=== PATIENT | male | born 1945 | race Caucasian/White ===

== ENCOUNTER → 2017-01-05 | Outpatient (CLI) | payer OTHER, MEDICARE ==
[~2017-01-05] MED LIST: AMOX500T3 PO; ASPI325T39 PO; ATOR-14 PO; CHOL200010 PO; COEN100C3 PO; CRAN500C2 PO; CYAN100020 PO; CYCL5TAB PO; FBR PO; FRRS300 PO; GLIM4TAB PO; HYDR-4383 PO; INSU1.2I SC; INSU100I2 SC; ISOS60TA25 PO; LEVO150T9 PO; LPR25 PO; LXP10 PO; MELO15TA4 PO; METF500T5 PO; MISCTAB88 PO; MULT-506 PO; NRV/5 PO; NTRGSL/4 UT; NYSS/ PO; OXYC-609 PO; PANT40TA2 PO; PLQ200 PO; PRD/1 PO; PRED-301 PO; SUCR1TAB PO; ZINC50TA3 PO
[2017-01-05 12:43] LABS: URINE APPEARANCE CLEAR (CLEAR); URINE BILIRUBIN NEG (NEG); URINE COLOR YELLOW; URINE EPITHELIAL CELL AUTO 0-5 /lpf (0-5); URINE NITRITE NEG (NEG); UROBILINOGEN NEG (NEG)
[2017-01-05 12:47] LABS: BASO % 2.2 %; BASO ABS # 0.11 K/uL (0-0.2); COMPLETE YES; EOS % 4.6 %; HEMATOCRIT 42.6 % (42-52); IG% 0.2 %; LYMPH % 30.6 %; LYMPH ABS # 1.52 K/uL (1.2-3.4); MEAN CELL VOLUME 87.3 fL (80-100); MEAN CORPUSCULAR HEMOGLOBIN 28.7 pg (25-34); MEAN CORPUSCULAR HGB CONC 32.9 g/dl (32-36); MEAN PLATELET VOLUME 11.7 fL (7.4-10.4); MONO % 9.7 %; NEUT % 52.7 %; PLATELET COUNT 200 K/uL (130-400); RED BLOOD COUNT 4.88 M/uL (4.7-6.1); WHITE BLOOD COUNT 4.96 K/uL (4.8-10.8)
[2017-01-05 12:54] LABS: MANUAL MICROSCOPIC REQUIRED? NO; REVIEW REQ? NO
[2017-01-05 13:01] LABS: ALT/SGPT 32 U/L (12-78)
[2017-01-05 13:12] LABS: ALKALINE PHOSPHATASE 63 U/L (45-117); AST/SGOT 20 U/L (15-37)
[2017-01-05 14:08] LABS: ESTIMATED AVERAGE GLUCOSE 157 mg/dl; HA1C FLAG Normal (Normal)
[2017-01-05 14:48] LABS: RATIO 137.4 mcg/mg (0-30.0)
[2017-01-10 02:35] LABS: ANTI-CENTROMERE AB <1.0 NEG AI (<1.0 NEG); ANTI-SS-A <1.0 NEG AI (<1.0 NEG); ANTI-SS-B <1.0 NEG AI (<1.0 NEG); DNA ds CRITHIDIA POSITIVE (NEGATIVE); Sm Antibody <1.0 NEG AI (<1.0 NEG)
== END | disposition home or self-care (01) ==
LOC: C.LABPBG 08:31
PROVIDERS: ATTEND Internal Medicine
DX: Z00.00 Encounter for general adult medical examination without abnormal findings (principal); E03.9 Hypothyroidism, unspecified; R76.8 Other specified abnormal immunological findings in serum; M51.36 Other intervertebral disc degeneration, lumbar region; M79.671 Pain in right foot; Z79.52 Long term (current) use of systemic steroids; Z79.899 Other long term (current) drug therapy; M32.9 Systemic lupus erythematosus, unspecified; I10 Essential (primary) hypertension; E11.65 Type 2 diabetes mellitus with hyperglycemia

== ENCOUNTER → 2017-01-14 | Outpatient (CLI) | payer OTHER, MEDICARE ==
--- NOTE | 2017-01-14 15:19 | DIAGNOSTIC IMAGING REPORT ---
TWO VIEW CHEST CLINICAL HISTORY: Dyspnea. FINDINGS: PA and lateral chest radiographs are compared to study dated 12/23/2014 and correlated with chest CT dated 05/14/2008. The examination is degraded by large body habitus. The patient is status post midline sternotomy and aortic valve replacement. The heart is enlarged and there is atherosclerotic calcification of the thoracic aorta. Chronic interstitial thickening is unchanged. There is no airspace consolidation or large pleural effusion. There is no pneumothorax. The skeletal structures are osteopenic. The bony thorax appears intact. Degenerative change and hyperkyphosis are noted throughout the thoracic spine. Cholecystectomy clips are seen in the right upper quadrant. IMPRESSION: Cardiomegaly with no active disease in the chest. Electronically signed by: Rian Mcdonald M.D. 01/14/2017 3:17 PM Dictated Date/Time: 01/14/2017 3:16 PM
== END | disposition home or self-care (01) ==
LOC: C.RAD1850 14:50
PROVIDERS: ATTEND Physician Assistant Medical
DX: R06.02 Shortness of breath (principal); I51.7 Cardiomegaly

== ENCOUNTER → 2017-02-02 | Outpatient (CLI) | payer OTHER, MEDICARE ==
[2017-02-02 16:23] LABS: LYME DISEASE AB IGG NEG (NEG); LYME DISEASE AB IGM NEG (NEG)
== END | disposition home or self-care (01) ==
LOC: C.LAB1850 14:08
PROVIDERS: ATTEND Internal Medicine
DX: M19.90 Unspecified osteoarthritis, unspecified site (principal)

== ENCOUNTER → 2017-03-14 | Day surgery (SDC) | payer OTHER, MEDICARE ==
[2017-03-04 08:13] VITALS: BMI 45.0
[~2017-03-14] VITALS: Ht 185.4 cm; Wt 156.4 kg
[~2017-03-14] MED LIST changes: +ATROPINE SULFATE 0.1 MG/ML 5ML SYR IV PRN; +EpHEDrine SULFATE INJ 50 MG/ML AMP IV PRN; -FBR PO; -GLIM4TAB PO; +LIDOCAINE HCL 2% 2 ML VIAL (20MG/ML) ONE; +MIDAZOLAM HCL 1 MG/ML 2ML VIAL ONE; -NYSS/ PO; -PRED-301 PO; +PROPOFOL IV EMULSION 10 MG/ML 20 ML VIAL IV ONE; +SODIUM CHLORIDE 0.9% 500ML 500 ML IV ONE; -ZINC50TA3 PO
[2017-03-14 07:51] VITALS: Ht 185.4 cm; Wt 156.4 kg
[2017-03-14 08:12] VITALS: TEMP 37
--- NOTE | 2017-03-14 08:32 | Endo History and Physical ---
History & Physical Date of Service: Mar 14, 2017. Chief Complaint: History of colon polyps Referring Physician: Dr. Barros History of Present Illness 72 yo CM who presents for colonoscopy secondary to history of colon polyps. Past Medical History Diabetes, Arthritis, Reflux, Heart Disease, Thyroid Disease, Depression Past Surgical History Hx Cardiac Surgery: Yes (HEART CATH, NO STENTS - AORTIC VALVE REPLACEMENT 2012) Hx Internal Defibrillator: No Hx Pacemaker: No Hx Abdominal Surgery: Yes (OPEN ZENAIDA, COLONOSCOPY) Hx of Implantable Prosthesis: No Hx Post-Op Nausea and Vomiting: No Hx Cancer Surgery: No Hx Thoracic Surgery: No Hx Orthopedic: No Hx Urinary Tract Surgery: No Family History None Social History Smoking Status: Former Smoker Hx Substance Use: Yes (SEE MED REC) Hx Alcohol Use: No Allergies Coded Allergies: Bacitracin (Verified Allergy, Unknown, Skin Irritation, 03/14/17) Erythromycin (Verified Allergy, Unknown, HIVES/HIVES, 03/14/17) Iodinated Diagnostic Agents (Verified Allergy, Unknown, SEVERE NAUSEA/ VOMITING, 03/14/17) Morphine (Verified Allergy, Unknown, severe n/v, 03/14/17) Neomycin (Verified Allergy, Unknown, Skin Irritation, 03/14/17) Polymyxin B (Verified Allergy, Unknown, Skin Irritation, 03/14/17) Macrolides (Verified Adverse Reaction, Mild, CHILLS, HEADACHE, "MADE HIM SICK", 03/14/17) Amoxicillin (Verified Adverse Reaction, Unknown, CHILLS, HEADACHE, "MADE HIM SICK", 03/14/17) Clavulanic Acid (Verified Adverse Reaction, Unknown, CHILLS, HEADACHE, "MADE HIM SICK", 03/14/17) Sulfamethoxazole w/Trimethoprim (Verified Adverse Reaction, Unknown, CHILLS, HEADACHE, "MADE HIM SICK", 03/14/17) Current Medications Reported Home Medications Medications Dose Route/Sig Max Daily Dose Days Date Category Dose Instructions Toujeo Solostar (Insulin Glargine) 300 Unit/Ml Inj 50 Units SC HS 03/04/17 Reported Humalog Kwikpen (Insulin Lispro (Human)) 100 Unit/Ml Inj 1 Dose SC QPM 03/04/17 Reported PER SLIDING SCALE BEFORE EVENING MEAL Prednisone 1 Mg Tab 3 Mg PO QAM 03/04/17 Reported Sucralfate 1 Gm Tab 1 Gm PO UD PRN 03/03/16 Reported MIX WITH 15 ML OF WATER 30 MINUTES BEFORE MEALS AND BEDTIME IF NEEDED. Vitamin D (Cholecalciferol) 2,000 Unit Cap 2,000 Inter.unit PO QAM 03/03/16 Reported TAKE ONE CAP ON ODD NUMBER DAYS TAKE 2 CAP ON EVEN DAYS Cranberry (Cranberry (Vaccinium Macrocarp) 500 Mg Cap 500 Mg PO DAILY 03/03/16 Reported Vitamin B12 (Cyanocobalamin) 1,000 Mcg Tab 2,000 Mcg PO QPM 03/03/16 Reported Levothyroxine Sodium 150 Mcg Tab 150 Mcg PO QAM 03/03/16 Reported Amoxil (Amoxicillin) 500 Mg Tab 2,000 Mg PO UD PRN 03/03/16 Reported TAKE 4 TABLETS ONE HOUR BEFORE PROCEDURES Nitrostat (Nitroglycerin) 0.4 Mg Tab 0.4 Mg UT UD PRN 03/03/[address] ONE TABLET UNDER THE TONGUE EVERY 5 MINUTES FOR UP TO 3 DOSES IF NEEDED FOR CHEST PAIN. Oxycodone HCl 5 Mg Tab 5 Mg PO Q8 PRN 03/03/16 Reported Pantoprazole Sodium (Pantoprazole) 40 Mg Tab 40 Mg PO BID 03/03/16 Reported Meloxicam 15 Mg Tab 15 Mg PO QAM 03/03/16 Reported Lopressor (Metoprolol Tartrate) 25 Mg Tab 25 Mg PO Q8 03/03/16 Reported Hydroxychloroquine Sulfat (Hydroxychloroquine Sulfate) 200 Mg Tab 200 Mg PO QAM 03/03/16 Reported Escitalopram Oxalate 10 Mg Tab 10 Mg PO QPM 03/03/16 Reported Amlodipine Besylate 5 Mg Tab 5 Mg PO QAM 03/03/16 Reported [place] 10/325 Tab (Acetaminophen/Hydrocodone Bitart) 1 Tab Tab 1 Tab PO Q6H PRN 09/04/14 Reported Ferrous Sulfate 325 Mg Tab 325 Mg PO QAM 09/04/14 Reported Glucophage Er (Metformin HCl) 500 Mg Tab 1,000 Mg PO BID 09/04/14 Reported Aspirin Ec (Aspirin) 325 Mg Tab 325 Mg PO QPM 02/15/14 Reported Flexeril (Cyclobenzaprine Hcl) 5 Mg Tab 5 Mg PO TID PRN 10/24/13 Reported Osteo Bi-Flex Triple Stre (Misc Natural Products) 1 Tab Tab 1 Tab PO QAM 02/19/13 Reported Co Q-10 (Coenzyme Q10 (Ubidecarenone)) 100 Mg Cap 100 Mg PO QPM 12/12/12 Reported Lipitor (Atorvastatin) 10 Mg Tab 10 Mg PO 2XWK 05/19/12 Reported TAKE THIS MEDICATION EVERY TUESDAY AND TUESDAY Imdur Ext Rel (Isosorbide Mononitrate) 60 Mg Ertab 60 Mg PO QAM 05/03/08 Reported Multivitamin (Multivitamins) Tab 1 Tab PO QPM 04/03/08 Reported Vital Signs Weight (Kilograms): 156.36 Height (Feet): 6 Height (Inches): 1 Date Time Temp Pulse Resp B/P (MAP) Pulse Ox O2 Delivery O2 Flow Rate FiO2 03/14/17 08:12 37.0 64 18 158/86 (110) 96 Room Air Physical Exam General Appearance: WD/WN, no apparent distress Respiratory/Chest: Auscultation: breath sounds normal Cardiovascular: Heart Auscultation: RRR Abdomen: Bowel Sounds: normal Inspection & Palpation: soft, non-distended, no tenderness, guarding & rebound Assessment and Plan Assessment: 72 yo CM who presents for colonoscopy secondary to history of colon polyps. Plan: Proceed with colonoscopy.
--- NOTE | 2017-03-14 09:10 | Discharge Instructions ---
Endoscopy Patient Instructions Date / Procedure(s) Performed Mar 14, 2017. Colonoscopy Allergy Information Coded Allergies: Bacitracin (Verified Allergy, Unknown, Skin Irritation, 03/14/17) Erythromycin (Verified Allergy, Unknown, HIVES/HIVES, 03/14/17) Iodinated Diagnostic Agents (Verified Allergy, Unknown, SEVERE NAUSEA/ VOMITING, 03/14/17) Morphine (Verified Allergy, Unknown, severe n/v, 03/14/17) Neomycin (Verified Allergy, Unknown, Skin Irritation, 03/14/17) Polymyxin B (Verified Allergy, Unknown, Skin Irritation, 03/14/17) Macrolides (Verified Adverse Reaction, Mild, CHILLS, HEADACHE, "MADE HIM SICK", 03/14/17) Amoxicillin (Verified Adverse Reaction, Unknown, CHILLS, HEADACHE, "MADE HIM SICK", 03/14/17) Clavulanic Acid (Verified Adverse Reaction, Unknown, CHILLS, HEADACHE, "MADE HIM SICK", 03/14/17) Sulfamethoxazole w/Trimethoprim (Verified Adverse Reaction, Unknown, CHILLS, HEADACHE, "MADE HIM SICK", 03/14/17) Discharge Date / Findings Mar 14, 2017. Internal hemorrhoids Medication Instructions Stopped Medication(s): metformin and asa Reported Home Medications Medications Dose Route/Sig Max Daily Dose Days Date Category Dose Instructions Toujeo Solostar (Insulin Glargine) 300 Unit/Ml Inj 50 Units SC HS 03/04/17 Reported Humalog Kwikpen (Insulin Lispro (Human)) 100 Unit/Ml Inj 1 Dose SC QPM 03/04/17 Reported PER SLIDING SCALE BEFORE EVENING MEAL Prednisone 1 Mg Tab 3 Mg PO QAM 03/04/17 Reported Sucralfate 1 Gm Tab 1 Gm PO UD PRN 03/03/16 Reported MIX WITH 15 ML OF WATER 30 MINUTES BEFORE MEALS AND BEDTIME IF NEEDED. Vitamin D (Cholecalciferol) 2,000 Unit Cap 2,000 Inter.unit PO QAM 03/03/16 Reported TAKE ONE CAP ON ODD NUMBER DAYS TAKE 2 CAP ON EVEN DAYS Cranberry (Cranberry (Vaccinium Macrocarp) 500 Mg Cap 500 Mg PO DAILY 03/03/16 Reported Vitamin B12 (Cyanocobalamin) 1,000 Mcg Tab 2,000 Mcg PO QPM 03/03/16 Reported Levothyroxine Sodium 150 Mcg Tab 150 Mcg PO QAM 03/03/16 Reported Amoxil (Amoxicillin) 500 Mg Tab 2,000 Mg PO UD PRN 03/03/16 Reported TAKE 4 TABLETS ONE HOUR BEFORE PROCEDURES Nitrostat (Nitroglycerin) 0.4 Mg Tab 0.4 Mg UT UD PRN 03/03/[address] ONE TABLET UNDER THE TONGUE EVERY 5 MINUTES FOR UP TO 3 DOSES IF NEEDED FOR CHEST PAIN. Oxycodone HCl 5 Mg Tab 5 Mg PO Q8 PRN 03/03/16 Reported Pantoprazole Sodium (Pantoprazole) 40 Mg Tab 40 Mg PO BID 03/03/16 Reported Meloxicam 15 Mg Tab 15 Mg PO QAM 03/03/16 Reported Lopressor (Metoprolol Tartrate) 25 Mg Tab 25 Mg PO Q8 03/03/16 Reported Hydroxychloroquine Sulfat (Hydroxychloroquine Sulfate) 200 Mg Tab 200 Mg PO QAM 03/03/16 Reported Escitalopram Oxalate 10 Mg Tab 10 Mg PO QPM 03/03/16 Reported Amlodipine Besylate 5 Mg Tab 5 Mg PO QAM 03/03/16 Reported [place] 10/325 Tab (Acetaminophen/Hydrocodone Bitart) 1 Tab Tab 1 Tab PO Q6H PRN 09/04/14 Reported Ferrous Sulfate 325 Mg Tab 325 Mg PO QAM 09/04/14 Reported Glucophage Er (Metformin HCl) 500 Mg Tab 1,000 Mg PO BID 09/04/14 Reported Aspirin Ec (Aspirin) 325 Mg Tab 325 Mg PO QPM 02/15/14 Reported Flexeril (Cyclobenzaprine Hcl) 5 Mg Tab 5 Mg PO TID PRN 10/24/13 Reported Osteo Bi-Flex Triple Stre (Misc Natural Products) 1 Tab Tab 1 Tab PO QAM 02/19/13 Reported Co Q-10 (Coenzyme Q10 (Ubidecarenone)) 100 Mg Cap 100 Mg PO QPM 12/12/12 Reported Lipitor (Atorvastatin) 10 Mg Tab 10 Mg PO 2XWK 05/19/12 Reported TAKE THIS MEDICATION EVERY TUESDAY AND TUESDAY Imdur Ext Rel (Isosorbide Mononitrate) 60 Mg Ertab 60 Mg PO QAM 05/03/08 Reported Multivitamin (Multivitamins) Tab 1 Tab PO QPM 04/03/08 Reported OK to resume all medications today as prescribed Provider Instructions Activity Restrictions - No exercising or heavy lifting for 24 hours. - Do not drink alcohol the day of the procedure. - Do not drive a car or operate machinery until the day after the procedure. - Do not make any important decisions or sign important papers in 24 hours after the procedure. Following Day: - Return to full activity which may include returning to work/school. Diet Start your diet with liquids and light foods (jello, soup, juice, toast). Then eat your usual diet if not nauseated. Treatment For Common After Affects For mild abdominal pain, bloating, or excessive gas: - Rest - Eat lightly - Lie on right side Follow-Up Information Follow-up with dr. lakhani as scheduled Anesthesia Information What You Should Know You have had a procedure that required some medicine to reduce anxiety and discomfort. This treatment is called moderate sedation. After receiving the treatment, you may be sleepy, but you will be able to breathe on your own. The effects of the treatment may last for several hours. Follow these instructions along with Activity/Diet recommendations noted above: * Do NOT do anything where dizziness or clumsiness would be dangerous. * Rest quietly at home today, then you can be up and about tomorrow. * Have a responsible person stay with you the rest of today. * You may have had an I.V. today. If so, you may take the dressing off later today. Recommendations Call your doctor if: * Trouble breathing * Continuous vomiting for more than 24 hours * Temperature above 101 degrees * Severe abdominal pain or bloating * Pain not relieved by pain medicine ordered * There is increased drainage or redness from any incision * A large amount of rectal bleeding greater than 2-3 tablespoons. (If you had a polyp/s removed or have hemorrhoids, a small amount of blood - from the rectum is to be expected.) * You have any unanswered questions or concerns. IN THE EVENT OF A SERIOUS EMERGENCY, GO TO THE NEAREST EMERGENCY ROOM Your discharge instructions were prepared by provider Sebastien Arnett. Patient Instructions Signature Page Uri Zepeda Patient (or Guardian) Signature/Date: I have read and understand the instructions given to me by my caregivers. Caregiver/RN/Doctor Signature/Date: The above-named patient and/or guardian has received patient instructions on this date. + Original Patient Signature Page (only) stays with chart. Please make copy for patient.
--- NOTE | 2017-03-14 09:24 | Anesthesiology Progress Note ---
Anesthesia Post Op Note Date & Time Mar 14, 2017 at 09:24 Vital Signs Pain Intensity: 4 Vital Signs Past 12 Hours Date Time Temp Pulse Resp B/P (MAP) Pulse Ox O2 Delivery O2 Flow Rate FiO2 03/14/17 08:12 37.0 64 18 158/86 (110) 96 Room Air Notes Mental Status: alert / awake / arousable, participated in evaluation Pt Amnestic to Procedure: Yes Nausea / Vomiting: adequately controlled Pain: adequately controlled Airway Patency, RR, SpO2: stable & adequate BP & HR: stable & adequate Hydration State: stable & adequate Anesthetic Complications: no major complications apparent
[2017-03-14 09:37] VITALS: BP 174/82; PULSE 65; O2SAT 95
--- NOTE | 2017-03-14 09:46 | GI REPORT ---
Procedure Date: 03/14/2017 8:22 AM Procedure: Colonoscopy Indications: High risk colon cancer surveillance: Personal history of colonic polyps Medicines: Monitored Anesthesia Care Complications: No immediate complications. Estimated Blood Loss: Estimated blood loss: none. Procedure: Pre-Anesthesia Assessment: - Prior to the procedure, a History and Physical was performed, and patient medications and allergies were reviewed. The patient's tolerance of previous anesthesia was also reviewed. The risks and benefits of the procedure and the sedation options and risks were discussed with the patient. All questions were answered, and informed consent was obtained. Prior Anticoagulants: The patient has taken aspirin, last dose was 2 days prior to procedure. ASA Grade Assessment: IV - A patient with severe systemic disease that is a constant threat to life. After reviewing the risks and benefits, the patient was deemed in satisfactory condition to undergo the procedure. After I obtained informed consent, the scope was passed under direct vision. Throughout the procedure, the patient's blood pressure, pulse, and oxygen saturations were monitored continuously. The scope was introduced through the anus and advanced to the cecum, identified by appendiceal orifice and ileocecal valve. The colonoscopy was performed without difficulty. The patient tolerated the procedure well. The quality of the bowel preparation was good. The ileocecal valve, appendiceal orifice, and rectum were photographed. Findings: A tattoo was seen in the ascending colon. A post-polypectomy scar was found at the tattoo site. Non-bleeding internal hemorrhoids were found during retroflexion. The hemorrhoids were small. Impression: - A tattoo was seen in the ascending colon. A post-polypectomy scar was found at the tattoo site. - Non-bleeding internal hemorrhoids. - No specimens collected. Recommendation: - Resume previous diet. - Continue present medications. - Repeat colonoscopy in 5 years for surveillance. - Return to primary care physician as previously scheduled. Sebastien Arnett DO 03/14/2017 9:16:19 AM This report has been signed electronically. Note Initiated On: 03/14/2017 8:22 AM I attest to the content of the Intraoperative Record and orders documented therein, exceptions below
== END | disposition home or self-care (01) ==
LOC: C.GI 07:23
PROVIDERS: ATTEND Internal Medicine
DX: Z12.11 Encounter for screening for malignant neoplasm of colon (principal); Z86.010 Personal history of colon polyps; K64.8 Other hemorrhoids; M19.90 Unspecified osteoarthritis, unspecified site; K21.9 Gastro-esophageal reflux disease without esophagitis; I51.9 Heart disease, unspecified; E07.9 Disorder of thyroid, unspecified; F32.9 Major depressive disorder, single episode, unspecified; Z95.2 Presence of prosthetic heart valve; Z87.891 Personal history of nicotine dependence; Z79.4 Long term (current) use of insulin; Z79.899 Other long term (current) drug therapy; Z79.82 Long term (current) use of aspirin

== ENCOUNTER → 2017-03-19 | Outpatient (CLI) | payer OTHER, MEDICARE ==
[~2017-03-19] MED LIST changes: -ATROPINE SULFATE 0.1 MG/ML 5ML SYR IV PRN; -EpHEDrine SULFATE INJ 50 MG/ML AMP IV PRN; -LIDOCAINE HCL 2% 2 ML VIAL (20MG/ML) ONE; -MIDAZOLAM HCL 1 MG/ML 2ML VIAL ONE; -PANT40TA2 PO; -PROPOFOL IV EMULSION 10 MG/ML 20 ML VIAL IV ONE; +PRT/40 PO; -SODIUM CHLORIDE 0.9% 500ML 500 ML IV ONE
--- NOTE | 2017-03-20 06:13 | PAP/PSG TECHNICIAN REPORT ---
[facility] Sisal Operator Polysomnogram Report Study name: None Report date: 03/20/2017 Study date: 03/19/2017 Referring Physician: Phan Whitt M.D. Name: KIM GREEN Interpreting Physician: Phan Whitt M.D. Date of : 1945 Sisal Operator: Migdalia Jacobo RPSGT. Sex: Male Age: 72 StudyType: PSG Weight: 343 lbs Height: 72 years, Height 6' 1" Neck Circum: 17.5 inches BMI: 45.25 Medications: Amlodipine 5 mf, Aspirin 325 mg, Atorvastatin 10 mg, CoQ10, Cranberry, B12, Cyclobenzaprine 5 mg, Escitalopram 10 mg, Ferrous Sulfate 325 mg, Hydrocodone-Acetaminophen 10-325 mg, Hydroxychloroquine Sulfate 200 mg, Isosorbide Mononitrate ER 60 mg, Levothyroxine Sodium 150 MCG, Meloxicam 15 mg, Metformin 500 mg, Metoprolol Tartrate 25 mg, Nitrostat 0.4 mg, Osteo Bi-Flex, Oxycodone 5 mg, Pantoprazole Sodium 40 mg, Prednisone 1 mg, Vitamin D 2000 units Patient History 72 yr. old male here for an updated Bi-PAP titration sleep study. Patient has not used BiPAP regularly since his heart valve replacement in 2012 , when he tried to use he having difficulty with the mask sealing. Patients [place] Sleepiness Scale Score is 8/24. Parameters Monitored NPSG: E1-M2, E2-M1, Fp1-M2, Fp2-M1, F3-M2, F4-M2, F4-M1, C3-M2, C4-M2, C4-M1, O1-M2, O2-M2, O2-M1, T3-M2, T4-M1, P3-M2, P4-M1, CHIN1, CHIN2, HR, EKG, Legs, PFLOW, SNOR, FLOW, CFLOW, Tidal Volume, THOR, ABDO, SpO2, PLTH, CPRESS, ETCO2 Wave, ETCO2, pH Sleep Architecture Sleep Stages Time at Lights Off 9:37:08 PM STAGES Time (min.) TST (%) Time at Lights On 5:20:08 AM Wake 213.0 -- Total Recording Time (TRT) 463.00 min. N1 72.0 29 Total Sleep Period (TSP) 428.5 min. N2 121.0 48 Total Sleep Time (TST) 250.0min. N3 24.0 10 Awake Time 213.0 min. REM 33.0 13 Wake after Sleep Onset 191.5 min. Sleep Efficiency (SE) 54 % Sleep Onset Latency (YOLANDA) 21.5 min. Number of Stage 1 Shifts None Awakenings 29 Stage Changes 100 Number of REM periods 2 REM 33.0 13 REM Latency 146.5 min. NREM 217.0 87 Body Position Analysis Supine Right Left Side Prone Vertical Total Sleep Time (min.) 0.0 0.0 0.0 0.00 0.0 463.0 Total Sleep Time (%) 0% 0% 0% 0 0% 100% Total Sleep Time REM (min.) 0.0 0.0 0.0 None 0.0 33.0 Total Sleep Time NREM (min.) 0.0 0.0 0.0 None 0.0 217.0 Intermittent Wake (min.) 0.0 0.0 0.0 None 0.0 213.0 Total Sleep Period (%) 0% None None None None None Arousals Myoclonus (PLM) * Events Count Index Events Count Index Spontaneous 26 6 Events Awake (PLMW) 175 49.3 Respiratory 9 2.4 Events Asleep w/ Arousal (PLMA) 37 8.9 PLM 37 9 Events Asleep w/o Arousal (PLMS) 176 42.2 Snoring 11 3 Total Asleep 213 51.1 Total 83 20 Total 388 50 Respiratory Analysis * CA OA MA CH H RERA Total Count 0 2 0 0 24 4 26 Index 0.0 0.5 0.0 0 5.8 1 7.2 Mean Duration 0.0 14.7 0.0 0.00 27.2 16.6 25.0 Longest Duration 0.0 15.7 0.0 0.00 0.0 22.2 47.7 Respiratory Event Summary Total Supine ~Supine Right Left Prone REM NREM Apneas Count 2 N/A 2 N/A N/A N/A 0 2 Index 0.5 N/A 0 N/A N/A N/A 0 1 Hypopneas (4% Desat) Count 24 N/A 24 N/A N/A N/A 2 22 Index 5.8 N/A 6 N/A N/A N/A 3.6 6.1 Apneas & All Hypopneas Count 26 N/A 26 N/A N/A N/A 2 24 Index 6.2 N/A 6 N/A N/A N/A 3.6 6.6 Respiratory Events ([place] Carrier+All Hyp+RERA) Count 26 N/A 30 N/A N/A N/A 2 24 Index 7.2 N/A 7 N/A N/A N/A 3.6 7.7 Respiratory Related Arousal Count 9 N/A 10 N/A N/A N/A 1 9 Index 2.4 N/A 2 N/A N/A N/A 2 2 Snoring Analysis Supine Right Left Prone REM NREM Total Snore duration 0.7 min Snores count N/A N/A N/A N/A 2 23 25 Snore mean duration 1.6 Sec Snores index N/A N/A N/A N/A 3.6 6.4 6.0 TST with snoring (%) 0.3% Desaturation Event Summary: Minimum %SpO2 Event Count Mean/Min/Max Duration(sec.) Desaturation Index % Time In Bed > 90 39 27.5 / 8.5 / 51.3 5.8 93.2 86 - 90 0 N/A 0.0 6.8 81 - 85 0 N/A 0.0 0.0 76 - 80 0 N/A 0.0 0.0 71 - 75 0 N/A 0.0 0.0 66 - 70 0 N/A 0.0 0.0 61 - 65 0 N/A 0.0 0.0 56 - 60 0 N/A 0.0 0.0 51 - 55 0 N/A 0.0 0.0 < 50 0 N/A 0.0 0.0 Total REM NREM Awake <50% 0.0 min. 0.0 min. 0.0 min. 0.0 min. 51 - 60% 0.0 min. 0.0 min. 0.0 min. 0.0 min. 61 - 70% 0.0 min. 0.0 min. 0.0 min. 0.0 min. 71 - 80% 0.0 min. 0.0 min. 0.0 min. 0.0 min. 81 - 90% 29.4 min. 5.1 min. 22.5 min. 1.8 min. 91 - 100% 401.6 min. 27.9 min. 194.5 min. 179.2 min. Average 93 91 92 95 Minimum SpO2 83 89 87 83 Desaturation Event Index 5.1 5.5 9.7 0.8 # Desat. Events below 89% 3 N/A 3 N/A Time(%) with Saturation below 89% 0.2 0.0 0.1 0.1 Time(min.) with Saturation below 89% 0.9 0.0 0.4 0.5 Time (mins) REM (mins) NREM (mins) % of TST SpO2 Below 90% 27 2 N25 1.1 SpO2 Below 88% 1 0 0 0 Heart Rate Analysis Min (bpm) Max (bpm) Average (bpm) Awake 62 167 76 NREM 59 82 69 REM 60 75 67 Overall 59 82 69 Supplemental O2 Values Minimum O2 level: None Value Start Time End Time Sisal Operator Comments Mr Hilliard slept in the upright position, starting in the recliner and moving the bed with the head and feet elevated. No cardiac arrhythmia. PLMs noted. No bruxism noted. PAP initiated at an IPAP of +8 CMH2O and an EPAP of +4 CMH2O up-titrated to a l level of: IPAP + 13 CMH2O, EPAP +5 CMH20 BiFlex 2 , which nearly eliminated all respiratory events and snoring. A medium [employer] Simplus full face mask was used during titration. Mr. Green awoke to use the restroom 2 times during the night, and needed to walk around because of pain. Mr. Green stated, that mask worked well. The final report will be interpreted and signed by a sleep physician. The completed physician report will then be placed in the patient medical record. Therapy Event: Therapy (cm H20) 04/22 9/4 06/22 11/4 12/4 13/5 14/6 Total Time at Pressure (min.) 173.7 102.6 44.4 6.0 20.1 94.3 21.9 TST at Pressure (min.) 65.7 31.1 27.9 6.0 20.1 90.3 8.9 # Periods 1 1 1 1 1 1 1 Sleep Onset (min.) 21.5 0.0 0.0 0.0 0.0 0.0 0.0 REM Onset (min.) 168.0 N/A N/A N/A N/A 55.7 N/A Sleep Efficiency % 37 30 62 100 100 95 40 Wakefulness (%) 62.2 69.7 37.2 0.0 0.0 4.2 59.3 Wakefulness (min.) 108.0 71.5 16.5 0.0 0.0 4.0 13.0 NREM 1 (%) 9.9 24.4 43.4 0.0 5.0 7.5 11.0 NREM 1 (min.) 17.2 25.1 19.2 0.0 1.0 7.1 2.4 NREM 2 (%) 24.2 5.8 19.4 100.0 85.1 36.8 29.7 NREM 2 (min.) 42.0 6.0 8.6 6.0 17.1 34.7 6.5 NREM 3 (%) 2.0 0.0 0.0 0.0 9.9 19.6 0.0 NREM 3 (min.) 3.5 0.0 0.0 0.0 2.0 18.5 0.0 REM (%) 1.7 0.0 0.0 0.0 0.0 31.8 0.0 REM (min.) 3.0 0.0 0.0 0.0 0.0 30.0 0.0 # Arousals 13 14 10 0 14 27 5 Arousal Index 11.9 27.0 21.5 0.0 41.8 17.9 33.6 # Snore 0 2 1 0 2 15 5 Snore Index 0.0 3.9 2.2 0.0 6.0 10.0 33.6 AHI 1.8 13.5 17.2 9.9 17.9 1.3 0.0 AHI Supine N/A N/A N/A N/A N/A N/A N/A AHI Non-Supine 1.8 13.5 17.2 9.9 17.9 1.3 0.0 NREM AHI 0.0 13.5 17.2 9.9 17.9 2.0 0.0 REM AHI 40.0 N/A N/A N/A N/A 0.0 N/A RDI 1.8 13.5 17.2 9.9 17.9 4.0 0.0 # Obstructive 0 0 0 0 1 1 0 # Central Ap 0 0 0 0 0 0 0 # Mixed 0 0 0 0 0 0 0 # Hypopneas 2 7 8 1 5 1 0 RERAS 0 0 0 0 0 4 0 Total Respiratory Events 2 7 8 1 6 6 0 Time Below SpO2 89.00% (min.) 0.0 0.0 0.0 0.1 0.3 0.0 0.0 Mean NREM SpO2 (%) 93 94 93 91 91 92 94 Mean REM SpO2 (%) 93 N/A N/A N/A N/A 91 N/A Mean Sleep SpO2 (%) 93 94 93 91 91 92 94 Min NREM SpO2 (%) 90 89 89 88 87 89 91 Min REM SpO2 (%) 91 N/A N/A N/A N/A 89 N/A Position Supine (min.) 0.0 0.0 0.0 0.0 0.0 0.0 0.0 Position Non-supine (min.) 65.7 31.1 27.9 6.0 20.1 90.3 8.9 LM Index Sleep 52.1 73.4 0.0 0.0 83.5 59.1 6.7 LM Index NREM 52.6 73.4 0.0 0.0 83.5 85.5 6.7 LM Index REM 40.0 N/A N/A N/A N/A 6.0 N/A Mean Heart Rate (bpm) 69 71 69 70 71 68 64 Min Heart Rate (bpm) 64 67 63 64 64 59 61
--- NOTE | 2017-03-25 16:20 | Sleep Study ---
Sleep Study Report Date of Service: March 19, 2017 Sleep Study Report Clinical data: 72-year-old male referred for a BiPAP titration study. He does have documented sleep apnea with a baseline AHI of 34. He has been treated with BiPAP but has not used it since 2012 when he had a heart valve replacement. He was having difficulty with mask seal and leakage. His [place] sleepiness score is 8/24. Sleep architecture: Total sleep time was 250 minutes divided between 217 minutes of non-REM sleep and 33 minutes of REM sleep. Sleep onset latency was 21.5 minutes. REM latency was 146.5 minutes. Sleep efficiency was reduced at 54 percent. Wake after sleep onset was markedly elevated at 191.5 minutes. Sleep consisted of stage N1 29 percent, N2 48 percent, N3 10 percent, and REM 13 percent. Arousal data: 83 arousals were recorded for index of 20 per hour. PLM data: 213 limb movements during sleep were noted for an index of 51.1 per hour with an arousal index of 8.9 prior Respiratory data: The AHI was 6.2. There were 2 obstructive apneic episodes. The longest apnea episode was 15.7 seconds. There were 24 hypopneas. The mean duration of hypopnea was 27.2 seconds. Oximetry data: No significant nocturnal hypoxemia was seen. Oxygen darci was 87 percent during non-REM sleep. Mean saturation was 93 percent. Time below 88 percent was 1 minute. EKG: Heart rate ranged from 59 to 82 beats per minute. No arrhythmias were noted. Powerhouse Attendant's comments and treatment summary: The patient slept in the upright position starting in a recliner and then moving to a bed with his head and feet elevated. Frequent PLMS were noted. He used a medium [employer] Simplus fullface mask. He was started on BiPAP 8/4 and was titrated up to his final pressure setting of BiPAP 13/5 Bi-Flex 2. At his final pressure setting, he slept for 90 minutes with an AHI of 1.3. Impression: Severe sleep apnea corrected with BiPAP 13/5, Bi-Flex 2. Recommendations: The patient should be started on BiPAP at the above pressure settings. He should be seen back in follow-up within 90 days to document efficacy and compliance. Copies To 1: Sharif Barros M.D.; Yani Rangel PA-C
== END | disposition home or self-care (01) ==
LOC: C.NEUR 20:00
PROVIDERS: ATTEND Internal Medicine Pulmonary Disease
DX: G47.33 Obstructive sleep apnea (adult) (pediatric) (principal); E66.01 Morbid (severe) obesity due to excess calories; Z68.41 Body mass index [BMI] 40.0-44.9, adult; I48.92 Unspecified atrial flutter; R06.02 Shortness of breath

== ENCOUNTER → 2017-05-05 | Outpatient (CLI) | payer OTHER, MEDICARE ==
--- NOTE | 2017-05-05 12:40 | DIAGNOSTIC IMAGING REPORT ---
(RENAL)RETROPERITON COMP HISTORY: Renal nodule KIDNEY CYST; RENAL LESION COMPARISON: 04/01/2015. CT abdomen dated 03/08/2016 FINDINGS: Right kidney: Near nondiagnostic study technically due to patient body habitus. Maximum dimension 11.6 cm. Possible 6 mm nonobstructing lower pole calcification. Normal corticomedullary differentiation and cortical thickness. Left kidney: Near nondiagnostic study technically. Possible mid pole cyst measuring 1 cm. Normal corticomedullary differentiation and cortical thickness. Bladder: No bladder wall thickening. The bilateral ureteral jets were identified. IMPRESSION: Nondiagnostic study technically due to patient body habitus. Possible nonobstructing right renal calcification. No evidence for hydronephrosis. Further follow-up should be performed using CT. The above report was generated using voice recognition software. It may contain grammatical, syntax or spelling errors. Electronically signed by: Iván Neri M.D. 05/05/2017 12:39 PM Dictated Date/Time: 05/05/2017 12:36 PM
== END | disposition home or self-care (01) ==
LOC: C.ULTRBC 11:59
PROVIDERS: ATTEND Urology
DX: N28.9 Disorder of kidney and ureter, unspecified (principal)

== ENCOUNTER → 2017-05-31 | Outpatient (CLI) | payer OTHER, MEDICARE ==
[2017-05-31 17:26] LABS: BASO % 2.8 %; BASO ABS # 0.13 K/uL (0-0.2); COMPLETE YES; EOS % 5.1 %; HEMATOCRIT 39.8 % (42-52); IG% 0.2 %; LYMPH % 32.5 %; LYMPH ABS # 1.52 K/uL (1.2-3.4); MEAN CELL VOLUME 87.5 fL (80-100); MEAN CORPUSCULAR HGB CONC 33.2 g/dl (32-36); MEAN PLATELET VOLUME 11.7 fL (7.4-10.4); MONO % 11.6 %; NEUT % 47.8 %; PLATELET COUNT 202 K/uL (130-400); RED BLOOD COUNT 4.55 M/uL (4.7-6.1); WHITE BLOOD COUNT 4.67 K/uL (4.8-10.8)
[2017-05-31 17:36] LABS: URINE APPEARANCE CLEAR (CLEAR); URINE BILIRUBIN NEG (NEG); URINE COLOR YELLOW; URINE NITRITE NEG (NEG); URINE PH 5.5 (4.5-7.5); URINE SPECIFIC GRAVITY 1.019 (1.000-1.030); UROBILINOGEN NEG (NEG)
[2017-05-31 17:38] LABS: ALT/SGPT 35 U/L (12-78); BLOOD UREA NITROGEN 16 mg/dl (7-18); BUN/CREATININE RATIO 16.4 (10-20); CALCIUM 9.4 mg/dl (8.5-10.1); CARBON DIOXIDE 30 mmol/L (21-32); CHLORIDE 105 mmol/L (98-107); GLUCOSE 115 mg/dl (70-99); POTASSIUM 3.4 mmol/L (3.5-5.1); SODIUM 140 mmol/L (136-145)
[2017-05-31 17:41] LABS: ALKALINE PHOSPHATASE 66 U/L (45-117); AST/SGOT 21 U/L (15-37)
[2017-05-31 17:43] LABS: MANUAL MICROSCOPIC REQUIRED? NO; REVIEW REQ? NO
[2017-06-01 05:54] LABS: ESTIMATED AVERAGE GLUCOSE 148 mg/dl; HA1C FLAG Normal (Normal)
[2017-06-05 20:32] LABS: ANTI-CENTROMERE AB <1.0 NEG AI (<1.0 NEG); ANTI-SS-A <1.0 NEG AI (<1.0 NEG); ANTI-SS-B <1.0 NEG AI (<1.0 NEG); DNA ds CRITHIDIA NEGATIVE (NEGATIVE); Sm Antibody <1.0 NEG AI (<1.0 NEG)
== END | disposition home or self-care (01) ==
LOC: C.LABPBG 11:06
PROVIDERS: ATTEND Internal Medicine Rheumatology
DX: M25.512 Pain in left shoulder (principal); Z51.81 Encounter for therapeutic drug level monitoring; Z79.52 Long term (current) use of systemic steroids; M32.9 Systemic lupus erythematosus, unspecified; Z79.899 Other long term (current) drug therapy; E11.9 Type 2 diabetes mellitus without complications; Z79.4 Long term (current) use of insulin

== ENCOUNTER → 2017-08-29 | Outpatient (CLI) | payer OTHER, MEDICARE ==
[~2017-08-29] MED LIST changes: +PANT40TA2 PO; -PRT/40 PO
[2017-08-29 11:41] LABS: BASO % 3.5 %; BASO ABS # 0.17 K/uL (0-0.2); COMPLETE YES; EOS % 5.9 %; HEMATOCRIT 41.3 % (42-52); IG% 0.2 %; LYMPH ABS # 1.61 K/uL (1.2-3.4); MEAN CELL VOLUME 86.4 fL (80-100); MEAN CORPUSCULAR HEMOGLOBIN 29.5 pg (25-34); MEAN CORPUSCULAR HGB CONC 34.1 g/dl (32-36); MEAN PLATELET VOLUME 11.9 fL (7.4-10.4); MONO % 9.4 %; PLATELET COUNT 205 K/uL (130-400); RED BLOOD COUNT 4.78 M/uL (4.7-6.1); WHITE BLOOD COUNT 4.88 K/uL (4.8-10.8)
[2017-08-29 11:52] LABS: URINE APPEARANCE CLEAR (CLEAR); URINE BILIRUBIN NEG (NEG); URINE COLOR YELLOW; URINE EPITHELIAL CELL AUTO 0-5 /lpf (0-5); URINE NITRITE NEG (NEG); URINE PH 5.5 (4.5-7.5); URINE SPECIFIC GRAVITY 1.019 (1.000-1.030); UROBILINOGEN NEG (NEG)
[2017-08-29 11:54] LABS: ALT/SGPT 40 U/L (12-78); AST/SGOT 22 U/L (15-37); BLOOD UREA NITROGEN 17 mg/dl (7-18); BUN/CREATININE RATIO 16.6 (10-20); CALCIUM 9.4 mg/dl (8.5-10.1); CARBON DIOXIDE 29 mmol/L (21-32); CHLORIDE 103 mmol/L (98-107); CHOLESTEROL 132 mg/dl (0-200); CREATININE 1.05 mg/dl (0.60-1.40); GLUCOSE 102 mg/dl (70-99); POTASSIUM 3.3 mmol/L (3.5-5.1); SODIUM 138 mmol/L (136-145); TRIGLYCERIDES 183 mg/dl (0-150); VERY LOW DENSITY LIPOPROT CALC 37 mg/dl
[2017-08-29 11:55] LABS: MANUAL MICROSCOPIC REQUIRED? NO; REVIEW REQ? NO
[2017-08-29 12:05] LABS: ALKALINE PHOSPHATASE 70 U/L (45-117); CHOLESTEROL/HDL RATIO 3.3; HDL CHOLESTEROL 40 mg/dl; LDL CHOLESTEROL CALCULATED 55 mg/dl
[2017-08-29 12:23] LABS: ESTIMATED AVERAGE GLUCOSE 148 mg/dl; HA1C FLAG Normal (Normal)
== END | disposition home or self-care (01) ==
LOC: C.LABPBG 09:09
PROVIDERS: ATTEND Internal Medicine
DX: M16.9 Osteoarthritis of hip, unspecified (principal); Z79.52 Long term (current) use of systemic steroids; Z79.899 Other long term (current) drug therapy; M54.5 Low back pain; E78.5 Hyperlipidemia, unspecified; E11.9 Type 2 diabetes mellitus without complications; E03.9 Hypothyroidism, unspecified

== ENCOUNTER → 2017-10-28 | Outpatient (CLI) | payer OTHER, MEDICARE ==
--- NOTE | 2017-10-28 13:58 | DIAGNOSTIC IMAGING REPORT ---
CHEST 2 VIEWS ROUTINE CLINICAL HISTORY: R05 Cough COMPARISON STUDY: 01/14/2017 FINDINGS: There are postsurgical changes of a midline sternotomy and aortic valve replacement. The heart is mildly enlarged. There is no failure. There is no focal pulmonary consolidation. There are no pleural effusions.[ IMPRESSION: No active disease in the chest. Electronically signed by: Ge Rivero M.D. 10/28/2017 1:57 PM Dictated Date/Time: 10/28/2017 1:57 PM
== END | disposition home or self-care (01) ==
LOC: C.RAD 13:32
PROVIDERS: ATTEND Physician Assistant
DX: R05 Cough (principal)

== ENCOUNTER → 2017-11-22 | Outpatient (CLI) | payer OTHER, MEDICARE ==
[~2017-11-22] MED LIST changes: +MELO-83 PO; -MELO15TA4 PO
== END | disposition home or self-care (01) ==
LOC: C.LABPBG 13:46
PROVIDERS: ATTEND Internal Medicine
DX: Z20.1 Contact with and (suspected) exposure to tuberculosis (principal)

== ENCOUNTER → 2017-12-01 | Outpatient (CLI) | payer OTHER, MEDICARE | END | disposition home or self-care (01) | LOC: C.LABPBG 09:14 | PROVIDERS: ATTEND Internal Medicine Cardiovascular Disease | DX: E78.5 Hyperlipidemia, unspecified (principal) ==

== ENCOUNTER → 2017-12-01 | Outpatient (CLI) | payer OTHER, MEDICARE ==
--- NOTE | 2017-12-01 15:07 | DIAGNOSTIC IMAGING REPORT ---
R EXTREMITY NONVASCULAR LIMITED CLINICAL HISTORY: M89.8X1 Chronic scapular painright [id number] pain TECHNIQUE: Survey soft tissue ultrasound COMPARISON STUDY: None FINDINGS: Echogenicity of the subcutaneous and superficial tissues adjacent to the right scapula show no evidence for mass or collection. There is no significant edematous change. IMPRESSION: Normal study The above report was generated using voice recognition software. It may contain grammatical, syntax or spelling errors. Electronically signed by: Iván Neri M.D. 12/01/2017 3:06 PM Dictated Date/Time: 12/01/2017 3:05 PM
== END | disposition home or self-care (01) ==
LOC: C.ULTR 14:38
PROVIDERS: ATTEND Internal Medicine
DX: M89.8X1 Other specified disorders of bone, shoulder (principal)

== ENCOUNTER → 2017-12-30 | Outpatient (CLI) | payer OTHER, MEDICARE ==
[~2017-12-30] MED LIST changes: +ALBUAER INH; -AMOX500T3 PO; -ATOR-14 PO; +ATOR10TA82 PO; +GABA-112 PO; -MISCTAB88 PO; -SUCR1TAB PO
[2017-12-30 13:46] LABS: BLOOD UREA NITROGEN 13 mg/dl (7-18); CALCIUM 9.5 mg/dl (8.5-10.1); CARBON DIOXIDE 31 mmol/L (21-32); GLUCOSE 115 mg/dl (70-99); POTASSIUM 4.1 mmol/L (3.5-5.1); SODIUM 140 mmol/L (136-145)
[2017-12-30 14:03] LABS: BASO % 2.9 %; BASO ABS # 0.15 K/uL (0-0.2); EOS % 6.6 %; EOS ABS # 0.34 K/uL (0-0.5); HEMATOCRIT 40.1 % (42-52); HEMOGLOBIN 13.6 g/dL (14.0-18.0); IG# 0.01 K/uL (0.00-0.02); LYMPH % 27.5 %; LYMPH ABS # 1.41 K/uL (1.2-3.4); MEAN CELL VOLUME 85.9 fL (80-100); MEAN CORPUSCULAR HEMOGLOBIN 29.1 pg (25-34); MEAN CORPUSCULAR HGB CONC 33.9 g/dl (32-36); MEAN PLATELET VOLUME 11.5 fL (7.4-10.4); MONO % 9.7 %; NEUT % 53.1 %; NEUT ABS # 2.72 K/uL (1.4-6.5); PLATELET COUNT 223 K/uL (130-400); RED CELL DISTRIBUTION WIDTH CV 13.9 % (11.5-14.5); RED CELL DISTRIBUTION WIDTH SD 43.3 fL (36.4-46.3); WHITE BLOOD COUNT 5.13 K/uL (4.8-10.8)
[2017-12-30 14:05] LABS: HEMOGLOBIN A1C 6.9 % (4.5-5.6)
[2017-12-30 14:17] LABS: TOTAL PROTEIN 7.8 gm/dl (6.4-8.2)
[2018-01-05 18:32] LABS: ANA SCREEN TC 249X NEGATIVE (NEGATIVE); ANTI-SS-A <1.0 NEG AI (<1.0 NEG); ANTI-SS-B <1.0 NEG AI (<1.0 NEG); COMPLEMENT C3 TC 44859W 82 MG/DL (90-180); COMPLEMENT C4 TC 44982E 12 MG/DL (16-47)
== END | disposition home or self-care (01) ==
LOC: C.LABPBG 09:52
PROVIDERS: ATTEND Internal Medicine
DX: Z01.818 Encounter for other preprocedural examination (principal); Z51.81 Encounter for therapeutic drug level monitoring; Z79.52 Long term (current) use of systemic steroids; Z79.899 Other long term (current) drug therapy; M32.9 Systemic lupus erythematosus, unspecified; M54.5 Low back pain; E11.9 Type 2 diabetes mellitus without complications; R22.9 Localized swelling, mass and lump, unspecified; Z79.4 Long term (current) use of insulin

== ENCOUNTER → 2018-01-05 | Outpatient (CLI) | payer OTHER, MEDICARE ==
--- NOTE | 2018-01-05 16:24 | DIAGNOSTIC IMAGING REPORT ---
HEAD WITHOUT CONTRAST (CT) CLINICAL HISTORY: 72 years-old Male presenting with S/P FALL,DIZZINESS. TECHNIQUE: Multidetector CT imaging of the head was performed without the use of intravenous contrast. IV contrast: None. A dose lowering technique was used consistent with the principles of ALARA (as low as reasonably achievable). COMPARISON: 02/19/2013. CT DOSE (mGy.cm): The estimated cumulative dose is 1652.80 mGycm. FINDINGS: Bean Snipper topogram: Unremarkable. Ventricles and sulci normal in size. Periventricular and subcortical white matter hypoattenuation, nonspecific but likely indicative of chronic small vessel ischemic change. No mass effect or midline shift. No hemorrhage or acute territorial infarct. No extra-axial fluid collection. Paranasal sinuses and mastoid air cells clear. Calvarium intact. IMPRESSION: 1. Chronic small vessel ischemic change. No acute intracranial abnormality. Electronically signed by: Beau Celaya M.D. 01/05/2018 4:23 PM Dictated Date/Time: 01/05/2018 4:18 PM
--- NOTE | 2018-01-05 17:42 | DIAGNOSTIC IMAGING REPORT ---
CERVICAL SPINE 2 OR 3 VIEWS HISTORY: 72 years-old Male CONCUSSION acute neck pain with concussion COMPARISON: Head CT 01/05/2018 TECHNIQUE: 4 views of the cervical spine FINDINGS: Study is limited secondary to patient positioning. Moderate intervertebral disc space narrowing at C5-C6. Moderate multilevel endplate spurring and facet arthrosis without acute fracture or subluxation identified. No acute fracture or subluxation. Atherosclerotic plaquing of the carotid bulbs. Prior median sternotomy. Imaged lung apices appear clear. No prevertebral soft tissue swelling. IMPRESSION: No acute fracture or subluxation. The above report was generated using voice recognition software. It may contain grammatical, syntax or spelling errors. Electronically signed by: Loc Giraldo M.D. 01/05/2018 5:41 PM Dictated Date/Time: 01/05/2018 5:39 PM
== END | disposition home or self-care (01) ==
LOC: C.CTS 15:55
PROVIDERS: ATTEND Internal Medicine
DX: S06.0X9A Concussion with loss of consciousness of unspecified duration, initial encounter (principal); R42 Dizziness and giddiness; W19.XXXA Unspecified fall, initial encounter

== ENCOUNTER → 2018-02-06 | Day surgery (SDC) | payer OTHER, MEDICARE ==
[2017-12-28 13:00] VITALS: BMI 43.0
[2018-01-18 08:24] VITALS: BMI 43.0
[~2018-02-06] VITALS: Ht 185.4 cm; Wt 148.2 kg
[~2018-02-06] MED LIST changes: +ATROPINE SULFATE 0.1 MG/ML 5ML SYR IV PRN; +BUPIVACAINE 0.5 % 5 MG/1 ML PF 10ML VIAL ONE; +CLINDAMYCIN IV 900 MG in DEXTROSE 5% 50ML IV SCH; +EpHEDrine SULFATE INJ 50 MG/ML AMP IV PRN; +FENTANYL CITRATE INJ 50 MCG/1 ML 2 ML VIAL IV PRN; +FENTANYL CITRATE INJ 50 MCG/1 ML 2 ML VIAL ONE; +FLUMAZENIL 0.1 MG/1 ML 10 ML VIAL IV PRN; -GABA-112 PO; +HYDR-5688 PO; +HYDROCODONE/ACETAMIN 5/325MG TAB PO PRN; +KETAMINE HCL INJ 50 MG/ML 10 ML VIAL ONE; +LABETALOL HCL IV 5 MG/ML 20ML IV PRN; +LACTATED RINGER'S 1000ML 1,000 ML IV SCH; +LIDOCAINE HCL 1% 20 ML VIAL ONE; +LIDOCAINE HCL 2% 2 ML VIAL (20MG/ML) ONE; +MEPERIDINE HCL 25 MG/ML CARP IV PRN; +MIDAZOLAM HCL 1 MG/ML 2ML VIAL ONE; +NALOXONE HCL 0.4 MG/1 ML VIAL/CARP IV PRN; +ONDANSETRON INJ 2 MG/ML 2 ML VIAL IV PRN; +ONDANSETRON INJ 2 MG/ML 2 ML VIAL ONE; +PHENYLEPHRINE 100MCG/ML 5ML SYR IV PRN; +PROPOFOL IV EMULSION 10 MG/ML 20 ML VIAL ONE; +RANITIDINE HCL 25 MG/ML INJ ONE
[2018-02-06 09:25] VITALS: BP_SYST 154; BP_SYST 187; BP_DIAS 97; BP_DIAS 99; PULSE 74; TEMP 37; O2SAT 95; Ht 185.4 cm; Wt 148.2 kg
--- NOTE | 2018-02-06 11:17 | History & Physical Bridge Note ---
H&P Re-Evaluation Bridge Note: I have examined the patient, reviewed the History & Physical and in the interval since the performance of the History & Physical I have noted the following changes of clinical significance: No changes noted
--- NOTE | 2018-02-06 12:32 | [facility] Operative Report ---
Operative Report Operative Date February 06, 2018. Pre-Operative Diagnosis lipoma Post-Operative Diagnosis same Procedure(s) Performed excision Rt upper back lipoma Surgeon Daniel Vice Provost Surgeon(s) Gerard Holland Estimated Blood Loss 20 cc Findings 10 deep lipoma- adherent to muscle Specimens lipoma Drains # 15 Rd TRISTIN to wound Anesthesia Type None Complication(s) none Disposition Recovery Room / PACU I attest to the content of the Intraoperative Record and any orders documented therein. Any exceptions are noted below.
--- NOTE | 2018-02-06 12:37 | Discharge Instructions ---
Discharge Instructions Date of Service February 06, 2018. Visit Reason for Visit: Lipoma on Back, Type 2 Diabetes Discharge Discharge Diagnosis / Problem: Rt upper back lipoma Discharge Goals Goal(s): Decrease discomfort, Improve function, Improve disease control Activity Recommendations Activity Limitations: as noted below Lifting Limitations: no more than 10 pounds (for 3 weeks) Exercise/Sports Limitations: until after follow-up appointment May Resume Sexual Activity: when tolerated Shower/Bathe: tomorrow (may shower- do not soak in tub) Driving or Machine Use: 4-5 days Anesthesia . Post Anesthesia Instructions: If you have had General Anesthesia or IV Sedation: * Do not drive today. * Resume driving when surgeon permits. * Do not make important decisions or sign legal documents today. * Call surgeon for: 1. Temperature elevations greater than 101 degrees F. 2. Uncontrollable pain. 3. Excessive bleeding. 4. Persistent nausea and vomiting. 5. Medication intolerance (nausea, vomiting or rash). * For nausea and vomiting use only clear liquids such as: tea, soda, bouillon until nausea subsides, then gradually increase diet as tolerated. * If you have any concerns or questions, call your surgeon's office. If physician is unavailable and it is an emergency, call 911 or go to the nearest emergency room. . Instructions / Follow-Up Instructions / Follow-Up SPECIAL CARE INSTRUCTIONS: * Cover incisions and change daily for comfort/drainage. * Empty drain 2-3 times per day and record. * May use ibuprofen for pain as tolerated. * Expect some swelling and bruising. Call your doctor if: * Temperature above 101 degrees * Pain not relieved by pain medicine ordered * There is increased drainage or redness from any incision * You have any unanswered questions or concerns [phone]. FOLLOW UP VISIT: If not already scheduled, please call the office for a follow-up visit. next Tuesday- drain removal OFFICE PHONE NUMBER: Dr. Sanchez Office Diet Recommendations Recommended Home Diet: resume previous diet Procedures Procedures Performed: excision Rt upper back lipoma Pending Studies Studies pending at discharge: no Medical Emergencies . Who to Call and When: Medical Emergencies: If at any time you feel your situation is an emergency, please call 911 immediately. . Non-Emergent Contact Non-Emergency issues call your: Primary Care Provider, Surgeon . . "Provider Documentation" section prepared by Presley Sanchez. .
[2018-02-06 12:52] VITALS: BP 169/77; PULSE 70; TEMP 36.6; O2SAT 92
[2018-02-06 13:00] VITALS: BP 163/86; PULSE 68; O2SAT 94
--- NOTE | 2018-02-06 13:07 | OPERATIVE REPORT ---
DATE OF OPERATION: 02/06/2018 NAME OF OPERATION: Excision of 10 cm right upper back lipoma. PREOPERATIVE DIAGNOSIS: Lipoma. POSTOPERATIVE DIAGNOSIS: Lipoma. STAFF SURGEON: Presley Sanchez MD BUDGET EXAMINER: Rudolph Holland PA-C ANESTHESIA: Local sedation. PROCEDURE: Patient was placed on the operating room table with his left side down and then his back was prepped and draped in usual fashion. The lipomatous area was in the right upper back. He had had a prior excision from that area. 1% plain lidocaine was used to anesthetize the skin and subcutaneous tissue and the deep tissue. Incision made transversely over the site. Dissection was carried down through the subcutaneous tissue and then through the superficial fascial layer, identifying the lipomatous tissue which was then dissected from the overlying muscle. It was relatively adherent to the muscle. The site was oversewn using 0 chromic catgut suture. The lipoma was not in the subcutaneous space, but deeper. It was approximately 10 cm in diameter. At this point, 15 round Gildardo-Garcia drain was placed into the wound through a separate stab incision and secured using 3-0 nylon suture. The deep tissue was reapproximated using 2-0 chromic suture and then the skin reapproximated using 3-0 nylon suture. Dressing applied and patient transferred to recovery room in stable condition. I attest to the content of the Intraoperative Record and any orders documented therein. Any exception s are noted below.
--- NOTE | 2018-02-06 13:09 | Anesthesiology Progress Note ---
Anesthesia Post Op Note Date & Time February 06, 2018 at 13:09 Vital Signs Pain Intensity: 4 Vital Signs Past 12 Hours Date Time Temp Pulse Resp B/P (MAP) Pulse Ox O2 Delivery O2 Flow Rate FiO2 02/06/18 12:52 36.6 70 18 169/77 92 Room Air 02/06/18 09:25 37 74 20 187/99 (128) 95 Room Air 154/97 (116) Notes Mental Status: alert / awake / arousable, participated in evaluation Pt Amnestic to Procedure: Yes Nausea / Vomiting: adequately controlled Pain: adequately controlled Airway Patency, RR, SpO2: stable & adequate BP & HR: stable & adequate Hydration State: stable & adequate Anesthetic Complications: no major complications apparent
[2018-02-06 13:37] VITALS: BP 125/58; PULSE 57; TEMP 36.3; O2SAT 97
== END | disposition home or self-care (01) ==
LOC: C.ACU 08:42
PROVIDERS: ATTEND Surgery
DX: D17.9 Benign lipomatous neoplasm, unspecified (principal); I48.91 Unspecified atrial fibrillation; I10 Essential (primary) hypertension; E11.51 Type 2 diabetes mellitus with diabetic peripheral angiopathy without gangrene; I73.9 Peripheral vascular disease, unspecified; J45.909 Unspecified asthma, uncomplicated; G47.33 Obstructive sleep apnea (adult) (pediatric); E66.01 Morbid (severe) obesity due to excess calories; Z68.41 Body mass index [BMI] 40.0-44.9, adult; Z90.49 Acquired absence of other specified parts of digestive tract; Z98.890 Other specified postprocedural states; Z79.899 Other long term (current) drug therapy; Z79.84 Long term (current) use of oral hypoglycemic drugs; Z87.891 Personal history of nicotine dependence

== ENCOUNTER → 2018-04-10 | Outpatient (CLI) | payer OTHER, MEDICARE ==
[~2018-04-10] MED LIST changes: -ATROPINE SULFATE 0.1 MG/ML 5ML SYR IV PRN; -BUPIVACAINE 0.5 % 5 MG/1 ML PF 10ML VIAL ONE; -CLINDAMYCIN IV 900 MG in DEXTROSE 5% 50ML IV SCH; -EpHEDrine SULFATE INJ 50 MG/ML AMP IV PRN; -FENTANYL CITRATE INJ 50 MCG/1 ML 2 ML VIAL IV PRN; -FENTANYL CITRATE INJ 50 MCG/1 ML 2 ML VIAL ONE; -FLUMAZENIL 0.1 MG/1 ML 10 ML VIAL IV PRN; -HYDROCODONE/ACETAMIN 5/325MG TAB PO PRN; -KETAMINE HCL INJ 50 MG/ML 10 ML VIAL ONE; -LABETALOL HCL IV 5 MG/ML 20ML IV PRN; -LACTATED RINGER'S 1000ML 1,000 ML IV SCH; -LIDOCAINE HCL 1% 20 ML VIAL ONE; -LIDOCAINE HCL 2% 2 ML VIAL (20MG/ML) ONE; -MEPERIDINE HCL 25 MG/ML CARP IV PRN; -MIDAZOLAM HCL 1 MG/ML 2ML VIAL ONE; -NALOXONE HCL 0.4 MG/1 ML VIAL/CARP IV PRN; -ONDANSETRON INJ 2 MG/ML 2 ML VIAL IV PRN; -ONDANSETRON INJ 2 MG/ML 2 ML VIAL ONE; -PHENYLEPHRINE 100MCG/ML 5ML SYR IV PRN; -PROPOFOL IV EMULSION 10 MG/ML 20 ML VIAL ONE; -RANITIDINE HCL 25 MG/ML INJ ONE
[2018-04-10 13:16] LABS: BASO % 2.8 %; BASO ABS # 0.19 K/uL (0-0.2); EOS % 6.4 %; EOS ABS # 0.43 K/uL (0-0.5); HEMATOCRIT 42.7 % (42-52); HEMOGLOBIN 14.6 g/dL (14.0-18.0); IG# 0.01 K/uL (0.00-0.02); LYMPH % 28.5 %; LYMPH ABS # 1.91 K/uL (1.2-3.4); MEAN CELL VOLUME 85.2 fL (80-100); MEAN CORPUSCULAR HEMOGLOBIN 29.1 pg (25-34); MEAN CORPUSCULAR HGB CONC 34.2 g/dl (32-36); MONO % 7.6 %; MONO ABS # 0.51 K/uL (0.11-0.59); NEUT % 54.6 %; NEUT ABS # 3.65 K/uL (1.4-6.5); PLATELET COUNT 226 K/uL (130-400); RED CELL DISTRIBUTION WIDTH CV 13.7 % (11.5-14.5); RED CELL DISTRIBUTION WIDTH SD 42.2 fL (36.4-46.3)
[2018-04-10 13:34] LABS: HEMOGLOBIN A1C 6.8 % (4.5-5.6)
[2018-04-10 13:39] LABS: ALBUMIN 3.9 gm/dl (3.4-5.0); ALKALINE PHOSPHATASE 72 U/L (45-117); ALT/SGPT 29 U/L (12-78); AST/SGOT 15 U/L (15-37); BLOOD UREA NITROGEN 11 mg/dl (7-18); CALCIUM 8.8 mg/dl (8.5-10.1); CARBON DIOXIDE 29 mmol/L (21-32); CREATININE 1.03 mg/dl (0.60-1.40); GLUCOSE 130 mg/dl (70-99); PHOSPHORUS 2.7 mg/dl (2.5-4.9); POTASSIUM 3.3 mmol/L (3.5-5.1); SODIUM 139 mmol/L (136-145); TOTAL PROTEIN 7.8 gm/dl (6.4-8.2)
== END | disposition home or self-care (01) ==
LOC: C.LABPBG 09:05
PROVIDERS: ATTEND Internal Medicine Rheumatology
DX: R80.9 Proteinuria, unspecified (principal); E11.9 Type 2 diabetes mellitus without complications; K21.9 Gastro-esophageal reflux disease without esophagitis; M71.20 Synovial cyst of popliteal space [Baker], unspecified knee; M32.9 Systemic lupus erythematosus, unspecified; M15.9 Polyosteoarthritis, unspecified; Z79.899 Other long term (current) drug therapy

== ENCOUNTER → 2018-04-11 | Outpatient (CLI) | payer OTHER, MEDICARE ==
[2018-04-16 10:26] LABS: ANA SCREEN TC 249X NEGATIVE (NEGATIVE); ANTI-SS-A <1.0 NEG AI (<1.0 NEG); ANTI-SS-B <1.0 NEG AI (<1.0 NEG); COMPLEMENT C4** TC 44982E 14 MG/DL (15-53)
== END | disposition home or self-care (01) ==
LOC: C.LAB1850 09:17
PROVIDERS: ATTEND Internal Medicine Rheumatology
DX: H53.8 Other visual disturbances (principal)

== ENCOUNTER → 2018-05-09 | Outpatient (CLI) | payer OTHER, MEDICARE ==
[2018-05-09 13:18] LABS: ALBUMIN 3.9 gm/dl (3.4-5.0); BLOOD UREA NITROGEN 15 mg/dl (7-18); CALCIUM 9.6 mg/dl (8.5-10.1); CARBON DIOXIDE 28 mmol/L (21-32); GLUCOSE 118 mg/dl (70-99); PHOSPHORUS 3.7 mg/dl (2.5-4.9); POTASSIUM 3.6 mmol/L (3.5-5.1); SODIUM 139 mmol/L (136-145)
== END | disposition home or self-care (01) ==
LOC: C.LABPBG 09:44
PROVIDERS: ATTEND Internal Medicine Nephrology
DX: R80.9 Proteinuria, unspecified (principal); E03.9 Hypothyroidism, unspecified; E53.8 Deficiency of other specified B group vitamins; E55.9 Vitamin D deficiency, unspecified

== ENCOUNTER 2023-09-20 18:43 | Observation (INO) ==
--- NOTE | 2023-09-20 18:55 | ED Triage Note ---
Date of Service September 20, 2023 Provider in Triage Author: Kenna Cole History of Present Illness This patient was briefly evaluated while in triage. An abbreviated physical exam was performed. This patient is a 78-year-old Male who presents to the ED for evaluation of sudden change in bowel movement, states it "looked black." PCP informed to bring to ED. Takes 325mg ASA daily, reports use of antacids and simethicone recently. Physical Exam CONSTITUTIONAL: in no acute pain or distress, resting comfortably SKIN: pink, warm, dry CARDIAC: regular rate and rhythm RESPIRATORY: in no respiratory distress, lungs clear to auscultation ABDOMEN: no TTP MSK: 5/5 strength throughout NEURO: no neuro deficits, alert and oriented x 3 Initial orders for labs and / or imaging were placed and patient was placed in the waiting area until a bed is available. Please see further documentation for the full ED course.
[2023-09-20 19:51] LABS: Basophils # (auto) 0.07 K/uL (0.00-0.20); Basophils % (auto) 1.3 %; Eosinophils # (auto) 0.07 K/uL (0.00-0.50); Eosinophils % (auto) 1.3 %; Hematocrit (blood only) 36.1 % (42.0-52.0); Hemoglobin 11.9 g/dl (14.0-18.0); Immature Granulocytes # (auto) 0.04 K/uL (0.01-0.20); Immature Granulocytes % (auto) 0.7 %; Lymphocytes # (auto) 1.32 K/uL (1.20-3.40); Lymphocytes % (auto) 23.7 %; Mean Corpuscular Hemoglobin 30.8 pg (25.0-34.0); Mean Corpuscular Volume 93.5 fL (80.0-100.0); Mean Platelet Volume 10.4 fL (9.4-12.4); Monocytes # (auto) 0.52 K/uL (0.11-0.59); Monocytes % (auto) 9.3 %; Neutrophils # (auto) 3.56 K/uL (1.40-6.50); Neutrophils % (auto) 63.7 %; Platelet Count 246 K/uL (130-400); RDW Coefficient of Variation 13.8 % (11.5-14.5); RDW Standard Deviation 46.1 fL (36.4-46.3); Red Blood Count 3.86 M/uL (4.70-6.10); White Blood Count 5.58 K/ul (4.8-10.8)
[2023-09-20 19:53] LABS: Alanine Aminotransferase 15 U/L (7-52); Albumin Globulin Ratio 1.4 (0.9-2); Albumin Level 4.1 gm/dl (3.4-5.0); Alkaline Phosphatase 60 U/L (34-104); Anion Gap 5 (3-11); Aspartate Aminotransferase 17 U/L (13-39); BUN Creatinine Ratio 16.5 (10-20); Bilirubin,Total 0.3 mg/dl (0.2-1.0); Blood Urea Nitrogen 21 mg/dl (6-23); Calcium 9.9 mg/dl (8.6-10.3); Carbon Dioxide 28 mmol/L (21-32); Chloride 106 mmol/L (98-107); Est GFR (African American) 63.2 ml/min; Est GFR (Non-African American) 54.5 ml/min; Globulin 2.9 gm/dl (2.5-4.0); Glucose 126 mg/dl (70-99(Fasting)); Sodium 139 mmol/L (136-145)
[2023-09-20 20:28] LABS: Appearance Urine Clear (Clear); Bilirubin Urine Negative (Negative); Blood Urine Negative (Negative); Color Urine Yellow; Glucose Urine UA Negative (Negative); Ketones Urine Negative (Negative); Leukocyte Esterase Urine Negative (Negative); Nitrite Urine Negative (Negative); Protein Urine Negative (Negative); Urobilinogen Urine Negative (Negative); pH Urine 5.5 (4.5-7.5)
[2023-09-20] MEDS ORDERED: PANTOprazole 80 MG in DEXTROSE 5% 100 ML IV ONE (21:51)
[2023-09-20] MEDS ORDERED: PANTOPRAZOLE BOLUS/DRIP IV STA (21:51)
--- NOTE | 2023-09-20 21:54 | Emergency Department Note ---
Impression & Plan Upper GI bleed, Symptomatic anemia ED Provider Note NAME: KIM GREEN AGE: 78 SEX: M : 1945 ARRIVES VIA: Walk-In INFORMANT: Patient ED PROVIDER(S): Rolly Monge DO CHIEF COMPLAINT: black stools HPI: Patient is a 78-year-old male who presents ER for black stools which started over the past 2 days. He has a history of previous upper GI bleed. He notes he has been feeling very weak and rundown. Denies any headache or change in vision. No chest pain or shortness of breath. No dysuria, urgency, or frequency. No other exacerbating or remitting factors. Additional history is obtained from the who notes that she is a nurse and she was the one that first noticed it 2 days ago with black stools. He does take iron but she notes he has been taking this for years and has not had any black stools. There is been no change. Additional history was obtained from who notes that it looks black. ADDITIONAL HISTORY OBTAINED: Per HPI Chronic Medical/Social Conditions Affecting Care: Per HPI PAST MEDICAL HISTORY:See Below PAST SURGICAL HISTORY:See Below FAMILY HISTORY:See Below SOCIAL HISTORY:See Below HOME MEDICATIONS:See Below ALLERGIES:See Below VITALS:See Below PHYSICAL EXAMINATION: GENERAL: Sitting up in bed, alert, well appearing, well nourished, no distress, non-toxic EYE EXAM: normal conjunctiva. OROPHARYNX: no exudate, no erythema, lips, buccal mucosa, and tongue normal and mucous membranes are moist NECK: supple, no nuchal rigidity, no adenopathy, non-tender LUNGS: Clear to auscultation. Normal chest wall mechanics HEART: no murmurs, S1 normal and S2 normal ABDOMEN: abdomen soft, non-tender, normo-active bowel sounds, no masses, no rebound or guarding. UPPER EXTREMITIES: upper extremities are grossly normal. LOWER EXTREMITIES: No pitting edema. NEURO EXAM: Normal sensorium, cranial nerves II-XII grossly intact, normal speech, no gross weakness of arms, no gross weakness of legs. MEDICAL DECISION MAKING: Patient is a 78-year-old male who presents ER for the above-stated complaint. IV was established blood work is obtained. Labs show no significant leukocytosis. Mild anemia 11.9 down from 13.5. BMP was fairly unremarkable. There is no significant elevation in BUN to suggest upper GI bleed. LFTs bilirubin was unremarkable. UA was clean. Stool Hemoccult was positive. With this with black stools patient was typed and screened. He had no abdominal pain. I discussed case with the hospitalist and was placed on Protonix drip and bolus and admitted for possible upper GI bleed. No blood thinners Consults/Care Managements Discussions: Per MDM Triage Nursing notes reviewed. Limited review of prior medical records performed Vital Signs: reviewed and remarkable for HTN Differential diagnosis: Differential diagnosis includes etiologies such as diverticulitis, diverticulosis, AVM, coagulopathy, colitis, inflammatory bowel disease, malignancy, Anne Marie-Garcia tear, esophagitis, peptic ulcer disease, variceal bleed, gastritis, epistaxis, fissure, hemorrhoids, as well as others were entertained. ER treatment provided: See below Diagnostics interpreted by me include EKG and cardiac monitoring as listed below: -Cardiac Monitoring: An order was placed for continuous cardiac monitoring. The monitor shows a rate of 70 with sinus rhythm. -ECG: none -Laboratory studies:Interpreted by me as stated above in MDM and shown below. Imaging studies: Xrays: As interpreted by me:none CTs show: none Procedures:none Critical Care: None Past Med/Surg History Medical History (Updated 09/21/23 @ 01:04 by Rolly Monge DO) History of colon polyps Pulmonary nodule DDD (degenerative disc disease), cervical DDD (degenerative disc disease), lumbar Osteoporosis Scoliosis Hyperlipidemia Proctitis on occasion, prn doxycycline for this CAD (coronary artery disease) follows with Dr. 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 GERD without esophagitis Asthma rare res inh use Iliotibial band syndrome of right side Internal hemorrhoids Systemic lupus erythematosus H/O: GI bleed severe GI bleed, treated at [facility] - resolved Diabetes IDDM Hypertension Hypothyroid Surgical History History of cataract surgery S/P excision of lipoma History of gastric surgery History of skin surgery History of dental surgery History of esophagogastroduodenoscopy History of colonoscopy History of tonsillectomy S/P aortic valve replacement History of cholecystectomy Family History Father Hypertension Diabetes Heart disease Prostate cancer Cardiac disorder Cancer Mother Rheumatoid aortitis Emphysema/COPD Hypertension Colitis Brother Hypertension Diabetes Family/Other Prostate cancer Other Bone cancer Social History Smoking Status: Former smoker Tobacco Type: Cigarettes Age Started Using Tobacco: 18; Age Quit Using Tobacco: 42; packs per day: 3; Cigarettes Per Day: 40-60; Second Hand Exposure: No; Do You Dip or Chew Tobacco: No; Hx Alcohol Use: No Hx Substance Use: No Preferred Language: Barbadian Communication Ability: Effective Visual Impairment: Limited Hearing Ability: Normal Soil Surveyor Required: No Beliefs That Will Affect Care: None marital status: Current Living Situation: Spouse current occupational status: retired Feels Safe at Home: Yes Childhood Exposure to Second-Hand Smoke: No Seatbelt Use: always Assistive Devices: BiPap, Cane, Denture - Upper, Denture - Lower and Glasses Allergies Allergies Allergy/AdvReac Type Severity Reaction Status Date / Time erythromycin base Allergy Severe all over Verified 09/20/23 22:36 body rash bacitracin Allergy Intermediate Skin Verified 09/20/23 22:36 Irritation neomycin Allergy Intermediate Skin Verified 09/20/23 22:36 Irritation polymyxin B Allergy Intermediate Skin Verified 09/20/23 22:36 Irritation Iodinated Contrast Media AdvReac Severe SEVERE Verified 09/20/23 22:36 NAUSEA/VOMITING morphine AdvReac Severe severe n/v Verified 09/20/23 22:36 Opioids - Morphine Analogues AdvReac Severe Gastrointestinal Verified 09/20/23 22:36 Upset Sulfa (Sulfonamide AdvReac Severe Nausea Verified 09/20/23 22:36 Antibiotics) adhesive tape AdvReac Intermediate Blister Verified 09/20/23 22:36 Macrolide Antibiotics AdvReac Mild CHILLS, Verified 09/20/23 22:36 HEADACHE, "MADE HIM SICK" clavulanic acid AdvReac Unknown CHILLS, Verified 09/20/23 22:36 HEADACHE, "MADE HIM SICK" sulfamethoxazole AdvReac Unknown CHILLS, Verified 09/20/23 22:36 HEADACHE, "MADE HIM SICK" Home Meds Home Medications Medication Instructions Recorded Confirmed aspirin 325 mg tablet,delayed 325 mg PO PM 10/13/18 01/02/24 release ferrous sulfate 325 mg (65 mg 325 mg PO QAM 07/01/18 09/20/23 iron) tablet hydroxychloroquine 200 mg tablet 200 mg PO BID 02/26/21 09/20/23 cyanocobalamin (vitamin B-12) 1,000 mcg PO QPM 05/28/21 09/20/23 2,000 mcg tablet,extended release (Vitamin B-12 ER) cholecalciferol (vitamin D3) 50 2,000 unit PO .EVEN DAYS 07/07/21 09/20/23 mcg (2,000 unit) capsule (Vitamin D3) cranberry 500 mg capsule 500 mg PO QAM 07/07/21 09/20/23 prednisolone 5 mg tablet 5 mg PO QAM 07/08/22 09/20/23 amlodipine 10 mg tablet 10 mg PO QAM 02/04/23 09/20/23 diphenhydramine HCl 12.5 mg/5 mL 12.5 - 50 mg PO HS PRN Sleep 02/04/23 09/20/23 oral elixir docusate sodium 100 mg tablet 100 mg PO PM 02/04/23 09/20/23 finasteride 5 mg tablet 5 mg PO PM 02/04/23 09/20/23 insulin glargine U-300 conc 300 22 unit subcut PM 02/04/23 09/20/23 unit/mL (3 mL) subcutaneous pen (Toujeo Max U-300 SoloStar) lidocaine 4 % topical patch 1 patch topical BID 02/04/23 09/20/23 tamsulosin 0.4 mg capsule (Flomax) 0.4 mg PO PM 02/04/23 09/20/23 Osteobioflex With Turmeric 1 cap PO QAM 04/27/23 09/20/23 doxycycline hyclate 100 mg tablet 100 mg PO BID PRN UTI 04/27/23 09/20/23 symptoms/prostatitis amoxicillin 500 mg tablet 2,000 mg PO DIRECTED 09/20/23 09/20/23 atorvastatin 10 mg tablet (Lipitor) 10 mg PO .QWED&SAT 09/20/23 09/20/23 cholecalciferol (vitamin D3) 25 25 mcg PO .ODD DAYS 09/20/23 09/20/23 mcg (1,000 unit) tablet (Vitamin D3) hydrocodone 10 mg-acetaminophen 1 tab PO TID pain 09/20/23 09/20/23 325 mg tablet insulin lispro 100 unit/mL 0 unit subcut TIDM 09/20/23 09/20/23 subcutaneous pen (Humalog KwikPen (U-100) Insulin) psyllium 1 packet PO DAILY PRN Constipation 09/20/23 09/20/23 turmeric root extract 500 mg 500 mg PO DAILY 09/20/23 09/20/23 capsule Previous Rx's Medication Instructions Recorded pen needle, diabetic 32 gauge x #400 ea 10/18/22" (BD Kell 2nd Gen Pen Needle) OneTouch Verio Mid Control (blood #1 ea 03/28/23 glucose control, normal) Microlet Lancet (lancets) #300 ea 04/26/23 albuterol sulfate 90 mcg/actuation 1 - 2 puff inhalation Q4H PRN 04/27/23 aerosol inhaler (ProAir HFA) Shortness Of Breath Or Wheezing #18 grams meloxicam 15 mg tablet 15 mg PO QAM #90 tabs 06/02/23 metformin 500 mg tablet,extended 1,000 mg (2 x 500 mg) PO BID #360 06/02/23 release 24 hr tabs lancing device #1 ea 08/04/23 oxycodone 5 mg tablet 5 mg PO Q8H PRN breakthrough pain 08/08/23 #30 tabs diazepam 5 mg tablet (Valium) 5 mg PO BID PRN anxiety #5 tabs 08/25/23 cyclobenzaprine 5 mg tablet 5 mg PO TID PRN Muscle Spasm #90 09/02/23 tabs escitalopram oxalate 10 mg tablet 10 mg PO PM #90 tabs 09/07/23 (Lexapro) isosorbide mononitrate 60 mg 60 mg PO QAM #90 tabs 09/07/23 tablet,extended release 24 hr levothyroxine 150 mcg tablet 150 mcg PO QAM #90 tabs 09/07/23 pantoprazole 40 mg tablet,delayed 40 mg PO BID #180 tabs 09/07/23 release (Protonix) metoprolol tartrate 25 mg tablet 25 mg PO TID #270 tabs 09/15/23 Results & Data (ED) Vital Signs Vital Signs - 24 hr 09/20/23 18:53 09/20/23 21:00 09/20/23 21:54 Temperature 36.3 C L Temperature Source Temporal Artery Scan Pulse Rate 64 64 Pulse Rate from SpO2 Sensor 64 Pulse Rhythm Regular Pulse Strength Normal Respiratory Rate 20 13 Respiratory Effort / Characteristics Non-Labored Spontaneous Respiratory Depth Normal Respiratory Pattern Regular Blood Pressure 169/79 H Blood Pressure Mean 109 Blood Pressure Position Sitting Pulse Oximetry 97 99 97 Oxygen Delivery Method Room Air Room Air Sepsis Recent Fever Within 48 Hours No Sepsis New/Unexplained Change in Mental Status No Sepsis Action Taken by Nursing No Action Required 09/20/23 21:54 Temperature Temperature Source Pulse Rate 66 Pulse Rate from SpO2 Sensor Pulse Rhythm Pulse Strength Respiratory Rate Respiratory Effort / Characteristics Respiratory Depth Respiratory Pattern Blood Pressure Blood Pressure Mean Blood Pressure Position Pulse Oximetry Oxygen Delivery Method Sepsis Recent Fever Within 48 Hours Sepsis New/Unexplained Change in Mental Status Sepsis Action Taken by Nursing Laboratory Data 09/20/23 19:10 09/20/23 19:10 Lab Results 09/20/23 09/20/23 Range/Units 19:10 22:45 WBC 5.58 (4.8-10.8) K/ul RBC 3.86 L (4.70-6.10) M/uL Hgb 11.9 L (14.0-18.0) g/dl Hct 36.1 L (42.0-52.0) % MCV 93.5 (80.0-100.0) fL MCH 30.8 (25.0-34.0) pg MCHC 33.0 (32.0-36.0) g/dL RDW Std Deviation 46.1 (36.4-46.3) fL RDW Coeff of Juan Pablo 13.8 (11.5-14.5) % Plt Count 246 (130-400) K/uL MPV 10.4 (9.4-12.4) fL Immature Gran % (Auto) 0.7 % Neut % (Auto) 63.7 % Lymph % (Auto) 23.7 % [place] % (Auto) 9.3 % Eos % (Auto) 1.3 % Baso % (Auto) 1.3 % Neut # (Auto) 3.56 (1.40-6.50) K/uL Lymph # (Auto) 1.32 (1.20-3.40) K/uL [place] # (Auto) 0.52 (0.11-0.59) K/uL Eos # (Auto) 0.07 (0.00-0.50) K/uL Baso # (Auto) 0.07 (0.00-0.20) K/uL Immature Gran # (Auto) 0.04 (0.01-0.20) K/uL Sodium 139 (136-145) mmol/L Potassium 5.0 (3.5-5.1) mmol/L Chloride 106 (98-107) mmol/L Carbon Dioxide 28 (21-32) mmol/L Anion Gap 5 (3-11) BUN 21 (6-23) mg/dl Creatinine 1.27 (0.6-1.4) mg/dl Est Cr Clr Drug Dosing Not Reportable Est GFR ( Amer) 63.2 ml/min Est GFR (Non-Af Amer) 54.5 ml/min BUN/Creatinine Ratio 16.5 (10-20) Glucose 126 H (70-99(Fasting)) mg/dl Calcium 9.9 (8.6-10.3) mg/dl Total Bilirubin 0.3 (0.2-1.0) mg/dl AST 17 (13-39) U/L ALT 15 (7-52) U/L Alkaline Phosphatase 60 (34-104) U/L Total Protein 7.0 (6.0-8.3) gm/dl Albumin 4.1 (3.4-5.0) gm/dl Globulin 2.9 (2.5-4.0) gm/dl Albumin/Globulin Ratio 1.4 (0.9-2) POC Stool Occult Blood Positive A (Negative) Blood Type A Positive Antibody Screen NEGATIVE Administered Medications Pantoprazole Sodium 40 mg/ (Dextrose) 100 mls @ 20 mls/hr IV Q5H [facility] Stop: 10/20/23 22:14 Last Admin: 09/20/23 23:10 Dose: 8 mg/hr, 20 mls/hr Documented By: MAGED Discontinued Medications Pantoprazole Sodium 80 mg/ (Dextrose) 120 mls @ 480 mls/hr IV NOW ONE Stop: 09/20/23 22:05 Last Infusion: 09/20/23 23:05 Dose: Infused Documented By: Admin: 09/20/23 22:48 Dose: 480 mls/hr Documented By: MAGED Pantoprazole Sodium (Pantoprazole Bolus/Drip) 1 each IV NOW STA Stop: 09/20/23 21:52 Last Admin: 09/20/23 22:52 Dose: 1 each Documented By: MAGED Discharge Plan Visit Data Chief Complaint: GI Assessment Stated Complaint: BLACK STOOL, WEAKNESS, TIRED ED Provider: Rolly Monge Discharge Problem: Upper GI bleed, Symptomatic anemia Patient Disposition: Admitted As Inpatient Discharge Instructions Interventions: ED Discharge Assessment Last Done: 09/20/23 23:08
[2023-09-20] MEDS ORDERED: ACETAMINOPHEN 1,000 MG/100 ML VIAL IV PRN (22:44)
[2023-09-20] MEDS ORDERED: LORazepam 0.5 MG in SYRINGE 0.25 ML IV PRN (22:47)
--- NOTE | 2023-09-20 22:53 | History & Physical Report ---
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 Until seen by GI, hold stress testing hydrocortisone, but will likely need some treatment Hold meloxicam, that has been prescribed for osteoarthritis, particularly involving his knees and back Hold aspirin 325 mg, which have been prescribed by rheumatology and has worked well to keep his headaches controlled Hold hydroxychloroquine and [place] Acetaminophen 1 g IV every 8 hours as needed for mild pain or fever Dilaudid 0.25 mg IV every 3 hours as needed from moderate to severe pain Diabetes mellitus- N.p.o. Glucose 126 on admission, reports not having eaten anything regularly over the past 2 days Hold metformin and Toujeo Solostar 22 units subcu in the evening Placed on Accu-Cheks with NovoLog SSI PAF/hypertension/CAD- Hold amlodipine, isosorbide mononitrate and metoprolol tartrate Hydralazine 10 mg IV every 4 hours as needed for systolic blood pressure greater than 160 if heart rate less than 70 Lopressor 5 mg IV every 4 hours as needed for systolic blood pressure greater than 160 if heart rate greater than 70 History of Present Illness Chief Complaint: The patient presents to the emergency department with his , due to concerns regarding black stools over the past 2 days, feeling generalized weakness, fatigue and difficulty with ambulation. Primary Care Provider: Sharif Barros MD The patient is a 78-year-old male with a past medical history including lung mass, prostatitis, anemia, obesity, PAF, severe LARRY, history of falls, Dieulafoy lesion stomach and duodenum causing GI bleed, atrial flutter, generalized osteoarthritis on meloxicam, headaches treated with full-strength aspirin by rheumatology, anticardiolipin antibody, aortic stenosis, and GERD. The patient presents to the emergency department with dark stools over the past 2 days, he reports that his stomach has been feeling a little bit uneasy. He is presently taking aspirin as prescribed by rheumatology for headaches, meloxicam prescribed for osteoarthritis, and prednisone prescribed for SLE. His hemoglobin was found to decrease from 13.3 average down to 11.9 in the ED, and he was found to be heme positive stool. From the ED he received pantoprazole 80 mg IV followed by pantoprazole drip. He was then referred for evaluation for admission. Allergies Allergy/AdvReac Type Severity Reaction Status Date / Time erythromycin base Allergy Severe all over Verified 09/20/23 22:36 body rash bacitracin Allergy Intermediate Skin Verified 09/20/23 22:36 Irritation neomycin Allergy Intermediate Skin Verified 09/20/23 22:36 Irritation polymyxin B Allergy Intermediate Skin Verified 09/20/23 22:36 Irritation Iodinated Contrast Media AdvReac Severe SEVERE Verified 09/20/23 22:36 NAUSEA/VOMITING morphine AdvReac Severe severe n/v Verified 09/20/23 22:36 Opioids - Morphine Analogues AdvReac Severe Gastrointestinal Verified 09/20/23 22:36 Upset Sulfa (Sulfonamide AdvReac Severe Nausea Verified 09/20/23 22:36 Antibiotics) adhesive tape AdvReac Intermediate Blister Verified 09/20/23 22:36 Macrolide Antibiotics AdvReac Mild CHILLS, Verified 09/20/23 22:36 HEADACHE, "MADE HIM SICK" clavulanic acid AdvReac Unknown CHILLS, Verified 09/20/23 22:36 HEADACHE, "MADE HIM SICK" sulfamethoxazole AdvReac Unknown CHILLS, Verified 09/20/23 22:36 HEADACHE, "MADE HIM SICK" Home Medications Medication Instructions Recorded Confirmed Type aspirin 325 mg tablet,delayed 325 mg PO PM 07/01/18 09/20/23 History release ferrous sulfate 325 mg (65 mg 325 mg PO QAM 07/01/18 09/20/23 History iron) tablet hydroxychloroquine 200 mg tablet 200 mg PO BID 02/26/21 09/20/23 History cyanocobalamin (vitamin B-12) 1,000 mcg PO QPM 05/28/21 09/20/23 History 2,000 mcg tablet,extended release (Vitamin B-12 ER) cholecalciferol (vitamin D3) 50 2,000 unit PO .EVEN DAYS 07/07/21 09/20/23 History mcg (2,000 unit) capsule (Vitamin D3) cranberry 500 mg capsule 500 mg PO QAM 07/07/21 09/20/23 History prednisolone 5 mg tablet 5 mg PO QAM 07/08/22 09/20/23 History pen needle, diabetic 32 gauge x #400 ea 10/18/22 08/23/23 Rx " (BD Kell 2nd Gen Pen Needle) amlodipine 10 mg tablet 10 mg PO QAM 02/04/23 09/20/23 History diphenhydramine HCl 12.5 mg/5 mL 12.5 - 50 mg PO HS PRN Sleep 02/04/23 09/20/23 History oral elixir docusate sodium 100 mg tablet 100 mg PO PM 02/04/23 09/20/23 History finasteride 5 mg tablet 5 mg PO PM 02/04/23 09/20/23 History insulin glargine U-300 conc 300 22 unit subcut PM 02/04/23 09/20/23 History unit/mL (3 mL) subcutaneous pen (Toujeo Max U-300 SoloStar) lidocaine 4 % topical patch 1 patch topical BID 02/04/23 09/20/23 History tamsulosin 0.4 mg capsule (Flomax) 0.4 mg PO PM 02/04/23 09/20/23 History OneTouch Verio Mid Control (blood #1 ea 03/28/23 08/23/23 Rx glucose control, normal) Microlet Lancet (lancets) #300 ea 04/26/23 08/23/23 Rx Osteobioflex With Turmeric 1 cap PO QAM 04/27/23 09/20/23 History albuterol sulfate 90 mcg/actuation 1 - 2 puff inhalation Q4H PRN 04/27/23 09/20/23 Rx aerosol inhaler (ProAir HFA) Shortness Of Breath Or Wheezing #18 grams doxycycline hyclate 100 mg tablet 100 mg PO BID PRN UTI 04/27/23 09/20/23 History symptoms/prostatitis meloxicam 15 mg tablet 15 mg PO QAM #90 tabs 06/02/23 09/20/23 Rx metformin 500 mg tablet,extended 1,000 mg (2 x 500 mg) PO BID #360 06/02/23 09/20/23 Rx release 24 hr tabs lancing device #1 ea 08/04/23 08/23/23 Rx oxycodone 5 mg tablet 5 mg PO Q8H PRN breakthrough pain 08/08/23 09/20/23 Rx #30 tabs diazepam 5 mg tablet (Valium) 5 mg PO BID PRN anxiety #5 tabs 08/25/23 09/20/23 Rx cyclobenzaprine 5 mg tablet 5 mg PO TID PRN Muscle Spasm #90 09/02/23 09/20/23 Rx tabs escitalopram oxalate 10 mg tablet 10 mg PO PM #90 tabs 09/07/23 09/20/23 Rx (Lexapro) isosorbide mononitrate 60 mg 60 mg PO QAM #90 tabs 09/07/23 09/20/23 Rx tablet,extended release 24 hr levothyroxine 150 mcg tablet 150 mcg PO QAM #90 tabs 09/07/23 09/20/23 Rx pantoprazole 40 mg tablet,delayed 40 mg PO BID #180 tabs 09/07/23 09/20/23 Rx release (Protonix) metoprolol tartrate 25 mg tablet 25 mg PO TID #270 tabs 09/15/23 09/20/23 Rx amoxicillin 500 mg tablet 2,000 mg PO DIRECTED 09/20/23 09/20/23 History atorvastatin 10 mg tablet (Lipitor) 10 mg PO .QWED&SAT 09/20/23 09/20/23 History cholecalciferol (vitamin D3) 25 25 mcg PO .ODD DAYS 09/20/23 09/20/23 History mcg (1,000 unit) tablet (Vitamin D3) hydrocodone 10 mg-acetaminophen 1 tab PO TID pain 09/20/23 09/20/23 History 325 mg tablet insulin lispro 100 unit/mL 0 unit subcut TIDM 09/20/23 09/20/23 History subcutaneous pen (Humalog KwikPen (U-100) Insulin) psyllium 1 packet PO DAILY PRN Constipation 09/20/23 09/20/23 History turmeric root extract 500 mg 500 mg PO DAILY 09/20/23 09/20/23 History capsule Past Med/Surg History Medical History (Updated 09/21/23 @ 00:15 by Brennon Babin MD) History of colon polyps Pulmonary nodule DDD (degenerative disc disease), cervical DDD (degenerative disc disease), lumbar Osteoporosis Scoliosis Hyperlipidemia Proctitis on occasion, prn doxycycline for this CAD (coronary artery disease) follows with Dr. 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 - resolved Diabetes IDDM Hypertension Hypothyroid Surgical History History of cataract surgery S/P excision of lipoma History of gastric surgery History of skin surgery History of dental surgery History of esophagogastroduodenoscopy History of colonoscopy History of tonsillectomy S/P aortic valve replacement History of cholecystectomy Family History Father Hypertension Diabetes Heart disease Prostate cancer Cardiac disorder Cancer Mother Rheumatoid aortitis Emphysema/COPD Hypertension Colitis Brother Hypertension Diabetes Family/Other Prostate cancer Other Bone cancer Social History Smoking Status: Former smoker Tobacco Type: Cigarettes Age Started Using Tobacco: 18; Age Quit Using Tobacco: 42; packs per day: 3; Cigarettes Per Day: 40-60; Second Hand Exposure: No; Do You Dip or Chew Tobacco: No; Hx Alcohol Use: No Hx Substance Use: No Preferred Language: Hebrew Communication Ability: Effective Visual Impairment: Limited Hearing Ability: Normal [employer] Operator Required: No Beliefs That Will Affect Care: None marital status: Current Living Situation: Spouse current occupational status: retired Feels Safe at Home: Yes Childhood Exposure to Second-Hand Smoke: No Seatbelt Use: always Assistive Devices: BiPap, Cane, Denture - Upper, Denture - Lower and Glasses Review of Systems Review of Systems: The patient denies chest pain, palpitations, cough, lower extremity swelling, sore throat, fevers, chills, sweats, vomiting, diarrhea , constipation, blood in urine, dysuria, urinary frequency or urgency, lightheadedness, dizziness, headache, memory loss, loss of consciousness, rash, focal weakness, numbness or tingling in arms or legs, back or neck pain, or night sweats. The review of systems is otherwise negative other than for that already noted above, and at least 10 systems have been reviewed. Physical Exam Physical Exam: The patient is awake, alert and oriented 3, normocephalic and atraumatic, lying in bed and in no acute distress. HEENT--PERRL, EOMI, mucous membranes and oropharynx mildly dry. Neck--supple. No JVD. No bruits. Thyroid normal, trachea midline, no adenopathy. Heart--normal S1 and S2. No murmurs, rubs or gallops. Lungs--clear bilaterally, no respiratory distress, no accessory muscle use. Abdomen--normal bowel sounds and soft. Nontender. Nondistended. Morbidly obese Extremities--no cyanosis or clubbing. No edema. Dermatologic--bruise on right lower [place] Neurologic--cranial nerves II through XII grossly intact. Rheumatologic--normal range of motion. Psychiatric--normal affect. Results & Data Results & Data Vital Signs (Past 12 Hours) Vital Signs Temp Pulse Resp BP Pulse Ox O2 Del Method 09/20/23 21:54 66 09/20/23 21:54 64 13 97 09/20/23 21:00 99 Room Air 09/20/23 18:53 36.3 C L 64 20 169/79 H 97 Room Air Laboratory Results Laboratory Results WBC 5.58 K/ul (4.8-10.8) 09/20/23 19:10 RBC 3.86 M/uL (4.70-6.10) L 09/20/23 19:10 Hgb 11.9 g/dl (14.0-18.0) L 09/20/23 19:10 Hct 36.1 % (42.0-52.0) L 09/20/23 19:10 MCV 93.5 fL (80.0-100.0) 09/20/23 19:10 MCH 30.8 pg (25.0-34.0) 09/20/23 19:10 MCHC 33.0 g/dL (32.0-36.0) 09/20/23 19:10 RDW Std Deviation 46.1 fL (36.4-46.3) 09/20/23 19:10 RDW Coeff of [place] 13.8 % (11.5-14.5) 09/20/23 19:10 Plt Count 246 K/uL (130-400) 09/20/23 19:10 MPV 10.4 fL (9.4-12.4) 09/20/23 19:10 Immature Gran % (Auto) 0.7 % 09/20/23 19:10 Neut % (Auto) 63.7 % 09/20/23 19:10 Lymph % (Auto) 23.7 % 09/20/23 19:10 [place] % (Auto) 9.3 % 09/20/23 19:10 Eos % (Auto) 1.3 % 09/20/23 19:10 Baso % (Auto) 1.3 % 09/20/23 19:10 Neut # (Auto) 3.56 K/uL (1.40-6.50) 09/20/23 19:10 Lymph # (Auto) 1.32 K/uL (1.20-3.40) 09/20/23 19:10 [place] # (Auto) 0.52 K/uL (0.11-0.59) 09/20/23 19:10 Eos # (Auto) 0.07 K/uL (0.00-0.50) 09/20/23 19:10 Baso # (Auto) 0.07 K/uL (0.00-0.20) 09/20/23 19:10 Immature Gran # (Auto) 0.04 K/uL (0.01-0.20) 09/20/23 19:10 Sodium 139 mmol/L (136-145) 09/20/23 19:10 Potassium 5.0 mmol/L (3.5-5.1) 09/20/23 19:10 Chloride 106 mmol/L (98-107) 09/20/23 19:10 Carbon Dioxide 28 mmol/L (21-32) 09/20/23 19:10 Anion Gap 5 (3-11) 09/20/23 19:10 BUN 21 mg/dl (6-23) 09/20/23 19:10 Creatinine 1.27 mg/dl (0.6-1.4) 09/20/23 19:10 Est Cr Clr Drug Dosing Not Reportable 09/20/23 19:10 Est GFR ( Amer) 63.2 ml/min 09/20/23 19:10 Est GFR (Non-Af Amer) 54.5 ml/min 09/20/23 19:10 BUN/Creatinine Ratio 16.5 (10-20) 09/20/23 19:10 Glucose 126 mg/dl (70-99(Fasting)) H 09/20/23 19:10 Calcium 9.9 mg/dl (8.6-10.3) 09/20/23 19:10 Total Bilirubin 0.3 mg/dl (0.2-1.0) 09/20/23 19:10 AST 17 U/L (13-39) 09/20/23 19:10 ALT 15 U/L (7-52) 09/20/23 19:10 Alkaline Phosphatase 60 U/L (34-104) 09/20/23 19:10 Total Protein 7.0 gm/dl (6.0-8.3) 09/20/23 19:10 Albumin 4.1 gm/dl (3.4-5.0) 09/20/23 19:10 Globulin 2.9 gm/dl (2.5-4.0) 09/20/23 19:10 Albumin/Globulin Ratio 1.4 (0.9-2) 09/20/23 19:10 Urine Color Yellow 09/20/23 Unknown Urine Appearance Clear (Clear) 09/20/23 Unknown Urine pH 5.5 (4.5-7.5) 09/20/23 Unknown Ur Specific [place] 1.010 (1.000-1.030) 09/20/23 Unknown Urine Protein Negative (Negative) 09/20/23 Unknown Urine Glucose (UA) Negative (Negative) 09/20/23 Unknown Urine Ketones Negative (Negative) 09/20/23 Unknown Urine Blood Negative (Negative) 09/20/23 Unknown Urine Nitrite Negative (Negative) 09/20/23 Unknown Urine Bilirubin Negative (Negative) 09/20/23 Unknown Urine Urobilinogen Negative (Negative) 09/20/23 Unknown Ur Leukocyte Esterase Negative (Negative) 09/20/23 Unknown POC Stool Occult Blood Positive (Negative) A 09/20/23 19:10 Code Status & VTE Plan Code Status Full code VTE Prophylaxis Plan VTE Prophylaxis will be ordered: Yes PG Care Time/CCT Total # of Minutes Spent Total Time Spent with Patient: Total time spent is greater than 50% in coordination of care (as documented) at patient's floor/unit and/or counseling patient: Coding Level of Care Code 78770 INT INP/OBS CARE 3/75MIN Diagnoses Upper GI bleed K92.2 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
[2023-09-20] MEDS ORDERED: SODIUM CHLORIDE 0.9% 1,000 ML IV SCH ×2 (23:00→23:06)
[2023-09-20] MEDS ORDERED: ONDANSETRON INJ 2 MG/ML 2 ML VIAL IV PRN (23:06)
[2023-09-20] MEDS ORDERED: ALBUTEROL HFA 8 GM INHALER INH PRN (23:06)
[2023-09-20] MEDS: PANTOprazole 40 MG in DEXTROSE 5% MINI-B 100 ML IV SCH (23:10)
[2023-09-21] MEDS ORDERED: hydrALAZINE HCL 20 MG/ML VIAL IV PRN (00:23)
[2023-09-21] MEDS ORDERED: METOPROLOL TARTRATE 1 MG/ML VIAL IV PRN (00:23)
[2023-09-21] MEDS: HYDROmorphone INJ 0.5 MG/0.5 ML SYR IV PRN ×2 (01:14→09:15)
[2023-09-21 02:10] LABS: Hematocrit (blood only) 35.6 % (42.0-52.0); Hemoglobin 11.8 g/dl (14.0-18.0)
[2023-09-21 02:14] LABS: Calcium 9.6 mg/dl (8.6-10.3); Creatinine Clr Calc Pharmacy 81.3 ml/min; Est GFR (African American) 73.6 ml/min; Est GFR (Non-African American) 63.5 ml/min; Magnesium 1.9 mg/dl (1.7-2.4); Potassium 4.2 mmol/L (3.5-5.1)
[2023-09-21] MEDS: PANTOprazole 40 MG in DEXTROSE 5% MINI-B 100 ML IV SCH ×2 (03:53→09:06)
--- OUTSIDE RECORDS SUMMARY | 2023-09-21 05:29 | External Medical Summary | Continuity of Care Document ---
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 And Bagger Name Role Phone Sharif Primary Care Physician [phone] Encounter [facility] [id number] Date(s): 09/02/23 - 09/02/23 [facility] [address] [id number] [facility] [address] [place] [id number] Encounter Diagnosis Osteoarthritis of knees, bilateral(Discharge Diagnosis) - 09/02/23 Discharge Disposition: Home or Self Care Attending Physician: RIAN Weston Jolene Marie Allergies, Adverse Reactions, Alerts Substance Reaction Severity Status erythromycin Rash Active Augmentin Active morphine Vomiting Nausea Active sulfa drugs nausea shaking Active Neosporin inflammation Active Assessment and Plan Extracted from: Title:Clinical Document Author:RIAN Bolden Denn is Date:09/02/23 OUTPATIENT NOTE Name: KIM GREEN Patient Number:[id number] : 1945 Date of Service: 09/02/2023 HPI: This 78-year-old male presents to the clinic today for bilateral knee Euflexxa injection #2. He states that he has experienced mild pain relief after the initial injections last week. Currently he denies any signs or symptoms of infection and has no complaint of numbness or tingling in either lower extremity. Physical examination: Bilateral knees; range of motion is from 0 degrees of extension to 112 degrees of flexion. Patient experiences some slight medial and lateral joint line tenderness when the knees are palpated in the flexed position. Both patellae are not mobile due to arthritic change. There is no varus or valgus laxity with stressing. No visible malalignment. Patient is neurovascular intact in both lower extremities. Impression: Bilateral knee degenerative joint disease Procedure: Patient was seated on the edge of the table with both knee placed in the flexed position. Using the cap of the needle the lateral joint space of each knee was marked. A timeout was performed with the patient and he verbalizes that we will proceed with bilateral knee Euflexxa injection #2. Marked site as cleansed with a Betadine swab, anesthetized with ethyl chloride spray, and wiped clean with alcohol soaked 4 x 4. A 22-gauge needle connected to a prefilled syringe containing Euflexxa was easily passed through the lateral joint space of each knee and injected free-flowing without meeting resistance. Upon removal of the needle patient had no bleeding. Site was again cleansed with an alcohol soaked 4 x 4, wiped dry with a sterile 4 x 4 and covered with a Band-Aid. KATHRIN Stacy served as a witness for this procedure. Plan: Patient was advised to watch for signs and symptoms of infection and if any should occur he was advised to either contact clinic or go to the emergency department immediately. Patient verbalizes understanding of all information provided during today's visit. He thanked us for the care that he received. If he has questions or concerns that should arise prior to his final injection in 1 week, he will contact clinic. This chart was completed utilizing [employer]ation voice recognition software. Grammatical errors, random word insertions, pronoun errors, and in complete sentences are an occasional consequence of the system. Any questions or concerns about the content, text, or information contained within the body of this dictation should be addressed directly to the physician for clarification. Medications amLODIPine 10 mg oral tablet Start: 05/14/22 10:51:00 EDT, 90 tab Start Date: 05/14/22 Status: Ordered amoxicillin 500 mg oral tablet Start: 12/12/14 11:21:00, 1 tab, PO, once prior to procedure Start Date: 12/12/14 Status: Ordered aspirin 325 mg oral delayed release tablet Start: 08/18/13 9:33:00, 1 tab, PO, Daily Start Date: 08/18/13 Status: Ordered clindamycin 300 mg oral capsule Start: 08/02/19 16:08:00 EST, 1 cap, PO, tid, Disp# 15 cap, Refills: 0, take 1 tab three times per day with food and water, Pharmacy: [facility]/pharmacy #[id number] Start Date: 08/02/19 Status: Ordered Coenzyme Q10 100 mg oral capsule Start: 12/12/14 11:22:00, 1 cap, PO, Daily Start Date: 12/12/14 Status: Ordered cranberry oral tablet Start: 07/02/14 14:39:00, 300 mg =, PO, Daily Start Date: 07/02/14 Status: Ordered doxycycline Start: 09/06/15 14:52:00, 100 mg =, PO, bid, 09/01/2015 Start Date: 09/06/15 Stop Date: 09/13/15 Status: Ordered Euflexxa 10 mg/mL intra-articular solution Start: 05/14/22 15:51:00 EDT, 20 mg =, intra-articular, q7days, Disp# 12 mL Start Date: 05/14/22 Status: Ordered Euflexxa 10 mg/mL intra-articular solution Start: 06/15/23 8:16:00 EDT, 20 mg =, intra-articular, q7days, Disp# 12 mL, Refills: 0, B/L KNEE DJD M17.0, Note to Pharmacy: 6 syringes for B/L knees., other Start Date: 06/15/23 Stop Date: 07/06/23 Status: Ordered ferrous sulfate 325 mg (65 mg elemental iron) oral delayed release tablet Start: 09/14/13 14:47:00, 1 tab, PO, Daily Start Date: 09/14/13 Status: Ordered Flexeril 5 mg oral tablet Start: 04/24/12 15:29:00, 1 tab, PO, tid, PRN: as needed for spasm Start Date: 04/24/12 Status: Ordered Flomax 0.4 mg oral capsule Start: 09/06/15 14:51:00, 1 cap, PO, Daily Start Date: 09/06/15 Status: Ordered HumaLOG 100 units/mL injectable solution Start: 02/20/19 13:44:00 EDT, unit =, subQ, Daily Start Date: 02/20/19 Status: Ordered Imdur 60 mg oral tablet, extended release Start: 04/24/12 15:25:00, 1 tab, PO, qAM Start Date: 04/24/12 Status: Ordered Lexapro 10 mg oral tablet Start: 04/24/12 15:27:00, 1 tab, PO, Daily Start Date: 04/24/12 Status: Ordered Lipitor 10 mg oral tablet Start: 04/24/12 15:27:00, 1 tab, PO, qhs Start Date: 04/24/12 Status: Ordered meloxicam 15 mg oral tablet Start: 07/02/14 14:39:00, 1 tab, PO, Daily Start Date: 07/02/14 Status: Ordered metformin 500 mg oral tablet, extended release Start: 08/13/13 11:19:00, 2 tab, PO, bid Start Date: 08/13/13 Status: Ordered metoprolol tartrate 25 mg oral tablet Start: 09/06/15 14:49:00, 1 tab, PO, tid Start Date: 09/06/15 Status: Ordered Multiple Vitamins oral tablet Start: 09/14/13 14:49:00, 1 tab, PO, Daily Start Date: 09/14/13 Status: Ordered Mycolog-II topical cream Start: 07/02/14 14:52:00, 1 appl, topical, bid, Disp# 60 g, Refills: 3, Pharmacy: [facility]/pharmacy #[id number], 1 appl topical bid Start Date: 07/02/14 Status: Ordered Nitrostat 0.4 mg sublingual tablet Start: 07/02/14 14:38:00, 1 tab, SL, q5min, not to exceed 3 doses/15 min--if pain persists, seek medical attention Start Date: 07/02/14 Status: Ordered Norvasc 5 mg oral tablet Start: 04/24/12 15:25:00, 1 tab, PO, Daily Start Date: 04/24/12 Status: Ordered Osteo Bi-Flex Start: 07/02/14 14:38:00, 1 tab, PO, Daily Start Date: 07/02/14 Status: Ordered pantoprazole 40 mg oral delayed release tablet Start: 07/02/14 14:41:00, 1 tab, PO, Daily Start Date: 07/02/14 Status: Ordered Plaquenil Sulfate 200 mg oral tablet Start: 04/24/12 15:26:00, 1 tab, PO, Daily Start Date: 04/24/12 Status: Ordered predniSONE 5 mg oral tablet Start: 07/02/14 14:40:00, 1 tab, PO, Daily, as directed Start Date: 07/02/14 Status: Ordered Synthroid 150 mcg (0.15 mg) oral tablet Start: 04/24/12 15:25:00, 1 tab, PO, Daily Start Date: 04/24/12 Status: Ordered Jose Mijares Start: 02/20/19 13:45:00 EDT Start Date: 02/20/19 Status: Ordered Vicodin 5 mg-500 mg oral tablet Start: 04/24/12 15:28:00, See Instructions, PRN: as needed for pain, 1-2 tab PO q 4-6 hours prn Start Date: 04/24/12 Status: Ordered Vitamin B-12 1000 mcg oral tablet Start: 07/02/14 14:40:00, 2 tab, PO, Daily Start Date: 07/02/14 Status: Ordered Vitamin D3 2000 intl units oral tablet Start: 09/06/15 14:54:00, 1 tab, PO, Daily Start Date: 09/06/15 Status: Ordered Zinc Start: 07/02/14 14:40:00, 50 mg =, PO, Daily Start Date: 07/02/14 Status: Ordered Mental Status 09/02/23 Barriers to Learning one year None evide nt Mandatory Health Literacy Documentation Yes Health Literacy Communication Barriers N ever Primary Language Maltese Problem List Condition Confirmation Course Effective Dates Status H ealth Status Informant Angina decubitus Confirmed Active Aortic valve stenosis Confirmed Active Arthritis Confirmed Active Asthma Confirmed Active Back pain Confirmed Active Osteoarthritis of knees, bilateral Confirmed Active Cobalamin deficiency Confirmed Active Dermatitis Confirmed Active Diabetes mellitus Confirmed Active Gastroesophageal reflux disease Confirmed Active Heart murmur Confirmed Active Hypertensive disorder Confirmed Active Osteoarthritis Confirmed Active Pneumonia Confirmed Active Inflammatory disease of prostate Confirmed Active Sleep apnea Confirmed Active Shoulder subluxation, left Confirmed Active Weight disorder Confirmed Active Diagnosis Diagnosis Type Effective Dates Health Status Clinical Service Informant Osteoarthritis of knees, bilateral Discharge Diagnosis 09/02/23 Procedures Procedure Date Related Diagnosis Body Site Status AVR - Aortic valve replacement 08/14/13 Completed Cardiac catheterization 2012 C ompleted Colonoscopy 2012 Completed Endoscopy 2012 Completed Rectal polypectomy 2012 Comple zeenat Cholecystectomy planned 1979 C ompleted Lipoma 1979 Completed oral surgery 1960 Completed Tonsillectomy and adenoidectomy 1950 Completed Cataract Completed 1Removal Social History Social History Type Response Smoking Status Never smoked cigaret [place] Sex Male Outpatient Note * RIAN Bolden, Karl: PERFORM Event Display: .Outpt Note Authored Date: [id number] OUTPATIENT NOTE Name: KIM GREEN Patient Number:[id number] : 1945 Date of Service: 09/02/2023 HPI: This 78-year-old male presents to the clinic today for bilateral knee Euflexxa injection #2. He states that he has experienced mild pain relief after the initial injections last week. Currently he denies any signs or symptoms of infection and has no complaint of numbness or tingling in either lower extremity. Physical examination: Bilateral knees; range of motion is from 0 degrees of extension to 112 degrees of flexion. Patient experiences some slight medial and lateral joint line tenderness when the knees are palpated in the flexed position. Both patellae are not mobile due to arthritic change. There is no varus or valgus laxity with stressing. No visible malalignment. Patient is neurovascular intactin both lower extremities. Impression: Bilateral knee degenerative joint disease Procedure: Patient was seated on the edge of the table with both knee placed in the flexed position. Using the cap of the needle the lateral joint space of each knee was marked. A timeout was performed with the patient and he verbalizes that we will proceed with bilateral knee Euflexxa injection #2. Marked site as cleansed with a Betadine swab, anesthetized with ethyl chloride spray, and wiped clean with alcohol soaked 4 x 4. A 22-gauge needle connected to a prefilled syringe containing Euflexxa was easily passed through the lateral joint space of each knee and injected free-flowing without meeting resistance. Upon removal of the needle patient had no bleeding. Site was again cleansed with an alcohol soaked 4 x 4, wiped dry with a sterile 4 x 4 and covered with a Band-Aid. KATHRIN Stacy served as a witness for this procedure. Plan: Patient was advised to watch for signs and symptoms of infection and if any should occur he was advised to either contact clinic or go to the emergency department immediately. Patient verbalizes understanding of all information provided during today's visit. He thanked us for the care that hereceived. If he has questions or concerns that should arise prior to his final injection in 1 week,he will contact clinic. This chart was completed utilizing [employer] voice recognition software. Grammatical errors,random word insertions, pronoun errors, and in complete sentences are an occasional consequence of the system. Any questions or concerns about the content, text, or information contained within the body of this dictation should be addressed directly to the physician for clarification. Electronic Signature on File Electronically Reviewed/Signed by: Karl Bolden PA-C Author Signature Dt/Tm:09/02/2023 01:36 PM Division of Sports Medicine Electronically Reviewed/Signed by: Jasbir Mcqueen MD Cosigner Signature Dt/Tm: 09/02/2023 01:47 PM Adjunct Mathematics Instructor for Clinical Affairs, [facility] Esther Professor in Orthopaedics [employer], [facility] Patient Care team information Care Team Personnel Name: MD Barros Jeffrey W Position: Referring DIRECT Member Role: Primary Care Provider Address: Address: [facility] [address] [address] [place] Care Team Related Persons Name: ALLYN GREEN Address: [address] [phone]
--- OUTSIDE RECORDS SUMMARY | 2023-09-21 05:29 | External Medical Summary | Continuity of Care Document ---
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 Name Role Phone Sharif Primary Care Physician [phone] [id number] Date(s): 08/26/23 - 08/26/23 [facility] [address] [place] [id number] [facility] Medicine [address] [place] [id number] Encounter Diagnosis Osteoarthritis of knees, bilateral(Discharge Diagnosis) - 08/26/23 Discharge Disposition: Home or Self Care Attending Physician: RIAN Weston, Yanni Girard Allergies, Adverse Reactions, Alerts Substance Reaction Severity Status erythromycin Rash Active morphine Vomiting Nausea Active sulfa drugs nausea shaking Active Neosporin inflammation Active Augmentin Active Assessment and Plan Extracted from: Title:Orthopaedics Office Visit Note Author:Tana doss PA-C, Jolene Marie Date:08/26/23 1.Osteoarthritis of knees, bilateral Patient has had Euflexxa injections previously and has had favorable response to the injection. Patient I discussed risk and benefits of the injection. Patientwould like to proceed. I obtained verbal consent. Procedure 1. The patient was positionedlaying supineand a timeout was performed confirming injection site, injection, and patient. NursingGoldie confirmed correct.Using aseptic technique the right kneewas prepped using betadine. This was followed bythe use ofEthyl Chloride to numb the area and area was again cleansed using betadine.Next, Iinjected the right knee joint with 2cc ofviscosupplementation, Eulfexxa. There was very minimal bleeding whichwas controlled with light pressure. A dressing/bandage was applied. Pt tolerated the procedure well and had no adverse advents. Pt was advised on use of rest today andice x15min to the area with a towel layer prn. Pt wasadvised if any redness, swelling or drainage from the site to contact the office immediately. Pt will follow upin one week for their 2nd viscosupplementation injection Procedure 1. The patient was positionedlaying supineand a timeout was performed confirming injection site, injection, and patient. NursingGoldie confirmed correct.Using aseptic technique the left kneewas prepped using betadine. This was followed bythe use ofEthyl Chloride to numb the area and area was again cleansed using betadine.Next, Iinjected the left knee joint with 2cc ofviscosupplementation, Eulfexxa. There was very minimal bleeding whichwas controlled with light pressure. A dressing/bandage was applied. Pt tolerated the procedure well and had no adverse advents. Pt was advised on use of rest today andice x15min to the area with a towel layer prn. Pt wasadvised if any redness, swelling or drainage from the site to contact the office immediately. Pt will follow upin one week for their 2nd viscosupplementation injection. Patient was advised if any changes or concerns to contact the office sooner. Patient verbalized understandingand is in agreement with plan. Medications amLODIPine 10 mg oral tablet Start: [...] per day with food and water, Pharmacy: [facility]/pharmacy #[id number] Start Date: 08/02/19 Status: Ordered Coenzyme Q10 [...] bid, Disp# 60 g, Refills: 3, Pharmacy: [facility]/pharmacy #[id number], 1 appl topical bid Start Date: 07/02/14 [...] PO, Daily Start Date: 04/24/12 Status: Ordered Toujeo Max SoloStar Start: 02/20/19 13:45:00 EDT Start Date: 02/20/19 [...] Start Date: 07/02/14 Status: Ordered Mental Status 08/26/23 Barriers to Learning one year None evide nt Mandatory Health Literacy Documentation Yes Health Literacy Communication Barriers N ever Primary Language Georgian Problem List Condition Confirmation Course Effective Dates [...] Informant Osteoarthritis of knees, bilateral Discharge Diagnosis 08/26/23 Procedures Procedure Date Related Diagnosis Body Site [...] [place] Sex Male Outpatient Note * RIAN Weston, aYnni Girard: PERFORM, MODIFY Event Display: .Outpt Note Authored Date: [id number] Primary Care Provider MD Papo, Sharif Astorga Chief Complaint Bilateral knee Euflexxa injections # 1 History of Present Illness Patient is a 78-year-old male who is a known patient to the office. He has a history of bilateralknee osteoarthritis. He is here to start the Euflexxa series in bilateral knees. He states thathis last injections that he had in May 2022 has lasted until about a month ago. He denies any fall or injury. He states he has pain and stiffness in bilateral knees. He and his both noticedmore difficulty getting in and out of a chair at this time because of the knee pain. He is limited with walking due todiscomfort and pain in his knees. He states he is utilizing a cane.He denies any fall or injury. He denies any swellingor redness over the knees. He would like to proceed with the injection. Review of Systems Please refer to HPI Physical Exam Patient is seated comfortably in exam chair. He is alert and oriented x 3 no acute distress pleasant and conversive. Patient was transition onto exam table. I utilized a high low table that wasadjustable for the back due to a history of back pain. Bilateral knees were inspected. Skin is normal in color and temperature negative for erythema edema or effusion. He has painat the jointline bilaterally on the medial and lateral aspects. His knee range of motion is limited toapproximately 85 degreesbilaterally. His extension is limited by 5 degrees bilaterally. No varus and valguslaxity. Gait is antalgic without assistive device. Assessment/Plan 1.Osteoarthritis of knees, bilateral Patient has had Euflexxa injections previously and has had favorable response to the injection. Patient I discussed risk and benefits of the injection. Patientwould like to proceed. I obtained verbal consent. Procedure 1. The patient was positionedlaying supineand a timeout was performed confirming injection site, injection, and patient. NursingGoldie confirmed correct.Using aseptic technique the right kneewas prepped using betadine. This was followed bythe use ofEthyl Chloride to numb the area and area was again cleansed using betadine.Next, Iinjected the right knee joint with 2cc ofviscosupplementation, Eulfexxa. There was very minimal bleeding whichwas controlled with light pressure. Adressing/bandage was applied. Pt tolerated the procedure well and had no adverse advents. Pt was advised on use of rest today andice x15min to the area with a towel layer prn. Pt wasadvised if any redness, swelling or drainage from the site to contact the office immediately. Pt will follow upin one week for their 2nd viscosupplementation injection Procedure 1. The patient was positionedlaying supineand a timeout was performed confirming injection site, injection, and patient. NursingGoldie confirmed correct.Using aseptic technique the left kneewas prepped using betadine. This was followed bythe use ofEthyl Chloride to numb the area and area was again cleansed using betadine.Next, Iinjected the left knee joint with 2cc ofviscosupplementation, Eulfexxa. There was very minimal bleeding whichwas controlled with light pressure. Adressing/bandage was applied. Pt tolerated the procedure well and had no adverse advents. Pt was advised on use of rest today andice x15min to the area with a towel layer prn. Pt wasadvised if any redness, swelling or drainage from the site to contact the office immediately. Pt will follow upin one week for their 2nd viscosupplementation injection. Patient was advised if any changes or concerns to contact the office sooner. Patient verbalized understandingand is in agreement with plan. Problem List/Past Medical History Ongoing Angina decubitus Aortic valve stenosis Arthritis Asthma Back pain Cobalamin deficiency Dermatitis Diabetes mellitus Gastroesophageal reflux disease Heart murmur Hypertensive disorder Inflammatory disease of prostate Osteoarthritis Osteoarthritis of knees, bilateral Pneumonia Shoulder subluxation, left Sleep apnea Weight disorder Procedure/Surgical History AVR - Aortic valve replacement (08/14/2013)Endoscopy (2012)Colonoscopy (2012)Rectal polypectomy (2012)Cardiac catheterization (2012)Lipoma (1979)Cholecystectomy planned (1979)oral surgery (1959)Tonsillectomy and adenoidectomy (1949)Cataract Medications acetaminophen-hydrocodone(Vicodin 5 mg-500 mg oral tablet), See Instructions, PRN amLODIPine(amLODIPine 10 mg oral tablet) amlodipine(Norvasc 5 mg oral tablet), 5 mg= 1 tab, PO, Daily amoxicillin(amoxicillin 500 mg oral tablet), 500 mg= 1 tab, PO aspirin(aspirin 325 mg oral delayed release tablet), 325 mg= 1 tab, PO, Daily atorvastatin(Lipitor 10 mg oral tablet), 10 mg= 1 tab, PO, qhs cholecalciferol(Vitamin D3 2000 intl units oral tablet), 2000 Int_Unit= 1 tab, PO, Daily chondroitin-glucosamine(Osteo Bi-Flex), 1 tab, PO, Daily clindamycin(clindamycin 300 mg oral capsule), 300 mg= 1 cap, PO, tid cranberry(cranberry oral tablet), 300 mg, PO, Daily cyanocobalamin(Vitamin B-12 1000 mcg oral tablet), 2000 mcg= 2 tab, PO, Daily cyclobenzaprine(Flexeril 5 mg oral tablet), 5 mg= 1 tab, PO, tid, PRN doxycycline, 100 mg, PO, bid escitalopram(Lexapro 10 mg oral tablet), 10 mg= 1 tab, PO, Daily ferrous sulfate(ferrous sulfate 325 mg (65 mg elemental iron) oral delayed release tablet), 325 mg=1 tab, PO, Daily hydroxychloroquine(Plaquenil Sulfate 200 mg oral tablet), 200 mg= 1 tab, PO, Daily insulin glargine(Toujeo Max SoloStar) insulin lispro(HumaLOG 100 units/mL injectable solution), subQ, Daily isosorbide mononitrate(Imdur 60 mg oral tablet, extended release), 60 mg= 1 tab, PO, qAM levothyroxine(Synthroid 150 mcg (0.15 mg) oral tablet), 150 mcg= 1 tab, PO, Daily meloxicam(meloxicam 15 mg oral tablet), 15 mg= 1 tab, PO, Daily metformin(metformin 500 mg oral tablet, extended release), 1000 mg= 2 tab, PO, bid metoprolol(metoprolol tartrate 25 mg oral tablet), 25 mg= 1 tab, PO, tid multivitamin(Multiple Vitamins oral tablet), 1 tab, PO, Daily nitroglycerin(Nitrostat 0.4 mg sublingual tablet), 0.4 mg= 1 tab, SL, q5min nystatin-triamcinolone topical(Mycolog-II topical cream), 1 appl, topical, bid, 3 refills pantoprazole(pantoprazole 40 mg oral delayed release tablet), 40 mg= 1 tab, PO, Daily predniSONE(predniSONE 5 mg oral tablet), 5 mg= 1 tab, PO, Daily sodium hyaluronate(Euflexxa 10 mg/mL intra-articular solution), 20 mg, intra- articular, q7days sodium hyaluronate(Euflexxa 10 mg/mL intra-articular solution), 20 mg, intra- articular, q7days tamSULOsin(Flomax 0.4 mg oral capsule), 0.4 mg= 1 cap, PO, Daily ubiquinone(Coenzyme Q10 100 mg oral capsule), 100 mg= 1 cap, PO, Daily zinc sulfate(Zinc), 50 mg, PO, Daily Allergies Augmentin Neosporininflammation erythromycinRash morphineVomiting, Nausea sulfa drugsnausea, shaking Social History Smoking Status Never smoked cigarettes Family History COPD: Mother. Cancer: Father. High Blood Pressure: Mother. Rheumatoid Arthritis: Mother. Health Status Family Member(s) Recommendations Health Maintenance Pending(in the next year) OverDue Diabetes Management A1c due08/14/14and every 366day Adult Influenza Vaccine due03/19/23and every 1year Due Adult COVID-19 Vaccination due08/26/23Unknown Frequency Adult Tdap/Td Vaccine due08/26/23Unknown Frequency Diabetes Nephropathy Management due08/26/23Unknown Frequency Diabetic Eye Exam due08/26/23nown Frequency Hepatitis C Screening due08/26/23One-time only Medicare Annual Wellness Visit due08/26/23and every 1year Pneumococcal Vaccine Older Adults due08/26/23One-time only Shingles Vaccine due08/26/23One-time only Due In Future Body Mass Index not due until08/28/23and every 366day Satisfied(in the past 1 year) Satisfied Body Mass Index on08/27/22.Satisfied by KATHRIN Stacy Mackenzie A Electronic Signature on File Electronically Reviewed/Signed by: Yanni Weston PA-C Author Signature Dt/Tm:08/26/2023 04:22PM Division of Sports Medicine Electronically Reviewed/Signed by: Jasbir Mcqueen MD Cosigner Signature Dt/Tm: 08/26/2023 04:58 PM Senior Product Consultant for Clinical Affairs, [facility] Esther Professor in Orthopaedics Magnetic Resonance Technologist, [facility] Sports Medicine Patient Care team information Care Team Personnel Name: MD Barros Jeffrey W Position: Referring DIRECT Member Role: Primary Care Provider Address: Address: [facility] [address] [place] [address] [place] Care Team Related Persons Name: ALLYN GREEN Address: home [address] [place] [address] AYDIN GARAY [phone]
--- OUTSIDE RECORDS SUMMARY | 2023-09-21 05:29 | External Medical Summary | Continuity of Care Document ---
Author Name Unknown Organization [place] [id number] Address [address] [place] [phone] Care Team Providers Care Procedures Nurse Name Role Phone Sharif Primary Care Physician [phone] [id number] 09/09/23 - 09/09/23 [facility] [address] [place] [id number] [facility] Medicine [address] [place] [address] Encounter Diagnosis Osteoarthritis of knees, bilateral(Discharge Diagnosis) - 09/09/23 Discharge Disposition: Home or Self Care Attending Physician: RIAN Weston, Yanni Girard Allergies, Adverse Reactions, Alerts Substance Reaction Severity Status erythromycin Rash Active Augmentin Active morphine Vomiting Nausea Active sulfa drugs nausea shaking Active Neosporin inflammation Active Assessment and Plan Extracted from: Title:Orthopaedics Office Visit Note Author:Tana doss PA-C, Jolene Marie Date:09/09/23 1.Osteoarthritis of knees, bilateral Patient has a favorable response to the Euflexxa injections. We did discuss typically there is a delay in the response and not become discouraged. We discussed risk and benefits of the injection. Patient would like to proceed. Patient and I also discussed fall precautions. He has no visibleinjuries thatI can appreciate onexam today. We did discuss utilizing ice packs x 10 to 15 minutes with a towel layer to his low back to see if this gives him anycomfort. If he continues to have pain he will follow-up in the office. He was advised if any painworsens or any symptoms change she can always go to the ER if symptoms seem to get worse. Patient would like to proceed with the injection. I did obtain verbal consent. Procedure 1. The patient was positionedlaying supineand a timeout was performed confirming injection site, injection, and patient. NursingKaren confirmed correct.Using aseptic technique the right kneewas [...] contact the office immediately. Pt will follow upas needed. Procedure 2. The patient was positionedlaying supineand a timeout was performed confirming injection site, injection, and patient. NursingKaren confirmed correct.Using aseptic technique the left kneewas [...] contact the office immediately. Pt will follow upas needed. Patient was advised if any changes or [...] per day with food and water, Pharmacy: [facility]/pharmacy #[id number] Start Date: 08/02/19 Status: Ordered Coenzyme Q10 [...] bid, Disp# 60 g, Refills: 3, Pharmacy: [facility]/pharmacy #[id number], 1 appl topical bid Start Date: 07/02/14 [...] Start Date: 07/02/14 Status: Ordered Mental Status 09/09/23 Barriers to Learning one year None evide nt Mandatory Health Literacy Documentation Yes Health Literacy Communication Barriers N ever Primary Language Togolese Problem List Condition Confirmation Course Effective Dates [...] Informant Osteoarthritis of knees, bilateral Discharge Diagnosis 09/09/23 Procedures Procedure Date Related Diagnosis Body Site [...] Sex Male Outpatient Note * RIAN Weston, Yanni Girard: PERFORM Event Display: .Outpt Note Authored Date: Primary Care Provider MD Barros Jeffrey W Chief Complaint B/L knee euflexxa #3 History of Present Illness Patient is a 78-year-old male who is a known patient to the office. He has a history of bilateralosteoarthritis of his knees is here for his third and final Euflexxa injection. He states overallhe does feel that theknees are less stiff. He states he has no swellingor redness from the injection. He states his pain is 2/10. He is accompanied by his who states thatthis morningwhen he was getting into the truck his foot slipped on the running board and he was able to controlhimself down to the ground. He denies any injuryor hitting his head or loss of consciousness. He states he just feels a little stiff but overallhis back is sore butusually this is typical for him. He would like to proceed with the final injections. He denies any injury to the knees.He denies anyswelling to his knees any fever or chills. Review of Systems Please refer to HPI Physical Exam Patient is seated comfortably in exam chair. Patient was transition into a high low table with the back elevated. Patient is alert and oriented x 3 no acute distress. Was able to observe his back. He has resolving ecchymosis which per patient this is from where he he just had back injections. No gross deformity erythemaor edemais appreciated on exam. Patient was positiononthe table. His skin over bilateral knees is normal in color and temperature. He has no edema or effusion. He continues to have mild joint line tenderness on the right negative on the left. He has crepitation with range of motion range of motion is unchanged -5 to approximately 85 degrees. His sensation is intact in bilateral lower extremity. His gait is slightly antalgic with single-point cane. Assessment/Plan 1.Osteoarthritis of knees, bilateral Patient has a favorable response to the Euflexxa injections. We did discuss typically there is a delay in the response and not become discouraged. We discussed risk and benefits of the injection.Patient would like to proceed. Patient and I also discussed fall precautions. He has no visibleinjuries thatI can appreciate onexam today. We did discuss utilizing ice packs x 10 to 15 minutes with a towel layer to his low back to see if this gives him anycomfort. If he continues to have pain he will follow-up in the office. He was advised if any painworsens or any symptoms change she can always go to the ER if symptoms seem to get worse. Patient would like to proceed with the injection. I did obtain verbal consent. Procedure 1. The patient was positionedlaying supineand a timeout was performed confirming injection site, injection, and patient. Nursing,Karen confirmed correct.Using aseptic technique the right kneewas prepped using betadine. This was followed bythe use ofEthyl Chloride to numb the area and area was again cleansed using betadine.Next, Iinjected the right knee joint with 2cc ofviscosupplementation, Eulfexxa. There was very minimal bleeding whichwas controlled with light pressure.A dressing/bandage was applied. Pt tolerated the procedure well and had no adverse advents. Pt was advised on use of rest today andice x15min to the area with a towel layer prn. Pt wasadvised if any redness, swelling or drainage from the site to contact the office immediately. Pt will follow upas needed. Procedure 2. The patient was positionedlaying supineand a timeout was performed confirming injection site, injection, and patient. Nursing,Karen confirmed correct.Using aseptic technique the left kneewas prepped using betadine. This was followed bythe use ofEthyl Chloride to numb the area and area was again cleansed using betadine.Next, Iinjected the left knee joint with 2cc ofviscosupplementation, Eulfexxa. There was very minimal bleeding whichwas controlled with light pressure.A dressing/bandage was applied. Pt tolerated the procedure well and had no adverse advents. Pt was advised on use of rest today andice x15min to the area with a towel layer prn. Pt wasadvised if any redness, swelling or drainage from the site to contact the office immediately. Pt will follow upas needed. Patient was advised if any changes or [...] sodium hyaluronate(Euflexxa 10 mg/mL intra-articular solution), 20 mg= 2 mL, intra-articular, ONCE sodium hyaluronate(Euflexxa 10 mg/mL intra-articular solution), 20 mg= 2 mL, intra-articular, ONCE tamSULOsin(Flomax 0.4 mg oral capsule), 0.4 mg= [...] Adult Influenza Vaccine due03/19/23and every 1year Due Body Mass Index due08/28/23and every 366day Adult COVID-19 Vaccination due09/09/23Unknown Frequency Adult Social Determinants of Health Screening due09/09/23Unknown Frequency Adult Tdap/Td Vaccine due09/09/23Unknown Frequency Diabetes Nephropathy Management due09/09/23Unknown Frequency Diabetic Eye Exam due09/09/23Unknown Frequency Hepatitis C Screening due09/09/23One-time only Medicare Annual Wellness Visit due09/09/23and every 1year Pneumococcal Vaccine Older Adults due09/09/23One-time only Shingles Vaccine due09/09/23One-time only Satisfied(in the past 1 year) There are no satisfied recommendations within the defined date range Electronic Signature on File Electronically Reviewed/Signed by: Yanni Weston PA-C Author Signature Dt/Tm:09/09/2023 12:39PM Division of Sports Medicine Electronically Reviewed/Signed by: Jasbir Mcqueen MD Cosigner Signature Dt/Tm: 09/09/2023 01:21 PM Rope Coiling Machine Operator for Clinical Affairs, [facility] [place] Professor in Orthopaedics [employer] Fab[employer]ation, [facility] Sports Medicine Patient Care team information Care Team Personnel Name: MD Barros Jeffrey W Position: Referring DIRECT Member Role: Primary Care Provider Address: Address: [facility] [address] [address] Care Team Related Persons Name: ALLYN GREEN Address: [address] [phone]
[2023-09-21 08:13] LABS: Hematocrit (blood only) 33.4 % (42.0-52.0)
--- NOTE | 2023-09-21 09:41 | Gastrointestinal Consultation ---
Date of Consultation September 21, 2023 Assessment & Plan (1) Symptomatic anemia: (2) Upper GI bleed: Plan Diff dx: Dieulafoy lesion vs PUD vs AVM vs other. -NPO for now. -Continue PPI ggt at 8 mg/hr. -EGD today with Dr. Arnett for further evaluation. -Further recommendations pending results of testing. Thank you for allowing us to participate in the care of this patient. If you have any questions or concerns, please do not hesitate to contact us. Supervising Physician Co-Signing Physician Notes Agree with ADRIANE Mackey as above Abd: Soft, NT, ND, +BS Continue current therapy and supportive care Proceed with EGD now. History of Present Illness Reason for Consultation: UGIB Requesting Physician: Dr. Babin Attending Physician: Brennon Babin MD History of Present Illness Patient is a 78 y.o. male with a history of rectal CA, Dieulafoy's lesion (2012), and duodenal ulcer dx ~80's admitted with symptomatic anemia. He developed an abrupt onset of black stools two days [employer]. Per the patient's , he has been reporting increasing fatigue, however, over the past month. The melena is associated with dizziness upon standing, pyrosis, and intermittent epigastric discomfort. Denies any nausea or vomiting. His H&H was noted to be 11.9/36.1 upon admission which is a downtrend from his last H&H of 13.3/39.7 in July. Hemoglobin has dropped to 11.0 this morning. Stool was heme positive. Last colonoscopy was performed by Dr. Arnett in April of this year for colorectal surveillance. No recent upper endoscopy. Risk for GIB includes combination high dose ASA and Meloxicam which are being held at this time. He remains NPO and initiated on a Protonix ggt. Allergies Allergy/AdvReac Type Severity Reaction Status Date / Time erythromycin base Allergy Severe all over Verified 09/20/23 22:36 body rash bacitracin Allergy Intermediate Skin Verified 09/20/23 22:36 Irritation neomycin Allergy Intermediate Skin Verified 09/20/23 22:36 Irritation polymyxin B Allergy Intermediate Skin Verified 09/20/23 22:36 Irritation Iodinated Contrast Media AdvReac Severe SEVERE Verified 09/20/23 22:36 NAUSEA/VOMITING morphine AdvReac Severe severe n/v Verified 09/20/23 22:36 Opioids - Morphine Analogues AdvReac Severe Gastrointestinal Verified 09/20/23 2 2:36 Upset Sulfa (Sulfonamide AdvReac Severe Nausea Verified 09/20/23 22:36 Antibiotics) adhesive tape AdvReac Intermediate Blister Verified 09/20/23 22:36 Macrolide Antibiotics AdvReac Mild CHILLS, Verified 09/20/23 22:36 HEADACHE, "MADE HIM SICK" clavulanic acid AdvReac Unknown CHILLS, Verified 09/20/23 22:36 HEADACHE, "MADE HIM SICK" sulfamethoxazole AdvReac Unknown CHILLS, Verified 09/20/23 22:36 HEADACHE, "MADE HIM SICK" Home Medications Medication Instructions Recorded Confirmed Type aspirin 325 mg tablet,delayed 325 mg PO PM 07/01/18 09/20/23 History release ferrous sulfate 325 mg (65 mg 325 mg PO QAM 07/01/18 09/20/23 History iron) tablet hydroxychloroquine 200 mg tablet 200 mg PO BID 02/26/21 09/20/23 History cyanocobalamin (vitamin B-12) 1,000 mcg PO QPM 05/28/21 09/20/23 History 2,000 mcg tablet,extended release (Vitamin B-12 ER) cholecalciferol (vitamin D3) 50 2,000 unit PO .EVEN DAYS 07/07/21 09/20/23 History mcg (2,000 unit) capsule (Vitamin D3) cranberry 500 mg capsule 500 mg PO QAM 07/07/21 09/20/23 History prednisolone 5 mg tablet 5 mg PO QAM 07/08/22 09/20/23 History pen needle, diabetic 32 gauge x #400 ea 10/18/22 08/23/23 Rx 5/32" (BD Kell 2nd Gen Pen Needle) amlodipine 10 mg tablet 10 mg PO QAM 02/04/23 09/20/23 History diphenhydramine HCl 12.5 mg/5 mL 12.5 - 50 mg PO HS PRN Sleep 02/04/23 09/20/23 History oral elixir docusate sodium 100 mg tablet 100 mg PO PM 02/04/23 09/20/23 History finasteride 5 mg tablet 5 mg PO PM 02/04/23 09/20/23 History insulin glargine U-300 conc 300 22 unit subcut PM 02/04/23 09/20/23 History unit/mL (3 mL) subcutaneous pen (TouScanCafe Max U-300 SoloStar) lidocaine 4 % topical patch 1 patch topical BID 02/04/23 09/20/23 History tamsulosin 0.4 mg capsule (Flomax) 0.4 mg PO PM 02/04/23 09/20/23 History OneTouch Verio Mid Control (blood #1 ea 03/28/23 08/23/23 Rx glucose control, normal) Microlet Lancet (lancets) #300 ea 04/26/23 08/23/23 Rx Osteobioflex With Turmeric 1 cap PO QAM 04/27/23 09/20/23 History albuterol sulfate 90 mcg/actuation 1 - 2 puff inhalation Q4H PRN 04/27/23 09/20/23 Rx aerosol inhaler (ProAir HFA) Shortness Of Breath Or Wheezing #18 grams doxycycline hyclate 100 mg tablet 100 mg PO BID PRN UTI 04/27/23 09/20/23 History symptoms/prostatitis meloxicam 15 mg tablet 15 mg PO QAM #90 tabs 06/02/23 09/20/23 Rx metformin 500 mg tablet,extended 1,000 mg (2 x 500 mg) PO BID #360 06/02/23 09/20/23 Rx release 24 hr tabs lancing device #1 ea 08/04/23 08/23/23 Rx oxycodone 5 mg tablet 5 mg PO Q8H PRN breakthrough pain 08/08/23 09/20/23 Rx #30 tabs diazepam 5 mg tablet (Valium) 5 mg PO BID PRN anxiety #5 tabs 08/25/23 09/20/23 Rx cyclobenzaprine 5 mg tablet 5 mg PO TID PRN Muscle Spasm #90 09/02/23 09/20/23 Rx tabs escitalopram oxalate 10 mg tablet 10 mg PO PM #90 tabs 09/07/23 09/20/23 Rx (Lexapro) isosorbide mononitrate 60 mg 60 mg PO QAM #90 tabs 09/07/23 09/20/23 Rx tablet,extended release 24 hr levothyroxine 150 mcg tablet 150 mcg PO QAM #90 tabs 09/07/23 09/20/23 Rx pantoprazole 40 mg tablet,delayed 40 mg PO BID #180 tabs 09/07/23 09/20/23 Rx release (Protonix) metoprolol tartrate 25 mg tablet 25 mg PO TID #270 tabs 09/15/23 09/20/23 Rx amoxicillin 500 mg tablet 2,000 mg PO DIRECTED 09/20/23 09/20/23 History atorvastatin 10 mg tablet (Lipitor) 10 mg PO .QWED&SAT 09/20/23 09/20/23 History cholecalciferol (vitamin D3) 25 25 mcg PO .ODD DAYS 09/20/23 09/20/23 History mcg (1,000 unit) tablet (Vitamin D3) hydrocodone 10 mg-acetaminophen 1 tab PO TID pain 09/20/23 09/20/23 History 325 mg tablet insulin lispro 100 unit/mL 0 unit subcut TIDM 09/20/23 09/20/23 History subcutaneous pen (Humalog KwikPen (U-100) Insulin) psyllium 1 packet PO DAILY PRN Constipation 09/20/23 09/20/23 History turmeric root extract 500 mg 500 mg PO DAILY 09/20/23 09/20/23 History capsule Patient History Medical History History of colon polyps Pulmonary nodule DDD (degenerative disc disease), cervical DDD (degenerative disc disease), lumbar Osteoporosis Scoliosis Hyperlipidemia Proctitis on occasion, prn doxycycline for this CAD (coronary artery disease) follows with Dr. 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 GERD without esophagitis Asthma rare res inh use Iliotibial band syndrome of right side Internal hemorrhoids Systemic lupus erythematosus H/O: GI bleed severe GI bleed, treated at [facility] - resolved Diabetes IDDM Hypertension Hypothyroid Surgical History History of cataract surgery bilat S/P excision of lipoma to back History of gastric surgery due to GI bleed November 2016 History of skin surgery skin tags History of dental surgery History of esophagogastroduodenoscopy History of colonoscopy History of tonsillectomy S/P aortic valve replacement [facility] [place] Jul 2013 History of cholecystectomy Family History Father Hypertension Diabetes Heart disease Prostate cancer Cardiac disorder Cancer Mother Rheumatoid aortitis Emphysema/COPD Hypertension Colitis Brother Hypertension Diabetes Family/Other Prostate cancer Other Bone cancer Social History Smoking Status: Former smoker Tobacco Type: Cigarettes Age Started Using Tobacco: 18; Age Quit Using Tobacco: 42; packs per day: 3; Cigarettes Per Day: 40-60; Second Hand Exposure: No; Do You Dip or Chew Tobacco: No; Hx Alcohol Use: No Hx Substance Use: No Preferred Language: [place] Communication Ability: Effective Visual Impairment: Limited Hearing Ability: Normal Registration Coordinator Required: No Beliefs That Will Affect Care: None marital status: Current Living Situation: Spouse current occupational status: retired Other Information That Helps Us Care for You: No Feels Safe at Home: Yes Safety Concerns: Feels Safe At This Time Childhood Exposure to Second-Hand Smoke: No Seatbelt Use: always Assistive Devices: Denture - Upper, Glasses and Hearing Aid - Bilateral Review of Systems Constitutional: as per Subjective / HPI Respiratory: no cough and no dyspnea Cardiovascular: no chest pain and no palpitations Gastrointestinal: as per Subjective / HPI Physical Exam Constitutional: WD/WN, vitals as above Eyes: EOM intact bilaterally Neck: normal visual inspection Respiratory: normal respiratory effort, lungs clear to auscultation Cardiovascular: Rate/Rhythm: regular rate and regular rhythm Gastrointestinal (Abdomen): Inspection/Auscultation: normal bowel sounds and + significant pannus Percussion/Palpation: abdomen soft; abdomen nontender, no guarding and abdomen not rigid Psychiatric: A+Ox3, euthymic affect Results & Data Vital Signs (Past 12 Hours) Vital Signs Temp Pulse Pulse Resp BP BP Pulse Ox 09/21/23 08:26 87 19 147/94 H 95 09/21/23 08:00 147/94 H 09/21/23 08:00 85 19 95 09/21/23 07:30 133/91 09/21/23 07:30 87 16 147/94 H 95 09/21/23 07:11 88 09/21/23 05:30 93 H 145/92 H 91 09/21/23 05:00 90 16 148/97 H 90 09/21/23 04:52 84 13 135/95 97 09/21/23 04:09 86 09/21/23 04:00 79 17 159/108 H 97 09/21/23 03:55 75 166/105 H 09/21/23 03:23 93 H 180/118 H 09/21/23 03:00 92 H 19 180/107 H 98 09/21/23 02:30 91 H 23 97 09/21/23 02:10 80 210/116 H 09/21/23 02:08 83 16 96 09/21/23 01:53 37.4 C 79 16 193/112 H 97 09/21/23 01:07 79 22 166/100 H 97 09/21/23 00:31 79 15 179/107 H 91 09/20/23 21:54 66 09/20/23 21:54 64 13 97 O2 Del Method 09/21/23 08:26 Room Air 09/21/23 08:00 09/21/23 08:00 09/21/23 07:30 09/21/23 07:30 09/21/23 07:11 09/21/23 05:30 Room Air 09/21/23 05:00 Room Air 09/21/23 04:52 Room Air 09/21/23 04:09 09/21/23 04:00 Room Air 09/21/23 03:55 09/21/23 03:23 09/21/23 03:00 09/21/23 02:30 09/21/23 02:10 09/21/23 02:08 09/21/23 01:53 Room Air 09/21/23 01:07 Room Air 09/21/23 00:31 Room Air 09/20/23 21:54 09/20/23 21:54 Diagnostic Findings Laboratory Results WBC 5.58 K/ul (4.8-10.8) 09/20/23 19:10 RBC 3.86 M/uL (4.70-6.10) L 09/20/23 19:10 Hgb 11.0 g/dl (14.0-18.0) L 09/21/23 07:51 Hct 33.4 % (42.0-52.0) L 09/21/23 07:51 MCV 93.5 fL (80.0-100.0) 09/20/23 19:10 MCH 30.8 pg (25.0-34.0) 09/20/23 19:10 MCHC 33.0 g/dL (32.0-36.0) 09/20/23 19:10 RDW Std Deviation 46.1 fL (36.4-46.3) 09/20/23 19:10 RDW Coeff of [place] 13.8 % (11.5-14.5) 09/20/23 19:10 Plt Count 246 K/uL (130-400) 09/20/23 19:10 MPV 10.4 fL (9.4-12.4) 09/20/23 19:10 Immature Gran % (Auto) 0.7 % 09/20/23 19:10 Neut % (Auto) 63.7 % 09/20/23 19:10 Lymph % (Auto) 23.7 % 09/20/23 19:10 [place] % (Auto) 9.3 % 09/20/23 19:10 Eos % (Auto) 1.3 % 09/20/23 19:10 Baso % (Auto) 1.3 % 09/20/23 19:10 Neut # (Auto) 3.56 K/uL (1.40-6.50) 09/20/23 19:10 Lymph # (Auto) 1.32 K/uL (1.20-3.40) 09/20/23 19:10 [place] # (Auto) 0.52 K/uL (0.11-0.59) 09/20/23 19:10 Eos # (Auto) 0.07 K/uL (0.00-0.50) 09/20/23 19:10 Baso # (Auto) 0.07 K/uL (0.00-0.20) 09/20/23 19:10 Immature Gran # (Auto) 0.04 K/uL (0.01-0.20) 09/20/23 19:10 Sodium 142 mmol/L (136-145) 09/21/23 01:34 Potassium 4.2 mmol/L (3.5-5.1) 09/21/23 01:34 Chloride 108 mmol/L (98-107) H 09/21/23 01:34 Carbon Dioxide 27 mmol/L (21-32) 09/21/23 01:34 Anion Gap 7 (3-11) 09/21/23 01:34 BUN 19 mg/dl (6-23) 09/21/23 01:34 Creatinine 1.12 mg/dl (0.6-1.4) 09/21/23 01:34 Est Cr Clr Drug Dosing 81.3 ml/min 09/21/23 01:34 Est GFR ( Amer) 73.6 ml/min 09/21/23 01:34 Est GFR (Non-Af Amer) 63.5 ml/min 09/21/23 01:34 BUN/Creatinine Ratio 17.0 (10-20) 09/21/23 01:34 Glucose 110 mg/dl (70-99(Fasting)) H 09/21/23 01:34 Calcium 9.6 mg/dl (8.6-10.3) 09/21/23 01:34 Magnesium 1.9 mg/dl (1.7-2.4) 09/21/23 01:34 Total Bilirubin 0.3 mg/dl (0.2-1.0) 09/20/23 19:10 AST 17 U/L (13-39) 09/20/23 19:10 ALT 15 U/L (7-52) 09/20/23 19:10 Alkaline Phosphatase 60 U/L (34-104) 09/20/23 19:10 Total Protein 7.0 gm/dl (6.0-8.3) 09/20/23 19:10 Albumin 4.1 gm/dl (3.4-5.0) 09/20/23 19:10 Globulin 2.9 gm/dl (2.5-4.0) 09/20/23 19:10 Albumin/Globulin Ratio 1.4 (0.9-2) 09/20/23 19:10 Urine Color Yellow 09/20/23 Unknown Urine Appearance Clear (Clear) 09/20/23 Unknown Urine pH 5.5 (4.5-7.5) 09/20/23 Unknown Ur Specific [place] 1.010 (1.000-1.030) 09/20/23 Unknown Urine Protein Negative (Negative) 09/20/23 Unknown Urine Glucose (UA) Negative (Negative) 09/20/23 Unknown Urine Ketones Negative (Negative) 09/20/23 Unknown Urine Blood Negative (Negative) 09/20/23 Unknown Urine Nitrite Negative (Negative) 09/20/23 Unknown Urine Bilirubin Negative (Negative) 09/20/23 Unknown Urine Urobilinogen Negative (Negative) 09/20/23 Unknown Ur Leukocyte Esterase Negative (Negative) 09/20/23 Unknown POC Stool Occult Blood Positive (Negative) A 09/20/23 19:10 Blood Type A Positive 09/20/23 22:45 Antibody Screen NEGATIVE 09/20/23 22:45 PG Care Time/CCT Total # of Minutes Spent Total Time Spent with Patient: Total time spent is greater than 50% in coordination of care (as documented) at patient's floor/unit and/or counseling patient: Coding Level of Care Code 57729 INT INP/OBS CARE 375MIN Diagnoses Symptomatic anemia D64.9 Upper GI bleed K92.2
[2023-09-21] MEDS ORDERED: ONDANSETRON INJ 2 MG/ML 2 ML VIAL ONE (09:55)
[2023-09-21] MEDS ORDERED: LIDOCAINE 2% 2 ML VIAL/AMP(20MG/ML) INFIL ONE (09:55)
[2023-09-21] MEDS ORDERED: MIDAZOLAM HCL 1 MG/ML 2ML VIAL ONE (09:55)
[2023-09-21] MEDS ORDERED: PROPOFOL IV EMULSION 10 MG/ML 20 ML VIAL IV ONE (09:55)
--- NOTE | 2023-09-21 10:23 | Anesthesiology Consultation ---
Date of Service September 21, 2023 Assessment & Plan ASA ASA3 Proposed Anesthesia Anesthesia Type: MAC Risk / Benefits Reviewed With: PT / POA / Parent / Guardian, Accepts Plan and Informed Consent Obtained History Surgery Operation Date: 09/21/23 16:30 Proposed Procedures p Esophagogastroduodenoscopy Dr Arntet - Sebastien Sherwood Case, DO Height/Weight Height: 6 ft Weight: 139.8 kg Allergies Allergy/AdvReac Type Severity Reaction Status Date / Time erythromycin base Allergy Severe all over Verified 09/20/23 22:36 body rash bacitracin Allergy Intermediate Skin Verified 09/20/23 22:36 Irritation neomycin Allergy Intermediate Skin Verified 09/20/23 22:36 Irritation polymyxin B Allergy Intermediate Skin Verified 09/20/23 22:36 Irritation Iodinated Contrast Media AdvReac Severe SEVERE Verified 09/20/23 22:36 NAUSEA/VOMITING morphine AdvReac Severe severe n/v Verified 09/20/23 22:36 Opioids - Morphine Analogues AdvReac Severe Gastrointestinal Verified 09/20/23 22:36 Upset Sulfa (Sulfonamide AdvReac Severe Nausea Verified 09/20/23 22:36 Antibiotics) adhesive tape AdvReac Intermediate Blister Verified 09/20/23 22:36 Macrolide Antibiotics AdvReac Mild CHILLS, Verified 09/20/23 22:36 HEADACHE, "MADE HIM SICK" clavulanic acid AdvReac Unknown CHILLS, Verified 09/20/23 22:36 HEADACHE, "MADE HIM SICK" sulfamethoxazole AdvReac Unknown CHILLS, Verified 09/20/23 22:36 HEADACHE, "MADE HIM SICK" Medications Home Medications Medication Instructions Recorded Confirmed Last Taken aspirin 325 mg tablet,delayed 325 mg PO PM 07/01/18 09/20/23 08/03/23 20:00 release ferrous sulfate 325 mg (65 mg 325 mg PO QAM 07/01/18 09/20/23 08/04/23 22:30 iron) tablet hydroxychloroquine 200 mg tablet 200 mg PO BID 02/26/21 09/20/23 09/20/23 07:00 cyanocobalamin (vitamin B-12) 1,000 mcg PO QPM 05/28/21 09/20/23 08/04/23 17:00 2,000 mcg tablet,extended release (Vitamin B-12 ER) cholecalciferol (vitamin D3) 50 2,000 unit PO .EVEN DAYS 07/07/21 09/20/23 08/04/23 10:30 mcg (2,000 unit) capsule (Vitamin D3) cranberry 500 mg capsule 500 mg PO QAM 07/07/21 09/20/23 08/04/23 10:30 prednisolone 5 mg tablet 5 mg PO QAM 07/08/22 09/20/23 09/20/23 07:00 pen needle, diabetic 32 gauge x #400 ea 10/18/22 08/23/23 Unknown " (BD Kell 2nd Gen Pen Needle) amlodipine 10 mg tablet 10 mg PO QAM 02/04/23 09/20/23 09/20/23 06:00 diphenhydramine HCl 12.5 mg/5 mL 12.5 - 50 mg PO HS PRN Sleep 02/04/23 09/20/23 08/03/23 22:00 oral elixir docusate sodium 100 mg tablet 100 mg PO PM 02/04/23 09/20/23 08/04/23 22:00 finasteride 5 mg tablet 5 mg PO PM 02/04/23 09/20/23 08/04/23 22:00 insulin glargine U-300 conc 300 22 unit subcut PM 02/04/23 09/20/23 08/04/23 21:00 unit/mL (3 mL) subcutaneous pen 22 units (Toujeo Max U-300 SoloStar) lidocaine 4 % topical patch 1 patch topical BID 02/04/23 09/20/23 08/03/23 23:00 tamsulosin 0.4 mg capsule (Flomax) 0.4 mg PO PM 02/04/23 09/20/23 08/04/23 21:00 OneTouch Verio Mid Control (blood #1 ea 03/28/23 08/23/23 Unknown glucose control, normal) Microlet Lancet (lancets) #300 ea 04/26/23 08/23/23 Unknown Osteobioflex With Turmeric 1 cap PO QAM 04/27/23 09/20/23 08/03/23 14:00 albuterol sulfate 90 mcg/actuation 1 - 2 puff inhalation Q4H PRN 04/27/23 09/20/23 03/29/23 aerosol inhaler (ProAir HFA) Shortness Of Breath Or Wheezing #18 grams doxycycline hyclate 100 mg tablet 100 mg PO BID PRN UTI 04/27/23 09/20/23 Unknown symptoms/prostatitis meloxicam 15 mg tablet 15 mg PO QAM #90 tabs 06/02/23 09/20/23 09/20/23 07:00 metformin 500 mg tablet,extended 1,000 mg (2 x 500 mg) PO BID #360 06/02/23 09/20/23 09/20/23 07:00 release 24 hr tabs lancing device #1 ea 08/04/23 08/23/23 Unknown oxycodone 5 mg tablet 5 mg PO Q8H PRN breakthrough pain 08/08/23 09/20/23 Unknown #30 tabs diazepam 5 mg tablet (Valium) 5 mg PO BID PRN anxiety #5 tabs 08/25/23 09/20/23 Unknown cyclobenzaprine 5 mg tablet 5 mg PO TID PRN Muscle Spasm #90 09/02/23 09/20/23 Unknown tabs escitalopram oxalate 10 mg tablet 10 mg PO PM #90 tabs 09/07/23 09/20/23 Unknown (Lexapro) isosorbide mononitrate 60 mg 60 mg PO QAM #90 tabs 09/07/23 09/20/23 09/20/23 07:00 tablet,extended release 24 hr levothyroxine 150 mcg tablet 150 mcg PO QAM #90 tabs 09/07/23 09/20/23 09/20/23 06:00 pantoprazole 40 mg tablet,delayed 40 mg PO BID #180 tabs 09/07/23 09/20/23 09/20/23 07:00 release (Protonix) metoprolol tartrate 25 mg tablet 25 mg PO TID #270 tabs 09/15/23 09/20/23 09/20/23 07:00 amoxicillin 500 mg tablet 2,000 mg PO DIRECTED 09/20/23 09/20/23 Unknown atorvastatin 10 mg tablet (Lipitor) 10 mg PO .QWED&SAT 09/20/23 09/20/23 Unknown cholecalciferol (vitamin D3) 25 25 mcg PO .ODD DAYS 09/20/23 09/20/23 Unknown mcg (1,000 unit) tablet (Vitamin D3) hydrocodone 10 mg-acetaminophen 1 tab PO TID pain 09/20/23 09/20/23 Unknown 325 mg tablet insulin lispro 100 unit/mL 0 unit subcut TIDM 09/20/23 09/20/23 Unknown subcutaneous pen (Humalog KwikPen (U-100) Insulin) psyllium 1 packet PO DAILY PRN Constipation 09/20/23 09/20/23 Unknown turmeric root extract 500 mg 500 mg PO DAILY 09/20/23 09/20/23 Unknown capsule Active Medications Generic Name Dose Route Start Last Admin Trade Name Freq PRN Reason Stop Dose Admin Hydralazine HCl 10 mg 09/21/23 00:23 09/21/23 02:10 Hydralazine Hcl 20 Mg/Ml Vial IV 10/21/23 00:22 10 mg Q4H PRN Administration Hypertension Hydromorphone HCl 0.25 mg 09/21/23 00:20 09/21/23 09:15 Hydromorphone Inj 0.5 Mg/0.5 Ml Syr IV 10/05/23 00:19 0.25 mg Q3H PRN Administration Mod-Sev Pain (Scale 4-10) Pantoprazole Sodium 40 mg/ 100 mls @ 20 mls/hr 09/20/23 22:15 09/21/23 09:06 Dextrose IV 10/20/23 22:14 8 mg/hr Q5H JONATHON 20 mls/hr Administration 8 MG/HR Lorazepam 0.5 mg/ Syringe 0.5 mls @ 2 mls/min 09/20/23 22:47 09/21/23 04:51 IV 10/20/23 22:46 2 mls/min Q8H PRN Administration Anxiety/Agitation Sodium Chloride 1,000 mls @ 80 mls/hr 09/20/23 23:06 09/21/23 01:15 Nss IV 09/22/23 00:05 80 mls/hr .[id number] JONATHON Administration Metoprolol Tartrate 5 mg 09/21/23 00:23 09/21/23 03:23 Metoprolol Tartrate 1 Mg/Ml Vial IV 10/21/23 03:59 5 mg Q4 PRN Administration Hypertension Ondansetron HCl 4 mg 09/20/23 23:06 09/21/23 03:49 Ondansetron Inj 2 Mg/Ml 2 Ml Vial IV 10/20/23 23:05 4 mg Q6H PRN Administration Nausea NPO Date Last Intake of Fluids: 09/20/23 Time Last Intake of Fluids: 14:00 Date Last Intake of Solids: 09/20/23 Time Last Intake of Solids: 14:00 Past Medical History Medical History History of colon polyps Pulmonary nodule DDD (degenerative disc disease), cervical DDD (degenerative disc disease), lumbar Osteoporosis Scoliosis Hyperlipidemia Proctitis on occasion, prn doxycycline for this CAD (coronary artery disease) follows with Dr. 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 GERD without esophagitis Asthma rare res inh use Iliotibial band syndrome of right side Internal hemorrhoids Systemic lupus erythematosus H/O: GI bleed severe GI bleed, treated at [facility] - resolved Diabetes IDDM Hypertension Hypothyroid Exercise / Class Metabolic Activity II 4-5 Yardwork/Stairs/Walk up hill Past Family History Family History Father Hypertension Diabetes Heart disease Prostate cancer Cardiac disorder Cancer Mother Rheumatoid aortitis Emphysema/COPD Hypertension Colitis Brother Hypertension Diabetes Family/Other Prostate cancer Other Bone cancer Past Surgical History Surgical History History of cataract surgery bilat S/P excision of lipoma to back History of gastric surgery due to GI bleed November 2016 History of skin surgery skin tags History of dental surgery History of esophagogastroduodenoscopy History of colonoscopy History of tonsillectomy S/P aortic valve replacement [facility] Jul 2013 History of cholecystectomy Past Anesthesia History No Hx of Anesthesia Complications and No Family Hx of Anesthesia Complications History of PONV No Hx of PONV and No Hx of Motion Sickness Social History Smoking Status: Former smoker Smoking cigarettes per day: 40-60 Do You Dip or Chew Tobacco: No Hx Alcohol Use: No Hx Substance Use: No substance use type: does not use Review of Systems denies fever/cough/ colds/ chest pain/ SOB/ LARRY denies LARRY Physical Exam Vital Signs Last Vital Signs Temp 36.5 C 09/21/23 10:02 Pulse 89 09/21/23 10:02 Resp 16 09/21/23 10:02 BP 176/110 H 09/21/23 10:02 Pulse Ox 98 09/21/23 10:02 O2 Del Method Room Air 09/21/23 10:02 ENMT Mouth: no TMJ abnormality and no dentition abnormality Thyromental Distance: > or= 3.5 Finger Breadths Mallampati Class: II Neck neck extension not limited Respiratory normal respiratory effort; no respiratory distress Auscultation: lungs clear to auscultation bilaterally Cardiovascular Rate/Rhythm: regular rate and regular rhythm Neurologic moves all extremities Psychiatric Orientation: alert and oriented x 3 Testing Laboratory Results 09/21/23 07:51 09/21/23 01:34 Urine Color Yellow 09/20/23 Unknown Urine Appearance Clear (Clear) 09/20/23 Unknown Urine pH 5.5 (4.5-7.5) 09/20/23 Unknown Ur Specific [place] 1.010 (1.000-1.030) 09/20/23 Unknown Urine Protein Negative (Negative) 09/20/23 Unknown Urine Glucose (UA) Negative (Negative) 09/20/23 Unknown Urine Ketones Negative (Negative) 09/20/23 Unknown Urine Nitrite Negative (Negative) 09/20/23 Unknown Ur Leukocyte Esterase Negative (Negative) 09/20/23 Unknown Blood Type A Positive 09/20/23 22:45 Antibody Screen NEGATIVE 09/20/23 22:45
--- NOTE | 2023-09-21 10:54 | GI REPORT ---
Patient Name: Uri Zepeda Procedure Date: 09/21/2023 10:26 AM Date of : 1945 Admit Type: Inpatient Age: 78 Gender: Male Attending MD: Sebastien Arnett DO, Procedure: Upper GI endoscopy Providers: Sebastien Arnett DO Referring MD: Sharif Barros Indications: Melena Medicines: Monitored Anesthesia Care Complications: No immediate complications. Estimated Blood Loss: Estimated blood loss: none. Procedure: Pre-Anesthesia Assessment: - Prior to the procedure, a History and Physical was performed, and patient medications and allergies were reviewed. The patient's tolerance of previous anesthesia was also reviewed. The risks and benefits of the procedure and the sedation options and risks were discussed with the patient. All questions were answered, and informed consent was obtained. Prior Anticoagulants: The patient has taken no anticoagulant or antiplatelet agents except for aspirin. ASA Grade Assessment: III - A patient with severe systemic disease. After reviewing the risks and benefits, the patient was deemed in satisfactory condition to undergo the procedure. After obtaining informed consent, the endoscope was passed under direct vision. Throughout the procedure, the patient's blood pressure, pulse, and oxygen saturations were monitored continuously. The Endoscope was introduced through the mouth, and advanced to the second part of duodenum. The upper GI endoscopy was accomplished without difficulty. The patient tolerated the procedure well. Findings: The esophagus was normal. A single 3 mm angioectasia with no bleeding was found in the gastric body. The examined duodenum was normal. Impression: - Normal esophagus. - A single non-bleeding angioectasia in the stomach. - Normal examined duodenum. - No specimens collected. Recommendation: - [facility]. - Advance diet as tolerated. - Continue present medications. - Return to primary care physician as previously scheduled. Sebastien Arnett DO 09/21/2023 10:54:00 AM This report has been signed electronically. Note Initiated On: 09/21/2023 10:26 AM Number of Addenda: 0 I attest to the content of the Intraoperative Record and orders documented therein, exceptions below {[id number]}
--- NOTE | 2023-09-21 12:15 | Anesthesiology Progress Note ---
Date of Service September 21, 2023 Anesthesia Post Procedure Vital Signs Vital Signs: Temp Pulse Pulse Resp BP BP BP 09/21/23 11:45 81 18 167/100 H 09/21/23 11:26 85 18 176/100 H 09/21/23 11:11 86 18 153/102 H 09/21/23 10:56 86 16 107/90 09/21/23 10:02 36.5 C 89 16 176/110 H 09/21/23 08:26 87 19 147/94 H 09/21/23 08:00 147/94 H 09/21/23 08:00 85 19 09/21/23 07:30 133/91 09/21/23 07:30 87 16 147/94 H 09/21/23 07:11 88 09/21/23 05:30 93 H 145/92 H 09/21/23 05:00 90 16 148/97 H 09/21/23 04:52 84 13 135/95 09/21/23 04:09 86 09/21/23 04:00 79 17 159/108 H 09/21/23 03:55 75 166/105 H 09/21/23 03:23 93 H 180/118 H 09/21/23 03:00 92 H 19 180/107 H 09/21/23 02:30 91 H 23 09/21/23 02:10 80 210/116 H 09/21/23 02:08 83 16 09/21/23 01:53 37.4 C 79 16 193/112 H 09/21/23 01:07 79 22 166/100 H 09/21/23 00:31 79 15 179/107 H 09/20/23 21:54 66 09/20/23 21:54 64 13 09/20/23 21:00 09/20/23 18:53 36.3 C L 64 20 169/79 H Pulse Ox O2 Del Method 09/21/23 11:45 96 Room Air 09/21/23 11:26 95 Room Air 09/21/23 11:11 95 Room Air 09/21/23 10:56 95 Room Air 09/21/23 10:02 98 Room Air 09/21/23 08:26 95 Room Air 09/21/23 08:00 09/21/23 08:00 95 09/21/23 07:30 09/21/23 07:30 95 09/21/23 07:11 09/21/23 05:30 91 Room Air 09/21/23 05:00 90 Room Air 09/21/23 04:52 97 Room Air 09/21/23 04:09 09/21/23 04:00 97 Room Air 09/21/23 03:55 09/21/23 03:23 09/21/23 03:00 98 09/21/23 02:30 97 09/21/23 02:10 09/21/23 02:08 96 09/21/23 01:53 97 Room Air 09/21/23 01:07 97 Room Air 09/21/23 00:31 91 Room Air 09/20/23 21:54 09/20/23 21:54 97 09/20/23 21:00 99 Room Air 09/20/23 18:53 97 Room Air Pain Intensity Back: Pain Intensity: 4 Transfer of Care Handoff Completed per policy Notes Mental Status: alert / awake / arousable and participated in evaluation Patient Amnestic to Procedure: Yes Nausea / Vomiting: adequately controlled Pain: adequately controlled Airway Patency, RR, SpO2: stable & adequate BP & HR: stable & adequate Hydration State: stable & adequate Anesthetic Complications: no major complications apparent and Pt Satisfied with anesthetic care
[2023-09-21] MEDS ORDERED: diazePAM 5 MG TABLET PO PRN (13:33)
[2023-09-21] MEDS ORDERED: amLODIPine BESYLATE 5 MG TAB PO SCH (13:45)
[2023-09-21] MEDS ORDERED: ISOSORBIDE MONO EXTENDED REL 60 MG TABCR PO SCH (13:45)
[2023-09-21] MEDS ORDERED: ATORVASTATIN 10 MG TAB PO SCH (13:45)
[2023-09-21] MEDS ORDERED: METOPROLOL TARTRATE 25 MG TAB PO SCH (14:00)
--- NOTE | 2023-09-21 14:19 | Discharge Summary ---
Date of Service September 21, 2023 Admission HPI Per Admitting Provider The patient is a 78-year-old male with a past medical history including lung mass, prostatitis, anemia, obesity, PAF, severe LARRY, history of falls, Dieulafoy lesion stomach and duodenum causing GI bleed, atrial flutter, generalized osteoarthritis on meloxicam, headaches treated with full-strength aspirin by rheumatology, anticardiolipin antibody, aortic stenosis, and GERD. The patient presents to the emergency department with dark stools over the past 2 days, he reports that his stomach has been feeling a little bit uneasy. He is presently taking aspirin as prescribed by rheumatology for headaches, meloxicam prescribed for osteoarthritis, and prednisone prescribed for SLE. His hemoglobin was found to decrease from 13.3 average down to 11.9 in the ED, and he was found to be heme positive stool. From the ED he received pantoprazole 80 mg IV followed by pantoprazole drip. He was then referred for evaluation for admission. Principal Diagnosis Upper GI bleed Discharge Data Allergies Allergy/AdvReac Type Severity Reaction Status Date / Time erythromycin base Allergy Severe all over Verified 09/20/23 22:36 body rash bacitracin Allergy Intermediate Skin Verified 09/20/23 22:36 Irritation neomycin Allergy Intermediate Skin Verified 09/20/23 22:36 Irritation polymyxin B Allergy Intermediate Skin Verified 09/20/23 22:36 Irritation Iodinated Contrast Media AdvReac Severe SEVERE Verified 09/20/23 22:36 NAUSEA/VOMITING morphine AdvReac Severe severe n/v Verified 09/20/23 22:36 Opioids - Morphine Analogues AdvReac Severe Gastrointestinal Verified 09/20/23 22:36 Upset Sulfa (Sulfonamide AdvReac Severe Nausea Verified 09/20/23 22:36 Antibiotics) adhesive tape AdvReac Intermediate Blister Verified 09/20/23 22:36 Macrolide Antibiotics AdvReac Mild CHILLS, Verified 09/20/23 22:36 HEADACHE, "MADE HIM SICK" clavulanic acid AdvReac Unknown CHILLS, Verified 09/20/23 22:36 HEADACHE, "MADE HIM SICK" sulfamethoxazole AdvReac Unknown CHILLS, Verified 09/20/23 22:36 HEADACHE, "MADE HIM SICK" Consultations 09/20/23 21:51 ED Decision to Admit Stat 09/20/23 22:55 Consult Gastroenterology Routine Procedures Performed Operation Date: 09/21/23 16:30 Actual Procedures p Esophagogastroduodenoscopy - Sebastien Sherwood Case, DO Hospital Course (1) Upper GI bleed: (2) 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: (3) Severe obstructive sleep apnea: (4) PAF (paroxysmal atrial fibrillation): (5) Opioid dependence: (6) H/O aortic valve replacement: (7) Diabetes: (8) Hypertension: (9) Systemic lupus erythematosus: (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 Consult gastroenterology: competed Upper GI scope, this was negative. Recommend rechecking hemoglobin in 2 days. Also will hold meloxicam and aspirin as an outpatient. May consider restarting aspirin in 1 week. ok to resume prednisone SLE/osteoarthritis/headaches- Held prednisone as noted above. Hold meloxicam, that has been prescribed for osteoarthritis, particularly involving his knees and back Hold aspirin 325 mg, which have been prescribed by rheumatology and has worked well to keep his headaches controlled Hold hydroxychloroquine and [place] while patient was NPO. Diabetes mellitus- while N.p.o. Glucose 126 on admission, reports not having eaten anything regularly over the past 2 days Hold metformin and Toujeo Solostar 22 units subcu in the evening Placed on Accu-Cheks with NovoLog SSI ok to reume home meds at discharge. PAF/hypertension/CAD- Held amlodipine, isosorbide mononitrate and metoprolol tartrate whiile NPO will resume home meds at discharge. Morbid obesity with BMI 41.8 BMI: A significantly high (>40) or significantly low (<19.9) BMI will impact the severity of illness and risk of mortality of your patient. recommend lifestyle changes Total Time Total Time Spent Total Time Spent (In Minutes): 32 Discharge Plan Discharge Items Patient Disposition: Home - Self-Care Reason For Visit: UGI BLEED, ANEMIA Discharge Diagnosis: Upper GI bleed Activity: Resume your previous activity Non-emergency contact: Primary Care Provider Call non-emergency contact if: you have any medication questions Follow-up/Referrals: Sharif Barros MD [Primary Care Provider] - Diet: Regular Addtl Attending Provider Instructions: Good afternoon, You had a GI scope today. Thankfully this did not show any signs of an upper GI bleed. At this point we recommend you continue on pantoprazole 40 mg twice a day. We also recommend you hold meloxicam. It is ok for you to take prednisone. Will recommend a close followup with your PCP in 1-2 weeks. Gastroenterology will also see you within the upcoming months It was a pleasure. Hope you enjoy 2023. Jaskaran Jean Paul Pending Studies at Discharge: No Stand-Alone Forms: My [facility], Smoking Cessation Medications and DC Order Prescriptions: Continued (DME) pen needle, diabetic [BD Kell 2nd Gen Pen Needle] 32 gauge x 5/32" needle See Dose Instructions .ROUTE .MEDSUPPLY Qty: 400 3RF Rx Instructions: Use four daily with insulin injection (DME) blood glucose control, normal [OneTouch Verio Mid Control] Solution See Rx Instructions .ROUTE .MEDSUPPLY Qty: 1 5RF Rx Instructions: Use weekly as directed (DME) lancets [Microlet Lancet] Misc See Dose Instructions .ROUTE .MEDSUPPLY Qty: 300 3RF Dose Instruction: As directed Rx Instructions: TEST 3 TIMES DAILY albuterol sulfate [ProAir HFA] 90 mcg/actuation HFA aerosol inhaler 1 - 2 puff INHALATION Q4H PRN (Reason: Shortness Of Breath Or Wheezing) Qty: 18 3RF metformin 500 mg tablet extended release 24 hr 1,000 mg PO BID Qty: 360 3RF cyclobenzaprine 5 mg tablet 5 mg PO TID PRN (Reason: Muscle Spasm) Qty: 90 0RF levothyroxine 150 mcg tablet 150 mcg PO QAM Qty: 90 3RF escitalopram oxalate [Lexapro] 10 mg tablet 10 mg PO PM Qty: 90 3RF isosorbide mononitrate 60 mg tablet extended release 24 hr 60 mg PO QAM Qty: 90 3RF metoprolol tartrate 25 mg tablet 25 mg PO TID Qty: 270 3RF oxycodone 5 mg tablet 5 mg PO Q8H PRN (Reason: breakthrough pain) Qty: 30 0RF (DME) lancing device Misc See Rx Instructions .Route Qty: 1 0RF Rx Instructions: Use to test blood sugars daily - ReliOn Brand - To work with Microlet lancets cranberry 500 mg capsule 500 mg PO QAM Rx Instructions: administer with meals diazepam [Valium] 5 mg tablet 5 mg PO BID PRN (Reason: anxiety) Qty: 5 0RF Rx Instructions: Before a procedure ferrous sulfate 325 mg (65 mg iron) Tablet 325 mg PO QAM hydroxychloroquine 200 mg tablet 200 mg PO BID cyanocobalamin (vitamin B-12) [Vitamin B-12] 2,000 mcg tablet extended release 1,000 mcg PO QPM cholecalciferol (vitamin D3) [Vitamin D3] 50 mcg (2,000 unit) capsule 2,000 unit PO .EVEN DAYS prednisolone 5 mg tablet 5 mg PO QAM amoxicillin 500 mg Tablet 2,000 mg PO DIRECTED Rx Instructions: Take before dental procedures cholecalciferol (vitamin D3) [Vitamin D3] 25 mcg (1,000 unit) Tablet 25 mcg PO .ODD DAYS psyllium Packet 1 packet PO DAILY PRN (Reason: Constipation) Rx Instructions: mix into at least 8 oz of water or juice before administering turmeric root extract 500 mg Capsule 500 mg PO DAILY Rx Instructions: With curumin atorvastatin [Lipitor] 10 mg tablet 10 mg PO .QWED&SAT hydrocodone-acetaminophen 10-325 mg tablet 1 tab PO TID insulin lispro [Humalog KwikPen Insulin] 100 unit/mL insulin pen 0 unit SQ TIDM Rx Instructions: 1 - 45 units subcutaneously; inject per sliding scale with meals up to TDD 45 units pantoprazole [Protonix] 40 mg tablet,delayed release (DR/EC) 40 mg PO BID Qty: 180 3RF Rx Instructions: take 30 minutes before meals diphenhydramine HCl 12.5 mg/5 mL Elixir 12.5 - 50 mg PO HS PRN (Reason: Sleep) docusate sodium 100 mg Tablet 100 mg PO PM tamsulosin [Flomax] 0.4 mg capsule 0.4 mg PO PM amlodipine 10 mg tablet 10 mg PO QAM finasteride 5 mg tablet 5 mg PO PM Toujeo Max U-300 SoloStar 300 unit/mL (3 mL) insulin pen 22 unit SUBCUT PM Rx Instructions: up to 40 units daily lidocaine 4 % Adhesive Patch,Medicated 1 patch TOPICAL BID Osteobioflex With Turmeric 1 cap PO QAM doxycycline hyclate 100 mg tablet 100 mg PO BID PRN (Reason: UTI symptoms/prostatitis) Held aspirin 325 mg Tablet,Delayed Release (Dr/Ec) 325 mg PO PM Hold Instructions: Resume on 09/27/23. 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
[2023-09-21] MEDS ORDERED: FINASTERIDE 5 MG TAB PO SCH (21:00)
[2023-09-21] MEDS ORDERED: HYDROXYCHLOROQUINE SULFATE 200 MG TAB PO SCH (21:00)
[2023-09-21] MEDS ORDERED: ESCITALOPRAM OXALATE 10 MG TAB PO SCH (21:00)
[2023-09-21] MEDS ORDERED: TAMSULOSIN HCL 0.4 MG CAP PO SCH (21:00)
[2023-09-21] MEDS ORDERED: DOCUSATE SODIUM 100 MG CAP PO SCH (21:00)
[2023-09-22] MEDS ORDERED: FERROUS SULFATE 325 MG TAB PO SCH (09:00)
--- NOTE | 2023-09-22 13:37 | Electrocardiogram Report ---
Test Reason : Blood Pressure : / mmHG Vent. Rate : 087 BPM Atrial Rate : 087 BPM P-R Int : 246 ms QRS Dur : 110 ms QT Int : 416 ms P-R-T Axes : 040 -21 047 degrees QTc Int : 500 ms Sinus rhythm with 1st degree A-V block Moderate voltage criteria for LVH, may be normal variant ( R in aVL ) Nonspecific ST abnormality Prolonged QT Abnormal ECG When compared with ECG of 05-AUG-2023 05:59, T wave inversion no longer evident in Inferior leads Nonspecific T wave abnormality no longer evident in Anterior leads Confirmed by Sharif Love ([id number]) on 09/22/2023 1:37:20 PM Referred By: Sharif Barros Confirmed By:Sharif Love
== END 2023-09-21 14:46 | disposition home or self-care (01) | DRG 378 ==
LOC: ED 18:43 → INTOOBSV 22:53 → EDINP 22:53

== ENCOUNTER 2024-02-12 13:39 | Inpatient (IN) ==
--- NOTE | 2024-02-12 14:08 | Emergency Department Note ---
Impression & Plan Non-ST elevation TX (NSTEMI), Generalized weakness, Elevated lactic acid level, Acute GI bleeding ED Provider Note HISTORY OF PRESENT ILLNESS: Patient is a 78-year-old male presenting with weakness and lightheadedness. Patient reportedly was too weak to get up off of the commode earlier today. His family reports he was pale and diaphoretic. Patient reports he felt lightheaded like he was going to pass out. Family reports that he has been having heartburn, describes as a gassy sensation, for the last 24 hours. He threw up coffee-ground emesis last night. He has a history of an upper GI bleed and has required blood transfusions in the past. He is on Protonix 40 mg twice daily and took a dose this morning. He is also on 5 mg prednisone daily for history of lupus, but has not taken that yet today. He was found to be hypotensive on EMS arrival. EMS gave the patient 100 cc of normal saline and 4 mg of Zofran prehospital. On arrival to the ER, the patient reports feeling improved and has no complaints. Patient has a history of aortic valve replacement and is on 325 mg aspirin daily. Patient has a history of lung cancer and is receiving radiation therapy. Patient denies any history of cardiac stents. He denies any history of DVT or PE. Denies any chest pain or shortness of breath currently. Patient denies any dark or discolored stool ROS: as above PHYSICAL EXAM: Constitutional: Patient appears in no acute distress. HENT: Head: Normocephalic and atraumatic. Eyes: EOMI, PERRL Mouth/Throat: Mucous membranes moist. Neck: Trachea midline. Neck supple. Cardiovascular: RRR, No murmurs, rubs or gallops. Intact distal pulses. Pulmonary/Chest: No respiratory distress. Breath sounds clear and equal bilaterally. No wheezes or rales. Abdominal: Abdomen soft, no tenderness, rebound or guarding. Musculoskeletal: No edema, tenderness or deformity noted. Skin: Warm and dry. No rash, erythema, pallor or cyanosis Psychiatric: Appropriate mood and affect for situation. Neurological: Alert and keenly responsive. CN II-XII grossly intact, moving all extremities equally and fully. MDM: - Vitals signs showed hypotension and tachycardia. - History obtained via patient. History as above. - Chronic conditions affecting care: lung cancer (on radiation therapy); prostatitis; anemia; obesity; PAF; severe LARRY; lupus - Differential diagnoses include, but are not limited to: Acute coronary syndrome; pulmonary embolism; dissection; tension pneumothorax; esophageal rupture; pneumonia; bleeding gastric ulcer; gastritis - Order placed for continuous cardiac monitoring. At this time, monitor showed rate of 97 bpm with normal sinus rhythm, per my interpretation. - External medical records reviewed. Primary care visit note dated 01/27/2024 was reviewed. Patient follows in their clinic for his multiple medical problems. Radiation oncology note dated 01/05/2024 was reviewed. Patient was diagnosed with right middle lobe lung cancer and is currently undergoing radiation therapy without tissue diagnosis, given difficulty in obtaining a sample of the tissue. - EKG interpreted by myself showed normal sinus rhythm. Rate 95 bpm. QT prolonged at 538. Noted to have some ST depressions in lead I and aVL. - Laboratory workup interpreted by myself showed normal WBC; chronic anemia (Hgb 11.6); normal electrolytes; elevated BUN (32); elevated lactate (2.1); elevated troponin (78.2); normal procalcitonin; normal magnesium - Patient given 1L NS and 40 mg IV protonix in ER. - Repeat troponin elevated at 83.4. Repeat lactate normal at 1.5 - VBG normal - CXR negative for pneumonia, per my interpretation - UA negative for infection - Type and screen ordered. - Discussion was had with case management about patient's case and need for admission - Hospitalist consulted for admission - Patient admitted to [facility] service for further evaluation and management. ASSESSMENT AND PLAN: Diagnosis: generalized weakness; NSTEMI; elevated lactic acid level; acute GI bleeding Plan: admit Past Med/Surg History Problem List (Updated 02/12/24 @ 18:21 by Kristina Guido MD) Acute GI bleeding (Acute) Elevated lactic acid level (Acute) Generalized weakness (Acute) Non-ST elevation TX (NSTEMI) (Acute) Dyspnea Chest pain Gastric AVM Symptomatic anemia (Acute) Upper GI bleed (Acute) Encounter for pre-operative examination Lung mass History of colon polyps Current use of proton pump inhibitor Abnormal imaging of thyroid Lung nodule (Chronic) Encounter for screening for malignant neoplasm of rectum Encounter for screening for malignant neoplasm of colon Prostatitis Anemia Obesity Nocturnal hypoxemia Severe obstructive sleep apnea [place] PAF (paroxysmal atrial fibrillation) Nocturia (Chronic) Ulnar neuropathy (Chronic) Chronic pain (Chronic) Depression (Chronic) 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) Angina pectoris (Chronic) Aortic stenosis (Chronic) Arteriosclerosis of carotid artery (Chronic) Atrial flutter (Chronic) Chronic constipation (Chronic) Dysphagia (Chronic) Generalized osteoarthritis of multiple sites (Chronic) Herniated lumbar intervertebral disc (Chronic) Hyperlipidemia (Chronic) Insomnia (Chronic) Osteoarthritis of hip (Chronic) Peripheral neuropathy (Chronic) Renal neoplasm (Chronic) Sacroiliitis (Chronic) Opioid dependence (Chronic) Vitamin B12 deficiency (Chronic) Vitamin D deficiency (Chronic) H/O aortic valve replacement (07/2013) Bilateral primary osteoarthritis of knee Hypothyroid (Chronic) Hypertension (Chronic) Diabetes (Chronic) IDDM Systemic lupus erythematosus (Chronic) Asthma (Chronic) rare res inh use 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) GERD without esophagitis (Chronic) Medical History LBBB (left bundle branch block) History of colon polyps Pulmonary nodule DDD (degenerative disc disease), cervical DDD (degenerative disc disease), lumbar Osteoporosis Scoliosis Hyperlipidemia Proctitis CAD (coronary artery disease) PAF (paroxysmal atrial fibrillation) Depression Sleep apnea Anticardiolipin antibody positive Benign localized hyperplasia of prostate with urinary obstruction GERD without esophagitis Asthma Internal hemorrhoids Systemic lupus erythematosus H/O: GI bleed Diabetes Hypertension Hypothyroid Surgical History History of bronchoscopy History of cataract surgery S/P excision of lipoma History of gastric surgery History of skin surgery History of dental surgery History of esophagogastroduodenoscopy History of colonoscopy History of tonsillectomy S/P aortic valve replacement History of cholecystectomy Family History Father Hypertension Diabetes Heart disease Prostate cancer Cardiac disorder Cancer Mother Rheumatoid aortitis Emphysema/COPD Hypertension Colitis Brother Hypertension Diabetes Family/Other Prostate cancer Other Bone cancer Social History Smoking Status: Former smoker Tobacco Type: Cigarettes Age Started Using Tobacco: 18; Age Quit Using Tobacco: 42; packs per day: 3; Cigarettes Per Day: 40-60; Second Hand Exposure: Yes (hx as child); Do You Dip or Chew Tobacco: No (quit 1980; advised); Hx Alcohol Use: Yes (none since 1979) Hx Substance Use: No Preferred Language: Faroese Communication Ability: Effective Visual Impairment: Limited Hearing Ability: Normal Section Chief Required: No Beliefs That Will Affect Care: None marital status: Current Living Situation: Spouse current occupational status: retired Feels Safe at Home: Yes Childhood Exposure to Second-Hand Smoke: No Seatbelt Use: always Assistive Devices: BiPap, Cane, Denture - Upper and Glasses Allergies Allergies Allergy/AdvReac Type Severity Reaction Status Date / Time erythromycin base Allergy Severe HIVES ALL Verified 02/12/24 17:12 OVER bacitracin Allergy Intermediate Skin Verified 02/12/24 17:12 Irritation neomycin Allergy Intermediate Skin Verified 02/12/24 17:12 Irritation polymyxin B Allergy Intermediate Skin Verified 02/12/24 17:12 Irritation Iodinated Contrast Media AdvReac Severe SEVERE Verified 02/12/24 17:12 NAUSEA/VOMITING morphine AdvReac Severe severe n/v Verified 02/12/24 17:12 Opioids - Morphine Analogues AdvReac Severe Gastrointestinal Verified 02/12/24 17:12 Upset Sulfa (Sulfonamide AdvReac Severe Nausea Verified 02/12/24 17:12 Antibiotics) adhesive tape AdvReac Intermediate Blistered Verified 02/12/24 17:12 skin clavulanic acid AdvReac Intermediate CHILLS, Verified 02/12/24 17:12 HEADACHE, "MADE HIM SICK" Macrolide Antibiotics AdvReac Intermediate CHILLS, Verified 02/12/24 17:12 HEADACHE, "MADE HIM SICK" sulfamethoxazole AdvReac Intermediate CHILLS, Verified 02/12/24 17:12 HEADACHE, "MADE HIM SICK" Home Meds Home Medications Medication Instructions Recorded Confirmed aspirin 325 mg tablet,delayed 325 mg PO PM 07/01/18 02/12/24 release ferrous sulfate 325 mg (65 mg 325 mg PO QAM 07/01/18 02/12/24 iron) tablet hydroxychloroquine 200 mg tablet 200 mg PO BID 02/26/21 02/12/24 cyanocobalamin (vitamin B-12) 1,000 mcg PO QPM 05/28/21 02/12/24 2,000 mcg tablet,extended release (Vitamin B-12 ER) cholecalciferol (vitamin D3) 50 2,000 unit PO Q OTHER DAY 07/07/21 02/12/24 mcg (2,000 unit) capsule (Vitamin D3) cranberry 500 mg capsule 500 mg PO QAM 07/07/21 02/12/24 prednisolone 5 mg tablet 5 mg PO QAM 07/08/22 02/12/24 diphenhydramine HCl 12.5 mg/5 mL 37.5 mg PO HS PRN Sleep 02/04/23 02/12/24 oral elixir docusate sodium 100 mg tablet 100 mg PO HS 02/04/23 02/12/24 insulin glargine U-300 conc 300 22 unit subcut HS 02/04/23 02/12/24 unit/mL (3 mL) subcutaneous pen (Toujeo Max U-300 SoloStar) lidocaine 4 % topical patch 1 patch topical DIRECTED PRN 02/04/23 02/12/24 Pain Osteobioflex With Turmeric 1 cap PO QPM 04/27/23 02/12/24 doxycycline hyclate 100 mg tablet 100 mg PO BID PRN UTI 04/27/23 02/12/24 symptoms/prostatitis amoxicillin 500 mg tablet 2,000 mg PO DIRECTED PRN 1 HR 09/20/23 02/12/24 PRIOR TO DENTAL PROCEDURES atorvastatin 10 mg tablet (Lipitor) 10 mg PO 2XWK 09/20/23 02/12/24 cholecalciferol (vitamin D3) 25 1,000 unit PO Q OTHER DAY 09/20/23 02/12/24 mcg (1,000 unit) tablet (Vitamin D3) insulin lispro 100 unit/mL 0 unit subcut QDD 09/20/23 02/12/24 subcutaneous pen (Humalog KwikPen (U-100) Insulin) escitalopram oxalate 10 mg tablet 10 mg PO HS 10/19/23 02/12/24 (Lexapro) meloxicam 7.5 mg tablet 7.5 mg PO QAM 10/19/23 02/12/24 polyethylene glycol 3350 17 gram 17 g PO DAILY PRN Constipation 10/25/23 02/12/24 oral powder packet (Miralax) lidocaine 4 % topical cream 1 applic topical DIRECTED PRN 02/12/24 02/12/24 Pain Previous Rx's Medication Instructions Recorded pen needle, diabetic 32 gauge x #400 ea 10/18/22" (BD Kell 2nd Gen Pen Needle) OneTouch Verio Mid Control (blood #1 ea 03/28/23 glucose control, normal) Microlet Lancet (lancets) #300 ea 04/26/23 albuterol sulfate 90 mcg/actuation 1 - 2 puff inhalation Q4H PRN 04/27/23 aerosol inhaler (ProAir HFA) Shortness Of Breath Or Wheezing #18 grams metformin 500 mg tablet,extended 1,000 mg (2 x 500 mg) PO BID #360 06/02/23 release 24 hr tabs lancing device #1 ea 08/04/23 diazepam 5 mg tablet (Valium) 5 mg PO BID PRN anxiety #5 tabs 08/25/23 isosorbide mononitrate 60 mg 60 mg PO QAM #90 tabs 09/07/23 tablet,extended release 24 hr levothyroxine 150 mcg tablet 150 mcg PO QAM #90 tabs 09/07/23 metoprolol tartrate 25 mg tablet 25 mg PO TID #270 tabs 09/15/23 pantoprazole 40 mg tablet,delayed 40 mg PO BID #180 tabs 09/21/23 release (Protonix) finasteride 5 mg tablet 5 mg PO DAILY #90 tabs 10/24/23 tamsulosin 0.4 mg capsule (Flomax) 0.4 mg PO HS #90 caps 10/24/23 oxycodone 5 mg tablet 5 mg PO Q8H PRN breakthrough pain 11/17/23 #30 tabs hydrocodone 10 mg-acetaminophen 1 tab PO Q6H pain #120 tabs 12/30/23 325 mg tablet amlodipine 10 mg tablet 10 mg PO QAM #90 tabs 01/12/24 cyclobenzaprine 5 mg tablet 5 mg PO TID PRN Muscle Spasm #90 01/12/24 tabs Results & Data (ED) Vital Signs Vital Signs - 24 hr 02/12/24 13:59 02/12/24 13:59 02/12/24 13:59 Pulse Rate 94 H Pulse Rate [Apical] 94 H Pulse Rhythm [Apical] Pulse Strength [Apical] Respiratory Rate 20 20 Respiratory Effort / Characteristics Non-Labored Spontaneous Non-Labored Spontaneous Respiratory Depth Normal Normal Blood Pressure 98/79 L Blood Pressure [Right Arm] 98/79 L Blood Pressure Mean 85 Blood Pressure Mean [Right Arm] 85 Blood Pressure Position Sitting Blood Pressure Position [Right Arm] Sitting Pulse Oximetry 95 95 95 Oxygen Delivery Method Room Air Room Air Room Air Sepsis Recent Fever Within 48 Hours No Sepsis New/Unexplained Change in Mental Status N/A Sepsis Action Taken by Nursing No Action Required 02/12/24 14:22 02/12/24 15:08 02/12/24 15:08 Pulse Rate 94 H Pulse Rate [Apical] 81 Pulse Rhythm [Apical] Regular Pulse Strength [Apical] Normal Respiratory Rate 18 Respiratory Effort / Characteristics Non-Labored Spontaneous Respiratory Depth Normal Blood Pressure Blood Pressure [Right Arm] 114/82 Blood Pressure Mean Blood Pressure Mean [Right Arm] 92 Blood Pressure Position Blood Pressure Position [Right Arm] Sitting Pulse Oximetry 96 96 Oxygen Delivery Method Room Air Room Air Sepsis Recent Fever Within 48 Hours Sepsis New/Unexplained Change in Mental Status Sepsis Action Taken by Nursing 02/12/24 15:42 02/12/24 16:48 02/12/24 17:11 Pulse Rate Pulse Rate [Apical] 88 94 H 97 H Pulse Rhythm [Apical] Regular Regular Pulse Strength [Apical] Normal Normal Respiratory Rate 20 20 20 Respiratory Effort / Characteristics Non-Labored Spontaneous Non-Labored Spontaneous Non-Labored Spontaneous Respiratory Depth Normal Normal Normal Blood Pressure Blood Pressure [Right Arm] 101/77 91/68 L 114/73 Blood Pressure Mean Blood Pressure Mean [Right Arm] 85 75 86 Blood Pressure Position Blood Pressure Position [Right Arm] Sitting Sitting Pulse Oximetry 98 96 96 Oxygen Delivery Method Room Air Room Air Room Air Sepsis Recent Fever Within 48 Hours Sepsis New/Unexplained Change in Mental Status Sepsis Action Taken by Nursing Laboratory Data 02/12/24 14:34 02/12/24 14:34 Lab Results 02/12/24 02/12/24 02/12/24 Range/Units 14:34 16:31 16:53 WBC 7.14 (4.8-10.8) K/ul RBC 4.01 L (4.70-6.10) M/uL Hgb 11.6 L (14.0-18.0) g/dl Hct 35.8 L (42.0-52.0) % MCV 89.3 (80.0-100.0) fL MCH 28.9 (25.0-34.0) pg MCHC 32.4 (32.0-36.0) g/dL RDW Std Deviation 45.1 (36.4-46.3) fL RDW Coeff of Juan Pablo 14.0 (11.5-14.5) % Plt Count 158 (130-400) K/uL MPV 10.7 (9.4-12.4) fL Immature Gran % (Auto) 0.4 % Neut % (Auto) 68.1 % Lymph % (Auto) 16.4 % Hamblen % (Auto) 11.3 % Eos % (Auto) 2.0 % Baso % (Auto) 1.8 % Neut # (Auto) 4.86 (1.40-6.50) K/uL Lymph # (Auto) 1.17 L (1.20-3.40) K/uL Hamblen # (Auto) 0.81 H (0.11-0.59) K/uL Eos # (Auto) 0.14 (0.00-0.50) K/uL Baso # (Auto) 0.13 (0.00-0.20) K/uL Immature Gran # (Auto) 0.03 (0.01-0.20) K/uL VBG pH 7.38 (7.36-7.41) VBG pCO2 48 (38-50) mmHg VBG pO2 26 mmHg VBG HCO3 28 mmol/L VBG O2 Saturation < 60.0 % VBG Base Excess 2.5 mEq/L Sodium 142 (136-145) mmol/L Potassium 4.2 (3.5-5.1) mmol/L Chloride 107 (98-107) mmol/L Carbon Dioxide 29 (21-32) mmol/L Anion Gap 6 (3-11) BUN 32 H (6-23) mg/dl Creatinine 1.29 (0.6-1.4) mg/dl Est Cr Clr Drug Dosing 69.0 ml/min Est GFR ( Amer) 62.0 ml/min Est GFR (Non-Af Amer) 53.5 ml/min BUN/Creatinine Ratio 24.8 H (10-20) Glucose 147 H (70-99(Fasting)) mg/dl Lactate 2.1 H* 1.5 (0.4-2.0) mmol/L Calcium 9.6 (8.6-10.3) mg/dl Magnesium 2.1 (1.7-2.4) mg/dl Total Bilirubin 0.5 (0.2-1.0) mg/dl Direct Bilirubin 0.1 (0-0.2) mg/dl AST 20 (13-39) U/L ALT 14 (7-52) U/L Alkaline Phosphatase 49 (34-104) U/L Troponin I High Sens 78.2 H* 83.4 H* (0-20) pg/ml Total Protein 6.5 (6.0-8.3) gm/dl Albumin 4.0 (3.4-5.0) gm/dl Procalcitonin 0.03 (0-0.5) ng/ml Urine Color Urine Appearance (Clear) Urine pH (4.5-7.5) Ur Specific Weston (1.000-1.030) Urine Protein (Negative) Urine Glucose (UA) (Negative) Urine Ketones (Negative) Urine Blood (Negative) Urine Nitrite (Negative) Urine Bilirubin (Negative) Urine Urobilinogen (Negative) Ur Leukocyte Esterase (Negative) Blood Type A Positive Antibody Screen NEGATIVE 02/12/24 Range/Units 16:54 WBC (4.8-10.8) K/ul RBC (4.70-6.10) M/uL Hgb (14.0-18.0) g/dl Hct (42.0-52.0) % MCV (80.0-100.0) fL MCH (25.0-34.0) pg MCHC (32.0-36.0) g/dL RDW Std Deviation (36.4-46.3) fL RDW Coeff of Juan Pablo (11.5-14.5) % Plt Count (130-400) K/uL MPV (9.4-12.4) fL Immature Gran % (Auto) % Neut % (Auto) % Lymph % (Auto) % Hamblen % (Auto) % Eos % (Auto) % Baso % (Auto) % Neut # (Auto) (1.40-6.50) K/uL Lymph # (Auto) (1.20-3.40) K/uL Hamblen # (Auto) (0.11-0.59) K/uL Eos # (Auto) (0.00-0.50) K/uL Baso # (Auto) (0.00-0.20) K/uL Immature Gran # (Auto) (0.01-0.20) K/uL VBG pH (7.36-7.41) VBG pCO2 (38-50) mmHg VBG pO2 mmHg VBG HCO3 mmol/L VBG O2 Saturation % VBG Base Excess mEq/L Sodium (136-145) mmol/L Potassium (3.5-5.1) mmol/L Chloride (98-107) mmol/L Carbon Dioxide (21-32) mmol/L Anion Gap (3-11) BUN (6-23) mg/dl Creatinine (0.6-1.4) mg/dl Est Cr Clr Drug Dosing ml/min Est GFR ( Amer) ml/min Est GFR (Non-Af Amer) ml/min BUN/Creatinine Ratio (10-20) Glucose (70-99(Fasting)) mg/dl Lactate (0.4-2.0) mmol/L Calcium (8.6-10.3) mg/dl Magnesium (1.7-2.4) mg/dl Total Bilirubin (0.2-1.0) mg/dl Direct Bilirubin (0-0.2) mg/dl AST (13-39) U/L ALT (7-52) U/L Alkaline Phosphatase (34-104) U/L Troponin I High Sens (0-20) pg/ml Total Protein (6.0-8.3) gm/dl Albumin (3.4-5.0) gm/dl Procalcitonin (0-0.5) ng/ml Urine Color Yellow Urine Appearance Clear (Clear) Urine pH 6.5 (4.5-7.5) Ur Specific Weston 1.015 (1.000-1.030) Urine Protein Negative (Negative) Urine Glucose (UA) Negative (Negative) Urine Ketones Negative (Negative) Urine Blood Negative (Negative) Urine Nitrite Negative (Negative) Urine Bilirubin Negative (Negative) Urine Urobilinogen Negative (Negative) Ur Leukocyte Esterase Negative (Negative) Blood Type Antibody Screen Administered Medications Discontinued Medications Sodium Chloride (Nss) 1,000 mls @ 999 mls/hr IV .[id number] JONATHON Stop: 02/12/24 15:15 Last Infusion: 02/12/24 16:49 Dose: Infused Documented By: Admin: 02/12/24 14:45 Dose: 999 mls/hr Documented By: SAPNA Pantoprazole Sodium 40 mg/ (Syringe) 10 mls @ 5 mls/min IV NOW ONE Stop: 02/12/24 14:09 Last Admin: 02/12/24 14:46 Dose: 5 mls/min Documented By: [facility] Imaging Data Radiologist's Impression: Chest X-Ray 02/12/24 14:07 XR chest 1V portable CLINICAL HISTORY: Sepsis TECHNIQUE: Single frontal radiograph of the chest was obtained. Comparison: Comparison is made to chest radiograph 12/24/2023 FINDINGS: Median sternotomy wires are unchanged. The cardiomediastinal silhouette is normal. The lungs are clear. No evidence of pleural effusion or pneumothorax. IMPRESSION: No acute abnormalities and in particular no radiographic evidence of pneumonia. ACT 112: Negative or not required by law. Electronically signed by: Reno Gaxiola M.D. 02/12/2024 3:36 PM Discharge Plan Visit Data Chief Complaint: Hypotension Stated Complaint: HYPOTENSION, ILLNESS ED Provider: Kristina Guido Discharge Problem: Non-ST elevation TX (NSTEMI), Generalized weakness, Elevated lactic acid level, Acute GI bleeding Forms Stand Alone Forms: [facility] Prescriptions Prescriptions: No Action (DME) pen needle, diabetic [BD Kell 2nd Gen Pen Needle] 32 gauge x 5/32" needle See Dose Instructions .ROUTE .MEDSUPPLY Qty: 400 3RF Rx Instructions: Use four daily with insulin injection (DME) blood glucose control, normal [OneTouch Verio Mid Control] Solution See Rx Instructions .ROUTE .MEDSUPPLY Qty: 1 5RF Rx Instructions: Use weekly as directed (DME) lancets [Microlet Lancet] Misc See Dose Instructions .ROUTE .MEDSUPPLY Qty: 300 3RF Dose Instruction: As directed Rx Instructions: TEST 3 TIMES DAILY albuterol sulfate [ProAir HFA] 90 mcg/actuation HFA aerosol inhaler 1 - 2 puff INHALATION Q4H PRN (Reason: Shortness Of Breath Or Wheezing) Qty: 18 3RF metformin 500 mg tablet extended release 24 hr 1,000 mg PO BID Qty: 360 3RF levothyroxine 150 mcg tablet 150 mcg PO QAM Qty: 90 3RF isosorbide mononitrate 60 mg tablet extended release 24 hr 60 mg PO QAM Qty: 90 3RF metoprolol tartrate 25 mg tablet 25 mg PO TID Qty: 270 3RF finasteride 5 mg tablet 5 mg PO DAILY Qty: 90 3RF tamsulosin [Flomax] 0.4 mg capsule 0.4 mg PO HS Qty: 90 3RF oxycodone 5 mg tablet 5 mg PO Q8H PRN (Reason: breakthrough pain) Qty: 30 0RF hydrocodone-acetaminophen 10-325 mg tablet 1 tab PO Q6H Qty: 120 0RF amlodipine 10 mg tablet 10 mg PO QAM Qty: 90 3RF cyclobenzaprine 5 mg tablet 5 mg PO TID PRN (Reason: Muscle Spasm) Qty: 90 0RF (DME) lancing device Misc See Rx Instructions .Route Qty: 1 0RF Rx Instructions: Use to test blood sugars daily - ReliOn Brand - To work with Microlet lancets cranberry 500 mg capsule 500 mg PO QAM Rx Instructions: administer with meals diazepam [Valium] 5 mg tablet 5 mg PO BID PRN (Reason: anxiety) Qty: 5 0RF Rx Instructions: Before a procedure aspirin 325 mg Tablet,Delayed Release (Dr/Ec) 325 mg PO PM Hold Instructions: Resume on 09/27/23. ferrous sulfate 325 mg (65 mg iron) Tablet 325 mg PO QAM hydroxychloroquine 200 mg tablet 200 mg PO BID cyanocobalamin (vitamin B-12) [Vitamin B-12] 2,000 mcg tablet extended release 1,000 mcg PO QPM cholecalciferol (vitamin D3) [Vitamin D3] 50 mcg (2,000 unit) capsule 2,000 unit PO Q OTHER DAY Rx Instructions: even days prednisolone 5 mg tablet 5 mg PO QAM amoxicillin 500 mg Tablet 2,000 mg PO DIRECTED PRN (Reason: 1 HR PRIOR TO DENTAL PROCEDURES) cholecalciferol (vitamin D3) [Vitamin D3] 25 mcg (1,000 unit) Tablet 1,000 unit PO Q OTHER DAY Rx Instructions: odd days atorvastatin [Lipitor] 10 mg tablet 10 mg PO 2XWK Rx Instructions: tuesday and tuesday only insulin lispro [Humalog KwikPen Insulin] 100 unit/mL insulin pen 0 unit SQ QDD Rx Instructions: 1 - 45 units subcutaneously; inject per sliding scale with meals up to TDD 45 units pantoprazole [Protonix] 40 mg tablet,delayed release (DR/EC) 40 mg PO BID Qty: 180 3RF Rx Instructions: take 30 minutes before meals diphenhydramine HCl 12.5 mg/5 mL Elixir 37.5 mg PO HS PRN (Reason: Sleep) docusate sodium 100 mg Tablet 100 mg PO HS insulin glargine U-300 conc [Toujeo Max U-300 SoloStar] 300 unit/mL (3 mL) insulin pen 22 unit SUBCUT HS Rx Instructions: up to 40 units daily lidocaine 4 % Adhesive Patch,Medicated 1 patch TOPICAL DIRECTED PRN (Reason: Pain) Osteobioflex With Turmeric 1 cap PO QPM doxycycline hyclate 100 mg tablet 100 mg PO BID PRN (Reason: UTI symptoms/prostatitis) meloxicam 7.5 mg tablet 7.5 mg PO QAM escitalopram oxalate [Lexapro] 10 mg tablet 10 mg PO HS polyethylene glycol 3350 [Miralax] 17 gram Powder In Packet 17 g PO DAILY PRN (Reason: Constipation) lidocaine 4 % Cream 1 applic TOPICAL DIRECTED PRN (Reason: Pain) Referrals Referrals: Pro,Sahrif Gee MD [Primary Care Provider] -
[2024-02-12 14:44] LABS: Base Excess VBG 2.5 mEq/L; HCO3 VBG 28 mmol/L; Oxygen Saturation VBG < 60.0 %; PCO2 VBG 48 mmHg (38-50); PO2 VBG 26 mmHg; pH VBG 7.38 (7.36-7.41)
[2024-02-12] MEDS: SODIUM CHLORIDE 0.9% 1,000 ML IV SCH (14:45)
[2024-02-12] MEDS: PANTOprazole 40 MG in SYRINGE 0 ML IV ONE (14:46)
[2024-02-12 14:49] LABS: Basophils # (auto) 0.13 K/uL (0.00-0.20); Basophils % (auto) 1.8 %; Eosinophils # (auto) 0.14 K/uL (0.00-0.50); Hematocrit (blood only) 35.8 % (42.0-52.0); Hemoglobin 11.6 g/dl (14.0-18.0); Immature Granulocytes # (auto) 0.03 K/uL (0.01-0.20); Immature Granulocytes % (auto) 0.4 %; Lymphocytes # (auto) 1.17 K/uL (1.20-3.40); Lymphocytes % (auto) 16.4 %; Mean Corpuscular Hemoglobin 28.9 pg (25.0-34.0); Mean Corpuscular Hgb Conc 32.4 g/dL (32.0-36.0); Mean Corpuscular Volume 89.3 fL (80.0-100.0); Mean Platelet Volume 10.7 fL (9.4-12.4); Monocytes # (auto) 0.81 K/uL (0.11-0.59); Monocytes % (auto) 11.3 %; Neutrophils # (auto) 4.86 K/uL (1.40-6.50); Neutrophils % (auto) 68.1 %; Platelet Count 158 K/uL (130-400); RDW Standard Deviation 45.1 fL (36.4-46.3); Red Blood Count 4.01 M/uL (4.70-6.10); White Blood Count 7.14 K/ul (4.8-10.8)
[2024-02-12 15:06] LABS: BUN Creatinine Ratio 24.8 (10-20); Bilirubin Direct 0.1 mg/dl (0-0.2); Bilirubin,Total 0.5 mg/dl (0.2-1.0); Calcium 9.6 mg/dl (8.6-10.3); Est GFR (Non-African American) 53.5 ml/min; Magnesium 2.1 mg/dl (1.7-2.4); Potassium 4.2 mmol/L (3.5-5.1); Total Protein 6.5 gm/dl (6.0-8.3)
[2024-02-12 15:18] LABS: Troponin I High Sensitivity 78.2 pg/ml (0-20)
--- NOTE | 2024-02-12 15:37 | XRay Report ---
XR chest 1V portable CLINICAL HISTORY: Sepsis TECHNIQUE: Single frontal radiograph of the chest was obtained. Comparison: Comparison is made to chest radiograph 12/24/2023 FINDINGS: Median sternotomy wires are unchanged. The cardiomediastinal silhouette is normal. The lungs are sushma r. No evidence of pleural effusion or pneumothorax. IMPRESSION: No acute abnormalities and in particular no radiographic evidence of pneumonia. ACT 112: Negative or not required by law. Electronically signed by: Reno Gaxiola M.D. 02/12/2024 3:36 PM
[2024-02-12 17:09] LABS: Appearance Urine Clear (Clear); Bilirubin Urine Negative (Negative); Blood Urine Negative (Negative); Color Urine Yellow; Glucose Urine UA Negative (Negative); Ketones Urine Negative (Negative); Leukocyte Esterase Urine Negative (Negative); Nitrite Urine Negative (Negative); Protein Urine Negative (Negative); Specific Gravity Urine 1.015 (1.000-1.030); Urobilinogen Urine Negative (Negative); pH Urine 6.5 (4.5-7.5)
--- NOTE | 2024-02-12 18:14 | History & Physical Report ---
Date of Service February 12, 2024 Assessment & Plan (1) Acute GI bleeding: Plan: Acute upper GI bleed With melanic emesis evening prior to presentation, and subsequent with weakness, lightheadedness, and sinus tachycardia with hypotension improved after 1 L NSS. Patient has been placed on a Protonix bolus and drip. Patient is on full dose aspirin and prednisone daily Hemoglobin currently 11.6, normotensive following fluids, remains slightly tachycardic. Type and cross for blood, no indication for acute transfusion at time of hospitalist assessment. 2 units ordered for hold, patient has required blood to be transported from [place] in the past. transfuse for symptoms/liberalized hemoglobin threshold of 10 overnight if acute symptoms/acute hemorrhage. Transfuse 1:1:1 if 4 or more units are required. Calcium is normal on admission Trend H&H every 6 hours, or spotcheck if any hemodynamic instability/symptoms PPI bolus given. Twice daily push continued GI consulted for upper GI bleed Lactate initially elevated, normalized post fluids History of EGD 10/18/2023, nonbleeding angioectasias seen at that time. Duodenum normal - Does have a hx of ulcers that were clipped in the past. (2) Elevated troponin: Plan: Elevated troponin Troponin 78.2, repeat 83.4. No chest pain on assessment. Suspect demand ischemia with hypotension now improved to due to upper GI bleed EKG: No territorial ST changes greater than 1 mm, tachycardic Metoprolol converted to IV to prevent beta-micaela withdrawal while n.p.o. (3) CKD (chronic kidney disease): Plan: CKD Creatinine 1.29 on admission Trend daily, renally adjust medications as needed (4) PAF (paroxysmal atrial fibrillation): Plan: Single episode following thoracic surgery. No recurrence Sinus on admission Followed on telemetry (5) Severe obstructive sleep apnea: Plan: CPAP nightly (6) Diabetes: Plan: Type II DM Continue glargine 22 units dose reduced to 15 units while n.p.o., continue sliding scale Goal BSG 193358, Salas's at 125 while n.p.o. (7) Systemic lupus erythematosus: Plan: Prednisone held while NPO and with GI bleed. Follow for signs of secondary AI. (8) Anticardiolipin antibody positive: Plan: Anticardiolipin positive Increased risk of VTE, anticoagulation is contraindicated in the setting of acute GI bleed Patient reports he has not had problem with blood clots, he has had the opposite with DVT prophylaxis in the past he has had precipitous drop in his platelets Plan BPH Oral meds held for upper GI bleed Hypothyroidism Continue Synthroid once no longer n.p.o. DVT prophylaxis: SCDs pharmacal prophylaxis contraindicated Disposition: PCU Diet: Strict n.p.o. CODE STATUS: Full code History of Present Illness Primary Care Provider: Sharif Barros MD Uri is a 78-year-old male with past medical history of lung nodules post empiric radiation therapy following with [facility] pulmonology, hypertension, hyperlipidemia, aortic valve replacement, single episode of A-fib following thoracic surgery with no known recurrence and not on anticoagulation who presents to the ER after he was too weak to get off his commode. Per family he was weak, lightheaded, diaphoretic and presyncopal this morning and has had epigastric discomfort with coffee-ground emesis the evening prior. He does have a history of prior GI bleed requiring transfusions. He is on prednisone 5 mg daily for lupus. He takes a full dose aspirin daily, does not take ibuprofen/naproxen. He has not had hematochezia/melena. BUN acutely elevated from baseline He is seen at present with his and family present. Reports this morning he had an episode of a complete bucket full of black coffee-ground emesis. No emesis since. No diarrhea/constipation. No hematochezia/melena. Does have history of polyps which were clipped in the past with a week Hemoccult positive stool in the past. He did have a history of severe GI bleed with ulcers that were clipped many years ago. 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 He has not had any fever, chills, sweats. No cough. No dysuria. He denies abdominal pain. He feels improved and is not lightheaded or dizzy in the ER at time of admitting assessment. Feels much better after 1 L of fluid. He reports he has been taking his PPI twice daily and last took this around 10 AM. He takes his insulin in the evening. Medical History: Reviewed Medications: Reviewed Surgical History: Reviewed Family history: Reviewed Allergies: Reviewed Social History: Reviewed Code Status:Full Allergies Allergy/AdvReac Type Severity Reaction Status Date / Time erythromycin base Allergy Severe HIVES ALL Verified 02/12/24 17:12 OVER bacitracin Allergy Intermediate Skin Verified 02/12/24 17:12 Irritation neomycin Allergy Intermediate Skin Verified 02/12/24 17:12 Irritation polymyxin B Allergy Intermediate Skin Verified 02/12/24 17:12 Irritation Iodinated Contrast Media AdvReac Severe SEVERE Verified 02/12/24 17:12 NAUSEA/VOMITING morphine AdvReac Severe severe n/v Verified 02/12/24 17:12 Opioids - Morphine Analogues AdvReac Severe Gastrointestinal Verified 02/12/24 17:12 Upset Sulfa (Sulfonamide AdvReac Severe Nausea Verified 02/12/24 17:12 Antibiotics) adhesive tape AdvReac Intermediate Blistered Verified 02/12/24 17:12 skin clavulanic acid AdvReac Intermediate CHILLS, Verified 02/12/24 17:12 HEADACHE, "MADE HIM SICK" Macrolide Antibiotics AdvReac Intermediate CHILLS, Verified 02/12/24 17:12 HEADACHE, "MADE HIM SICK" sulfamethoxazole AdvReac Intermediate CHILLS, Verified 02/12/24 17:12 HEADACHE, "MADE HIM SICK" Home Medications Medication Instructions Recorded Confirmed Type aspirin 325 mg tablet,delayed 325 mg PO PM 07/01/18 02/12/24 History release ferrous sulfate 325 mg (65 mg 325 mg PO QAM 07/01/18 02/12/24 History iron) tablet hydroxychloroquine 200 mg tablet 200 mg PO BID 02/26/21 02/12/24 History cyanocobalamin (vitamin B-12) 1,000 mcg PO QPM 05/28/21 02/12/24 History 2,000 mcg tablet,extended release (Vitamin B-12 ER) cholecalciferol (vitamin D3) 50 2,000 unit PO Q OTHER DAY 07/07/21 02/12/24 History mcg (2,000 unit) capsule (Vitamin D3) cranberry 500 mg capsule 500 mg PO QAM 07/07/21 02/12/24 History prednisolone 5 mg tablet 5 mg PO QAM 07/08/22 02/12/24 History pen needle, diabetic 32 gauge x #400 ea 10/18/22 01/27/24 Rx " (BD Kell 2nd Gen Pen Needle) diphenhydramine HCl 12.5 mg/5 mL 37.5 mg PO HS PRN Sleep 02/04/23 02/12/24 History oral elixir docusate sodium 100 mg tablet 100 mg PO HS 02/04/23 02/12/24 History insulin glargine U-300 conc 300 22 unit subcut HS 02/04/23 02/12/24 History unit/mL (3 mL) subcutaneous pen (Toujeo Max U-300 SoloStar) lidocaine 4 % topical patch 1 patch topical DIRECTED PRN 02/04/23 02/12/24 History Pain OneTouch Verio Mid Control (blood #1 ea 03/28/23 01/27/24 Rx glucose control, normal) Microlet Lancet (lancets) #300 ea 04/26/23 01/27/24 Rx Osteobioflex With Turmeric 1 cap PO QPM 04/27/23 02/12/24 History albuterol sulfate 90 mcg/actuation 1 - 2 puff inhalation Q4H PRN 04/27/23 02/12/24 Rx aerosol inhaler (ProAir HFA) Shortness Of Breath Or Wheezing #18 grams doxycycline hyclate 100 mg tablet 100 mg PO BID PRN UTI 04/27/23 02/12/24 History symptoms/prostatitis metformin 500 mg tablet,extended 1,000 mg (2 x 500 mg) PO BID #360 06/02/23 02/12/24 Rx release 24 hr tabs lancing device #1 ea 08/04/23 01/27/24 Rx diazepam 5 mg tablet (Valium) 5 mg PO BID PRN anxiety #5 tabs 08/25/23 02/12/24 Rx isosorbide mononitrate 60 mg 60 mg PO QAM #90 tabs 09/07/23 02/12/24 Rx tablet,extended release 24 hr levothyroxine 150 mcg tablet 150 mcg PO QAM #90 tabs 09/07/23 02/12/24 Rx metoprolol tartrate 25 mg tablet 25 mg PO TID #270 tabs 09/15/23 02/12/24 Rx amoxicillin 500 mg tablet 2,000 mg PO DIRECTED PRN 1 HR 09/20/23 02/12/24 History PRIOR TO DENTAL PROCEDURES atorvastatin 10 mg tablet (Lipitor) 10 mg PO 2XWK 09/20/23 02/12/24 History cholecalciferol (vitamin D3) 25 1,000 unit PO Q OTHER DAY 09/20/23 02/12/24 History mcg (1,000 unit) tablet (Vitamin D3) insulin lispro 100 unit/mL 0 unit subcut QDD 09/20/23 02/12/24 History subcutaneous pen (Humalog KwikPen (U-100) Insulin) pantoprazole 40 mg tablet,delayed 40 mg PO BID #180 tabs 09/21/23 02/12/24 Rx release (Protonix) escitalopram oxalate 10 mg tablet 10 mg PO HS 10/19/23 02/12/24 History (Lexapro) meloxicam 7.5 mg tablet 7.5 mg PO QAM 10/19/23 02/12/24 History finasteride 5 mg tablet 5 mg PO DAILY #90 tabs 10/24/23 02/12/24 Rx tamsulosin 0.4 mg capsule (Flomax) 0.4 mg PO HS #90 caps 10/24/23 02/12/24 Rx polyethylene glycol 3350 17 gram 17 g PO DAILY PRN Constipation 10/25/23 02/12/24 History oral powder packet (Miralax) oxycodone 5 mg tablet 5 mg PO Q8H PRN breakthrough pain 11/17/23 02/12/24 Rx #30 tabs hydrocodone 10 mg-acetaminophen 1 tab PO Q6H pain #120 tabs 12/30/23 02/12/24 Rx 325 mg tablet amlodipine 10 mg tablet 10 mg PO QAM #90 tabs 01/12/24 02/12/24 Rx cyclobenzaprine 5 mg tablet 5 mg PO TID PRN Muscle Spasm #90 01/12/24 02/12/24 Rx tabs lidocaine 4 % topical cream 1 applic topical DIRECTED PRN 02/12/24 02/12/24 History Pain Past Med/Surg History Problem List (Updated 02/12/24 @ 18:28 by Beau Collado MD) CKD (chronic kidney disease) Lupus PAF (paroxysmal atrial fibrillation) s/p aortic valve replacment > resolved since, no longer on meds, no pacer Elevated troponin Acute GI bleeding (Acute) Elevated lactic acid level (Acute) Generalized weakness (Acute) Non-ST elevation [place] (NSTEMI) (Acute) Dyspnea Chest pain Gastric AVM Symptomatic anemia (Acute) Upper GI bleed (Acute) Encounter for pre-operative examination Lung mass History of colon polyps Current use of proton pump inhibitor Abnormal imaging of thyroid Lung nodule (Chronic) Encounter for screening for malignant neoplasm of rectum Encounter for screening for malignant neoplasm of colon Prostatitis Anemia Obesity Nocturnal hypoxemia Severe obstructive sleep apnea [place] PAF (paroxysmal atrial fibrillation) Nocturia (Chronic) Ulnar neuropathy (Chronic) Chronic pain (Chronic) Depression (Chronic) 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) Angina pectoris (Chronic) Aortic stenosis (Chronic) Arteriosclerosis of carotid artery (Chronic) Atrial flutter (Chronic) Chronic constipation (Chronic) Dysphagia (Chronic) Generalized osteoarthritis of multiple sites (Chronic) Herniated lumbar intervertebral disc (Chronic) Hyperlipidemia (Chronic) Insomnia (Chronic) Osteoarthritis of hip (Chronic) Peripheral neuropathy (Chronic) Renal neoplasm (Chronic) Sacroiliitis (Chronic) Opioid dependence (Chronic) Vitamin B12 deficiency (Chronic) Vitamin D deficiency (Chronic) H/O aortic valve replacement (07/2013) Bilateral primary osteoarthritis of knee Hypothyroid (Chronic) Hypertension (Chronic) Diabetes (Chronic) IDDM Systemic lupus erythematosus (Chronic) Asthma (Chronic) rare res inh use 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) GERD without esophagitis (Chronic) Medical History LBBB (left bundle branch block) History of colon polyps Pulmonary nodule DDD (degenerative disc disease), cervical DDD (degenerative disc disease), lumbar Osteoporosis Scoliosis Hyperlipidemia Proctitis CAD (coronary artery disease) PAF (paroxysmal atrial fibrillation) Depression Sleep apnea Anticardiolipin antibody positive Benign localized hyperplasia of prostate with urinary obstruction GERD without esophagitis Asthma Internal hemorrhoids Systemic lupus erythematosus H/O: GI bleed Diabetes Hypertension Hypothyroid Surgical History History of bronchoscopy History of cataract surgery S/P excision of lipoma History of gastric surgery History of skin surgery History of dental surgery History of esophagogastroduodenoscopy History of colonoscopy History of tonsillectomy S/P aortic valve replacement History of cholecystectomy Family History Father Hypertension Diabetes Heart disease Prostate cancer Cardiac disorder Cancer Mother Rheumatoid aortitis Emphysema/COPD Hypertension Colitis Brother Hypertension Diabetes Family/Other Prostate cancer Other Bone cancer Social History Smoking Status: Former smoker Tobacco Type: Cigarettes Age Started Using Tobacco: 18; Age Quit Using Tobacco: 42; packs per day: 3; Cigarettes Per Day: 40-60; Second Hand Exposure: Yes (hx as child); Do You Dip or Chew Tobacco: No (quit 1980; advised); Hx Alcohol Use: Yes (none since 1979) Hx Substance Use: No Preferred Language: Peruvian Communication Ability: Effective Visual Impairment: Limited Hearing Ability: Normal Veterinary Bacteriologist Required: No Beliefs That Will Affect Care: None marital status: Current Living Situation: Spouse current occupational status: retired Feels Safe at Home: Yes Childhood Exposure to Second-Hand Smoke: No Seatbelt Use: always Assistive Devices: BiPap, Cane, Denture - Upper and Glasses Physical Exam Physical Exam: General: A&Ox3. NAD. Cooperative. Mild pallor HEENT: Atraumatic, normocephalic. Pulm: CTAB A&P. -wheezes, -rales, -rhonchi. Symmetrical chest rise. No increased work of breathing. No respiratory distress. Cardiac: Tachycardic, regular +systolic murmur. Radial pulses intact and symmetrical. Midline sternal scar Abdominal: Nontender, nondistended, soft. BS present. Results & Data Results & Data Vital Signs (Past 12 Hours) Vital Signs Pulse Pulse Resp BP BP Pulse Ox O2 Del Method 02/12/24 17:11 97 H 20 114/73 96 Room Air 02/12/24 16:48 94 H 20 91/68 L 96 Room Air 02/12/24 15:42 88 20 101/77 98 Room Air 02/12/24 15:08 81 18 114/82 96 Room Air 02/12/24 15:08 96 Room Air 02/12/24 14:22 94 H 02/12/24 13:59 94 H 20 98/79 L 95 Room Air 02/12/24 13:59 95 Room Air 02/12/24 13:59 94 H 20 98/79 L 95 Room Air PG Care Time/CCT Total # of Minutes Spent Total Time Spent with Patient: Total time spent is greater than 50% in coordination of care (as documented) at patient's floor/unit and/or counseling patient: Coding Level of Care Code 84176 INT INP/OBS CARE MIN Diagnoses Acute GI bleeding K92.2 Elevated troponin R79.89 CKD (chronic kidney disease) N18.9 PAF (paroxysmal atrial fibrillation) I48.0 Severe obstructive sleep apnea G47.33 Diabetes E11.9 Systemic lupus erythematosus M32.9 Anticardiolipin antibody positive R76.0
[2024-02-12] MEDS ORDERED: GLUCOSE 10 TAB/TUBE PO PRN (18:30)
[2024-02-12] MEDS ORDERED: GLUCAGON FOR INJ 1 MG VIAL SQ PRN (18:30)
[2024-02-12] MEDS ORDERED: CARBOHYDRATES FOR HYPOGLYCEMIA PO PRN (18:30)
[2024-02-12] MEDS ORDERED: LACTATED RINGER'S 1,000 ML IV SCH (18:30)
[2024-02-12] MEDS ORDERED: DEXTROSE 50% 50 ML SYRINGE IV PRN (18:30)
[2024-02-12] MEDS ORDERED: GLUCOSE 40% GEL 15 GM TUBE PO PRN (18:30)
[2024-02-12] MEDS ORDERED: SODIUM CHLORIDE 0.9% 250 ML IV PRN ×2 (18:55→22:13)
[2024-02-12] MEDS: D5W AND LACTATED RINGERS 1,000 ML IV SCH (19:24)
[2024-02-12] MEDS: PANTOprazole 40 MG in DEXTROSE 5% MINI-B 100 ML IV SCH (19:55)
[2024-02-12 20:27] LABS: Hematocrit (blood only) 30.8 % (42.0-52.0)
[2024-02-12] MEDS ORDERED: LANTUS PER UNIT CHARGE SQ SCH (21:00)
[2024-02-12] MEDS: LANTUS PER UNIT CHARGE SQ SCH (21:42)
[2024-02-12] MEDS: INSULIN ASPART PER UNIT CHARGE SC SCH (21:42)
[2024-02-12] MEDS ORDERED: HYDROcodone/ACETAMINOPHEN 10/325 TAB PO PRN (22:36)
--- NOTE | 2024-02-12 22:52 | Electrocardiogram Report ---
Test Reason : Blood Pressure : / mmHG Vent. Rate : 095 BPM Atrial Rate : 000 BPM P-R Int : 000 ms QRS Dur : 106 ms QT Int : 380 ms P-R-T Axes : 000 -29 060 degrees QTc Int : 478 ms Sinus rhythm Moderate voltage criteria for LVH, may be normal variant ( R in aVL , Emerson product ) Cannot rule out Anterior infarct , age undetermined Abnormal ECG When compared with ECG of 21-SEP-2023 03:49, Nonspecific T wave abnormality, worse in Anterolateral leads Confirmed by Anthony Kim ([id number]) on 02/12/2024 10:52:47 PM Referred By: REFERRED SELF Confirmed By:Anthony Kim
[2024-02-12] MEDS: HYDROmorphone INJ 0.5 MG/0.5 ML SYR IV STA (23:14)
[2024-02-13] MEDS ORDERED: METOPROLOL TARTRATE 1 MG/ML VIAL IV SCH
[2024-02-13 01:33] LABS: Hematocrit (blood only) 30.7 % (42.0-52.0); Hemoglobin 10.1 g/dl (14.0-18.0)
[2024-02-13] MEDS ORDERED: Nursing to Pharmacy Communication SCH (06:15)
[2024-02-13] MEDS: INSULIN ASPART PER UNIT CHARGE SC SCH (06:37)
[2024-02-13 07:07] LABS: BUN Creatinine Ratio 33.9 (10-20); Creatinine Clr Calc Pharmacy 81.6 ml/min; Est GFR (African American) 73.6 ml/min; Est GFR (Non-African American) 63.5 ml/min; Potassium 3.7 mmol/L (3.5-5.1)
[2024-02-13 07:15] LABS: Basophils # (auto) 0.11 K/uL (0.00-0.20); Basophils % (auto) 2.3 %; Eosinophils # (auto) 0.18 K/uL (0.00-0.50); Eosinophils % (auto) 3.7 %; Hematocrit (blood only) 30.4 % (42.0-52.0); Immature Granulocytes # (auto) 0.01 K/uL (0.01-0.20); Immature Granulocytes % (auto) 0.2 %; Lymphocytes # (auto) 1.43 K/uL (1.20-3.40); Lymphocytes % (auto) 29.3 %; Mean Corpuscular Hemoglobin 29.1 pg (25.0-34.0); Mean Corpuscular Hgb Conc 32.9 g/dL (32.0-36.0); Mean Corpuscular Volume 88.4 fL (80.0-100.0); Mean Platelet Volume 11.3 fL (9.4-12.4); Monocytes # (auto) 0.69 K/uL (0.11-0.59); Monocytes % (auto) 14.1 %; Neutrophils # (auto) 2.46 K/uL (1.40-6.50); Neutrophils % (auto) 50.4 %; Platelet Count 140 K/uL (130-400); RDW Coefficient of Variation 14.5 % (11.5-14.5); RDW Standard Deviation 46.3 fL (36.4-46.3); Red Blood Count 3.44 M/uL (4.70-6.10); White Blood Count 4.88 K/ul (4.8-10.8)
[2024-02-13] MEDS: PANTOprazole 40 MG in SYRINGE 0 ML IV SCH (08:44)
[2024-02-13] MEDS: HYDROCORTISONE SOD 25 MG in SYRINGE 0 ML IV SCH (08:44)
[2024-02-13] MEDS: HYDROmorphone INJ 0.5 MG/0.5 ML SYR IV PRN (08:45)
[2024-02-13 09:05] LABS: Troponin I High Sensitivity 91.5 pg/ml (0-20)
--- NOTE | 2024-02-13 09:49 | Gastrointestinal Consultation ---
Date of Consultation February 13, 2024 Assessment & Plan (1) Acute GI bleeding: Pleasant man with a solitary episode of hematemesis who has since stopped bleeding and has stabilized. He is on protonix bid so I think development of an ulcer unlikely but with meloxicam and ASA usage I guess it is possible. His bleeding in the past seems to have been from vascular lesions in the gut and if that is the cause here nothing may be found on EGD. 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 Since he has stopped vomiting and is showing no signs of active bleeding at this time will do EGD tomorrow. I explained to him and his that if things change we can do EGD emergently but since his H/H have been stable since the first one I think we can do it more electively tomorrow. They agree. History of Present Illness Reason for Consultation: hematemesis Attending Physician: Presley Wiseman MD History of Present Illness 78 year old man with prior issues with bleeding felt from vascular lesions in the gut. His reports him having had a dieulafoy's lesion and then on last EGD in September he had a gastric avm. She says he was diagnosed with a duodenal ulcer in the 80's by Xray. He stays on protonix 40mg bid and has been on that since 2011. He does take full dose ASA for "migraines without the headache" and he also takes meloxicam 7.5 mg daily. 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 This was completed in December. He has recently been complaining of indigestion and burping and on Tuesday morning he got weak, diaphoretic and vomited black liquid "about a liter". He has not been having melena prior to this and he has had no melena since the emesis--last bowel movement on . Since that single episode of emesis he has had nothing further and he is feeling better. Hgb on presentation was 11.9 and fell to 10 but has remained stable at 10 ever since. He does not take any antiplatelet drugs or blood thinners. Allergies Allergy/AdvReac Type Severity Reaction Status Date / Time erythromycin base Allergy Severe HIVES ALL Verified 02/12/24 17:12 OVER bacitracin Allergy Intermediate Skin Verified 02/12/24 17:12 Irritation neomycin Allergy Intermediate Skin Verified 02/12/24 17:12 Irritation polymyxin B Allergy Intermediate Skin Verified 02/12/24 17:12 Irritation Iodinated Contrast Media AdvReac Severe SEVERE Verified 02/12/24 17:12 NAUSEA/VOMITING morphine AdvReac Severe severe n/v Verified 02/12/24 17:12 Opioids - Morphine Analogues AdvReac Severe Gastrointestinal Verified 02/12/24 17:12 Upset Sulfa (Sulfonamide AdvReac Severe Nausea Verified 02/12/24 17:12 Antibiotics) adhesive tape AdvReac Intermediate Blistered Verified 02/12/24 17:12 skin clavulanic acid AdvReac Intermediate CHILLS, Verified 02/12/24 17:12 HEADACHE, "MADE HIM SICK" Macrolide Antibiotics AdvReac Intermediate CHILLS, Verified 02/12/24 17:12 HEADACHE, "MADE HIM SICK" sulfamethoxazole AdvReac Intermediate CHILLS, Verified 02/12/24 17:12 HEADACHE, "MADE HIM SICK" Home Medications Medication Instructions Recorded Confirmed Type aspirin 325 mg tablet,delayed 325 mg PO PM 07/01/18 02/12/24 History release ferrous sulfate 325 mg (65 mg 325 mg PO QAM 07/01/18 02/12/24 History iron) tablet hydroxychloroquine 200 mg tablet 200 mg PO BID 02/26/21 02/12/24 History cyanocobalamin (vitamin B-12) 1,000 mcg PO QPM 05/28/21 02/12/24 History 2,000 mcg tablet,extended release (Vitamin B-12 ER) cholecalciferol (vitamin D3) 50 2,000 unit PO Q OTHER DAY 07/07/21 02/12/24 History mcg (2,000 unit) capsule (Vitamin D3) cranberry 500 mg capsule 500 mg PO QAM 07/07/21 02/12/24 History prednisolone 5 mg tablet 5 mg PO QAM 07/08/22 02/12/24 History pen needle, diabetic 32 gauge x #400 ea 10/18/22 01/27/24 Rx " (BD Kell 2nd Gen Pen Needle) diphenhydramine HCl 12.5 mg/5 mL 37.5 mg PO HS PRN Sleep 02/04/23 02/12/24 History oral elixir docusate sodium 100 mg tablet 100 mg PO HS 02/04/23 02/12/24 History insulin glargine U-300 conc 300 22 unit subcut HS 02/04/23 02/12/24 History unit/mL (3 mL) subcutaneous pen (Toujeo Max U-300 SoloStar) lidocaine 4 % topical patch 1 patch topical DIRECTED PRN 02/04/23 02/12/24 History Pain OneTouch Verio Mid Control (blood #1 ea 03/28/23 01/27/24 Rx glucose control, normal) Microlet Lancet (lancets) #300 ea 04/26/23 01/27/24 Rx Osteobioflex With Turmeric 1 cap PO QPM 04/27/23 02/12/24 History albuterol sulfate 90 mcg/actuation 1 - 2 puff inhalation Q4H PRN 04/27/23 02/12/24 Rx aerosol inhaler (ProAir HFA) Shortness Of Breath Or Wheezing #18 grams doxycycline hyclate 100 mg tablet 100 mg PO BID PRN UTI 04/27/23 02/12/24 History symptoms/prostatitis metformin 500 mg tablet,extended 1,000 mg (2 x 500 mg) PO BID #360 06/02/23 02/12/24 Rx release 24 hr tabs lancing device #1 ea 08/04/23 01/27/24 Rx diazepam 5 mg tablet (Valium) 5 mg PO BID PRN anxiety #5 tabs 08/25/23 02/12/24 Rx isosorbide mononitrate 60 mg 60 mg PO QAM #90 tabs 09/07/23 02/12/24 Rx tablet,extended release 24 hr levothyroxine 150 mcg tablet 150 mcg PO QAM #90 tabs 09/07/23 02/12/24 Rx metoprolol tartrate 25 mg tablet 25 mg PO TID #270 tabs 09/15/23 02/12/24 Rx amoxicillin 500 mg tablet 2,000 mg PO DIRECTED PRN 1 HR 09/20/23 02/12/24 History PRIOR TO DENTAL PROCEDURES atorvastatin 10 mg tablet (Lipitor) 10 mg PO 2XWK 09/20/23 02/12/24 History cholecalciferol (vitamin D3) 25 1,000 unit PO Q OTHER DAY 09/20/23 02/12/24 History mcg (1,000 unit) tablet (Vitamin D3) insulin lispro 100 unit/mL 0 unit subcut QDD 09/20/23 02/12/24 History subcutaneous pen (Humalog KwikPen (U-100) Insulin) pantoprazole 40 mg tablet,delayed 40 mg PO BID #180 tabs 09/21/23 02/12/24 Rx release (Protonix) escitalopram oxalate 10 mg tablet 10 mg PO HS 10/19/23 02/12/24 History (Lexapro) meloxicam 7.5 mg tablet 7.5 mg PO QAM 10/19/23 02/12/24 History finasteride 5 mg tablet 5 mg PO DAILY #90 tabs 10/24/23 02/12/24 Rx tamsulosin 0.4 mg capsule (Flomax) 0.4 mg PO HS #90 caps 10/24/23 02/12/24 Rx polyethylene glycol 3350 17 gram 17 g PO DAILY PRN Constipation 10/25/23 02/12/24 History oral powder packet (Miralax) oxycodone 5 mg tablet 5 mg PO Q8H PRN breakthrough pain 11/17/23 02/12/24 Rx #30 tabs hydrocodone 10 mg-acetaminophen 1 tab PO Q6H pain #120 tabs 12/30/23 02/12/24 Rx 325 mg tablet amlodipine 10 mg tablet 10 mg PO QAM #90 tabs 01/12/24 02/12/24 Rx cyclobenzaprine 5 mg tablet 5 mg PO TID PRN Muscle Spasm #90 01/12/24 02/12/24 Rx tabs lidocaine 4 % topical cream 1 applic topical DIRECTED PRN 02/12/24 02/12/24 History Pain Patient History Medical History LBBB (left bundle branch block) f/u dr. love History of colon polyps Pulmonary nodule DDD (degenerative disc disease), cervical ROM "is ok for procedures" DDD (degenerative disc disease), lumbar Osteoporosis Scoliosis Hyperlipidemia Proctitis on occasion, prn doxycycline for this CAD (coronary artery disease) follows with Dr. Love Depression Sleep apnea Bi Pap Internal hemorrhoids H/O: GI bleed severe GI bleed, treated at [facility] - resolved Surgical History History of bronchoscopy History of cataract surgery bilat S/P excision of lipoma to back History of gastric surgery due to GI bleed November 2016 History of skin surgery skin tags History of dental surgery History of esophagogastroduodenoscopy History of colonoscopy History of tonsillectomy S/P aortic valve replacement [facility] [place] Jul 2013 History of cholecystectomy Family History Father Hypertension Diabetes Heart disease Prostate cancer Cardiac disorder Cancer Mother Rheumatoid aortitis Emphysema/COPD Hypertension Colitis Brother Hypertension Diabetes Family/Other Prostate cancer Other Bone cancer Social History Smoking Status: Former smoker Tobacco Type: Cigarettes Age Started Using Tobacco: 18; Age Quit Using Tobacco: 42; packs per day: 3; Cigarettes Per Day: quit smoking in 1979; Second Hand Exposure: No; Do You Dip or Chew Tobacco: No; Tobacco Cessation Education Requested by Patient: No Hx Alcohol Use: No Hx Substance Use: No Preferred Language: Korean Communication Ability: Effective Visual Impairment: Limited Hearing Ability: Normal Research Leader Required: No Beliefs That Will Affect Care: None marital status: Current Living Situation: Spouse current occupational status: retired Other Information That Helps Us Care for You: No Feels Safe at Home: Yes Safety Concerns: Feels Safe At This Time Childhood Exposure to Second-Hand Smoke: No Seatbelt Use: always Assistive Devices: Glasses Review of Systems Review of Systems: All systems reviewed & are unremarkable except as noted in HPI & below Physical Exam Constitutional: WD/WN, vitals as above Neck: trachea midline, no thyromegaly Respiratory: normal respiratory effort, lungs clear to auscultation Cardiovascular: RRR, no murmur, no edema Gastrointestinal (Abdomen): normal bowel sounds, soft, nontender, no hepatosplenomegaly Musculoskeletal: Extremities: extremities normal to inspection Results & Data Vital Signs (Past 12 Hours) Vital Signs Temp Pulse Pulse Resp BP Pulse Ox O2 Del Method 02/13/24 07:21 37.0 C 98 H 18 134/88 95 Room Air 02/13/24 03:00 36.8 C 106 H 16 147/92 H 94 Room Air 02/12/24 22:47 36.6 C 102 H 18 143/92 H 96 Room Air 02/12/24 22:33 105 H Laboratory Results 02/13/24 02/13/24 02/13/24 Range/Units 06:27 05:57 00:41 WBC 4.88 (4.8-10.8) K/ul RBC 3.44 L (4.70-6.10) M/uL Hgb 10.0 L 10.1 L (14.0-18.0) g/dl Hct 30.4 L 30.7 L (42.0-52.0) % MCV 88.4 (80.0-100.0) fL MCH 29.1 (25.0-34.0) pg MCHC 32.9 (32.0-36.0) g/dL RDW Std Deviation 46.3 (36.4-46.3) fL RDW Coeff of [place] 14.5 (11.5-14.5) % Plt Count 140 (130-400) K/uL MPV 11.3 (9.4-12.4) fL Immature Gran % (Auto) 0.2 % Neut % (Auto) 50.4 % Lymph % (Auto) 29.3 % [place] % (Auto) 14.1 % Eos % (Auto) 3.7 % Baso % (Auto) 2.3 % Neut # (Auto) 2.46 (1.40-6.50) K/uL Lymph # (Auto) 1.43 (1.20-3.40) K/uL [place] # (Auto) 0.69 H (0.11-0.59) K/uL Eos # (Auto) 0.18 (0.00-0.50) K/uL Baso # (Auto) 0.11 (0.00-0.20) K/uL Immature Gran # (Auto) 0.01 (0.01-0.20) K/uL VBG pH (7.36-7.41) VBG pCO2 (38-50) mmHg VBG pO2 mmHg VBG HCO3 mmol/L VBG O2 Saturation % VBG Base Excess mEq/L Sodium 145 (136-145) mmol/L Potassium 3.7 (3.5-5.1) mmol/L Chloride 112 H (98-107) mmol/L Carbon Dioxide 26 (21-32) mmol/L Anion Gap 7 (3-11) BUN 38 H (6-23) mg/dl Creatinine 1.12 (0.6-1.4) mg/dl Est Cr Clr Drug Dosing 81.6 ml/min Est GFR ( Amer) 73.6 ml/min Est GFR (Non-Af Amer) 63.5 ml/min BUN/Creatinine Ratio 33.9 H (10-20) Glucose 151 H (70-99(Fasting)) mg/dl POC Glucose 147 H (70-99) mg/dl Lactate (0.4-2.0) mmol/L Calcium 9.0 (8.6-10.3) mg/dl Magnesium (1.7-2.4) mg/dl Total Bilirubin (0.2-1.0) mg/dl Direct Bilirubin (0-0.2) mg/dl AST (13-39) U/L ALT (7-52) U/L Alkaline Phosphatase (34-104) U/L Troponin I High Sens 91.5 H* D 80.6 H* (0-20) pg/ml Total Protein (6.0-8.3) gm/dl Albumin (3.4-5.0) gm/dl Procalcitonin (0-0.5) ng/ml Urine Color Urine Appearance (Clear) Urine pH (4.5-7.5) Ur Specific [place] (1.000-1.030) Urine Protein (Negative) Urine Glucose (UA) (Negative) Urine Ketones (Negative) Urine Blood (Negative) Urine Nitrite (Negative) Urine Bilirubin (Negative) Urine Urobilinogen (Negative) Ur Leukocyte Esterase (Negative) Blood Type Antibody Screen Crossmatch 02/13/24 02/12/24 02/12/24 Range/Units 00:08 21:32 20:13 WBC (4.8-10.8) K/ul RBC (4.70-6.10) M/uL Hgb 10.0 L (14.0-18.0) g/dl Hct 30.8 L (42.0-52.0) % MCV (80.0-100.0) fL MCH (25.0-34.0) pg MCHC (32.0-36.0) g/dL RDW Std Deviation (36.4-46.3) fL RDW Coeff of [place] (11.5-14.5) % Plt Count (130-400) K/uL MPV (9.4-12.4) fL Immature Gran % (Auto) % Neut % (Auto) % Lymph % (Auto) % [place] % (Auto) % Eos % (Auto) % Baso % (Auto) % Neut # (Auto) (1.40-6.50) K/uL Lymph # (Auto) (1.20-3.40) K/uL [place] # (Auto) (0.11-0.59) K/uL Eos # (Auto) (0.00-0.50) K/uL Baso # (Auto) (0.00-0.20) K/uL Immature Gran # (Auto) (0.01-0.20) K/uL VBG pH (7.36-7.41) VBG pCO2 (38-50) mmHg VBG pO2 mmHg VBG HCO3 mmol/L VBG O2 Saturation % VBG Base Excess mEq/L Sodium (136-145) mmol/L Potassium (3.5-5.1) mmol/L Chloride (98-107) mmol/L Carbon Dioxide (21-32) mmol/L Anion Gap (3-11) BUN (6-23) mg/dl Creatinine (0.6-1.4) mg/dl Est Cr Clr Drug Dosing ml/min Est GFR ( Amer) ml/min Est GFR (Non-Af Amer) ml/min BUN/Creatinine Ratio (10-20) Glucose (70-99(Fasting)) mg/dl POC Glucose 154 H 165 H (70-99) mg/dl Lactate (0.4-2.0) mmol/L Calcium (8.6-10.3) mg/dl Magnesium (1.7-2.4) mg/dl Total Bilirubin (0.2-1.0) mg/dl Direct Bilirubin (0-0.2) mg/dl AST (13-39) U/L ALT (7-52) U/L Alkaline Phosphatase (34-104) U/L Troponin I High Sens (0-20) pg/ml Total Protein (6.0-8.3) gm/dl Albumin (3.4-5.0) gm/dl Procalcitonin (0-0.5) ng/ml Urine Color Urine Appearance (Clear) Urine pH (4.5-7.5) Ur Specific [place] (1.000-1.030) Urine Protein (Negative) Urine Glucose (UA) (Negative) Urine Ketones (Negative) Urine Blood (Negative) Urine Nitrite (Negative) Urine Bilirubin (Negative) Urine Urobilinogen (Negative) Ur Leukocyte Esterase (Negative) Blood Type Antibody Screen Crossmatch 02/12/24 02/12/24 02/12/24 Range/Units 16:54 16:53 16:31 WBC (4.8-10.8) K/ul RBC (4.70-6.10) M/uL Hgb (14.0-18.0) g/dl Hct (42.0-52.0) % MCV (80.0-100.0) fL MCH (25.0-34.0) pg MCHC (32.0-36.0) g/dL RDW Std Deviation (36.4-46.3) fL RDW Coeff of [place] (11.5-14.5) % Plt Count (130-400) K/uL MPV (9.4-12.4) fL Immature Gran % (Auto) % Neut % (Auto) % Lymph % (Auto) % [place] % (Auto) % Eos % (Auto) % Baso % (Auto) % Neut # (Auto) (1.40-6.50) K/uL Lymph # (Auto) (1.20-3.40) K/uL [place] # (Auto) (0.11-0.59) K/uL Eos # (Auto) (0.00-0.50) K/uL Baso # (Auto) (0.00-0.20) K/uL Immature Gran # (Auto) (0.01-0.20) K/uL VBG pH (7.36-7.41) VBG pCO2 (38-50) mmHg VBG pO2 mmHg VBG HCO3 mmol/L VBG O2 Saturation % VBG Base Excess mEq/L Sodium (136-145) mmol/L Potassium (3.5-5.1) mmol/L Chloride (98-107) mmol/L Carbon Dioxide (21-32) mmol/L Anion Gap (3-11) BUN (6-23) mg/dl Creatinine (0.6-1.4) mg/dl Est Cr Clr Drug Dosing ml/min Est GFR ( Amer) ml/min Est GFR (Non-Af Amer) ml/min BUN/Creatinine Ratio (10-20) Glucose (70-99(Fasting)) mg/dl POC Glucose (70-99) mg/dl Lactate 1.5 (0.4-2.0) mmol/L Calcium (8.6-10.3) mg/dl Magnesium (1.7-2.4) mg/dl Total Bilirubin (0.2-1.0) mg/dl Direct Bilirubin (0-0.2) mg/dl AST (13-39) U/L ALT (7-52) U/L Alkaline Phosphatase (34-104) U/L Troponin I High Sens 83.4 H* (0-20) pg/ml Total Protein (6.0-8.3) gm/dl Albumin (3.4-5.0) gm/dl Procalcitonin (0-0.5) ng/ml Urine Color Yellow Urine Appearance Clear (Clear) Urine pH 6.5 (4.5-7.5) Ur Specific [place] 1.015 (1.000-1.030) Urine Protein Negative (Negative) Urine Glucose (UA) Negative (Negative) Urine Ketones Negative (Negative) Urine Blood Negative (Negative) Urine Nitrite Negative (Negative) Urine Bilirubin Negative (Negative) Urine Urobilinogen Negative (Negative) Ur Leukocyte Esterase Negative (Negative) Blood Type Antibody Screen Crossmatch 02/12/24 Range/Units 14:34 WBC 7.14 (4.8-10.8) K/ul RBC 4.01 L (4.70-6.10) M/uL Hgb 11.6 L (14.0-18.0) g/dl Hct 35.8 L (42.0-52.0) % MCV 89.3 (80.0-100.0) fL MCH 28.9 (25.0-34.0) pg MCHC 32.4 (32.0-36.0) g/dL RDW Std Deviation 45.1 (36.4-46.3) fL RDW Coeff of [place] 14.0 (11.5-14.5) % Plt Count 158 (130-400) K/uL MPV 10.7 (9.4-12.4) fL Immature Gran % (Auto) 0.4 % Neut % (Auto) 68.1 % Lymph % (Auto) 16.4 % [place] % (Auto) 11.3 % Eos % (Auto) 2.0 % Baso % (Auto) 1.8 % Neut # (Auto) 4.86 (1.40-6.50) K/uL Lymph # (Auto) 1.17 L (1.20-3.40) K/uL [place] # (Auto) 0.81 H (0.11-0.59) K/uL Eos # (Auto) 0.14 (0.00-0.50) K/uL Baso # (Auto) 0.13 (0.00-0.20) K/uL Immature Gran # (Auto) 0.03 (0.01-0.20) K/uL VBG pH 7.38 (7.36-7.41) VBG pCO2 48 (38-50) mmHg VBG pO2 26 mmHg VBG HCO3 28 mmol/L VBG O2 Saturation < 60.0 % VBG Base Excess 2.5 mEq/L Sodium 142 (136-145) mmol/L Potassium 4.2 (3.5-5.1) mmol/L Chloride 107 (98-107) mmol/L Carbon Dioxide 29 (21-32) mmol/L Anion Gap 6 (3-11) BUN 32 H (6-23) mg/dl Creatinine 1.29 (0.6-1.4) mg/dl Est Cr Clr Drug Dosing 69.0 ml/min Est GFR ( Amer) 62.0 ml/min Est GFR (Non-Af Amer) 53.5 ml/min BUN/Creatinine Ratio 24.8 H (10-20) Glucose 147 H (70-99(Fasting)) mg/dl POC Glucose (70-99) mg/dl Lactate 2.1 H* (0.4-2.0) mmol/L Calcium 9.6 (8.6-10.3) mg/dl Magnesium 2.1 (1.7-2.4) mg/dl Total Bilirubin 0.5 (0.2-1.0) mg/dl Direct Bilirubin 0.1 (0-0.2) mg/dl AST 20 (13-39) U/L ALT 14 (7-52) U/L Alkaline Phosphatase 49 (34-104) U/L Troponin I High Sens 78.2 H* (0-20) pg/ml Total Protein 6.5 (6.0-8.3) gm/dl Albumin 4.0 (3.4-5.0) gm/dl Procalcitonin 0.03 (0-0.5) ng/ml Urine Color Urine Appearance (Clear) Urine pH (4.5-7.5) Ur Specific [place] (1.000-1.030) Urine Protein (Negative) Urine Glucose (UA) (Negative) Urine Ketones (Negative) Urine Blood (Negative) Urine Nitrite (Negative) Urine Bilirubin (Negative) Urine Urobilinogen (Negative) Ur Leukocyte Esterase (Negative) Blood Type A Positive Antibody Screen NEGATIVE Crossmatch See Detail Diagnostic Findings Chest X-Ray 02/12/24 14:07 XR chest 1V portable CLINICAL HISTORY: Sepsis TECHNIQUE: Single frontal radiograph of the chest was obtained. Comparison: Comparison is made to chest radiograph 12/24/2023 FINDINGS: Median sternotomy wires are unchanged. The cardiomediastinal silhouette is normal. The lungs are clear. No evidence of pleural effusion or pneumothorax. IMPRESSION: No acute abnormalities and in particular no radiographic evidence of pneumonia. ACT 112: Negative or not required by law. Electronically signed by: Reno Gaxiola M.D. 02/12/2024 3:36 PM
--- NOTE | 2024-02-13 11:11 | Electrocardiogram Report ---
Test Reason : Blood Pressure : / mmHG Vent. Rate : 106 BPM Atrial Rate : 106 BPM P-R Int : 170 ms QRS Dur : 106 ms QT Int : 502 ms P-R-T Axes : 039 -30 082 degrees QTc Int : 666 ms Sinus tachycardia Left axis deviation Moderate voltage criteria for LVH, may be normal variant Nonspecific ST and T wave abnormality Abnormal ECG When compared with ECG of 12-FEB-2024 13:52, T wave inversion less evident in Anterolateral leads Confirmed by Brandon Goodson ([id number]) on 02/13/2024 11:11:33 AM Referred By: REFERRED SELF Confirmed By:Dale Goodson
--- NOTE | 2024-02-13 11:17 | Hospitalist Progress Note ---
Date of Service February 13, 2024 Assessment & Plan (1) Acute GI bleeding: Plan: Upper GI source. He had hematemesis prior to admission that was not consistent with a Anne Marie-Garcia tear. 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 GI consultation and recommendations appreciated. EGD will be done tomorrow, February 13. Will allow clear liquids today. Serial H&H ordered. Fortunately he has not required blood transfusion. Hemoglobin is stable at 10. (2) Elevated troponin: Plan: No chest pain. No evidence of acute coronary syndrome. Probably demand ischemia related to transient hypotension. He is on scheduled IV metoprolol for now. (3) CKD (chronic kidney disease): Plan: Stable. Monitor intake and output. Serial labs (4) PAF (paroxysmal atrial fibrillation): Plan: Currently in normal sinus rhythm. Fortunately he is not on systemic anticoagulation therapy. Apparently he only had 1 episode in the past that was post to surgery and transient. (5) Severe obstructive sleep apnea: Plan: Stable. CPAP nightly (6) Diabetes: Plan: Eventual advancement to ADA diet. Sliding scale coverage for now. (7) Systemic lupus erythematosus: Plan: Steroid-dependent. IV hydrocortisone ordered until oral prednisone can be restarted. (8) Anticardiolipin antibody positive: Plan: By history. He states he has not had any problems with DVT however. Plan Anticipate eventual discharge to home within the next few days Admission and Anticipated Discharge Date Admission Date: February 12, 2024 Subjective Alert and oriented. No distress. is at the bedside. GI consultation and recommendations appreciated. EGD will be completed tomorrow, February 12. Will allow clear liquids today. IV fluids have been tapered down. Serial H&H ordered. Hemoglobin stable at 10. EGD done in September of this year revealed vascular ectasia. He remains on intravenous Protonix. Serial labs ordered. Review of Systems 2 Review of Systems: Constitutional-no fever or chills ENT-no blurred vision, no double vision, no epistaxis, no sore throat Respiratory-no cough, no wheezing, no shortness of breath Cardiac-no palpitations, no chest pain, no syncope GI-no nausea, vomiting, diarrhea, melena, hematochezia. He did have hematemesis prior to admission -no urinary retention, no urinary incontinence, no dysuria, no hematuria Musculoskeletal-no joint pain, no muscle tenderness Skin-no bruising, no rashes, no pruritus Neuro-no isolated weakness, no paresthesia, no weakness Psych-no depression, no anxiety Physical Exam 2 Physical Exam: General-alert and oriented x3, no fever, no chills HEENT-head atraumatic and normocephalic, pupils equal and reactive to light, extraocular muscles intact Neck-no lymphadenopathy or thyromegaly, trachea midline Chest-clear to auscultation. No rales, wheezing or rhonchi Cardiac-regular rate and rhythm, normal S1 and S2 Abdomen-normal bowel sounds, no hepatosplenomegaly Extremities-no cyanosis, clubbing, or edema Neuro-cranial nerves II through XII intact, motor and sensory function within normal limits, strength symmetrical, no focal deficits Psych-normal affect, normal mood Results & Data Results & Data Vital Signs (Past 12 Hours) Vital Signs Temp Pulse Resp BP Pulse Ox O2 Del Method 02/13/24 07:21 37.0 C 98 H 18 134/88 95 Room Air 02/13/24 03:00 36.8 C 106 H 16 147/92 H 94 Room Air Laboratory Results 02/13/24 06:27 02/13/24 06:27 PG Care Time/CCT Total # of Minutes Spent Total Time Spent with Patient: Total time spent is greater than 50% in coordination of care (as documented) at patient's floor/unit and/or counseling patient: Coding Level of Care Code 79789 SUB INP/OBS CARE 3/50MIN Diagnoses Acute GI bleeding K92.2 Elevated troponin R79.89 CKD (chronic kidney disease) N18.9 PAF (paroxysmal atrial fibrillation) I48.0 Severe obstructive sleep apnea G47.33 Diabetes E11.9 Systemic lupus erythematosus M32.9 Anticardiolipin antibody positive R76.0
[2024-02-13 12:28] LABS: Hematocrit (blood only) 31.4 % (42.0-52.0); Hemoglobin 10.2 g/dl (14.0-18.0)
[2024-02-14] MEDS ORDERED: Nursing to Pharmacy Communication SCH ×2 (06:45→11:00)
[2024-02-14 07:14] LABS: Basophils # (auto) 0.08 K/uL (0.00-0.20); Eosinophils # (auto) 0.06 K/uL (0.00-0.50); Eosinophils % (auto) 1.5 %; Hematocrit (blood only) 30.4 % (42.0-52.0); Hemoglobin 9.9 g/dl (14.0-18.0); Immature Granulocytes # (auto) 0.02 K/uL (0.01-0.20); Immature Granulocytes % (auto) 0.5 %; Lymphocytes # (auto) 0.86 K/uL (1.20-3.40); Lymphocytes % (auto) 21.7 %; Mean Corpuscular Hemoglobin 28.9 pg (25.0-34.0); Mean Corpuscular Hgb Conc 32.6 g/dL (32.0-36.0); Mean Corpuscular Volume 88.6 fL (80.0-100.0); Mean Platelet Volume 10.9 fL (9.4-12.4); Monocytes # (auto) 0.39 K/uL (0.11-0.59); Monocytes % (auto) 9.8 %; Neutrophils # (auto) 2.56 K/uL (1.40-6.50); Neutrophils % (auto) 64.5 %; Platelet Count 118 K/uL (130-400); RDW Coefficient of Variation 14.4 % (11.5-14.5); RDW Standard Deviation 46.1 fL (36.4-46.3); Red Blood Count 3.43 M/uL (4.70-6.10); White Blood Count 3.97 K/ul (4.8-10.8)
[2024-02-14] MEDS ORDERED: SODIUM CHLORIDE 0.9% 500 ML IV SCH (07:30)
[2024-02-14 07:42] LABS: Calcium 8.7 mg/dl (8.6-10.3); Creatinine Clr Calc Pharmacy 95.1 ml/min; Est GFR (African American) 88.6 ml/min; Est GFR (Non-African American) 76.5 ml/min; Potassium 3.3 mmol/L (3.5-5.1)
--- NOTE | 2024-02-14 08:25 | Anesthesiology Consultation ---
Date of Service February 14, 2024 Assessment & Plan Chart Review Chart Review: Acceptable Risk for Surgery Consults Requested none Proposed Anesthesia Anesthesia Type: MAC Risk / Benefits Reviewed With: PT / POA / Parent / Guardian, Accepts Plan and Informed Consent Obtained History Surgery Operation Date: 02/14/24 16:30 Proposed Procedures p Esophagogastroduodenoscopy Dr Arnett - Sebastien Sherwood Case, DO Height/Weight Height: 6 ft Weight: 140.3 kg Allergies Allergy/AdvReac Type Severity Reaction Status Date / Time erythromycin base Allergy Severe HIVES ALL Verified 02/14/24 08:37 OVER bacitracin Allergy Intermediate Skin Verified 02/14/24 08:37 Irritation neomycin Allergy Intermediate Skin Verified 02/14/24 08:37 Irritation polymyxin B Allergy Intermediate Skin Verified 02/14/24 08:37 Irritation Iodinated Contrast Media AdvReac Severe SEVERE Verified 02/14/24 08:37 NAUSEA/VOMITING morphine AdvReac Severe severe n/v Verified 02/14/24 08:37 Opioids - Morphine Analogues AdvReac Severe Gastrointestinal Verified 02/14/24 08:37 Upset Sulfa (Sulfonamide AdvReac Severe Nausea Verified 02/14/24 08:37 Antibiotics) adhesive tape AdvReac Intermediate Blistered Verified 02/14/24 08:37 skin clavulanic acid AdvReac Intermediate CHILLS, Verified 02/14/24 08:37 HEADACHE, "MADE HIM SICK" Macrolide Antibiotics AdvReac Intermediate CHILLS, Verified 02/14/24 08:37 HEADACHE, "MADE HIM SICK" sulfamethoxazole AdvReac Intermediate CHILLS, Verified 02/14/24 08:37 HEADACHE, "MADE HIM SICK" Medications Home Medications Medication Instructions Recorded Confirmed Last Taken aspirin 325 mg tablet,delayed 325 mg PO PM 07/01/18 02/12/24 02/11/24 release ferrous sulfate 325 mg (65 mg 325 mg PO QAM 07/01/18 02/12/24 02/11/24 iron) tablet hydroxychloroquine 200 mg tablet 200 mg PO BID 02/26/21 02/12/24 02/11/24 cyanocobalamin (vitamin B-12) 1,000 mcg PO QPM 05/28/21 02/12/24 02/11/24 2,000 mcg tablet,extended release (Vitamin B-12 ER) cholecalciferol (vitamin D3) 50 2,000 unit PO Q OTHER DAY 07/07/21 02/12/24 02/10/24 mcg (2,000 unit) capsule (Vitamin D3) cranberry 500 mg capsule 500 mg PO QAM 07/07/21 02/12/24 02/11/24 prednisolone 5 mg tablet 5 mg PO QAM 07/08/22 02/12/24 02/11/24 pen needle, diabetic 32 gauge x #400 ea 10/18/22 01/27/24 Unknown " (BD Kell 2nd Gen Pen Needle) diphenhydramine HCl 12.5 mg/5 mL 37.5 mg PO HS PRN Sleep 02/04/23 02/12/24 10/22/23 23:30 oral elixir docusate sodium 100 mg tablet 100 mg PO HS 02/04/23 02/12/24 02/11/24 insulin glargine U-300 conc 300 22 unit subcut HS 02/04/23 02/12/24 02/11/24 unit/mL (3 mL) subcutaneous pen (TouRuangguruo Max U-300 SoloStar) lidocaine 4 % topical patch 1 patch topical DIRECTED PRN 02/04/23 02/12/24 08/03/23 23:00 Pain OneTouch Verio Mid Control (blood #1 ea 03/28/23 01/27/24 Unknown glucose control, normal) Microlet Lancet (lancets) #300 ea 04/26/23 01/27/24 Unknown Osteobioflex With Turmeric 1 cap PO QPM 04/27/23 02/12/24 02/11/24 albuterol sulfate 90 mcg/actuation 1 - 2 puff inhalation Q4H PRN 04/27/23 02/12/24 03/29/23 aerosol inhaler (ProAir HFA) Shortness Of Breath Or Wheezing #18 grams doxycycline hyclate 100 mg tablet 100 mg PO BID PRN UTI 04/27/23 02/12/24 Unknown symptoms/prostatitis metformin 500 mg tablet,extended 1,000 mg (2 x 500 mg) PO BID #360 06/02/23 02/12/24 02/11/24 release 24 hr tabs lancing device #1 ea 08/04/23 01/27/24 Unknown diazepam 5 mg tablet (Valium) 5 mg PO BID PRN anxiety #5 tabs 08/25/23 02/12/24 Unknown isosorbide mononitrate 60 mg 60 mg PO QAM #90 tabs 09/07/23 02/12/24 02/12/24 tablet,extended release 24 hr levothyroxine 150 mcg tablet 150 mcg PO QAM #90 tabs 09/07/23 02/12/24 02/12/24 metoprolol tartrate 25 mg tablet 25 mg PO TID #270 tabs 09/15/23 02/12/24 02/12/24 06:00 amoxicillin 500 mg tablet 2,000 mg PO DIRECTED PRN 1 HR 09/20/23 02/12/24 Unknown PRIOR TO DENTAL PROCEDURES atorvastatin 10 mg tablet (Lipitor) 10 mg PO 2XWK 09/20/23 02/12/24 02/11/24 cholecalciferol (vitamin D3) 25 1,000 unit PO Q OTHER DAY 09/20/23 02/12/24 02/11/24 mcg (1,000 unit) tablet (Vitamin D3) insulin lispro 100 unit/mL 0 unit subcut QDD 09/20/23 02/12/24 02/11/24 subcutaneous pen (Humalog KwikPen (U-100) Insulin) pantoprazole 40 mg tablet,delayed 40 mg PO BID #180 tabs 09/21/23 02/12/24 02/12/24 10:00 release (Protonix) escitalopram oxalate 10 mg tablet 10 mg PO HS 10/19/23 02/12/24 02/11/24 (Lexapro) meloxicam 7.5 mg tablet 7.5 mg PO QAM 10/19/23 02/12/24 02/11/24 finasteride 5 mg tablet 5 mg PO DAILY #90 tabs 10/24/23 02/12/24 02/11/24 tamsulosin 0.4 mg capsule (Flomax) 0.4 mg PO HS #90 caps 10/24/23 02/12/24 02/11/24 polyethylene glycol 3350 17 gram 17 g PO DAILY PRN Constipation 10/25/23 02/12/24 10/23/23 21:00 oral powder packet (Miralax) oxycodone 5 mg tablet 5 mg PO Q8H PRN breakthrough pain 11/17/23 02/12/24 Unknown #30 tabs hydrocodone 10 mg-acetaminophen 1 tab PO Q6H pain #120 tabs 12/30/23 02/12/24 02/12/24 06:00 325 mg tablet amlodipine 10 mg tablet 10 mg PO QAM #90 tabs 01/12/24 02/12/24 02/11/24 cyclobenzaprine 5 mg tablet 5 mg PO TID PRN Muscle Spasm #90 01/12/24 02/12/24 Unknown tabs lidocaine 4 % topical cream 1 applic topical DIRECTED PRN 02/12/24 02/12/24 Unknown Pain Active Medications Generic Name Dose Route Start Last Admin Trade Name Rocq PRN Reason Stop Dose Admin Hydromorphone HCl 0.5 mg 02/13/24 07:49 02/14/24 00:48 Hydromorphone Inj 0.5 Mg/0.5 Ml Syr IV 02/27/24 07:48 0.5 mg Q4H PRN Administration Pain Pantoprazole Sodium 40 mg/ 10 mls @ 5 mls/min 02/13/24 09:00 02/14/24 08:18 Syringe IV 03/14/24 08:59 5 mls/min BID JONATHON Administration Dextrose/Lactated Ringer's 1,000 mls @ 60 mls/hr 02/12/24 18:30 02/13/24 19:37 D5w And Lactated Ringers IV 03/13/24 18:29 60 mls/hr .[id number] JONATHON Administration Hydrocortisone Sodium 0.5 mls @ 4 mls/min 02/13/24 07:45 02/14/24 08:19 Succinate 25 mg/ Syringe IV 03/14/24 07:44 4 mls/min Q8H JONATHON Administration Insulin Aspart 0 units 02/13/24 06:30 02/14/24 06:07 Insulin Aspart Per Unit Charge SC 03/14/24 06:29 1 units Q6 JONATHON Administration Insulin Glargine 15 units 02/12/24 21:00 02/13/24 20:41 Lantus Per Unit Charge SQ 03/13/24 20:59 15 units HS JONATHON Administration NPO Date Last Intake of Fluids: 02/13/24 Time Last Intake of Fluids: 23:59 Date Last Intake of Solids: 02/11/24 Time Last Intake of Solids: 18:30 Past Medical History Medical History CKD (chronic kidney disease) Lupus Non-ST elevation AK (NSTEMI) Lung mass PAF (paroxysmal atrial fibrillation) s/p aortic valve replacment > resolved since, no longer on meds, no pacer Obesity Aortic stenosis Asthma rare res inh use Atrial flutter Diabetes IDDM Hypertension Hypothyroid LBBB (left bundle branch block) f/u dr. love History of colon polyps Pulmonary nodule DDD (degenerative disc disease), cervical ROM "is ok for procedures" DDD (degenerative disc disease), lumbar Osteoporosis Scoliosis Hyperlipidemia Proctitis on occasion, prn doxycycline for this CAD (coronary artery disease) follows with Dr. Love Depression Sleep apnea Bi Pap Internal hemorrhoids H/O: GI bleed severe GI bleed, treated at [facility] - resolved Exercise / Class Metabolic Activity II 4-5 Yardwork/Stairs/Walk up hill Past Family History Family History Father Hypertension Diabetes Heart disease Prostate cancer Cardiac disorder Cancer Mother Rheumatoid aortitis Emphysema/COPD Hypertension Colitis Brother Hypertension Diabetes Family/Other Prostate cancer Other Bone cancer Past Surgical History Surgical History History of bronchoscopy History of cataract surgery bilat S/P excision of lipoma to back History of gastric surgery due to GI bleed November 2016 History of skin surgery skin tags History of dental surgery History of esophagogastroduodenoscopy History of colonoscopy History of tonsillectomy S/P [place] [facility] [place] History of cholecystectomy Past Anesthesia History No Hx of Anesthesia Complications and No Family Hx of Anesthesia Complications History of PONV No Hx of PONV and No Hx of Motion Sickness Social History Smoking Status: Former smoker Smoking cigarettes per day: quit smoking in 1979 Do You Dip or Chew Tobacco: No Hx Alcohol Use: No Hx Substance Use: No substance use type: does not use Physical Exam Vital Signs Last Vital Signs Temp 36.6 C 02/14/24 08:38 Pulse 80 02/14/24 08:38 Resp 16 02/14/24 08:38 BP 139/95 02/14/24 08:54 Pulse Ox 98 02/14/24 08:38 O2 Del Method Room Air 02/14/24 08:38 Constitutional + morbidly obese ENMI Mouth: + dentition abnormality, + dentures and + edentulous; no TMJ abnormality Thyromental Distance: > or= 3.5 Finger Breadths Mallampati Class: III Neck neck extension not limited Respiratory normal respiratory effort; no respiratory distress Auscultation: lungs clear to auscultation bilaterally Cardiovascular Rate/Rhythm: regular rate and regular rhythm Heart Sounds: + murmur (2nd ics) Neurologic moves all extremities Psychiatric Orientation: alert and oriented x 3 Testing Laboratory Results 02/14/24 06:51 02/14/24 06:51 Urine Color Yellow 02/12/24 16:54 Urine Appearance Clear (Clear) 02/12/24 16:54 Urine pH 6.5 (4.5-7.5) 02/12/24 16:54 Ur Specific [place] 1.015 (1.000-1.030) 02/12/24 16:54 Urine Protein Negative (Negative) 02/12/24 16:54 Urine Glucose (UA) Negative (Negative) 02/12/24 16:54 Urine Ketones Negative (Negative) 02/12/24 16:54 Urine Nitrite Negative (Negative) 02/12/24 16:54 Ur Leukocyte Esterase Negative (Negative) 02/12/24 16:54 Blood Type A Positive 02/12/24 14:34 Antibody Screen NEGATIVE 02/12/24 14:34 02/12/24 14:46 Aerobic Blood Culture - Preliminary Blood No growth in Aerobic bottle after 24 hours. Anaerobic Blood Culture - Final 02/12/24 14:34 Aerobic Blood Culture - Preliminary Blood No growth in Aerobic bottle after 24 hours. Anaerobic Blood Culture - Preliminary No growth in Anaerobic bottle after 24 hours. 02/14/24 05:58 POC Glucose 182 H Electrocardiogram Date: 02/13/24 Findings: + ST @ (106) Sinus tachycardia Left axis deviation Moderate voltage criteria for LVH, may be normal variant Nonspecific ST and T wave abnormality Abnormal ECG When compared with ECG of 12-FEB-2024 13:52, T wave inversion less evident in Anterolateral leads
--- NOTE | 2024-02-14 08:55 | History & Physical Bridge Note ---
Date of Service February 14, 2024 History & Physical Bridge Note I have reviewed the History & Physical and in the interval since the performance of the History & Physical I have noted the following changes of clinical significance: no changes noted H/H 9.9/30.4. Keep NPO & Proceed with EGD today. Supervising Physician Co-Signing Physician Notes Agree with SHAHEEN Greer as above Chart reviewed Interviewed and examined patient and agree with above Abd: Soft, NT, ND, +BS Continue current therapy and supportive care Proceed with EGD now
--- NOTE | 2024-02-14 09:49 | GI REPORT ---
Patient Name: Uri Zepeda Procedure Date: 02/14/2024 8:52 AM Date of : 1945 Admit Type: Inpatient Age: 78 Gender: Male Attending MD: Sebastien Arnett DO, Procedure: Upper GI endoscopy Providers: Sebastien Arnett DO Referring MD: Presley Wiseman Indications: Hematemesis Medicines: Monitored Anesthesia Care Complications: No immediate complications. Estimated Blood Loss: Estimated blood loss: none. Procedure: Pre-Anesthesia Assessment: - Prior to the procedure, a History and Physical was performed, and patient medications and allergies were reviewed. The patient's tolerance of previous anesthesia was also reviewed. The risks and benefits of the procedure and the sedation options and risks were discussed with the patient. All questions were answered, and informed consent was obtained. Prior Anticoagulants: The patient has taken no anticoagulant or antiplatelet agents except for aspirin. ASA Grade Assessment: III - A patient with severe systemic disease. After reviewing the risks and benefits, the patient was deemed in satisfactory condition to undergo the procedure. After obtaining informed consent, the endoscope was passed under direct vision. Throughout the procedure, the patient's blood pressure, pulse, and oxygen saturations were monitored continuously. The Endoscope was introduced through the mouth, and advanced to the third part of duodenum. The upper GI endoscopy was accomplished without difficulty. The patient tolerated the procedure well. Findings: The examined esophagus was normal. Diffuse mildly erythematous mucosa without bleeding was found in the entire examined stomach. The examined duodenum was normal. Impression: - Normal esophagus. - Erythematous mucosa in the stomach. - Normal examined duodenum. - No specimens collected. Recommendation: - [facility]. - Advance diet as tolerated. - Continue present medications. Sebastien Arnett DO 02/14/2024 9:48:41 AM This report has been signed electronically. Note Initiated On: 02/14/2024 8:52 AM Number of Addenda: 0 I attest to the content of the Intraoperative Record and orders documented therein, exceptions below {[id number]}
[2024-02-14] MEDS: LIDOCAINE 2% 2 ML VIAL/AMP(20MG/ML) INFIL ONE ×2 (10:32)
[2024-02-14] MEDS: PROPOFOL IV EMULSION 10 MG/ML 20 ML VIAL IV ONE (10:32)
[2024-02-14] MEDS: POTASSIUM CHLORIDE / WTR 10 MEQ/100 ML PLCT IV SCH (10:38)
[2024-02-14] MEDS: NSS + 20MEQ KCL 20 MEQ/1,000 ML BAG IV SCH (10:38)
--- NOTE | 2024-02-14 10:46 | Anesthesiology Progress Note ---
Date of Service February 14, 2024 Anesthesia Post Procedure Vital Signs Vital Signs: Temp Pulse Pulse Resp BP Pulse Ox O2 Del Method 02/14/24 10:29 37.3 C 82 16 151/89 H 97 Room Air 02/14/24 10:08 83 16 140/82 98 Room Air 02/14/24 09:53 82 16 148/87 H 99 Room Air 02/14/24 09:38 36.0 C L 83 18 140/89 100 Room Air 02/14/24 08:54 139/95 02/14/24 08:38 36.6 C 80 16 171/107 H 98 Room Air 02/14/24 08:12 37.0 C 85 19 150/92 H 97 Room Air 02/14/24 07:53 83 02/14/24 02:39 36.7 C 85 18 154/97 H 97 Room Air 02/13/24 22:42 36.7 C 95 H 18 137/84 97 Room Air 02/13/24 22:00 95 H 02/13/24 19:11 37 C 92 H 18 151/93 H 98 Room Air 02/13/24 17:36 160/97 H 02/13/24 15:16 36.9 C 108 H 18 98 Room Air 02/13/24 15:00 99 H 02/13/24 11:39 36.9 C 100 H 18 148/95 H 96 Room Air Pain Intensity Back: Pain Intensity: 3 Transfer of Care Handoff Completed per policy Notes Mental Status: alert / awake / arousable Patient Amnestic to Procedure: Yes Nausea / Vomiting: adequately controlled Pain: adequately controlled Airway Patency, RR, SpO2: stable & adequate BP & HR: stable & adequate Hydration State: stable & adequate Anesthetic Complications: no major complications apparent and Pt Satisfied with anesthetic care
[2024-02-14] MEDS: INSULIN ASPART PER UNIT CHARGE SQ SCH (11:57)
--- NOTE | 2024-02-14 12:20 | Hospitalist Progress Note ---
Date of Service February 14, 2024 Assessment & Plan (1) Acute GI bleeding: Plan: Upper GI source. He had hematemesis prior to admission that was not consistent with a Anne Marie-Garcia tear. 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 GI consultation and recommendations appreciated. EGD was completed today, February 13, with no evidence of active bleeding seen. Diet has been advanced to full liquids. Carafate has been discontinued. He remains on Protonix. Hemoglobin is stable and will be rechecked again later today. (2) Elevated troponin: Plan: No chest pain. No evidence of acute coronary syndrome. Probably demand ischemia related to transient hypotension. Continue metoprolol (3) CKD (chronic kidney disease): Plan: Stable. Monitor intake and output. Serial labs (4) PAF (paroxysmal atrial fibrillation): Plan: Currently in normal sinus rhythm. Fortunately he is not on systemic anticoagulation therapy. Apparently he only had 1 episode in the past that was post to surgery and transient. (5) Severe obstructive sleep apnea: Plan: Stable. CPAP nightly (6) Diabetes: Plan: Eventual advancement to ADA diet. Sliding scale coverage for now. (7) Systemic lupus erythematosus: Plan: Steroid-dependent. IV hydrocortisone has been tapered down to every 12 hour dosing. Will resume his usual oral prednisone at discharge. (8) Anticardiolipin antibody positive: Plan: By history. He states he has not had any problems with DVT however. Plan Hopefully home tomorrow, February 14 Admission and Anticipated Discharge Date Admission Date: February 12, 2024 Subjective The patient was seen after the EGD procedure earlier today, February 13. He is alert and oriented without distress. is at the bedside. The EGD was essentially normal with no evidence of active bleeding anywhere. Diet has been advanced to full liquids. Hemoglobin will be repeated again later today. Potassium replacement is underway. Hopefully he can go home tomorrow, February 14. Carafate has been discontinued. He will remain on Protonix indefinitely. Review of Systems 2 Review of Systems: Constitutional-no fever or chills ENT-no blurred vision, no double vision, no epistaxis, no sore throat Respiratory-no cough, no wheezing, no shortness of breath Cardiac-no palpitations, no chest pain, no syncope GI-no nausea, vomiting, diarrhea, melena, hematochezia. He did have hematemesis prior to admission -no urinary retention, no urinary incontinence, no dysuria, no hematuria Musculoskeletal-no joint pain, no muscle tenderness Skin-no bruising, no rashes, no pruritus Neuro-no isolated weakness, no paresthesia, no weakness Psych-no depression, no anxiety Physical Exam 2 Physical Exam: General-alert and oriented x3, no fever, no chills HEENT-head atraumatic and normocephalic, pupils equal and reactive to light, extraocular muscles intact Neck-no lymphadenopathy or thyromegaly, trachea midline Chest-clear to auscultation. No rales, wheezing or rhonchi Cardiac-regular rate and rhythm, normal S1 and S2 Abdomen-normal bowel sounds, no hepatosplenomegaly Extremities-no cyanosis, clubbing, or edema Neuro-cranial nerves II through XII intact, motor and sensory function within normal limits, strength symmetrical, no focal deficits Psych-normal affect, normal mood Results & Data Results & Data Vital Signs (Past 12 Hours) Vital Signs Temp Pulse Pulse Pulse Resp BP Pulse Ox 02/14/24 11:29 93 H 159/90 H 02/14/24 11:00 84 16 156/96 H 02/14/24 10:29 37.3 C 82 16 151/89 H 97 02/14/24 10:08 83 16 140/82 98 02/14/24 09:53 82 16 148/87 H 99 02/14/24 09:38 36.0 C L 83 18 140/89 100 02/14/24 08:54 139/95 02/14/24 08:38 36.6 C 80 16 171/107 H 98 02/14/24 08:12 37.0 C 85 19 150/92 H 97 02/14/24 07:53 83 02/14/24 02:39 36.7 C 85 18 154/97 H 97 O2 Del Method 02/14/24 11:29 02/14/24 11:00 02/14/24 10:29 Room Air 02/14/24 10:08 Room Air 02/14/24 09:53 Room Air 02/14/24 09:38 Room Air 02/14/24 08:54 02/14/24 08:38 Room Air 02/14/24 08:12 Room Air 02/14/24 07:53 02/14/24 02:39 Room Air Laboratory Results 02/14/24 06:51 02/14/24 06:51 PG Care Time/CCT Total # of Minutes Spent Total Time Spent with Patient: Total time spent is greater than 50% in coordination of care (as documented) at patient's floor/unit and/or counseling patient: Coding Level of Care Code 29542 SUB INP/OBS CARE 3/50MIN Diagnoses Acute GI bleeding K92.2 Elevated troponin R79.89 CKD (chronic kidney disease) N18.9 PAF (paroxysmal atrial fibrillation) I48.0 Severe obstructive sleep apnea G47.33 Diabetes E11.9 Systemic lupus erythematosus M32.9 Anticardiolipin antibody positive R76.0
[2024-02-14 16:48] LABS: Hematocrit (blood only) 29.4 % (42.0-52.0); Hemoglobin 9.7 g/dl (14.0-18.0)
[2024-02-14] MEDS: PANTOprazole 40 MG TAB PO SCH (21:16)
[2024-02-14] MEDS: HYDROCORTISONE SOD 25 MG in SYRINGE 0 ML IV SCH (21:17)
[2024-02-15 06:50] LABS: Basophils # (auto) 0.09 K/uL (0.00-0.20); Basophils % (auto) 2.3 %; Eosinophils # (auto) 0.19 K/uL (0.00-0.50); Eosinophils % (auto) 4.9 %; Hematocrit (blood only) 30.6 % (42.0-52.0); Hemoglobin 10.1 g/dl (14.0-18.0); Immature Granulocytes # (auto) 0.02 K/uL (0.01-0.20); Immature Granulocytes % (auto) 0.5 %; Lymphocytes # (auto) 1.03 K/uL (1.20-3.40); Lymphocytes % (auto) 26.5 %; Mean Corpuscular Hemoglobin 29.3 pg (25.0-34.0); Mean Corpuscular Volume 88.7 fL (80.0-100.0); Monocytes # (auto) 0.47 K/uL (0.11-0.59); Monocytes % (auto) 12.1 %; Neutrophils # (auto) 2.09 K/uL (1.40-6.50); Neutrophils % (auto) 53.7 %; Nucleated RBC # (auto) 0.02 K/uL (0.00-0.12); Nucleated RBC % (auto) 0.5 %; Platelet Count 110 K/uL (130-400); RDW Coefficient of Variation 14.4 % (11.5-14.5); RDW Standard Deviation 45.7 fL (36.4-46.3); Red Blood Count 3.45 M/uL (4.70-6.10); White Blood Count 3.89 K/ul (4.8-10.8)
[2024-02-15 07:02] LABS: BUN Creatinine Ratio 14.4 (10-20); Calcium 8.7 mg/dl (8.6-10.3); Creatinine Clr Calc Pharmacy 101.5 ml/min; Est GFR (African American) 95.8 ml/min; Est GFR (Non-African American) 82.7 ml/min; Potassium 3.4 mmol/L (3.5-5.1)
[2024-02-15] MEDS: POTASSIUM CHLORIDE CRTAB 20 MEQ TABCR PO STA (09:34)
[2024-02-15] MEDS: prednisoLONE sod phosphate 15 MG/5 ML PO SCH (09:34)
--- NOTE | 2024-02-15 10:05 | Discharge Summary ---
Date of Service February 15, 2024 Admission HPI Per Admitting Provider Uri is a 78-year-old male with past medical history of lung nodules post empiric radiation therapy following with [facility] pulmonology, hypertension, hyperlipidemia, aortic valve replacement, single episode of A-fib following thoracic surgery with no known recurrence and not on anticoagulation who presents to the ER after he was too weak to get off his commode. Per family he was weak, lightheaded, diaphoretic and presyncopal this morning and has had epigastric discomfort with coffee-ground emesis the evening prior. He does have a history of prior GI bleed requiring transfusions. He is on prednisone 5 mg daily for lupus. He takes a full dose aspirin daily, does not take ibuprofen/naproxen. He has not had hematochezia/melena. BUN acutely elevated from baseline He is seen at present with his and family present. Reports this morning he had an episode of a complete bucket full of black coffee-ground emesis. No emesis since. No diarrhea/constipation. No hematochezia/melena. Does have history of polyps which were clipped in the past with a week Hemoccult positive stool in the past. He did have a history of severe GI bleed with ulcers that were clipped many years ago. 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 He has not had any fever, chills, sweats. No cough. No dysuria. He denies abdominal pain. He feels improved and is not lightheaded or dizzy in the ER at time of admitting assessment. Feels much better after 1 L of fluid. He reports he has been taking his PPI twice daily and last took this around 10 AM. He takes his insulin in the evening. Medical History: Reviewed Medications: Reviewed Surgical History: Reviewed Family history: Reviewed Allergies: Reviewed Social History: Reviewed Code Status:Full Principal Diagnosis Upper GI bleed, acute blood loss anemia, elevated troponin without acute coronary syndrome, hypokalemia Discharge Exam General-alert and oriented x3, no fever, no chills HEENT-head atraumatic and normocephalic, pupils equal and reactive to light, extraocular muscles intact Neck-no lymphadenopathy or thyromegaly, trachea midline Chest-clear to auscultation. No rales, wheezing or rhonchi Cardiac-regular rate and rhythm, normal S1 and S2 Abdomen-normal bowel sounds, no hepatosplenomegaly Extremities-no cyanosis, clubbing, or edema Neuro-cranial nerves II through XII intact, motor and sensory function within normal limits, strength symmetrical, no focal deficits Psych-normal affect, normal mood Discharge Data Allergies Allergy/AdvReac Type Severity Reaction Status Date / Time erythromycin base Allergy Severe HIVES ALL Verified 02/14/24 08:37 OVER bacitracin Allergy Intermediate Skin Verified 02/14/24 08:37 Irritation neomycin Allergy Intermediate Skin Verified 02/14/24 08:37 Irritation polymyxin B Allergy Intermediate Skin Verified 02/14/24 08:37 Irritation Iodinated Contrast Media AdvReac Severe SEVERE Verified 02/14/24 08:37 NAUSEA/VOMITING morphine AdvReac Severe severe n/v Verified 02/14/24 08:37 Opioids - Morphine Analogues AdvReac Severe Gastrointestinal Verified 02/14/24 08:37 Upset Sulfa (Sulfonamide AdvReac Severe Nausea Verified 02/14/24 08:37 Antibiotics) adhesive tape AdvReac Intermediate Blistered Verified 02/14/24 08:37 skin clavulanic acid AdvReac Intermediate CHILLS, Verified 02/14/24 08:37 HEADACHE, "MADE HIM SICK" Macrolide Antibiotics AdvReac Intermediate CHILLS, Verified 02/14/24 08:37 HEADACHE, "MADE HIM SICK" sulfamethoxazole AdvReac Intermediate CHILLS, Verified 02/14/24 08:37 HEADACHE, "MADE HIM SICK" Consultations 02/12/24 17:48 ED Decision to Admit Stat 02/12/24 18:12 ED Decision to Admit Stat 02/12/24 18:25 Consult Gastroenterology Routine Procedures Performed Operation Date: 02/14/24 16:30 Actual Procedures p Esophagogastroduodenoscopy - Sebastien Sherwood Case, DO Hospital Course (1) Acute GI bleeding: Upper GI source suspected. He had hematemesis prior to admission that was not consistent with a Anne Marie-Garcia tear. 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 GI consultation and recommendations appreciated. EGD was completed on February 13 with no evidence of active bleeding seen. Diet has been advanced now to regular. Melena is resolving. Carafate has been discontinued. He remains on Protonix. Hemoglobin is stable (2) Elevated troponin: No chest pain. No evidence of acute coronary syndrome. Probably demand ischemia related to transient hypotension. Continue metoprolol (3) CKD (chronic kidney disease): Stable. Monitor intake and output. Serial labs (4) PAF (paroxysmal atrial fibrillation): Currently in normal sinus rhythm. Fortunately he is not on systemic anticoagulation therapy. Apparently he only had 1 episode in the past that was post to surgery and transient. (5) Severe obstructive sleep apnea: Stable. CPAP nightly (6) Diabetes: Eventual advancement to ADA diet. Sliding scale coverage for now. (7) Systemic lupus erythematosus: Steroid-dependent. IV hydrocortisone has been switched back to oral prednisolone. (8) Anticardiolipin antibody positive: By history. He states he has not had any problems with DVT however. Plan Home today, February 14 Total Time Total Time Spent Total Time Spent (In Minutes): 45-minute Discharge Plan Discharge Items Patient Disposition: Home - Self-Care Reason For Visit: UGIB Discharge Diagnosis: Upper GI bleed with acute blood loss anemia, hypokalemia, elevated troponin without acute coronary syndrome Activity: Resume your previous activity Non-emergency contact: Primary Care Provider Call non-emergency contact if: your symptoms worsen Follow-up/Referrals: Sharif Barros MD [Primary Care Provider] - Diet: Carb Consistent or DM2 and Heart Healthy Addtl Attending Provider Instructions: All medications remain the same. Continue Protonix therapy. Decrease aspirin to 81 mg daily. There is no guarantee that GI bleeding cannot recur Pending Studies at Discharge: No Stand-Alone Forms: Anesthesia/Sedation, Adult, [facility] [employer], Smoking Cessation Medications and DC Order Prescriptions: New aspirin 81 mg tablet,delayed release (DR/EC) 81 mg PO DAILY Qty: 1 0RF Continued (DME) pen needle, diabetic [BD Kell 2nd Gen Pen Needle] 32 gauge x 5/32" needle See Dose Instructions .ROUTE .MEDSUPPLY Qty: 400 3RF Rx Instructions: Use four daily with insulin injection (DME) blood glucose control, normal [OneTouch Verio Mid Control] Solution See Rx Instructions .ROUTE .MEDSUPPLY Qty: 1 5RF Rx Instructions: Use weekly as directed (DME) lancets [Microlet Lancet] Misc See Dose Instructions .ROUTE .MEDSUPPLY Qty: 300 3RF Dose Instruction: As directed Rx Instructions: TEST 3 TIMES DAILY albuterol sulfate [ProAir HFA] 90 mcg/actuation HFA aerosol inhaler 1 - 2 puff INHALATION Q4H PRN (Reason: Shortness Of Breath Or Wheezing) Qty: 18 3RF metformin 500 mg tablet extended release 24 hr 1,000 mg PO BID Qty: 360 3RF levothyroxine 150 mcg tablet 150 mcg PO QAM Qty: 90 3RF isosorbide mononitrate 60 mg tablet extended release 24 hr 60 mg PO QAM Qty: 90 3RF metoprolol tartrate 25 mg tablet 25 mg PO TID Qty: 270 3RF finasteride 5 mg tablet 5 mg PO DAILY Qty: 90 3RF tamsulosin [Flomax] 0.4 mg capsule 0.4 mg PO HS Qty: 90 3RF oxycodone 5 mg tablet 5 mg PO Q8H PRN (Reason: breakthrough pain) Qty: 30 0RF hydrocodone-acetaminophen 10-325 mg tablet 1 tab PO Q6H Qty: 120 0RF amlodipine 10 mg tablet 10 mg PO QAM Qty: 90 3RF cyclobenzaprine 5 mg tablet 5 mg PO TID PRN (Reason: Muscle Spasm) Qty: 90 0RF (DME) lancing device Misc See Rx Instructions .Route Qty: 1 0RF Rx Instructions: Use to test blood sugars daily - ReliOn Brand - To work with Microlet lancets cranberry 500 mg capsule 500 mg PO QAM Rx Instructions: administer with meals diazepam [Valium] 5 mg tablet 5 mg PO BID PRN (Reason: anxiety) Qty: 5 0RF Rx Instructions: Before a procedure ferrous sulfate 325 mg (65 mg iron) Tablet 325 mg PO QAM hydroxychloroquine 200 mg tablet 200 mg PO BID cyanocobalamin (vitamin B-12) [Vitamin B-12] 2,000 mcg tablet extended release 1,000 mcg PO QPM cholecalciferol (vitamin D3) [Vitamin D3] 50 mcg (2,000 unit) capsule 2,000 unit PO Q OTHER DAY Rx Instructions: even days prednisolone 5 mg tablet 5 mg PO QAM amoxicillin 500 mg Tablet 2,000 mg PO DIRECTED PRN (Reason: 1 HR PRIOR TO DENTAL PROCEDURES) cholecalciferol (vitamin D3) [Vitamin D3] 25 mcg (1,000 unit) Tablet 1,000 unit PO Q OTHER DAY Rx Instructions: odd days atorvastatin [Lipitor] 10 mg tablet 10 mg PO 2XWK Rx Instructions: tuesday and tuesday only insulin lispro [Humalog KwikPen Insulin] 100 unit/mL insulin pen 0 unit SQ QDD Rx Instructions: 1 - 45 units subcutaneously; inject per sliding scale with meals up to TDD 45 units pantoprazole [Protonix] 40 mg tablet,delayed release (DR/EC) 40 mg PO BID Qty: 180 3RF Rx Instructions: take 30 minutes before meals diphenhydramine HCl 12.5 mg/5 mL Elixir 37.5 mg PO HS PRN (Reason: Sleep) docusate sodium 100 mg Tablet 100 mg PO HS insulin glargine U-300 conc [Toujeo Max U-300 SoloStar] 300 unit/mL (3 mL) insulin pen 22 unit SUBCUT HS Rx Instructions: up to 40 units daily lidocaine 4 % Adhesive Patch,Medicated 1 patch TOPICAL DIRECTED PRN (Reason: Pain) Osteobioflex With Turmeric 1 cap PO QPM doxycycline hyclate 100 mg tablet 100 mg PO BID PRN (Reason: UTI symptoms/prostatitis) meloxicam 7.5 mg tablet 7.5 mg PO QAM escitalopram oxalate [Lexapro] 10 mg tablet 10 mg PO HS polyethylene glycol 3350 [Miralax] 17 gram Powder In Packet 17 g PO DAILY PRN (Reason: Constipation) lidocaine 4 % Cream 1 applic TOPICAL DIRECTED PRN (Reason: Pain) Discontinued aspirin 325 mg Tablet,Delayed Release (Dr/Ec) 325 mg PO PM Hold Instructions: Resume on 09/27/23. Discharge Orders: Discharge Order (Routine); Ordered 02/15/24 Ordered By: Presley Wiseman Admission Data Admit Date/Time: 02/12/24 18:23 Attending Provider: Presley Wiseman Admit Provider: Beau Collado Primary Care Provider: Sharif Barros Other Providers: Beau Collado; Aiden Michael Jr Other Interventions: Discharge Summary Assessment (RN) Last Done: 02/14/24 09:55 Coding Level of Care Code 94202 INP/OBS DISCH >30 MIN Diagnoses Acute GI bleeding K92.2 Elevated troponin R79.89 CKD (chronic kidney disease) N18.9 PAF (paroxysmal atrial fibrillation) I48.0 Severe obstructive sleep apnea G47.33 Diabetes E11.9 Systemic lupus erythematosus M32.9 Anticardiolipin antibody positive R76.0
== END 2024-02-15 11:48 | disposition home or self-care (01) | DRG 378 ==
LOC: ED 13:39 → 2S 18:23 → SUATTDRO 18:23 → 2S 21:10

== ENCOUNTER 2024-03-05 11:17 | Inpatient (IN) ==
[2024-03-05 12:25] LABS: Basophils # (auto) 0.12 K/uL (0.00-0.20); Basophils % (auto) 2.3 %; Eosinophils # (auto) 0.15 K/uL (0.00-0.50); Eosinophils % (auto) 2.9 %; Hematocrit (blood only) 31.7 % (42.0-52.0); Hemoglobin 10.1 g/dl (14.0-18.0); Immature Granulocytes # (auto) 0.02 K/uL (0.01-0.20); Immature Granulocytes % (auto) 0.4 %; Lymphocytes # (auto) 0.84 K/uL (1.20-3.40); Mean Corpuscular Hemoglobin 28.1 pg (25.0-34.0); Mean Corpuscular Hgb Conc 31.9 g/dL (32.0-36.0); Mean Corpuscular Volume 88.1 fL (80.0-100.0); Monocytes # (auto) 0.55 K/uL (0.11-0.59); Monocytes % (auto) 10.5 %; Neutrophils # (auto) 3.58 K/uL (1.40-6.50); Neutrophils % (auto) 67.9 %; Platelet Count 151 K/uL (130-400); RDW Coefficient of Variation 14.4 % (11.5-14.5); White Blood Count 5.26 K/ul (4.8-10.8)
[2024-03-05 12:41] LABS: Alanine Aminotransferase 15 U/L (7-52); Albumin Globulin Ratio 1.4 (0.9-2); Albumin Level 3.9 gm/dl (3.4-5.0); Alkaline Phosphatase 46 U/L (34-104); Anion Gap 6 (3-11); Aspartate Aminotransferase 25 U/L (13-39); BUN Creatinine Ratio 10.4 (10-20); Bilirubin,Total 0.5 mg/dl (0.2-1.0); Blood Urea Nitrogen 13 mg/dl (6-23); Calcium 9.5 mg/dl (8.6-10.3); Carbon Dioxide 27 mmol/L (21-32); Chloride 106 mmol/L (98-107); Est GFR (Non-African American) 55.2 ml/min; Globulin 2.7 gm/dl (2.5-4.0); Glucose 129 mg/dl (70-99(Fasting)); Potassium 3.8 mmol/L (3.5-5.1); Sodium 139 mmol/L (136-145); Total Protein 6.6 gm/dl (6.0-8.3)
--- NOTE | 2024-03-05 13:52 | Emergency Department Note ---
Impression & Plan Acute epigastric pain, Non-ST elevation [place] (NSTEMI), Abnormal EKG ED Provider Note NAME: KIM GREEN AGE: 79 SEX: M : 1945 ARRIVES VIA: Walk-In INFORMANT: Patient, the patient's significant other ED PROVIDER(S): Sharif Valdes DO CHIEF COMPLAINT: Not feeling well HPI: The patient is a 79-year-old male who presented to the emergency department for an evaluation of generalized weakness. The patient has not been doing well ever since his discharge from facility. He was in our facility over for an upper GI bleed. He had an upper endoscopy which showed no definite source for the bleeding. The patient's been doing well. He had no black or tarry stools. He had no hematemesis. His has been noticing that his blood pressure has been dropping. She is concerned that he is still anemic. He did have an outpatient chest x-ray by his primary care physician and was diagnosed with pneumonia. He recently finished a course of antibiotic. He has had a slight cough. He denies having any lower extremity swelling or pain but has been noticing some heartburn and indigestion. He describes that is epigastric discomfort. ROS: See above HPI for pertinent positives & negatives. A total of 10 systems reviewed and were otherwise negative. PAST MEDICAL HISTORY: See Below PAST SURGICAL HISTORY: See Below FAMILY HISTORY: See Below SOCIAL HISTORY: See Below HOME MEDICATIONS: See Below ALLERGIES: See Below VITALS: See Below PHYSICAL EXAMINATION: GENERAL: Patient is awake alert in no acute distress patient is resting comfortably and showing no signs of anxiety EYES: The conjunctivae are clear. The pupils are round and reactive. EARS, NOSE, MOUTH AND THROAT: The nose is without any evidence of any deformity. NECK: The neck is nontender and supple. RESPIRATORY: Normal respiratory effort is noted there is no evidence of wheezing rhonchi or rales CARDIOVASCULAR: Regular rate and rhythm noted there no murmurs rubs or gallops normal S1 normal S2. GASTROINTESTINAL: The abdomen is soft. Abdomen is nontender. MUSCULOSKELETAL/EXTREMITIES: There is no evidence of gross deformity full range of motion is noted in the hips and shoulders. SKIN: Skin was warm and dry. Trace pedal edema was noted bilaterally. NEUROLOGIC: Patient is awake alert and oriented x3 MEDICAL DECISION MAKING: The patient is a 79-year-old male who presented to the emergency department for an evaluation of epigastric pain. The patient's significant other has been noticing his blood pressure has been lower than usual. She held his beta- micaela this afternoon. The patient was recently in our facility for upper GI bleeding. His significant other states that his hemoglobin was repeated this week. The patient denies having any black or tarry stools. The patient denies having any chest pain but does describe some indigestion and epigastric discomfort. The patient denies having any fever or cough. I discussed the patient's laboratory and radiographic studies with him. He was found to have EKG was significant changes. He was also found to have an elevated troponin. I discussed his condition with the on-call [facility] hospitalist. They have agreed to evaluate the patient in the emergency department for further management and disposition. We did discuss possibility of anticoagulation but given the patient's recent upper GI bleeding we will defer this until the patient's symptoms change or his evaluation by cardiology. Triage Nursing notes reviewed. Prior medical records reviewed Vital Signs: reviewed and remarkable for no significant abnormalities Differential diagnosis: Cardiac ischemia, aortic dissection, pulmonary embolism, pneumothorax, pneumonia, pericarditis, myocarditis, esophageal rupture, GERD, cholecystitis, pancreatitis, musculoskeletal, as well as other pathologies. ER treatment provided: See below Diagnostics interpreted by me: ECG: EKG was obtained in the emergency department. My interpretation is normal sinus rhythm at 84 bpm. There is no ectopy. LVH was noted by voltage criteria with diffuse T wave inversions noted. This was compared to a tracing from February 13, 2024. The T wave inversion is more apparent compared to the previous tracing. Cardiac Monitoring: An order was placed for continuous cardiac monitoring. The monitor shows a rate of 98 bpm with sinus rhythm. Laboratory studies: As stated above and show below. Imaging studies: See below. Radiographic imaging was reviewed by myself Consultation(s): I discussed this case with Dr. Toro who is on-call for the [facility]. Past Med/Surg History Problem List (Updated 03/05/24 @ 18:57 by Sharif Valdes DO) Abnormal EKG (Acute) Non-ST elevation WV (NSTEMI) (Acute) Acute epigastric pain (Acute) Elevated troponin Acute GI bleeding (Acute) Generalized weakness (Acute) Dyspnea Chest pain Gastric AVM Symptomatic anemia (Acute) Upper GI bleed (Acute) History of colon polyps Current use of proton pump inhibitor Abnormal imaging of thyroid Lung nodule (Chronic) Encounter for screening for malignant neoplasm of rectum Encounter for screening for malignant neoplasm of colon Prostatitis Anemia Nocturnal hypoxemia [place] PAF (paroxysmal atrial fibrillation) Nocturia (Chronic) Ulnar neuropathy (Chronic) Chronic pain (Chronic) Depression (Chronic) 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) Angina pectoris (Chronic) Arteriosclerosis of carotid artery (Chronic) Chronic constipation (Chronic) Dysphagia (Chronic) Generalized osteoarthritis of multiple sites (Chronic) Herniated lumbar intervertebral disc (Chronic) Hyperlipidemia (Chronic) Insomnia (Chronic) Osteoarthritis of hip (Chronic) Peripheral neuropathy (Chronic) Renal neoplasm (Chronic) Sacroiliitis (Chronic) Opioid dependence (Chronic) Vitamin B12 deficiency (Chronic) Vitamin D deficiency (Chronic) H/O aortic valve replacement (07/2013) Bilateral primary osteoarthritis of knee 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 love History of colon polyps Pulmonary nodule DDD (degenerative disc disease), cervical ROM "is ok for procedures" DDD (degenerative disc disease), lumbar Osteoporosis Scoliosis Hyperlipidemia Proctitis on occasion, prn doxycycline for this CAD (coronary artery disease) follows with Dr. Love Depression Sleep apnea Bi Pap Internal hemorrhoids H/O: GI bleed severe GI bleed, treated at [facility] - resolved Surgical History History of bronchoscopy History of cataract surgery bilat S/P excision of lipoma to back History of gastric surgery due to GI bleed November 2016 History of skin surgery skin tags History of dental surgery History of esophagogastroduodenoscopy History of colonoscopy History of tonsillectomy S/P aortic valve replacement [facility] [place] 2013 History of cholecystectomy Family History Father Hypertension Diabetes Heart disease Prostate cancer Cardiac disorder Cancer Mother Rheumatoid aortitis Emphysema/COPD Hypertension Colitis Brother Hypertension Diabetes Family/Other Prostate cancer Other Bone cancer Social History Smoking Status: Former smoker Tobacco Type: Cigarettes Age Started Using Tobacco: 18; Age Quit Using Tobacco: 42; packs per day: 3; Cigarettes Per Day: quit smoking in 1979; Second Hand Exposure: No; Do You Dip or Chew Tobacco: No; Hx Alcohol Use: No Hx Substance Use: No Preferred Language: [place] Communication Ability: Effective Visual Impairment: Limited Hearing Ability: Normal Heel Attacher Wood Required: No Beliefs That Will Affect Care: None marital status: Current Living Situation: Spouse current occupational status: retired Feels Safe at Home: Yes Childhood Exposure to Second-Hand Smoke: No Seatbelt Use: always Assistive Devices: Cane, Walker and Other Allergies Allergies Allergy/AdvReac Type Severity Reaction Status Date / Time erythromycin base Allergy Severe HIVES ALL Verified 03/05/24 16:16 OVER bacitracin Allergy Intermediate Skin Verified 03/05/24 16:16 Irritation neomycin Allergy Intermediate Skin Verified 03/05/24 16:16 Irritation polymyxin B Allergy Intermediate Skin Verified 03/05/24 16:16 Irritation Iodinated Contrast Media AdvReac Severe SEVERE Verified 03/05/24 16:16 NAUSEA/VOMITING morphine AdvReac Severe severe n/v Verified 03/05/24 16:16 Opioids - Morphine Analogues AdvReac Severe Gastrointestinal Verified 03/05/24 16:16 Upset Sulfa (Sulfonamide AdvReac Severe Nausea Verified 03/05/24 16:16 Antibiotics) adhesive tape AdvReac Intermediate Blistered Verified 03/05/24 16:16 skin clavulanic acid AdvReac Intermediate CHILLS, Verified 03/05/24 16:16 HEADACHE, "MADE HIM SICK" Macrolide Antibiotics AdvReac Intermediate CHILLS, Verified 03/05/24 16:16 HEADACHE, "MADE HIM SICK" sulfamethoxazole AdvReac Intermediate CHILLS, Verified 03/05/24 16:16 HEADACHE, "MADE HIM SICK" Home Meds Home Medications Medication Instructions Recorded Confirmed ferrous sulfate 325 mg (65 mg 325 mg PO QAM 07/01/18 03/05/24 iron) tablet hydroxychloroquine 200 mg tablet 200 mg PO BID 02/26/21 03/05/24 cyanocobalamin (vitamin B-12) 1,000 mcg PO QPM 05/28/21 03/05/24 2,000 mcg tablet,extended release (Vitamin B-12 ER) cholecalciferol (vitamin D3) 50 2,000 unit PO Q OTHER DAY 07/07/21 03/05/24 mcg (2,000 unit) capsule (Vitamin D3) cranberry 500 mg capsule 500 mg PO QAM 07/07/21 03/05/24 diphenhydramine HCl 12.5 mg/5 mL 37.5 mg PO HS PRN Sleep 02/04/23 03/05/24 oral elixir docusate sodium 100 mg tablet 100 mg PO HS 02/04/23 03/05/24 insulin glargine U-300 conc 300 22 unit subcut HS 02/04/23 03/05/24 unit/mL (3 mL) subcutaneous pen (Toujeo Max U-300 SoloStar) lidocaine 4 % topical patch 1 patch topical DIRECTED PRN 02/04/23 03/05/24 Pain Osteobioflex With Turmeric 1 cap PO QPM 04/27/23 03/05/24 doxycycline hyclate 100 mg tablet 100 mg PO BID PRN UTI 04/27/23 03/05/24 symptoms/prostatitis amoxicillin 500 mg tablet 2,000 mg PO DIRECTED PRN 1 HR 09/20/23 03/05/24 PRIOR TO DENTAL PROCEDURES atorvastatin 10 mg tablet (Lipitor) 10 mg PO 2XWK 09/20/23 03/05/24 cholecalciferol (vitamin D3) 25 1,000 unit PO Q OTHER DAY 09/20/23 03/05/24 mcg (1,000 unit) tablet (Vitamin D3) insulin lispro 100 unit/mL 0 unit subcut QDD 09/20/23 03/05/24 subcutaneous pen (Humalog KwikPen (U-100) Insulin) escitalopram oxalate 10 mg tablet 10 mg PO HS 10/19/23 03/05/24 (Lexapro) meloxicam 7.5 mg tablet 7.5 mg PO QAM 10/19/23 03/05/24 polyethylene glycol 3350 17 gram 17 g PO DAILY PRN Constipation 10/25/23 03/05/24 oral powder packet (Miralax) lidocaine 4 % topical cream 1 applic topical DIRECTED PRN 02/12/24 03/05/24 Pain levothyroxine 150 mcg tablet 150 mcg PO DAILYBB 03/05/24 03/05/24 prednisone 5 mg tablet 5 mg PO DAILY 03/05/24 03/05/24 Previous Rx's Medication Instructions Recorded pen needle, diabetic 32 gauge x #400 ea 10/18/22" (BD Kell 2nd Gen Pen Needle) OneTouch Verio Mid Control (blood #1 ea 03/28/23 glucose control, normal) Microlet Lancet (lancets) #300 ea 04/26/23 albuterol sulfate 90 mcg/actuation 1 - 2 puff inhalation Q4H PRN 04/27/23 aerosol inhaler (ProAir HFA) Shortness Of Breath Or Wheezing #18 grams metformin 500 mg tablet,extended 1,000 mg (2 x 500 mg) PO BID #360 06/02/23 release 24 hr tabs lancing device #1 ea 08/04/23 diazepam 5 mg tablet (Valium) 5 mg PO BID PRN anxiety #5 tabs 08/25/23 isosorbide mononitrate 60 mg 60 mg PO QAM #90 tabs 09/07/23 tablet,extended release 24 hr metoprolol tartrate 25 mg tablet 25 mg PO TID #270 tabs 09/15/23 pantoprazole 40 mg tablet,delayed 40 mg PO BID #180 tabs 09/21/23 release (Protonix) finasteride 5 mg tablet 5 mg PO DAILY #90 tabs 10/24/23 tamsulosin 0.4 mg capsule (Flomax) 0.4 mg PO HS #90 caps 10/24/23 oxycodone 5 mg tablet 5 mg PO Q8H PRN breakthrough pain 11/17/23 #30 tabs amlodipine 10 mg tablet 10 mg PO QAM #90 tabs 01/12/24 cyclobenzaprine 5 mg tablet 5 mg PO TID PRN Muscle Spasm #90 01/12/24 tabs aspirin 81 mg tablet,delayed 81 mg PO DAILY #1 tab 02/15/24 release sucralfate 1 gram tablet 1 g PO TID #90 tabs 02/20/24 hydrocodone 10 mg-acetaminophen 1 tab PO Q6H pain #120 tabs 02/29/24 325 mg tablet prednisone 20 mg tablet 20 mg PO DAILY #5 tabs 03/05/24 Results & Data (ED) Vital Signs Vital Signs - 24 hr 03/05/24 11:23 03/05/24 14:00 03/05/24 17:51 Temperature 36.6 C Temperature Source Temporal Artery Scan Pulse Rate 77 83 99 H Pulse Rate [Finger] Respiratory Rate 16 Respiratory Effort / Characteristics Non-Labored Spontaneous Respiratory Depth Normal Respiratory Pattern Regular Blood Pressure 113/79 Blood Pressure [Right Arm] Blood Pressure Mean 90 Blood Pressure Mean [Right Arm] Blood Pressure Position [Right Arm] Pulse Oximetry 96 Oxygen Delivery Method Room Air Sepsis Recent Fever Within 48 Hours No Sepsis New/Unexplained Change in Mental Status N/A Sepsis Action Taken by Nursing No Action Required 03/05/24 18:30 Temperature Temperature Source Pulse Rate Pulse Rate [Finger] 101 H Respiratory Rate 18 Respiratory Effort / Characteristics Non-Labored Respiratory Depth Normal Respiratory Pattern Regular Blood Pressure Blood Pressure [Right Arm] 142/107 H Blood Pressure Mean Blood Pressure Mean [Right Arm] 118 Blood Pressure Position [Right Arm] Lying Pulse Oximetry 95 Oxygen Delivery Method Room Air Sepsis Recent Fever Within 48 Hours Sepsis New/Unexplained Change in Mental Status Sepsis Action Taken by [facility] Medications Current Medication List: was personally reviewed by me Laboratory Data Attestation: I reviewed the patient's lab results. 03/05/24 11:56 03/05/24 11:56 Lab Results 03/05/24 03/05/24 03/05/24 Range/Units 11:25 11:56 15:45 WBC 5.26 (4.8-10.8) K/ul RBC 3.60 L (4.70-6.10) M/uL Hgb 10.1 L (14.0-18.0) g/dl Hct 31.7 L (42.0-52.0) % MCV 88.1 (80.0-100.0) fL MCH 28.1 (25.0-34.0) pg MCHC 31.9 L (32.0-36.0) g/dL RDW Std Deviation 46.0 (36.4-46.3) fL RDW Coeff of Juan Pablo 14.4 (11.5-14.5) % Plt Count 151 (130-400) K/uL MPV 11.0 (9.4-12.4) fL Immature Gran % (Auto) 0.4 % Neut % (Auto) 67.9 % Lymph % (Auto) 16.0 % [place] % (Auto) 10.5 % Eos % (Auto) 2.9 % Baso % (Auto) 2.3 % Neut # (Auto) 3.58 (1.40-6.50) K/uL Lymph # (Auto) 0.84 L (1.20-3.40) K/uL [place] # (Auto) 0.55 (0.11-0.59) K/uL Eos # (Auto) 0.15 (0.00-0.50) K/uL Baso # (Auto) 0.12 (0.00-0.20) K/uL Immature Gran # (Auto) 0.02 (0.01-0.20) K/uL PT 11.0 (9.0-12.0) Seconds INR 1.0 (0.9-1.1) Sodium 139 (136-145) mmol/L Potassium 3.8 (3.5-5.1) mmol/L Chloride 106 (98-107) mmol/L Carbon Dioxide 27 (21-32) mmol/L Anion Gap 6 (3-11) BUN 13 (6-23) mg/dl Creatinine 1.25 (0.6-1.4) mg/dl Est Cr Clr Drug Dosing Not Reportable Est GFR ( Amer) 64.0 ml/min Est GFR (Non-Af Amer) 55.2 ml/min BUN/Creatinine Ratio 10.4 (10-20) Glucose 129 H (70-99(Fasting)) mg/dl POC Glucose 136 H (70-99) mg/dl Calcium 9.5 (8.6-10.3) mg/dl Total Bilirubin 0.5 (0.2-1.0) mg/dl AST 25 (13-39) U/L ALT 15 (7-52) U/L Alkaline Phosphatase 46 (34-104) U/L Troponin I High Sens 235.3 H* 161.5 H* D (0-20) pg/ml Total Protein 6.6 (6.0-8.3) gm/dl Albumin 3.9 (3.4-5.0) gm/dl Globulin 2.7 (2.5-4.0) gm/dl Albumin/Globulin Ratio 1.4 (0.9-2) Lipase < 3 L (11-82) U/L Urine Color Urine Appearance (Clear) Urine pH (4.5-7.5) Ur Specific Carlton (1.000-1.030) Urine Protein (Negative) Urine Glucose (UA) (Negative) Urine Ketones (Negative) Urine Blood (Negative) Urine Nitrite (Negative) Urine Bilirubin (Negative) Urine Urobilinogen (Negative) Ur Leukocyte Esterase (Negative) Urine WBC (Auto) (0-5) /hpf Urine RBC (Auto) (0-2) /hpf U Hyaline Cast (Auto) (0-2) /lpf U Epithel Cells (Auto) (0-2) /hpf Urine Bacteria (Auto) (None Seen) 03/05/24 03/05/24 Range/Units 15:58 16:13 WBC (4.8-10.8) K/ul RBC (4.70-6.10) M/uL Hgb (14.0-18.0) g/dl Hct (42.0-52.0) % MCV (80.0-100.0) fL MCH (25.0-34.0) pg MCHC (32.0-36.0) g/dL RDW Std Deviation (36.4-46.3) fL RDW Coeff of Juan Pablo (11.5-14.5) % Plt Count (130-400) K/uL MPV (9.4-12.4) fL Immature Gran % (Auto) % Neut % (Auto) % Lymph % (Auto) % [place] % (Auto) % Eos % (Auto) % Baso % (Auto) % Neut # (Auto) (1.40-6.50) K/uL Lymph # (Auto) (1.20-3.40) K/uL [place] # (Auto) (0.11-0.59) K/uL Eos # (Auto) (0.00-0.50) K/uL Baso # (Auto) (0.00-0.20) K/uL Immature Gran # (Auto) (0.01-0.20) K/uL PT (9.0-12.0) Seconds INR (0.9-1.1) Sodium (136-145) mmol/L Potassium (3.5-5.1) mmol/L Chloride (98-107) mmol/L Carbon Dioxide (21-32) mmol/L Anion Gap (3-11) BUN (6-23) mg/dl Creatinine (0.6-1.4) mg/dl Est Cr Clr Drug Dosing Est GFR ( Amer) ml/min Est GFR (Non-Af Amer) ml/min BUN/Creatinine Ratio (10-20) Glucose (70-99(Fasting)) mg/dl POC Glucose 113 H (70-99) mg/dl Calcium (8.6-10.3) mg/dl Total Bilirubin (0.2-1.0) mg/dl AST (13-39) U/L ALT (7-52) U/L Alkaline Phosphatase (34-104) U/L Troponin I High Sens (0-20) pg/ml Total Protein (6.0-8.3) gm/dl Albumin (3.4-5.0) gm/dl Globulin (2.5-4.0) gm/dl Albumin/Globulin Ratio (0.9-2) Lipase (11-82) U/L Urine Color Yellow Urine Appearance Clear (Clear) Urine pH 6.5 (4.5-7.5) Ur Specific Carlton 1.008 (1.000-1.030) Urine Protein Negative (Negative) Urine Glucose (UA) Negative (Negative) Urine Ketones Negative (Negative) Urine Blood Negative (Negative) Urine Nitrite Negative (Negative) Urine Bilirubin Negative (Negative) Urine Urobilinogen Negative (Negative) Ur Leukocyte Esterase Trace H (Negative) Urine WBC (Auto) 0-5 (0-5) /hpf Urine RBC (Auto) 0-2 (0-2) /hpf U Hyaline Cast (Auto) 0-2 (0-2) /lpf U Epithel Cells (Auto) 0-2 (0-2) /hpf Urine Bacteria (Auto) None Seen (None Seen) Administered Medications Insulin Aspart (Insulin Aspart Per Unit Charge) 0 units SC ACHS JONATHON Stop: 04/04/24 16:29 Last Admin: 03/05/24 16:01 Dose: Not Given Documented By: VME Co-signed By: VERONICA Nitroglycerin (Nitroglycerin Sl 0.4 Mg/Tab Tab) 0.4 mg SL Q5M PRN PRN Reason: Chest Pain Stop: 04/04/24 15:58 Last Admin: 03/05/24 16:19 Dose: 0.4 mg Documented By: Admin: 03/05/24 16:12 Dose: 0.4 mg Documented By: CARLOS Discontinued Medications Al Hydrox/Mg Hydrox/Simethicone (Aluminum/Magnesium Susp 30 Ml Udc) 30 ml PO NOW STA Stop: 03/05/24 13:48 Last Admin: 03/05/24 13:55 Dose: 30 ml Documented By: CARLOS Aspirin (Aspirin Chew 324 Mg) 324 mg PO NOW STA Stop: 03/05/24 14:53 Last Admin: 03/05/24 15:21 Dose: 324 mg Documented By: CARLOS Nitroglycerin (Nitroglycerin Sl 0.4 Mg/Tab Tab) Confirm Administered Dose 0.4 mg .ROUTE .STK-MED ONE Stop: 03/05/24 16:10 Last Admin: 03/05/24 16:14 Dose: Not Given Documented By: CARLOS Imaging Data Attestation: I personally reviewed and interpreted this imaging study as follows: My Impression: 1 view chest x-ray was obtained in the emergency department. My interpretation is no free air or definite infiltrate, final report below. Radiologist's Impression: Chest X-Ray 03/05/24 11:27 SINGLE VIEW CHEST CLINICAL HISTORY: Dyspnea FINDINGS: An AP, portable, upright chest radiograph is compared to study dated 02/28/2024. Correlation is made with chest CT dated 10/19/2023. The examination is degraded by portable technique and patient rotation. The patient is status post midline sternotomy. The heart is enlarged. The pulmonary vasculature is noncongested. Chronic interstitial thickening is similar to previous. There is a small right pleural effusion with bibasilar consolidation. Left lung appears clear. No pneumothorax is seen. The skeletal structures are osteopenic. The bony thorax is grossly intact. IMPRESSION: 1. Cardiomegaly without radiographic evidence of congestive failure. 2. Small right pleural effusion with right basilar consolidation. Pleural effusion has increased in size from 02/28/2024. 3. The right middle lobe mass lesion seen by CT is not well visualized on x-ray. ACT 112: Negative or not required by law. Electronically signed by: Rian Mcdonald M.D. 03/05/2024 2:12 PM Discharge Plan Visit Data Chief Complaint: Abnormal Labs/Diagnostic Testing Stated Complaint: DIFFICULTY BREATHING, ABN LABS ED Provider: Sharif Valdes Discharge Problem: Acute epigastric pain, Non-ST elevation [place] (NSTEMI), Abnormal EKG Patient Disposition: Admitted As Inpatient Discharge Instructions Interventions: ED Discharge Assessment Last Done: 03/05/24 18:19 Forms Stand Alone Forms: [facility] [place] TakeCare Prescriptions Prescriptions: No Action (DME) pen needle, diabetic [BD Kell 2nd Gen Pen Needle] 32 gauge x 5/32" needle See Dose Instructions .ROUTE .MEDSUPPLY Qty: 400 3RF Rx Instructions: Use four daily with insulin injection (DME) blood glucose control, normal [OneTouch Verio Mid Control] Solution See Rx Instructions .ROUTE .MEDSUPPLY Qty: 1 5RF Rx Instructions: Use weekly as directed (DME) lancets [Microlet Lancet] Misc See Dose Instructions .ROUTE .MEDSUPPLY Qty: 300 3RF Dose Instruction: As directed Rx Instructions: TEST 3 TIMES DAILY albuterol sulfate [ProAir HFA] 90 mcg/actuation HFA aerosol inhaler 1 - 2 puff INHALATION Q4H PRN (Reason: Shortness Of Breath Or Wheezing) Qty: 18 3RF metformin 500 mg tablet extended release 24 hr 1,000 mg PO BID Qty: 360 3RF isosorbide mononitrate 60 mg tablet extended release 24 hr 60 mg PO QAM Qty: 90 3RF metoprolol tartrate 25 mg tablet 25 mg PO TID Qty: 270 3RF finasteride 5 mg tablet 5 mg PO DAILY Qty: 90 3RF tamsulosin [Flomax] 0.4 mg capsule 0.4 mg PO HS Qty: 90 3RF oxycodone 5 mg tablet 5 mg PO Q8H PRN (Reason: breakthrough pain) Qty: 30 0RF amlodipine 10 mg tablet 10 mg PO QAM Qty: 90 3RF cyclobenzaprine 5 mg tablet 5 mg PO TID PRN (Reason: Muscle Spasm) Qty: 90 0RF sucralfate 1 gram tablet 1 g PO TID Qty: 90 0RF Rx Instructions: Dissolve in water and take before meals hydrocodone-acetaminophen 10-325 mg tablet 1 tab PO Q6H Qty: 120 0RF prednisone 20 mg tablet 20 mg PO DAILY Qty: 5 0RF Rx Instructions: PER PT'S SPOUSE "NEVER PICKED UP, DIDN'T KNOW IT WAS ORDERED". (DME) lancing device Misc See Rx Instructions .Route Qty: 1 0RF Rx Instructions: Use to test blood sugars daily - ReliOn Brand - To work with Microlet lancets cranberry 500 mg capsule 500 mg PO QAM Rx Instructions: administer with meals diazepam [Valium] 5 mg tablet 5 mg PO BID PRN (Reason: anxiety) Qty: 5 0RF Rx Instructions: Before a procedure ferrous sulfate 325 mg (65 mg iron) Tablet 325 mg PO QAM hydroxychloroquine 200 mg tablet 200 mg PO BID cyanocobalamin (vitamin B-12) [Vitamin B-12] 2,000 mcg tablet extended release 1,000 mcg PO QPM cholecalciferol (vitamin D3) [Vitamin D3] 50 mcg (2,000 unit) capsule 2,000 unit PO Q OTHER DAY Rx Instructions: even days amoxicillin 500 mg Tablet 2,000 mg PO DIRECTED PRN (Reason: 1 HR PRIOR TO DENTAL PROCEDURES) cholecalciferol (vitamin D3) [Vitamin D3] 25 mcg (1,000 unit) Tablet 1,000 unit PO Q OTHER DAY Rx Instructions: odd days atorvastatin [Lipitor] 10 mg tablet 10 mg PO 2XWK Rx Instructions: tuesday and tuesday only insulin lispro [Humalog KwikPen Insulin] 100 unit/mL insulin pen 0 unit SQ QDD Rx Instructions: 1 - 45 units subcutaneously; inject per sliding scale with meals up to TDD 45 units pantoprazole [Protonix] 40 mg tablet,delayed release (DR/EC) 40 mg PO BID Qty: 180 3RF Rx Instructions: take 30 minutes before meals diphenhydramine HCl 12.5 mg/5 mL Elixir 37.5 mg PO HS PRN (Reason: Sleep) docusate sodium 100 mg Tablet 100 mg PO HS insulin glargine U-300 conc [Toujeo Max U-300 SoloStar] 300 unit/mL (3 mL) insulin pen 22 unit SUBCUT HS Rx Instructions: up to 40 units daily lidocaine 4 % Adhesive Patch,Medicated 1 patch TOPICAL DIRECTED PRN (Reason: Pain) Osteobioflex With Turmeric 1 cap PO QPM doxycycline hyclate 100 mg tablet 100 mg PO BID PRN (Reason: UTI symptoms/prostatitis) meloxicam 7.5 mg tablet 7.5 mg PO QAM escitalopram oxalate [Lexapro] 10 mg tablet 10 mg PO HS polyethylene glycol 3350 [Miralax] 17 gram Powder In Packet 17 g PO DAILY PRN (Reason: Constipation) lidocaine 4 % Cream 1 applic TOPICAL DIRECTED PRN (Reason: Pain) aspirin 81 mg tablet,delayed release (DR/EC) 81 mg PO DAILY Qty: 1 0RF prednisone 5 mg tablet 5 mg PO DAILY levothyroxine 150 mcg tablet 150 mcg PO DAILYBB Referrals Referrals: Pro,Sharif Gee MD [Primary Care Provider] -
[2024-03-05] MEDS: ALUMINUM/MAGNESIUM SUSP 30 ML UDC PO STA (13:55)
--- NOTE | 2024-03-05 14:13 | XRay Report ---
SINGLE VIEW CHEST CLINICAL HISTORY: Dyspnea FINDINGS: An AP, portable, upright chest radiograph is compared to study dated 02/28/2024. Correlation is made with chest CT dated 10/19/2023. The examination is degraded by portable technique and patient rotation. The patient is status post midline sternotomy. The heart is enlarged. The pulmonary vascu lature is noncongested. Chronic interstitial thickening is similar to previous. There is a small righ t pleural effusion with bibasilar consolidation. Left lung appears clear. No pneumothorax is seen. Th e skeletal structures are osteopenic. The bony thorax is grossly intact. IMPRESSION: 1. Cardiomegaly without radiographic evidence of congestive failure. 2. Small right pleural effusion with right basilar consolidation. Pleural effusion has increased in s ize from 02/28/2024. 3. The right middle lobe mass lesion seen by CT is not well visualized on x-ray. ACT 112: Negative or not required by law. Electronically signed by: Rian Mcdonald M.D. 03/05/2024 2:12 PM
[2024-03-05 14:30] LABS: Lipase < 3 U/L (11-82)
[2024-03-05 14:36] LABS: Troponin I High Sensitivity 235.3 pg/ml (0-20)
[2024-03-05] MEDS: ASPIRIN CHEW 324 MG PO STA (15:21)
--- NOTE | 2024-03-05 15:22 | History & Physical Report ---
Date of Service March 05, 2024 Assessment & Plan (1) Elevated troponin: Plan: Assessment: 1. Probable acute non-ST elevation myocardial infarction. EKG changes from January 2024 with flipped T waves as well as a troponin increased to 235. Patient's troponin 3 weeks ago was around 80. Patient had 324 mg of aspirin. He is not having active chest pain. Consulted cardiology on-call Dr. Sharif Love discussed the case personally with him. At this time cardiology is recommending not to heparinize the patient unless his troponin increases significantly. Stat repeat troponin has been ordered and pending at the time of this dictation. Echocardiograms been ordered. We will trend the troponins. 2. History of aortic valve stenosis status post porcine aortic valve replacement 2012. 3. Diabetes mellitus type 2 insulin requiring basal bolus sliding scale regimen has been ordered. 4. Recent history of upper GI bleed January 2024. EGD did not reveal the source. History of gastric AVMs however. Hemoglobin stable at approximately 10.1 g/dL. The patient's had no recent black stools or bloody stools since leaving the hospital at the end of January. Monitor carefully. 5. Hypertension. 6. Morbid obesity. 7. BPH. 8. GERD on Protonix we will continue. 9. Hypothyroidism we will check a TSH in the morning continue home dose. 10. Recent pneumonia diagnosis and outpatient. Just completed amoxicillin and doxycycline. 11. Hyperlipidemia continue statin therapy. 12. COPD/asthma without acute exacerbation continue home meds. 13. Systemic lupus erythematosus. 14. History of atrial fibrillation/atrial flutter this was previous aortic valve replacement. The patient. Not currently anticoagulated. Plan: As described above. Please refer to orders for further planning. History of Present Illness Chief Complaint: Chest pressure, indigestion, weakness. Mild shortness of breath. Primary Care Provider: Sharif Barros MD This is a 79-year-old male who approximately 3 weeks ago is here with an upper GI bleed. EGD did not reveal the etiology of the acute GI bleeding. The patient had noticed black tarry stools since leaving the hospital or no blood in the stools that he knows of. Over the last couple days over the weekend he has had some increasing indigestion and chest pressure that he describes. Today some mild shortness of breath with increased weakness. He presented to the ER for further evaluation and treatment. In the ER he has ischemic changes on his EKG consistent with inverted T waves inferior lateral leads. These are new changes. Had a troponin of greater than 235. In the ER he had a dose of Maalox. We are called asked to admit the patient for further evaluation and treatment. Recommended stat 324 of aspirin which has subsequently been ordered. Given his recent history of GI bleed and anticardiolipin antibody positivity this makes heparinization decision more complex. We have paged cardiology and spoken to cardiology on-call Dr. Sharif Love. At this time it is recommended not to heparinize the patient unless he has a very significant troponin leak. Will get a repeat a stat troponin now do an echocardiogram as well. Allergies Allergy/AdvReac Type Severity Reaction Status Date / Time erythromycin base Allergy Severe HIVES ALL Verified 02/28/24 11:58 OVER bacitracin Allergy Intermediate Skin Verified 02/28/24 11:58 Irritation neomycin Allergy Intermediate Skin Verified 02/28/24 11:58 Irritation polymyxin B Allergy Intermediate Skin Verified 02/28/24 11:58 Irritation Iodinated Contrast Media AdvReac Severe SEVERE Verified 02/28/24 11:58 NAUSEA/VOMITING morphine AdvReac Severe severe n/v Verified 02/28/24 11:58 Opioids - Morphine Analogues AdvReac Severe Gastrointestinal Verified 02/28/24 11:58 Upset Sulfa (Sulfonamide AdvReac Severe Nausea Verified 02/28/24 11:58 Antibiotics) adhesive tape AdvReac Intermediate Blistered Verified 02/28/24 11:58 skin clavulanic acid AdvReac Intermediate CHILLS, Verified 02/28/24 11:58 HEADACHE, "MADE HIM SICK" Macrolide Antibiotics AdvReac Intermediate CHILLS, Verified 02/28/24 11:58 HEADACHE, "MADE HIM SICK" sulfamethoxazole AdvReac Intermediate CHILLS, Verified 02/28/24 11:58 HEADACHE, "MADE HIM SICK" Home Medications Medication Instructions Recorded Confirmed Type ferrous sulfate 325 mg (65 mg 325 mg PO QAM 07/01/18 02/28/24 History iron) tablet hydroxychloroquine 200 mg tablet 200 mg PO BID 02/26/21 02/28/24 History cyanocobalamin (vitamin B-12) 1,000 mcg PO QPM 05/28/21 02/28/24 History 2,000 mcg tablet,extended release (Vitamin B-12 ER) cholecalciferol (vitamin D3) 50 2,000 unit PO Q OTHER DAY 07/07/21 02/28/24 History mcg (2,000 unit) capsule (Vitamin D3) cranberry 500 mg capsule 500 mg PO QAM 07/07/21 02/28/24 History prednisolone 5 mg tablet 5 mg PO QAM 07/08/22 02/28/24 History pen needle, diabetic 32 gauge x #400 ea 10/18/22 02/28/24 Rx 32" (BD Kell 2nd Gen Pen Needle) diphenhydramine HCl 12.5 mg/5 mL 37.5 mg PO HS PRN Sleep 02/04/23 02/28/24 History oral elixir docusate sodium 100 mg tablet 100 mg PO HS 02/04/23 02/28/24 History insulin glargine U-300 conc 300 22 unit subcut HS 02/04/23 02/28/24 History unit/mL (3 mL) subcutaneous pen (Toujeo Max U-300 SoloStar) lidocaine 4 % topical patch 1 patch topical DIRECTED PRN 02/04/23 02/28/24 History Pain OneTouch Verio Mid Control (blood #1 ea 03/28/23 02/28/24 Rx glucose control, normal) Microlet Lancet (lancets) #300 ea 04/26/23 02/28/24 Rx Osteobioflex With Turmeric 1 cap PO QPM 04/27/23 02/28/24 History albuterol sulfate 90 mcg/actuation 1 - 2 puff inhalation Q4H PRN 04/27/23 02/28/24 Rx aerosol inhaler (ProAir HFA) Shortness Of Breath Or Wheezing #18 grams doxycycline hyclate 100 mg tablet 100 mg PO BID PRN UTI 04/27/23 02/28/24 History symptoms/prostatitis metformin 500 mg tablet,extended 1,000 mg (2 x 500 mg) PO BID #360 06/02/23 02/28/24 Rx release 24 hr tabs lancing device #1 ea 08/04/23 02/28/24 Rx diazepam 5 mg tablet (Valium) 5 mg PO BID PRN anxiety #5 tabs 08/25/23 02/28/24 Rx isosorbide mononitrate 60 mg 60 mg PO QAM #90 tabs 09/07/23 02/28/24 Rx tablet,extended release 24 hr levothyroxine 150 mcg tablet 150 mcg PO QAM #90 tabs 09/07/23 02/28/24 Rx metoprolol tartrate 25 mg tablet 25 mg PO TID #270 tabs 09/15/23 02/28/24 Rx amoxicillin 500 mg tablet 2,000 mg PO DIRECTED PRN 1 HR 09/20/23 02/28/24 History PRIOR TO DENTAL PROCEDURES atorvastatin 10 mg tablet (Lipitor) 10 mg PO 2XWK 09/20/23 02/28/24 History cholecalciferol (vitamin D3) 25 1,000 unit PO Q OTHER DAY 09/20/23 02/28/24 Hi story mcg (1,000 unit) tablet (Vitamin D3) insulin lispro 100 unit/mL 0 unit subcut QDD 09/20/23 02/28/24 History subcutaneous pen (Humalog KwikPen (U-100) Insulin) pantoprazole 40 mg tablet,delayed 40 mg PO BID #180 tabs 09/21/23 02/28/24 Rx release (Protonix) escitalopram oxalate 10 mg tablet 10 mg PO HS 10/19/23 02/28/24 History (Lexapro) meloxicam 7.5 mg tablet 7.5 mg PO QAM 10/19/23 02/28/24 History finasteride 5 mg tablet 5 mg PO DAILY #90 tabs 10/24/23 02/28/24 Rx tamsulosin 0.4 mg capsule (Flomax) 0.4 mg PO HS #90 caps 10/24/23 02/28/24 Rx polyethylene glycol 3350 17 gram 17 g PO DAILY PRN Constipation 10/25/23 02/28/24 History oral powder packet (Miralax) oxycodone 5 mg tablet 5 mg PO Q8H PRN breakthrough pain 11/17/23 02/28/24 Rx #30 tabs amlodipine 10 mg tablet 10 mg PO QAM #90 tabs 01/12/24 02/28/24 Rx cyclobenzaprine 5 mg tablet 5 mg PO TID PRN Muscle Spasm #90 01/12/24 02/28/24 Rx tabs lidocaine 4 % topical cream 1 applic topical DIRECTED PRN 02/12/24 02/28/24 History Pain aspirin 81 mg tablet,delayed 81 mg PO DAILY #1 tab 02/15/24 02/28/24 Rx release sucralfate 1 gram tablet 1 g PO TID #90 tabs 02/20/24 02/28/24 Rx amoxicillin 500 mg tablet 1,000 mg (2 x 500 mg) PO TID 5 02/28/24 02/28/24 Rx days #30 tabs doxycycline hyclate 100 mg tablet 100 mg PO BID 5 days #10 tabs 02/28/24 02/28/24 Rx hydrocodone 10 mg-acetaminophen 1 tab PO Q6H pain #120 tabs 02/29/24 Rx 325 mg tablet prednisone 20 mg tablet 20 mg PO DAILY #5 tabs 03/05/24 Rx Past Med/Surg History Problem List Elevated troponin Acute GI bleeding (Acute) Generalized weakness (Acute) Dyspnea Chest pain Gastric AVM Symptomatic anemia (Acute) Upper GI bleed (Acute) History of colon polyps Current use of proton pump inhibitor Abnormal imaging of thyroid Lung nodule (Chronic) Encounter for screening for malignant neoplasm of rectum Encounter for screening for malignant neoplasm of colon Prostatitis Anemia Nocturnal hypoxemia [place] PAF (paroxysmal atrial fibrillation) Nocturia (Chronic) Ulnar neuropathy (Chronic) Chronic pain (Chronic) Depression (Chronic) 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) Angina pectoris (Chronic) Arteriosclerosis of carotid artery (Chronic) Chronic constipation (Chronic) Dysphagia (Chronic) Generalized osteoarthritis of multiple sites (Chronic) Herniated lumbar intervertebral disc (Chronic) Hyperlipidemia (Chronic) Insomnia (Chronic) Osteoarthritis of hip (Chronic) Peripheral neuropathy (Chronic) Renal neoplasm (Chronic) Sacroiliitis (Chronic) Opioid dependence (Chronic) Vitamin B12 deficiency (Chronic) Vitamin D deficiency (Chronic) H/O aortic valve replacement (07/2013) Bilateral primary osteoarthritis of knee Benign localized hyperplasia of prostate with urinary obstruction (Chronic) GERD without esophagitis (Chronic) Medical History CKD (chronic kidney disease) Lupus Non-ST elevation NM (NSTEMI) Lung mass PAF (paroxysmal atrial fibrillation) s/p aortic valve replacment > resolved since, no longer on meds, no pacer Obesity Severe obstructive sleep apnea Anticardiolipin antibody positive Aortic stenosis Asthma rare res inh use Atrial flutter Systemic lupus erythematosus Diabetes IDDM Hypertension Hypothyroid LBBB (left bundle branch block) f/u dr. love History of colon polyps Pulmonary nodule DDD (degenerative disc disease), cervical ROM "is ok for procedures" DDD (degenerative disc disease), lumbar Osteoporosis Scoliosis Hyperlipidemia Proctitis on occasion, prn doxycycline for this CAD (coronary artery disease) follows with Dr. Love Depression Sleep apnea Bi Pap Internal hemorrhoids H/O: GI bleed severe GI bleed, treated at [facility] - resolved Surgical History History of bronchoscopy History of cataract surgery bilat S/P excision of lipoma to back History of gastric surgery due to GI bleed November 2016 History of skin surgery skin tags History of dental surgery History of esophagogastroduodenoscopy History of colonoscopy History of tonsillectomy S/P aortic valve replacement [facility] [place] History of cholecystectomy Family History Father Hypertension Diabetes Heart disease Prostate cancer Cardiac disorder Cancer Mother Rheumatoid aortitis Emphysema/COPD Hypertension Colitis Brother Hypertension Diabetes Family/Other Prostate cancer Other Bone cancer Social History Smoking Status: Former smoker Tobacco Type: Cigarettes Age Started Using Tobacco: 18; Age Quit Using Tobacco: 42; packs per day: 3; Cigarettes Per Day: quit smoking in 1979; Second Hand Exposure: No; Do You Dip or Chew Tobacco: No; Hx Alcohol Use: No Hx Substance Use: No Preferred Language: Chinese Communication Ability: Effective Visual Impairment: Limited Hearing Ability: Normal Poultry Culler Required: No Beliefs That Will Affect Care: None marital status: Current Living Situation: Spouse current occupational status: retired Feels Safe at Home: Yes Childhood Exposure to Second-Hand Smoke: No Seatbelt Use: always Assistive Devices: Cane, Walker and Other Review of Systems Review of Systems: A 10 point review of system was obtained and unless otherwise stated here or in history of present illness are negative and noncontributory to chief complaint. Physical Exam Physical Exam: In General: In general this is a pleasant 79-year-old male accompanied by his at the time my exam. He interacts appropriately and pleasantly. He states he has no marizol chest pain. He states that his indigestion is actually somewhat better/resolving compared to when he presented to the ER today. HEENT: Normocephalic atraumatic pupils are equal round and reactive to light bilaterally. No scleral icterus no conjunctival injection external auditory canals are patent septum is in the midline nose is without discharge oral mucosa is pink and moist without lesion. NECK: Supple no rigidity no lymphadenopathy no thyromegaly no carotid bruits no JVD no masses. HEART: Regular rate and rhythm I do not appreciate any ectopy or rub. No marizol murmur. LUNGS: Clear to auscultation bilaterally and anteriorly with no evidence of adventitious sounds/wheezes rales or rhonchi. ABDOMEN: Soft nontender, no rebound, no peritoneal signs, positive bowel sounds, no appreciable organomegaly. However, exam is somewhat limited given the patient's body habitus. EXTREMITIES: Intact, no peripheral cyanosis, clubbing or edema. Strength is adequate in his extremities x4, no pathological reflexes. NEUROLOGICAL: Cranial nerves II through XII are grossly intact with no focal deficit elicited upon examination. No tremor. Results & Data Results & Data Vital Signs (Past 12 Hours) Vital Signs Temp Pulse Resp BP Pulse Ox O2 Del Method 03/05/24 14:00 83 03/05/24 11:23 36.6 C 77 16 113/79 96 Room Air Code Status & VTE Plan Code Status Full code-I personally discussed with patient and spouse at the bedside. PG Care Time/CCT Total # of Minutes Spent Total Time Spent with Patient: Total time spent is greater than 50% in coordination of care (as documented) at patient's floor/unit and/or counseling patient: Coding Level of Care Code 24379 INT INP/OBS CARE 3/75MIN Diagnoses Elevated troponin R79.89
[2024-03-05] MEDS ORDERED: CARBOHYDRATES FOR HYPOGLYCEMIA PO PRN (15:28)
[2024-03-05] MEDS ORDERED: GLUCOSE 10 TAB/TUBE PO PRN (15:28)
[2024-03-05] MEDS ORDERED: ACETAMINOPHEN 325 MG TAB PO PRN (15:28)
[2024-03-05] MEDS ORDERED: DEXTROSE 50% 50 ML SYRINGE IV PRN (15:28)
[2024-03-05] MEDS ORDERED: GLUCOSE 40% GEL 15 GM TUBE PO PRN (15:28)
[2024-03-05] MEDS ORDERED: GLUCAGON FOR INJ 1 MG VIAL SQ PRN (15:28)
[2024-03-05] MEDS: INSULIN ASPART PER UNIT CHARGE SC SCH (16:01)
[2024-03-05] MEDS: NITROGLYCERIN SL 0.4 MG/TAB TAB SL PRN (16:12)
[2024-03-05] MEDS: NITROGLYCERIN SL 0.4 MG/TAB TAB ONE (16:14)
[2024-03-05 16:32] LABS: Appearance Urine Clear (Clear); Bacteria Urine Automated None Seen (None Seen); Bilirubin Urine Negative (Negative); Blood Urine Negative (Negative); Cast Urine Automated 0-2 /lpf (0-2); Color Urine Yellow; Epithelial Cell Urine Auto 0-2 /hpf (0-2); Glucose Urine UA Negative (Negative); Ketones Urine Negative (Negative); Leukocyte Esterase Urine Trace (Negative); Nitrite Urine Negative (Negative); Protein Urine Negative (Negative); RBC Urine Automated 0-2 /hpf (0-2); Specific Gravity Urine 1.008 (1.000-1.030); Urobilinogen Urine Negative (Negative); WBC Urine Automated 0-5 /hpf (0-5); pH Urine 6.5 (4.5-7.5)
--- NOTE | 2024-03-05 17:18 | Electrocardiogram Report ---
Test Reason : Blood Pressure : / mmHG Vent. Rate : 084 BPM Atrial Rate : 084 BPM P-R Int : 182 ms QRS Dur : 110 ms QT Int : 448 ms P-R-T Axes : 017 -21 181 degrees QTc Int : 529 ms Normal sinus rhythm Possible Left atrial enlargement Left ventricular hypertrophy ( R in aVL ) Prolonged QT Abnormal ECG When compared with ECG of 13-FEB-2024 08:11, T wave inversion now evident in Inferior leads T wave inversion more evident in Anterolateral leads QT has shortened Confirmed by Sharif Love ([id number]) on 03/05/2024 5:17:26 PM Referred By: REFERRED SELF Confirmed By:Sharif Love
[2024-03-05] MEDS: DOCUSATE SODIUM 100 MG CAP PO SCH (22:22)
[2024-03-05] MEDS: ESCITALOPRAM OXALATE 10 MG TAB PO SCH (22:22)
[2024-03-05] MEDS: LANTUS PER UNIT CHARGE SQ SCH (22:22)
[2024-03-05] MEDS: CYANOCOBALAMIN (B-12) 500 MCG TABLET PO SCH (22:22)
[2024-03-05] MEDS: TAMSULOSIN HCL 0.4 MG CAP PO SCH (22:22)
[2024-03-05] MEDS: METOPROLOL TARTRATE 25 MG TAB PO SCH (22:22)
[2024-03-05] MEDS: PANTOprazole 40 MG TAB PO SCH (23:20)
[2024-03-06] MEDS: CHOLECALCIFEROL 25 MCG (1000 UNITS) TAB PO SCH ×2 (00:19→20:52)
[2024-03-06] MEDS: HYDROcodone/ACETAMINOPHEN 10/325 TAB PO PRN (00:53)
[2024-03-06] MEDS: CALCIUM CARBONATE 500 MG CHEWABLE TAB PO ONE ×2 (02:14→12:26)
[2024-03-06] MEDS: LEVOTHYROXINE SODIUM 150 MCG TABLET PO SCH (06:12)
[2024-03-06 06:40] LABS: Basophils # (auto) 0.09 K/uL (0.00-0.20); Basophils % (auto) 2.3 %; Eosinophils # (auto) 0.12 K/uL (0.00-0.50); Hematocrit (blood only) 31.8 % (42.0-52.0); Hemoglobin 10.4 g/dl (14.0-18.0); Immature Granulocytes # (auto) 0.02 K/uL (0.01-0.20); Immature Granulocytes % (auto) 0.5 %; Lymphocytes # (auto) 1.02 K/uL (1.20-3.40); Lymphocytes % (auto) 25.6 %; Mean Corpuscular Hemoglobin 28.7 pg (25.0-34.0); Mean Corpuscular Hgb Conc 32.7 g/dL (32.0-36.0); Mean Corpuscular Volume 87.6 fL (80.0-100.0); Mean Platelet Volume 11.3 fL (9.4-12.4); Monocytes # (auto) 0.64 K/uL (0.11-0.59); Monocytes % (auto) 16.1 %; Neutrophils # (auto) 2.09 K/uL (1.40-6.50); Neutrophils % (auto) 52.5 %; Platelet Count 152 K/uL (130-400); RDW Coefficient of Variation 14.3 % (11.5-14.5); RDW Standard Deviation 45.7 fL (36.4-46.3); Red Blood Count 3.63 M/uL (4.70-6.10); White Blood Count 3.98 K/ul (4.8-10.8)
[2024-03-06 06:47] LABS: Albumin Globulin Ratio 1.3 (0.9-2); Albumin Level 3.6 gm/dl (3.4-5.0); BUN Creatinine Ratio 9.1 (10-20); Bilirubin,Total 0.5 mg/dl (0.2-1.0); Calcium 9.3 mg/dl (8.6-10.3); Chol HDL Ratio 3.3 (0-5); Creatinine Clr Calc Pharmacy 73.1 ml/min; Est GFR (African American) 66.5 ml/min; Est GFR (Non-African American) 57.4 ml/min; Globulin 2.7 gm/dl (2.5-4.0); Magnesium 2.4 mg/dl (1.7-2.4); Potassium 3.6 mmol/L (3.5-5.1); Total Protein 6.3 gm/dl (6.0-8.3)
[2024-03-06 07:04] LABS: Estimated Average Glucose 108 mg/dl; Hemoglobin A1C 5.4 % (4.5-5.6)
[2024-03-06] MEDS: PANTOprazole 40 MG TAB PO SCH (08:33)
[2024-03-06] MEDS: SUCRALFATE 1 GM TAB PO SCH (08:33)
[2024-03-06] MEDS: ASPIRIN 81 MG ECTAB PO SCH (08:36)
[2024-03-06] MEDS: amLODIPine BESYLATE 5 MG TAB PO SCH (08:36)
[2024-03-06] MEDS: FINASTERIDE 5 MG TAB PO SCH (08:37)
[2024-03-06] MEDS: FERROUS SULFATE 325 MG TAB PO SCH (08:37)
[2024-03-06] MEDS: ISOSORBIDE MONO EXTENDED REL 60 MG TABCR PO SCH (08:37)
[2024-03-06] MEDS: predniSONE 5 MG TAB PO SCH (08:38)
--- NOTE | 2024-03-06 10:04 | XCELERA ---
[id number]
--- NOTE | 2024-03-06 11:24 | Cardiology Consultation ---
Date of Consultation March 06, 2024 Assessment & Plan (1) Abnormal EKG: (2) Aortic valve stenosis, severe: (3) H/O aortic valve replacement: (4) LVH (left ventricular hypertrophy): (5) Demand ischemia: (6) Elevated troponin: Plan Mr. Zepeda is a 79 year old male with a history of Hypertension, Hypercholesterolemia, Type 2 Diabetes Mellitus, SLE, COPD, PAF, Aortic Stenosis s/p Bioprosthetic AVR July 2013, Lung Mass s/p XRT x 5, AVM's of the GI Tract, and Recurrent GI Bleeds who was admitted over weekend with an upper GI bleed. EGD was performed, but source of blood loss was not identified. He was subsequently discharged from that hospitalization, and over the ensuing 3 weeks he describes generalized weakness despite his hemoglobin increasing, and just prior to this admission on 03/05/2024 the patient had some substernal and midepigastric pain that was relieved by repeatedly belching. These symptoms were made worse by eating, and he states that he is still belching from eating dinner last night. He denies any radiation of the chest discomfort, he denies any associated symptoms, specifically denying any associated nausea, vomiting, or diaphoresis. Patient and his admit that over the past year he has experienced increasing exertional dyspnea and decreased exertional tolerance which is very reminiscent of his symptoms leading up to his aortic valve replacement 11 years ago. His EKG has slightly more pronounced T-wave inversions in the inferior leads and the anterolateral leads and his high sensitivity troponin I was initially 235.3 with follow-up values of 161.5 and 136.8 pg/mL. He is anemic with a hemoglobin of 10.4 within normal white blood cell count and normal platelet count. Sodium is 143 mmol/L, potassium is 3.6 mmol/L, BUN is 11 mg/dL creatinine 1.21 mg/dL, blood sugar 101 mg/dL. His blood pressures have ranged between 111/84 to a high of 153/97, his heart rate has been in the 80s 90s and low 100s. Patient is currently being seen in room 456 bed 2, and he is still belching intermittently. He has not had any prolonged episodes of chest discomfort as belching relieves it. He appears euvolemic. He is compliant with his medications and has not had any adverse side effects. Patient's bioprosthetic aortic valve is severely narrowed, calculated aortic valve area 0.58 cm where, Ao V2 max 495 cm/sec -- which is likely contributing to his exertional dyspnea and decreased exertional tolerance over the past year or more. Additionally he is moderate concentric LVH which is most likely the cause for the more pronounced T-wave inversions in his anterolateral leads and inferior leads. I do not think that this represents an acute coronary syndrome, this most likely represents demand ischemia related to his LVH, severe aortic stenosis, anemia, recent GI bleed and intermittent hypertension. Recommend followin. NPO in preparation for a Cardiac Catheterization prior to referring for TAVR. 2. Refer to [facility] for TAVR. 3. Continue Aspirin 81 mg daily. 4. Continue Atorvastatin 10 mg twice weekly. 5. Continue Imdur ER 60 mg daily. 6. Continue Lopressor 25 mg t.i.d. We will continue to follow this patient along while hospitalized and following discharge. History of Present Illness Reason for Consultation: -- ? NSTEMI. Requesting Physician: Rolly Baker DO Attending Physician: Sharif Love MD History of Present Illness Mr. Zepeda is a 79 year old male with a history of Hypertension, Hypercholesterolemia, Type 2 Diabetes Mellitus, SLE, COPD, PAF, Aortic Stenosis s/p Bioprosthetic AVR July 2013, Lung Mass s/p XRT x 5, AVM's of the GI Tract, and Recurrent GI Bleeds who was admitted over with an upper GI bleed. EGD was performed, but source of blood loss was not identified. He was subsequently discharged from that hospitalization, and over the ensuing 3 weeks he describes generalized weakness despite his hemoglobin increasing, and just prior to this admission on 03/05/2024 the patient had some substernal and midepigastric pain that was relieved by repeatedly belching. These symptoms were made worse by eating, and he states that he is still belching from eating dinner last night. He denies any radiation of the chest discomfort, he denies any associated symptoms, specifically denying any associated nausea, vomiting, or diaphoresis. Patient and his admit that over the past year he has experienced increasing exertional dyspnea and decreased exertional tolerance which is very reminiscent of his symptoms leading up to his aortic valve replacement 11 years ago. His EKG has slightly more pronounced T-wave inversions in the inferior leads and the anterolateral leads and his high sensitivity troponin I was initially 235.3 with follow-up values of 161.5 and 136.8 pg/mL. He is anemic with a hemoglobin of 10.4 within normal white blood cell count and normal platelet count. Sodium is 143 mmol/L, potassium is 3.6 mmol/L, BUN is 11 mg/dL creatinine 1.21 mg/dL, blood sugar 101 mg/dL. His blood pressures have ranged between 111/84 to a high of 153/97, his heart rate has been in the 80s 90s and low 100s. Patient is currently being seen in room 456 bed 2, and he is still belching intermittently. He has not had any prolonged episodes of chest discomfort as belching relieves it. He appears euvolemic. He is compliant with his medications and has not had any adverse side effects. Allergies Allergy/AdvReac Type Severity Reaction Status Date / Time erythromycin base Allergy Severe HIVES ALL Verified 03/05/24 16:16 OVER bacitracin Allergy Intermediate Skin Verified 03/05/24 16:16 Irritation neomycin Allergy Intermediate Skin Verified 03/05/24 16:16 Irritation polymyxin B Allergy Intermediate Skin Verified 03/05/24 16:16 Irritation Iodinated Contrast Media AdvReac Severe SEVERE Verified 03/05/24 16:16 NAUSEA/VOMITING morphine AdvReac Severe severe n/v Verified 03/05/24 16:16 Opioids - Morphine Analogues AdvReac Severe Gastrointestinal Verified 03/05/24 16:16 Upset Sulfa (Sulfonamide AdvReac Severe Nausea Verified 03/05/24 16:16 Antibiotics) adhesive tape AdvReac Intermediate Blistered Verified 03/05/24 16:16 skin clavulanic acid AdvReac Intermediate CHILLS, Verified 03/05/24 16:16 HEADACHE, "MADE HIM SICK" Macrolide Antibiotics AdvReac Intermediate CHILLS, Verified 03/05/24 16:16 HEADACHE, "MADE HIM SICK" sulfamethoxazole AdvReac Intermediate CHILLS, Verified 03/05/24 16:16 HEADACHE, "MADE HIM SICK" Home Medications Medication Instructions Recorded Confirmed Type ferrous sulfate 325 mg (65 mg 325 mg PO QAM 07/01/18 03/05/24 History iron) tablet hydroxychloroquine 200 mg tablet 200 mg PO BID 02/26/21 03/05/24 History cyanocobalamin (vitamin B-12) 1,000 mcg PO QPM 05/28/21 03/05/24 History 2,000 mcg tablet,extended release (Vitamin B-12 ER) cholecalciferol (vitamin D3) 50 2,000 unit PO Q OTHER DAY 07/07/21 03/05/24 History mcg (2,000 unit) capsule (Vitamin D3) cranberry 500 mg capsule 500 mg PO QAM 07/07/21 03/05/24 History pen needle, diabetic 32 gauge x #400 ea 10/18/22 02/28/24 Rx 32" (BD Kell 2nd Gen Pen Needle) diphenhydramine HCl 12.5 mg/5 mL 37.5 mg PO HS PRN Sleep 02/04/23 03/05/24 History oral elixir docusate sodium 100 mg tablet 100 mg PO HS 02/04/23 03/05/24 History insulin glargine U-300 conc 300 22 unit subcut HS 02/04/23 03/05/24 History unit/mL (3 mL) subcutaneous pen (Toujeo Max U-300 SoloStar) lidocaine 4 % topical patch 1 patch topical DIRECTED PRN 02/04/23 03/05/24 History Pain OneTouch Verio Mid Control (blood #1 ea 03/28/23 02/28/24 Rx glucose control, normal) Microlet Lancet (lancets) #300 ea 04/26/23 02/28/24 Rx Osteobioflex With Turmeric 1 cap PO QPM 04/27/23 03/05/24 History albuterol sulfate 90 mcg/actuation 1 - 2 puff inhalation Q4H PRN 04/27/23 03/05/24 Rx aerosol inhaler (ProAir HFA) Shortness Of Breath Or Wheezing #18 grams doxycycline hyclate 100 mg tablet 100 mg PO BID PRN UTI 04/27/23 03/05/24 History symptoms/prostatitis metformin 500 mg tablet,extended 1,000 mg (2 x 500 mg) PO BID #360 06/02/23 03/05/24 Rx release 24 hr tabs lancing device #1 ea 08/04/23 02/28/24 Rx diazepam 5 mg tablet (Valium) 5 mg PO BID PRN anxiety #5 tabs 08/25/23 03/05/24 Rx isosorbide mononitrate 60 mg 60 mg PO QAM #90 tabs 09/07/23 03/05/24 Rx tablet,extended release 24 hr metoprolol tartrate 25 mg tablet 25 mg PO TID #270 tabs 09/15/23 03/05/24 Rx amoxicillin 500 mg tablet 2,000 mg PO DIRECTED PRN 1 HR 09/20/23 03/05/24 History PRIOR TO DENTAL PROCEDURES atorvastatin 10 mg tablet (Lipitor) 10 mg PO 2XWK 09/20/23 03/05/24 History cholecalciferol (vitamin D3) 25 1,000 unit PO Q OTHER DAY 09/20/23 03/05/24 History mcg (1,000 unit) tablet (Vitamin D3) insulin lispro 100 unit/mL 0 unit subcut QDD 09/20/23 03/05/24 History subcutaneous pen (Humalog KwikPen (U-100) Insulin) pantoprazole 40 mg tablet,delayed 40 mg PO BID #180 tabs 09/21/23 03/05/24 Rx release (Protonix) escitalopram oxalate 10 mg tablet 10 mg PO HS 10/19/23 03/05/24 History (Lexapro) meloxicam 7.5 mg tablet 7.5 mg PO QAM 10/19/23 03/05/24 History finasteride 5 mg tablet 5 mg PO DAILY #90 tabs 10/24/23 03/05/24 Rx tamsulosin 0.4 mg capsule (Flomax) 0.4 mg PO HS #90 caps 10/24/23 03/05/24 Rx polyethylene glycol 3350 17 gram 17 g PO DAILY PRN Constipation 10/25/23 03/05/24 History oral powder packet (Miralax) oxycodone 5 mg tablet 5 mg PO Q8H PRN breakthrough pain 11/17/23 03/05/24 Rx #30 tabs amlodipine 10 mg tablet 10 mg PO QAM #90 tabs 01/12/24 03/05/24 Rx cyclobenzaprine 5 mg tablet 5 mg PO TID PRN Muscle Spasm #90 01/12/24 03/05/24 Rx tabs lidocaine 4 % topical cream 1 applic topical DIRECTED PRN 02/12/24 03/05/24 History Pain aspirin 81 mg tablet,delayed 81 mg PO DAILY #1 tab 02/15/24 03/05/24 Rx release sucralfate 1 gram tablet 1 g PO TID #90 tabs 02/20/24 03/05/24 Rx hydrocodone 10 mg-acetaminophen 1 tab PO Q6H pain #120 tabs 02/29/24 03/05/24 Rx 325 mg tablet levothyroxine 150 mcg tablet 150 mcg PO DAILYBB 03/05/24 03/05/24 History prednisone 20 mg tablet 20 mg PO DAILY #5 tabs 03/05/24 03/05/24 Rx prednisone 5 mg tablet 5 mg PO DAILY 03/05/24 03/05/24 History Patient History Medical History CKD (chronic kidney disease) Lupus Non-ST elevation AK (NSTEMI) Lung mass PAF (paroxysmal atrial fibrillation) s/p aortic valve replacment > resolved since, no longer on meds, no pacer Obesity Severe obstructive sleep apnea Anticardiolipin antibody positive Aortic stenosis Asthma rare res inh use Atrial flutter Systemic lupus erythematosus Diabetes IDDM Hypertension Hypothyroid LBBB (left bundle branch block) f/u dr. love History of colon polyps Pulmonary nodule DDD (degenerative disc disease), cervical ROM "is ok for procedures" DDD (degenerative disc disease), lumbar Osteoporosis Scoliosis Hyperlipidemia Proctitis on occasion, prn doxycycline for this CAD (coronary artery disease) follows with Dr. Love Depression Sleep apnea Bi Pap Internal hemorrhoids H/O: GI bleed severe GI bleed, treated at [facility] - resolved Surgical History History of bronchoscopy History of cataract surgery bilat S/P excision of lipoma to back History of gastric surgery due to GI bleed November 2016 History of skin surgery skin tags History of dental surgery History of esophagogastroduodenoscopy History of colonoscopy History of tonsillectomy S/P aortic valve replacement [facility] Jul 2013 History of cholecystectomy Family History Father Hypertension Diabetes Heart disease Prostate cancer Cardiac disorder Cancer Mother Rheumatoid aortitis Emphysema/COPD Hypertension Colitis Brother Hypertension Diabetes Family/Other Prostate cancer Other Bone cancer Social History Smoking Status: Never smoker Tobacco Type: Cigarettes Age Started Using Tobacco: 18; Age Quit Using Tobacco: 42; packs per day: 3; Cigarettes Per Day: quit smoking in 1979; Second Hand Exposure: No; Do You Dip or Chew Tobacco: No; Hx Alcohol Use: No Hx Substance Use: No Preferred Language: Faroese Communication Ability: Effective Visual Impairment: Limited Hearing Ability: Normal Ship Keeper Required: No Beliefs That Will Affect Care: None marital status: Current Living Situation: Spouse current occupational status: retired Feels Safe at Home: Yes Childhood Exposure to Second-Hand Smoke: No Seatbelt Use: always Assistive Devices: BiPap, Cane and Walker Review of Systems Review of Systems: -- As per HPI. Physical Exam Physical Exam: BP 124/87. Pulse 93 and regular. GENERAL: Patient in no acute distress. HEENT: Head is atraumatic, normocephalic. EOM's intact. Facies symmetric. No perioral cyanosis. NECK: No JVD. JVP is not elevated. Carotid upstrokes are + 2 bilaterally. CHEST/LUNGS: Clear to auscultation throughout all lung martinez. No wheezes, rales, or crackles. CVS: S1 and S2 are regular with a grade 2/6 crescendo decrescendo basal systolic murmur that radiates to the suprasternal notch and left sternal border. No diastolic murmurs. No gallops or rubs. PMI is nonpalpable. No lifts, heaves, or thrills. No abdominal aortic or renal bruits. ABDOMINAL EXAM: Bowel sounds are present. No masses, organomegaly, or tenderness. EXTREMITIES: No clubbing or cyanosis. No edema. Intact radial pulses bilaterally. NEUROLOGIC EXAM: Patient is awake, alert, and oriented. Pleasant and cooperative. Answers questions appropriately. Speech is clear. ECHOCARDIOGRAM 03/06/24: -- Normal LV systolic function. -- Moderate concentric LVH. -- Septal motion consistent with postope rative state vs a limited wall motion abnormality (present on 01/21/2023 study). -- LVEF 50% to 55%. -- Prosthetic aortic valve is well seate d with an abnormal gradient for this prosthetic aortic valve. -- Mild MR. -- When compared to 01/21/2023 study gra dient across the prosthetic aortic valve is now increased, calculated aortic valve area 0.58 cm2, aortic V2 max 495 cm/second. Results & Data Vital Signs (Past 12 Hours) Vital Signs Temp Pulse Pulse Resp BP Pulse Ox O2 Del Method 03/06/24 08:00 Room Air 03/06/24 08:00 93 H 03/06/24 07:18 36.7 C 89 18 124/87 94 Nasal Cannula 03/06/24 02:12 36.8 C 97 H 18 138/91 95 Room Air 03/06/24 01:10 Room Air 03/06/24 01:05 96 H 03/06/24 01:00 36.6 C 108 H 22 121/83 98 Room Air 03/06/24 00:02 95 H 22 137/98 94 Room Air 03/05/24 23:54 92 H 22 153/97 H Room Air Laboratory Results Laboratory Results - last 24 hr 03/05/24 03/05/24 03/05/24 11:56 15:45 15:58 WBC RBC Hgb Hct MCV MCH MCHC RDW Std Deviation RDW Coeff of Juan Pablo Plt Count MPV Immature Gran % (Auto) Neut % (Auto) Lymph % (Auto) [place]wood % (Auto) Eos % (Auto) Baso % (Auto) Neut # (Auto) Lymph # (Auto) [place]wood # (Auto) Eos # (Auto) Baso # (Auto) Immature Gran # (Auto) PT 11.0 INR 1.0 Sodium Potassium Chloride Carbon Dioxide Anion Gap BUN Creatinine Est Cr Clr Drug Dosing Est GFR ( Amer) Est GFR (Non-Af Amer) BUN/Creatinine Ratio Glucose POC Glucose 113 H Estimat Average Glucose Hemoglobin A1c Calcium Magnesium Total Bilirubin AST ALT Alkaline Phosphatase Troponin I High Sens 235.3 H* 161.5 H* D Total Protein Albumin Globulin Albumin/Globulin Ratio Triglycerides Cholesterol LDL Cholesterol, Calc VLDL Cholesterol, Calc HDL Cholesterol Cholesterol/HDL Ratio Lipase < 3 L Urine Color Urine Appearance Urine pH Ur Specific [place] Urine Protein Urine Glucose (UA) Urine Ketones Urine Blood Urine Nitrite Urine Bilirubin Urine Urobilinogen Ur Leukocyte Esterase Urine WBC (Auto) Urine RBC (Auto) U Hyaline Cast (Auto) U Epithel Cells (Auto) Urine Bacteria (Auto) 03/05/24 03/05/24 03/05/24 16:13 18:34 22:09 WBC RBC Hgb Hct MCV MCH MCHC RDW Std Deviation RDW Coeff of [place] Plt Count MPV Immature Gran % (Auto) Neut % (Auto) Lymph % (Auto) [place]wood % (Auto) Eos % (Auto) Baso % (Auto) Neut # (Auto) Lymph # (Auto) [place]wood # (Auto) Eos # (Auto) Baso # (Auto) Immature Gran # (Auto) PT INR Sodium Potassium Chloride Carbon Dioxide Anion Gap BUN Creatinine Est Cr Clr Drug Dosing Est GFR ( Amer) Est GFR (Non-Af Amer) BUN/Creatinine Ratio Glucose POC Glucose 125 H Estimat Average Glucose Hemoglobin A1c Calcium Magnesium Total Bilirubin AST ALT Alkaline Phosphatase Troponin I High Sens 136.8 H* Total Protein Albumin Globulin Albumin/Globulin Ratio Triglycerides Cholesterol LDL Cholesterol, Calc VLDL Cholesterol, Calc HDL Cholesterol Cholesterol/HDL Ratio Lipase Urine Color Yellow Urine Appearance Clear Urine pH 6.5 Ur Specific [place] 1.008 Urine Protein Negative Urine Glucose (UA) Negative Urine Ketones Negative Urine Blood Negative Urine Nitrite Negative Urine Bilirubin Negative Urine Urobilinogen Negative Ur Leukocyte Esterase Trace H Urine WBC (Auto) 0-5 Urine RBC (Auto) 0-2 U Hyaline Cast (Auto) 0-2 U Epithel Cells (Auto) 0-2 Urine Bacteria (Auto) None Seen 03/06/24 03/06/24 03/06/24 05:50 07:20 12:15 WBC 3.98 L RBC 3.63 L Hgb 10.4 L Hct 31.8 L MCV 87.6 MCH 28.7 MCHC 32.7 RDW Std Deviation 45.7 RDW Coeff of Juan Pablo 14.3 Plt Count 152 MPV 11.3 Immature Gran % (Auto) 0.5 Neut % (Auto) 52.5 Lymph % (Auto) 25.6 Haywood % (Auto) 16.1 Eos % (Auto) 3.0 Baso % (Auto) 2.3 Neut # (Auto) 2.09 Lymph # (Auto) 1.02 L [place]wood # (Auto) 0.64 H Eos # (Auto) 0.12 Baso # (Auto) 0.09 Immature Gran # (Auto) 0.02 PT INR Sodium 143 Potassium 3.6 Chloride 110 H Carbon Dioxide 28 Anion Gap 5 BUN 11 Creatinine 1.21 Est Cr Clr Drug Dosing 73.1 Est GFR ( Amer) 66.5 Est GFR (Non-Af Amer) 57.4 BUN/Creatinine Ratio 9.1 L Glucose 101 H POC Glucose 114 H 87 Estimat Average Glucose 108 Hemoglobin A1c 5.4 Calcium 9.3 Magnesium 2.4 Total Bilirubin 0.5 AST 22 ALT 13 Alkaline Phosphatase 42 Troponin I High Sens Total Protein 6.3 Albumin 3.6 Globulin 2.7 Albumin/Globulin Ratio 1.3 Triglycerides 116 Cholesterol 150 LDL Cholesterol, Calc 81 VLDL Cholesterol, Calc 23 HDL Cholesterol 46 Cholesterol/HDL Ratio 3.3 Lipase Urine Color Urine Appearance Urine pH Ur Specific [place] Urine Protein Urine Glucose (UA) Urine Ketones Urine Blood Urine Nitrite Urine Bilirubin Urine Urobilinogen Ur Leukocyte Esterase Urine WBC (Auto) Urine RBC (Auto) U Hyaline Cast (Auto) U Epithel Cells (Auto) Urine Bacteria (Auto) Diagnostic Findings CXR 03/05/24: 1. Cardiomegaly without radiographic evidence of congestive failure. 2. Small right pleural effusion with right basilar consolidation. Pleural effusion has increased in size from 02/28/2024. 3. The right middle lobe mass lesion seen by CT is not well visualized on x-ray. Medications Administered Medication List Hydrocodone Bitart/Acetaminophen (Hydrocodone/Acetaminophen 10/325 Tab) 1 tab PO Q6H PRN PRN Reason: Pain Stop: 03/19/24 17:44 Last Admin: 03/06/24 00:53 Dose: 1 tab Documented By: NAYE Amlodipine Besylate (Amlodipine Besylate 5 Mg Tab) 10 mg PO QAM [facility] Stop: 04/05/24 08:59 Last Admin: 03/06/24 08:36 Dose: 10 mg Documented By: AML Aspirin (Aspirin 81 Mg Ectab) 81 mg PO DAILY JONATHON Stop: 04/05/24 08:59 Last Admin: 03/06/24 08:36 Dose: 81 mg Documented By: AML Cyanocobalamin (Cyanocobalamin (B-12) 500 Mcg Tablet) 1,000 mcg PO QPM JONATHON Stop: 04/04/24 20:59 Last Admin: 03/05/24 22:22 Dose: 1,000 mcg Documented By: LIAN Docusate Sodium (Docusate Sodium 100 Mg Cap) 100 mg PO JONATHON Stop: 04/04/24 20:59 Last Admin: 03/05/24 22:22 Dose: 100 mg Documented By: LIAN Escitalopram Oxalate (Escitalopram Oxalate 10 Mg Tab) 10 mg PO [facility] Stop: 04/04/24 20:59 Last Admin: 03/05/24 22:22 Dose: 10 mg Documented By: LIAN Ferrous Sulfate (Ferrous Sulfate 325 Mg Tab) 325 mg PO QAM JONATOHN Stop: 04/05/24 08:59 Last Admin: 03/06/24 08:37 Dose: 325 mg Documented By: VIJAYA Finasteride (Finasteride 5 Mg Tab) 5 mg PO DAILY JONATHON Stop: 04/05/24 08:59 Last Admin: 03/06/24 08:37 Dose: 5 mg Documented By: VIJAYA Insulin Aspart (Insulin Aspart Per Unit Charge) 0 units SC ACHS JONATHON Stop: 04/04/24 16:29 Last Admin: 03/06/24 12:22 Dose: Not Given Documented By: Admin: 03/06/24 09:44 Dose: 2 units Documented By: VIJAYA Co-signed By: [email or web address]) Admin: 03/05/24 22:10 Dose: Not Given Documented By: LIAN Co-signed By: WILLI Admin: 03/05/24 16:01 Dose: Not Given Documented By: CARLOS Co-signed By: VERONICA Insulin Glargine (Lantus Per Unit Charge) 10 units SQ BID JONATHON Stop: 04/04/24 20:59 Last Admin: 03/06/24 09:45 Dose: 10 units Documented By: VIJAYA Co-signed By: NAYE(2) Admin: 03/05/24 22:22 Dose: 10 units Documented By: LIAN Co-signed By: WILLI Isosorbide Mononitrate (Isosorbide [place] Extended Rel 60 Mg Tabcr) 60 mg PO QAM [facility] Stop: 04/05/24 08:59 Last Admin: 03/06/24 08:37 Dose: 60 mg Documented By: VIJAYA Levothyroxine Sodium (Levothyroxine Sodium 150 Mcg Tablet) 150 mcg PO DAILYBB [facility] Stop: 04/05/24 06:29 Last Admin: 03/06/24 06:12 Dose: 150 mcg Documented By: NAYE Metoprolol Tartrate (Metoprolol Tartrate 25 Mg Tab) 25 mg PO TID JONATHON Stop: 04/04/24 20:59 Last Admin: 03/06/24 08:37 Dose: 25 mg Documented By: Admin: 03/05/24 22:22 Dose: 25 mg Documented By: KAF Nitroglycerin (Nitroglycerin Sl 0.4 Mg/Tab Tab) 0.4 mg SL Q5M PRN PRN Reason: Chest Pain Stop: 04/04/24 15:58 Last Admin: 03/05/24 16:19 Dose: 0.4 mg Documented By: Admin: 03/05/24 16:12 Dose: 0.4 mg Documented By: CARLOS Pantoprazole Sodium (Pantoprazole 40 Mg Tab) 40 mg PO 0730,1630 JONATHON Stop: 04/04/24 20:59 Last Admin: 03/06/24 08:33 Dose: 40 mg Documented By: AML Prednisone (Prednisone 5 Mg Tab) 5 mg PO DAILY JONATHON Stop: 04/05/24 08:59 Last Admin: 03/06/24 08:38 Dose: 5 mg Documented By: AML Tamsulosin HCl (Tamsulosin Hcl 0.4 Mg Cap) 0.4 mg PO HS [facility] Stop: 04/04/24 20:59 Last Admin: 03/05/24 22:22 Dose: 0.4 mg Documented By: LIAN Vitamin D (Cholecalciferol 25 Mcg (1000 Units) Tab) 25 mcg PO Q2D JONATHON Stop: 04/04/24 21:14 Last Admin: 03/06/24 00:19 Dose: Not Given Documented By: WILLI Discontinued Medications Al Hydrox/Mg Hydrox/Simethicone (Aluminum/Magnesium Susp 30 Ml Udc) 30 ml PO NOW STA Stop: 03/05/24 13:48 Last Admin: 03/05/24 13:55 Dose: 30 ml Documented By: CARLOS Aspirin (Aspirin Chew 324 Mg) 324 mg PO NOW STA Stop: 03/05/24 14:53 Last Admin: 03/05/24 15:21 Dose: 324 mg Documented By: CARLOS Calcium Carbonate (Calcium Carbonate 500 Mg Chewable Tab) 500 mg PO ONCE ONE Stop: 03/06/24 01:41 Last Admin: 03/06/24 02:14 Dose: 500 mg Documented By: NAYE Calcium Carbonate (Calcium Carbonate 500 Mg Chewable Tab) 500 mg PO ONCE ONE Stop: 03/06/24 12:19 Last Admin: 03/06/24 12:26 Dose: 500 mg Documented By: VIJAYA Nitroglycerin (Nitroglycerin Sl 0.4 Mg/Tab Tab) Confirm Administered Dose 0.4 mg .ROUTE .STK-MED ONE Stop: 03/05/24 16:10 Last Admin: 03/05/24 16:14 Dose: Not Given Documented By: CARLOS Pantoprazole Sodium (Pantoprazole 40 Mg Tab) 40 mg PO BID [facility] Stop: 04/04/24 20:59 Last Admin: 03/05/24 23:20 Dose: 40 mg Documented By: WILLI Sucralfate (Sucralfate 1 Gm Tab) 1 gm PO AC [facility] Stop: 04/05/24 07:29 Last Admin: 03/06/24 08:33 Dose: 1 gm Documented By: VIJAYA PG Care Time/CCT Total # of Minutes Spent Total Time Spent with Patient: Total time spent is greater than 50% in coordination of care (as documented) at patient's floor/unit and/or counseling patient:42 Coding [place] [address] INT INP/OBS CARE 3/75MIN Patient Type Established Medical Decision Making High Complexity Diagnoses Abnormal EKG R94.31 Aortic valve stenosis, severe I35.0 H/O aortic valve replacement Z95.2 LVH (left ventricular hypertrophy) I51.7 Demand ischemia I24.89 Elevated troponin R79.89 Time Spent (min) 82
--- NOTE | 2024-03-06 13:39 | Pre Anesthesia Assessment ---
Date of Service March 06, 2024 Pre Sedation Assessment Vital Signs Temp Pulse Pulse Resp BP Pulse Ox O2 Del Method 03/06/24 13:13 97.5 F L 99 H 14 128/96 93 Room Air 03/06/24 11:53 97.9 F 91 H 18 129/89 96 Nasal Cannula 03/06/24 08:00 Room Air 03/06/24 08:00 93 H 03/06/24 07:18 98.1 F 89 18 124/87 94 Nasal Cannula 03/06/24 02:12 98.2 F 97 H 18 138/91 95 Room Air 03/06/24 01:10 Room Air 03/06/24 01:05 96 H 03/06/24 01:00 97.9 F 108 H 22 121/83 98 Room Air 03/06/24 00:02 95 H 22 137/98 94 Room Air 03/05/24 23:54 92 H 22 153/97 H Room Air 03/05/24 21:26 95 H 18 128/84 99 Room Air 03/05/24 18:30 101 H 18 142/107 H 95 Room Air 03/05/24 17:51 99 H 03/05/24 17:30 94 H 18 126/87 94 Room Air 03/05/24 16:20 100 H 18 111/84 94 Room Air 03/05/24 14:00 83 Cardiovascular RRR, no murmur, no edema Respiratory normal respiratory effort, lungs clear to auscultation Pre-Sedation Airway Assessment Smoking Status: Never smoker Hx Sleep Apnea: No Hx Difficult Intubation: No Short, Thick Neck: No Thyromental Distance: > or= 3.5 Finger Breadths Oral Cavity: + Dentures Mallampati Class: III ASA: ASA3 NPO Status Date of Last Intake of Fluids: 03/06/24 Time of Last Intake of Fluids: 07:00 Date of Last Intake of Solid Food: 03/06/24 Time of Last Intake of Solid Foods: 07:00 Procedure Planning Contraindications for Sedation: none Current Medications Reviewed: Yes Notes The planned sedation has been discussed with the patient. Informed Consent was obtained. I have identified the patient, determined the appropriateness of sedation and have assessed the patient immediately prior to the procedure. All medicine(s) and interventions are by my order.
--- NOTE | 2024-03-06 14:04 | Hospitalist Progress Note ---
Date of Service March 06, 2024 Assessment & Plan (1) Elevated troponin: Plan: Uri Zepeda is a 79 year old male with a complex PMHx of lung mass of unknown significance treated empirically with radiation therapy (5 days total, last dose was 12/28), aortic valve stenosis s/p AV value replacement (pig) SLE, antiphospholipid syndrome (anticardiolipin antibody positive) who is being evaluated following an NSTEMI. Demand Ischemia - acute -Baseline troponin ~80. On admission, 253. Trending downward. -EK NSR, LVH, TWI evident in Inferior leads and more evident in anterolateral lead. Compared with 01/22/24, valve pressure gradient increased -Echo: Moderate LVH, LV EF 50-55%, Prosthetic valve pressure gradient is abnormal, Mild MR -s/p cardiac catheterization -Consulted cardiology, appreciate recommendations * Continue Aspirin 81 mg daily, atorvastatin 10 mg BID, Imdur (isosorbide mononitrate - nitrate) 60 mg, Lopressor 25 mg TID * Given patient's recent GI bleed and positive anticardiolipin antibody status, no anticoagulation * [place] [facility] [place] Aortic valve stenosis s/p repair - s/p porcine aortic valve replacement 2012. Normocytic Anemia - chronic -In the context of chronic GI bleeding -On admission: Hbg 10.1 * Will check iron and B12 * Will consider RBC transfusion if Hbg drops below 8 * Continue Ferrous Suldate 325 mg PO QAM Back Pain - acute on chronic -Patient endorsing lower back pain that is exacerbated by lying in the hospital bed * Ordered Valium 5 mg Q4H PRN Afib/Aflutter - resolved -Prior to AV replacement -Not currently anticoagulated, see demand ischemia DMT2 - chronic -insulin requiring basal bolus sliding scale regimen -Baseline A1C is between 6.0 - 7.0% -A1C 5.4% on admission * Continue metformin 500 mg Upper GI Bleed - chronic -January 2024, EGD did not reveal the source. History of gastric AVMs -Hemoglobin stable at approximately 10.1 g/dL. -The patient's had no recent black stools or bloody stools since leaving the hospital at the end of January. * Monitor carefully. Pneumonia - resolved -Recently treated as outpatient, just completed amoxicillin and doxycycline. Hypertension - chronic * Continue amlodipine 10 mg Hypothyroidism - chronic * Continue levothyroxine 150 mcg BPH - chronic * Continue tamsulosin 0.4 mg PO and Finasteride 5 mg PO GERD - chronic * Continue Protonix 40 mg and Carafate 1 gm PO QID Hyperlipidemia - chronic * Continue statin therapy COPD/asthma - chronic -No evidence of acute exacerbation * Continue home meds Systemic lupus erythematosus - chronic * Continue Prednisone 5 mg Depression - chronic * Continue Lexapro 10 mg Vitamin D Deficiency * Continue 50 mcg PO Q2D FEN: DM2 Code status: full code DVT ppx: Heparin Held home meds: Consults: cardiology Dispo: med/surg Admission and Anticipated Discharge Date Admission Date: March 05, 2024 Supervising Physician Co-Signing Physician Notes I personally examined the patient and verified all chapa points of history and exam, discussed case, and agree with decision making with Fifi Posey MS4 feeling better this afternoon From a chest pain standpoint/breathing standpoint, still burping. More notably, he is having back spasmsnotes that prior before testing Valium has helped significantly, and has no impact on his mental status in the past.. Extensive discussion with patient and . Appreciate cardiology input greatly. Vitals noted, in general he is awake and alert pleasant no distress. HEENT normocephalic atraumatic mucous membranes moist. Breathing unlabored no accessory muscle use good effort. Skin without rashes no pallor or icterus. Severe aortic stenosisappreciate cardiology assistance. And given the severity of his symptoms and the spontaneity of the current exacerbation, while it is quite rare to be able to transfer hospital to hospital for TAVR, I will see if we can facilitate this. Even before the current decompensation, his symptoms were so severe that he noted it would probably take 2 or 3 stops to rest in order to even go to the bathroom. Angioectasias with recent GI bleedinglikely related to the aortic stenosis. Fortunately does not have coronary disease necessitating further antiplatelets. Continue to follow. Ferritin last week was only 19.5between iron for better hematopoiesis, and outcome studies suggesting ferritin greater than 50, possibly 100 depending on which studies improve outcomes in CHF patientswill give venofer Otherwise as above Subjective No acute overnight events Pain control: endorsing low back pain Bowel/bladder concerns: Able to ambulate to the bathroom with significant shortness of breath, has to stop twice on way to bathroom. Last BM was on Tuesday. The chest pain was a 4/10 on arrival and is currently a 1/10. He endorses worsening indigestion, belching, and chest pressure over the past 3 weeks. He reports the belching has improved with oxygen therapy while in the hospital. Per , the patient has lost 10 pounds since the beginning of january. He was recently on dual antibiotic therapy for the treatment of PNA. He was evaluated for concerns of an upper GI bleed 3 weeks ago, although EGD was only significant for gastritis. Since discharge, he has not noticed any melena or hematochezia. No known history of prior MD or stroke. Review of Systems 2 Review of Systems: See HPI, otherwise negative Physical Exam 2 Physical Exam: Constitutional: chronically ill-appearing, no acute distress HEENT: NCAT, no conjunctival injection, no scleral icterus CV: regular rate and rhythm, systolic murmur appreciated at the right sternal boarder, extremities well-perfused, no LE edema Resp: CTABL, no wheezes/rales/rhonchi appreciated,no increased work of breathing GI: soft, nondistended, nontender, BS normoactive MSK: no gross deformities appreciated. SCDs in place. Skin: warm, dry, no rash appreciated. Bilateral areas of firm, well demarcated edema on the anterior shins without erythema or TTP. Neuro: alert, oriented, no focal neurologic deficits appreciated Results & Data Results & Data Vital Signs (Past 12 Hours) Vital Signs Temp Pulse Pulse Resp BP Pulse Ox O2 Del Method 03/06/24 07:18 98.1 F 89 18 124/87 94 Nasal Cannula 03/06/24 02:12 98.2 F 97 H 18 138/91 95 Room Air 03/06/24 01:10 Room Air 03/06/24 01:05 96 H 03/06/24 01:00 97.9 F 108 H 22 121/83 98 Room Air 03/06/24 00:02 95 H 22 137/98 94 Room Air 03/05/24 23:54 92 H 22 153/97 H Room Air 03/05/24 21:26 95 H 18 128/84 99 Room Air Laboratory Results 03/06/24 05:50 03/06/24 05:50 Diagnostic Findings SINGLE VIEW CHEST 1. Cardiomegaly without radiographic evidence of congestive failure. 2. Small right pleural effusion with right basilar consolidation. Pleural effusion has increased in size from 02/28/2024. 3. The right middle lobe mass lesion seen by CT is not well visualized on x-ray. 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 Mild nonobstructive coronary artery disease -30-40% proximal LAD 40% mid circumflex Echo: -Moderate LVH -LV EF 50-55% -Prosthetic valve pressure gradient is abnormal -Mild MR -Compared with 01/22/24, valve pressure gradient increased Medications Administered Hydrocodone Bitart/Acetaminophen (Hydrocodone/Acetaminophen 10/325 Tab) 1 tab PO Q6H PRN PRN Reason: Pain Stop: 03/19/24 17:44 Last Admin: 03/06/24 00:53 Dose: 1 tab Documented By: AMDana Amlodipine Besylate (Amlodipine Besylate 5 Mg Tab) 10 mg PO QAM JONATHON Stop: 04/05/24 08:59 Last Admin: 03/06/24 08:36 Dose: 10 mg Documented By: AML Aspirin (Aspirin 81 Mg Ectab) 81 mg PO DAILY JONATHON Stop: 04/05/24 08:59 Last Admin: 03/06/24 08:36 Dose: 81 mg Documented By: AML Cyanocobalamin (Cyanocobalamin (B-12) 500 Mcg Tablet) 1,000 mcg PO QPM JONATHON Stop: 04/04/24 20:59 Last Admin: 03/05/24 22:22 Dose: 1,000 mcg Documented By: LIAN Docusate Sodium (Docusate Sodium 100 Mg Cap) 100 mg PO HS JONATHON Stop: 04/04/24 20:59 Last Admin: 03/05/24 22:22 Dose: 100 mg Documented By: KAF Escitalopram Oxalate (Escitalopram Oxalate 10 Mg Tab) 10 mg PO HS JONATHON Stop: 04/04/24 20:59 Last Admin: 03/05/24 22:22 Dose: 10 mg Documented By: KAF Ferrous Sulfate (Ferrous Sulfate 325 Mg Tab) 325 mg PO QAM JONATHON Stop: 04/05/24 08:59 Last Admin: 03/06/24 08:37 Dose: 325 mg Documented By: AML Finasteride (Finasteride 5 Mg Tab) 5 mg PO DAILY JONATHON Stop: 04/05/24 08:59 Last Admin: 03/06/24 08:37 Dose: 5 mg Documented By: AML Insulin Aspart (Insulin Aspart Per Unit Charge) 0 units SC ACHS JONATHON Stop: 04/04/24 16:29 Last Admin: 03/06/24 12:22 Dose: Not Given Documented By: Admin: 03/06/24 09:44 Dose: 2 units Documented By: VIJAYA Co-signed By: NAYE(2) Admin: 03/05/24 22:10 Dose: Not Given Documented By: LIAN Co-signed By: WILLI Admin: 03/05/24 16:01 Dose: Not Given Documented By: CARLOS Co-signed By: VERONICA Insulin Glargine (Lantus Per Unit Charge) 10 units SQ BID [facility] Stop: 04/04/24 20:59 Last Admin: 03/06/24 09:45 Dose: 10 units Documented By: VIJAYA Co-signed By: NAYE(2) Admin: 03/05/24 22:22 Dose: 10 units Documented By: LIAN Co-signed By: WILLI Isosorbide Mononitrate (Isosorbide [place] Extended Rel 60 Mg Tabcr) 60 mg PO QAM [facility] Stop: 04/05/24 08:59 Last Admin: 03/06/24 08:37 Dose: 60 mg Documented By: VIJAYA Levothyroxine Sodium (Levothyroxine Sodium 150 Mcg Tablet) 150 mcg PO DAILYBB [facility] Stop: 04/05/24 06:29 Last Admin: 03/06/24 06:12 Dose: 150 mcg Documented By: NAYE Metoprolol Tartrate (Metoprolol Tartrate 25 Mg Tab) 25 mg PO TID [facility] Stop: 04/04/24 20:59 Last Admin: 03/06/24 08:37 Dose: 25 mg Documented By: Admin: 03/05/24 22:22 Dose: 25 mg Documented By: LIAN Nitroglycerin (Nitroglycerin Sl 0.4 Mg/Tab Tab) 0.4 mg SL Q5M PRN PRN Reason: Chest Pain Stop: 04/04/24 15:58 Last Admin: 03/05/24 16:19 Dose: 0.4 mg Documented By: Admin: 03/05/24 16:12 Dose: 0.4 mg Documented By: CARLOS Pantoprazole Sodium (Pantoprazole 40 Mg Tab) 40 mg PO 0730,1630 [facility] Stop: 04/04/24 20:59 Last Admin: 03/06/24 08:33 Dose: 40 mg Documented By: AML Prednisone (Prednisone 5 Mg Tab) 5 mg PO DAILY JONATHON Stop: 04/05/24 08:59 Last Admin: 03/06/24 08:38 Dose: 5 mg Documented By: AML Tamsulosin HCl (Tamsulosin Hcl 0.4 Mg Cap) 0.4 mg PO HS [facility] Stop: 04/04/24 20:59 Last Admin: 03/05/24 22:22 Dose: 0.4 mg Documented By: LIAN Vitamin D (Cholecalciferol 25 Mcg (1000 Units) Tab) 25 mcg PO Q2D JONATHON Stop: 04/04/24 21:14 Last Admin: 03/06/24 00:19 Dose: Not Given Documented By: WILLI
[2024-03-06] MEDS: fentaNYL citrate PF 100 MCG/2 ML VIAL ONE (14:21)
[2024-03-06] MEDS: HEPARIN (PORCINE) 1000 UNIT/ML 10 ML (CATH LAB USE ONLY) ONE (14:22)
[2024-03-06] MEDS: IODIXANOL (VISIPAQUE) 320 MG/ML 100ML IV ONE (14:22)
[2024-03-06] MEDS: MIDAZOLAM HCL 1 MG/ML 2ML VIAL ONE (14:23)
[2024-03-06] MEDS: NITROGLYCERIN/D5W 100MCG/ML 20ML SYR ONE (14:23)
[2024-03-06] MEDS: niCARdipine HCL INJ 2.5 MG/ML 10 ML AMP ONE (14:23)
[2024-03-06] MEDS: OPTIRAY 350 ONE (14:23)
[2024-03-06] MEDS: diphenhydrAMINE 50 MG/ML VIAL ONE (14:24)
[2024-03-06] MEDS: ONDANSETRON INJ 2 MG/ML 2 ML VIAL ONE (14:24)
--- NOTE | 2024-03-06 14:26 | Post Anesthesia Assessment ---
Date of Service March 06, 2024 Post Sedation Assessment Vital Signs Temp Pulse Pulse Resp BP Pulse Ox O2 Del Method 03/06/24 13:13 97.5 F L 99 H 14 128/96 93 Room Air 03/06/24 11:53 97.9 F 91 H 18 129/89 96 Nasal Cannula 03/06/24 08:00 Room Air 03/06/24 08:00 93 H 03/06/24 07:18 98.1 F 89 18 124/87 94 Nasal Cannula 03/06/24 02:12 98.2 F 97 H 18 138/91 95 Room Air 03/06/24 01:10 Room Air 03/06/24 01:05 96 H 03/06/24 01:00 97.9 F 108 H 22 121/83 98 Room Air 03/06/24 00:02 95 H 22 137/98 94 Room Air 03/05/24 23:54 92 H 22 153/97 H Room Air 03/05/24 21:26 95 H 18 128/84 99 Room Air 03/05/24 18:30 101 H 18 142/107 H 95 Room Air 03/05/24 17:51 99 H 03/05/24 17:30 94 H 18 126/87 94 Room Air 03/05/24 16:20 100 H 18 111/84 94 Room Air Recovery Score Activity: Moves 4 extremities Respiration: Deep Breath/Cough Circulation: +/-20% PreAnes Value Consciousness: Fully Awake Oxygen Saturation: O2 needed for >90% Discharge Sedation Level of Care: Fast Track Phase II Post Sedation Plan On clinical assessment, the patient appears to have tolerated the sedation without complications. Patient is recovering as anticipated. Patient will continue to be monitored by nursing and may be discharged when sedation discharge criteria are met per below protocol. Upon Completions of procedure up to 15 minutes continue every 5 minute vital signs and the P.A.R. score; then discharge to a Phase I or Fast Track to Phase II per the following guidelines: * Discharge Patient to appropriate Phase II area if PAR is 8 or greater or return to pre- procedure baseline. The post - procedure orders will be as directed. * If PAR score is less than 8 or not return to pre-procedure baseline then patient will follow Phase I monitoring till PAR is reached for Phase II. The Phase I may be done in procedure room or may call to secure a Phase I area. * If naloxone or flumazenil are used for reversal, hold in Phase I for continued monitoring from when last reversal dose was given for a minimum of 60 minutes or longer pending the nurse and/or physician discretion of patient condition before discharge to Phase II. Please call the Sedation Physician to re-evaluate and complete post-note for discharge to Phase II area. Do NOT discharge from procedure sedation or Phase 1 until post- sedation evaluation note is complete by procedure /sedation MD Sedation Discharge Instructions to be given to the patient at discharge to home.
--- NOTE | 2024-03-06 14:47 | Cardiac Catheterization ---
[facility] Data: Block Trader Cardiac Status Clinical evaluation leading to the procedure CAD Presenation: Non STEMI Anginal Classification: CCS III Diagnostic Physicians Name: Brandon Smith MD Closure Device Recommendations: Medical Therapy and/or Counseling Cardiac Cath Procedure Full Procedure Date March 06, 2024 Pre-Procedure Diagnosis Pre-Procedure Diagnosis: Non STEMI and Valvular Disease AUC Score AUC Score: 7 Post-Procedure Diagnosis Post-Procedure Diagnosis: Mild CAD Procedure(s) Performed Procedure(s) Performed: Coronary Angiography Filler Operator Brandon Smith MD Wildlife Removal Specialist(s) [place] Estimated Blood Loss Estimated Blood Loss: 10 Medication(s) Medication(s): Fentanyl, Heparin, Lidocaine 1%, Nicardipine, Nitroglycerin and Versed Summary of Findings Indication: Severe prosthetic aortic valve disease, NSTEMI Access: 6 Fr slender left radial artery Catheters: JL 4, JR4 Findings: LM -large caliber, short, almost separate ostium. No significant disease. LAD -large caliber vessel, 30 to 40% proximal stenosis remainder of vessel without significant disease and wraps around apex. Gives off 3 small to medium diagonals without disease. Circumflex -dominant, large caliber, 30 to 40% mid segment disease remainder of vessel without significant disease. Large OM1 without disease. Left PLB, PDA without disease. RCA -nondominant, medium caliber, no significant disease Arterial Closure: TR Band Summary: 1. Mild nonobstructive coronary artery disease -30-40% proximal LAD 40% mid circumflex Recommendations: Additional aortic valve replacement workup per Dr. Love. Hemodynamics Rest Ao:: 109/85/134 Final Ao: 102/80/102 LV: -- Recommendations Recommendations: Medical Therapy and/or Counseling Radiation Exposure (mGy) 1168 Contrast (mls) 70 Anesthesia Moderate [id number] Procedural Complication(s) None Disposition PCU I attest to the content of the Intraoperative Record and any orders documented therein. Any exceptions are noted below. [facility] Card Cath Procedure Codes Cardiac Catheterization Procedure 1: Cardiovascular Cath Procedures: 32808 Coronaries Moderate Sedation Procedure 1: Sedation/Anesthesia: 41569 Mod Sedation by the same physician;Init15 Min Child Age 5 & Up PG Care Time/CCT Total # of Minutes Spent Total Time Spent with Patient: Total time spent is greater than 50% in coordination of care (as documented) at patient's floor/unit and/or counseling patient:
[2024-03-06] MEDS: SODIUM CHLORIDE 0.9% 1,000 ML IV SCH (15:36)
[2024-03-06] MEDS: SUCRALFATE 1 GM/10 ML UDC PO SCH (16:59)
--- NOTE | 2024-03-06 20:22 | Billing Data ---
Date of Service March 06, 2024 Coding Level of Care Code 11315 SUB INP/OBS CARE MIN
[2024-03-06] MEDS: diazePAM 5 MG TABLET PO PRN (20:52)
[2024-03-06] MEDS: IRON SUCROSE 200 MG in 0.9 % SODIUM CHLORIDE 100 ML IV ONE (20:58)
[2024-03-06] MEDS ORDERED: CHOLECALCIFEROL 25 MCG (1000 UNITS) TAB PO SCH (21:15)
--- NOTE | 2024-03-07 07:08 | Hospitalist Progress Note ---
Date of Service March 07, 2024 Assessment & Plan (1) Elevated troponin: Plan: Uri Zepeda is a 79 year old male with a complex PMHx of lung mass of unknown significance treated empirically with radiation therapy (5 days total, last dose was 12/28), aortic valve stenosis s/p AV value replacement (pig) SLE, antiphospholipid syndrome (anticardiolipin antibody positive) who is being evaluated following an NSTEMI. Patient now s/p Cardiac catheterization. Demand Ischemia - acute -Baseline troponin ~80. On admission, 253. Trending downward. -EK NSR, LVH, TWI evident in Inferior leads and more evident in anterolateral lead. Compared with 01/22/24, valve pressure gradient increased -Echo: Moderate LVH, LV EF 50-55%, Prosthetic valve pressure gradient is abnormal, Mild MR -s/p cardiac catheterization -Consulted cardiology, appreciate recommendations * Continue Aspirin 81 mg daily, atorvastatin 10 mg BID, Imdur (isosorbide mononitrate - nitrate) 60 mg, Lopressor 25 mg TID * Given patient's recent GI bleed and positive anticardiolipin antibody status, no anticoagulation * Refer to [facility] [place] for TAVR Aortic valve stenosis s/p repair - s/p porcine aortic valve replacement 2012. -See Demand Ischemia for plan Shortness of Breath -Nasal cannula decreased to 2 L. Pulse ox 88%, previously was mid 90s on 3L. -Patient did not use BiPAP since admission. He has agreed to use hospital BiPAP this PM. -See Demand Ischemia for further plan * BiPAP ordered Normocytic Anemia - chronic -In the context of chronic GI bleeding -On admission: Hbg 10.1 -s/p Iron Sucrose 200 mg * Will consider RBC transfusion if Hbg drops below 8 * Continue Ferrous Suldate 325 mg PO QAM Back Pain - acute on chronic -Patient endorsing lower back pain that is exacerbated by lying in the hospital bed * Ordered Valium 5 mg Q4H PRN * Ordered heating pad and lidocaine patches GERD - chronic -Indigestion and belching have improved since admission -s/p Tums * Continue Protonix 40 mg and Carafate 1 gm PO QID Constipation * Ordered Colase 100 mg Afib/Aflutter - resolved -Prior to AV replacement -Not currently anticoagulated, see demand ischemia Upper GI Bleed - chronic -January 2024, EGD did not reveal the source. History of gastric AVMs -Hemoglobin stable at approximately 10.1 g/dL. -The patient's had no recent black stools or bloody stools since leaving the hospital at the end of January. * Monitor carefully. DMT2 - chronic -insulin requiring basal bolus sliding scale regimen -Baseline A1C is between 6.0 - 7.0% -A1C 5.4% on admission * Hold metformin Pneumonia - resolved -Recently treated as outpatient, just completed amoxicillin and doxycycline. Hypertension - chronic * Continue amlodipine 10 mg Hypothyroidism - chronic * Continue levothyroxine 150 mcg BPH - chronic * Continue tamsulosin 0.4 mg PO and Finasteride 5 mg PO Hyperlipidemia - chronic * Continue statin therapy COPD/asthma - chronic -No evidence of acute exacerbation * Continue home meds Systemic lupus erythematosus - chronic * Continue Prednisone 5 mg Depression - chronic * Continue Lexapro 10 mg Vitamin D Deficiency * Continue Vit D 50 mcg PO Q2D FEN: DM2 Code status: full code DVT ppx: Heparin Held home meds: Metformin 500 mg Consults: cardiology Dispo: med/surg Admission and Anticipated Discharge Date Admission Date: March 05, 2024 Supervising Physician Co-Signing Physician Notes I personally examined the patient and verified all chapa points of history and exam, discussed case, and agree with decision making with Dr Simpson and Fifi Calix'Evonne MS4 feels about the same Vitals noted, in general he is awake and alert pleasant no distress. HEENT normocephalic atraumatic mucous membranes moist. Breathing unlabored no accessory muscle use good effort. Skin without rashes no pallor or icterus. Severe aortic stenosisappreciate cardiology assistance. extensive discussions with cardiology and greatly appreciate insight - for now acutely not a TAVR candidate - will work on anemia/etc. cardiology will follow closely as outpt and expedite TAVR once possible Angioectasias with recent GI bleedinglikely related to the aortic stenosis. Fortunately does not have coronary disease necessitating further antiplatelets. Continue to follow. Ferritin last week was only 19.5between iron for better hematopoiesis, and outcome studies suggesting ferritin greater than 50, possibly 100 depending on which studies improve outcomes in CHF patientswill give venofer again today Otherwise as above Subjective No acute overnight events Pain control: Continuing to endorse low back pain. His last Valium was yesterday. He typically uses heating pads and lidocaine patches at home. Bowel/bladder concerns: Able to ambulate to the bathroom with improving shortness of breath. Last BM was on Tuesday. He is having a lot of gas and has not taken any Miralax since admission. Nutrition: Has been able to drink and eat okay, but his appetite isn't back to normal yet. Chest pain is still 1/10. Indigestion and belching have improved since admission. He is still coughing up yellow phlegm, and states that he is still wheezing. Patient reports that he prefer to go home before going to [facility] for TAVR. Review of Systems 2 Review of Systems: See HPI, otherwise negative Physical Exam 2 Physical Exam: Constitutional: chronically ill-appearing, no acute distress HEENT: NCAT, no conjunctival injection, no scleral icterus CV: regular rate and rhythm, systolic murmur appreciated at the right sternal boarder, extremities well-perfused, no LE edema Resp: Wheeze appreciated on right upper anterior lung field. No rales/rhonchi appreciated. Patient breathes with mouth open and tongue sticking out intermittently. GI: soft, nondistended, nontender, BS normoactive MSK: no gross deformities appreciated. Skin: warm, dry, no rash appreciated. Neuro: alert, oriented, no focal neurologic deficits appreciated Results & Data Results & Data Vital Signs (Past 12 Hours) Vital Signs Temp Pulse Pulse Resp BP Pulse Ox O2 Del Method 03/07/24 02:38 36.6 C 79 18 128/81 90 Nasal Cannula 03/07/24 00:20 68 03/06/24 22:19 36.5 C 72 18 127/80 91 Nasal Cannula 03/06/24 19:44 Nasal Cannula 03/06/24 19:33 36.8 C 82 18 119/82 95 Nasal Cannula O2 Flow Rate 03/07/24 02:38 2 03/07/24 00:20 03/06/24 22:19 2 03/06/24 19:44 2 03/06/24 19:33 2 Laboratory Results 03/06/24 05:50 03/06/24 05:50 Medications Administered Hydrocodone Bitart/Acetaminophen (Hydrocodone/Acetaminophen 10/325 Tab) 1 tab PO Q6H PRN PRN Reason: Pain Stop: 03/19/24 17:44 Last Admin: 03/06/24 18:27 Dose: 1 tab Documented By: Admin: 03/06/24 00:53 Dose: 1 tab Documented By: NAYE Amlodipine Besylate (Amlodipine Besylate 5 Mg Tab) [facility] [place] Stop: 04/05/24 08:59 Last Admin: 03/07/24 09:48 Dose: 10 mg Documented By: Admin: 03/06/24 08:36 Dose: 10 mg Documented By: AML Aspirin (Aspirin 81 Mg Ectab) 81 mg PO DAILY [facility] Stop: 04/05/24 08:59 Last Admin: 03/07/24 09:48 Dose: 81 mg Documented By: Admin: 03/06/24 08:36 Dose: 81 mg Documented By: AML Atorvastatin Calcium (Atorvastatin 10 Mg Tab) 10 mg PO WeSa@0900 [facility] Stop: 04/06/24 08:59 Last Admin: 03/07/24 09:49 Dose: 10 mg Documented By: ALEK Cyanocobalamin (Cyanocobalamin (B-12) 500 Mcg Tablet) 1,000 mcg PO QPM [facility] Stop: 04/04/24 20:59 Last Admin: 03/06/24 20:51 Dose: 1,000 mcg Documented By: Admin: 03/05/24 22:22 Dose: 1,000 mcg Documented By: LIAN Diazepam (Diazepam 5 Mg Tablet) 5 mg PO QID PRN PRN Reason: back spasms Stop: 04/05/24 20:18 Last Admin: 03/07/24 10:01 Dose: 5 mg Documented By: Admin: 03/06/24 20:52 Dose: 5 mg Documented By: NAYE Docusate Sodium (Docusate Sodium 100 Mg Cap) 100 mg PO [facility] Stop: 04/04/24 20:59 Last Admin: 03/06/24 20:58 Dose: 100 mg Documented By: Admin: 03/05/24 22:22 Dose: 100 mg Documented By: LIAN Escitalopram Oxalate (Escitalopram Oxalate 10 Mg Tab) 10 mg PO [facility] Stop: 04/04/24 20:59 Last Admin: 03/06/24 20:51 Dose: 10 mg Documented By: Admin: 03/05/24 22:22 Dose: 10 mg Documented By: LIAN Ferrous Sulfate (Ferrous Sulfate 325 Mg Tab) 325 [facility] [place] Stop: 04/05/24 08:59 Last Admin: 03/07/24 09:49 Dose: 325 mg Documented By: Admin: 03/06/24 08:37 Dose: 325 mg Documented By: VIJAYA Finasteride (Finasteride 5 Mg Tab) 5 mg PO DAILY [facility] Stop: 04/05/24 08:59 Last Admin: 03/07/24 09:49 Dose: 5 mg Documented By: Admin: 03/06/24 08:37 Dose: 5 mg Documented By: AML Insulin Aspart (Insulin Aspart Per Unit Charge) 0 units SC ACHS [facility] Stop: 04/04/24 16:29 Last Admin: 03/07/24 09:57 Dose: 3 units Documented By: ALEK Co-signed By: UTE Admin: 03/06/24 20:53 Dose: Not Given Documented By: Admin: 03/06/24 17:54 Dose: Not Given Documented By: Admin: 03/06/24 12:22 Dose: Not Given Documented By: Admin: 03/06/24 09:44 Dose: 2 units Documented By: AML Co-signed By: [email or web address]) Admin: 03/05/24 22:10 Dose: Not Given Documented By: LIAN Co-signed By: WILLI Admin: 03/05/24 16:01 Dose: Not Given Documented By: CARLOS Co-signed By: VERONICA Insulin Glargine (Lantus Per Unit Charge) 10 units SQ BID [facility] Stop: 04/04/24 20:59 Last Admin: 03/07/24 09:56 Dose: 10 units Documented By: ALEK Co-signed By: UTE Admin: 03/06/24 20:52 Dose: 10 units Documented By: NAYE Co-signed By: LON Admin: 03/06/24 09:45 Dose: 10 units Documented By: AML Co-signed By: NAYE(2) Admin: 03/05/24 22:22 Dose: 10 units Documented By: LIAN Co-signed By: WILLI Isosorbide Mononitrate (Isosorbide [place] Extended Rel 60 Mg Tabcr) 60 mg PO QAM [facility] Stop: 04/05/24 08:59 Last Admin: 03/07/24 09:49 Dose: 60 mg Documented By: Admin: 03/06/24 08:37 Dose: 60 mg Documented By: AML Levothyroxine Sodium (Levothyroxine Sodium 150 Mcg Tablet) 150 mcg PO DAILYBB [facility] Stop: 04/05/24 06:29 Last Admin: 03/07/24 05:50 Dose: 150 mcg Documented By: Admin: 03/06/24 06:12 Dose: 150 mcg Documented By: NAYE Metoprolol Tartrate (Metoprolol Tartrate 25 Mg Tab) 25 mg PO TID [facility] Stop: 04/04/24 20:59 Last Admin: 03/07/24 09:49 Dose: 25 mg Documented By: Admin: 03/06/24 20:52 Dose: 25 mg Documented By: AMDana Admin: 03/06/24 15:10 Dose: 25 mg Documented By: Admin: 03/06/24 08:37 Dose: 25 mg Documented By: Admin: 03/05/24 22:22 Dose: 25 mg Documented By: LIAN Nitroglycerin (Nitroglycerin Sl 0.4 Mg/Tab Tab) 0.4 mg SL Q5M PRN PRN Reason: Chest Pain Stop: 04/04/24 15:58 Last Admin: 03/05/24 16:19 Dose: 0.4 mg Documented By: Admin: 03/05/24 16:12 Dose: 0.4 mg Documented By: CARLOS Pantoprazole Sodium (Pantoprazole 40 Mg Tab) 40 mg PO 0730,1630 [facility] Stop: 04/04/24 20:59 Last Admin: 03/07/24 09:48 Dose: 40 mg Documented By: Admin: 03/06/24 17:17 Dose: 40 mg Documented By: Admin: 03/06/24 08:33 Dose: 40 mg Documented By: VIJAYA Prednisone (Prednisone 5 Mg Tab) 5 mg PO DAILY [facility] Stop: 04/05/24 08:59 Last Admin: 03/07/24 09:49 Dose: 5 mg Documented By: Admin: 03/06/24 08:38 Dose: 5 mg Documented By: VIJAYA Sucralfate (Sucralfate 1 Gm/10 Ml Ud) 1 gm PO QID [facility] Stop: 04/05/24 12:59 Last Admin: 03/07/24 09:49 Dose: 1 gm Documented By: Admin: 03/06/24 20:51 Dose: 1 gm Documented By: Admin: 03/06/24 17:17 Dose: 1 gm Documented By: Admin: 03/06/24 16:59 Dose: Not Given Documented By: AML Tamsulosin HCl (Tamsulosin Hcl 0.4 Mg Cap) 0.4 mg PO HS [facility] Stop: 04/04/24 20:59 Last Admin: 03/06/24 20:51 Dose: 0.4 mg Documented By: Admin: 03/05/24 22:22 Dose: 0.4 mg Documented By: LIAN Vitamin D (Cholecalciferol 25 Mcg (1000 Units) Tab) 25 mcg PO Q2D [facility] Stop: 04/04/24 21:14 Last Admin: 03/06/24 00:19 Dose: Not Given Documented By: WILLI Vitamin D (Cholecalciferol 25 Mcg (1000 Units) Tab) 50 mcg PO Q2D [facility] Stop: 04/05/24 21:14 Last Admin: 03/06/24 20:52 Dose: 50 mcg Documented By: NAYE
[2024-03-07] MEDS: ATORVASTATIN 10 MG TAB PO SCH (09:49)
[2024-03-07] MEDS: SUCRALFATE 1 GM/10 ML UDC PO SCH (12:34)
[2024-03-07] MEDS: IRON SUCROSE 200 MG in 0.9 % SODIUM CHLORIDE 100 ML IV ONE (15:23)
--- NOTE | 2024-03-07 15:54 | Cardiology Progress Note ---
Date of Service March 07, 2024 Assessment & Plan (1) Aortic valve stenosis, severe: Plan: -severe prosthetic valve stenosis on current echocardiogram. -does note exertional dyspnea, however, no syncope, angina pectoris, or CHF. -TAVR may be appropriate once his anemia has resolved. -no indication for transfer to [facility] for a TAVR currently. (2) H/O aortic valve replacement: Plan: -bioprosthetic aortic valve placed back in July 2013. (3) CAD (coronary artery disease): Plan: -30-40% proximal LAD and a 40% mid LCx noted at catheterization yesterday. Admission and Anticipated Discharge Date Admission Date: March 05, 2024 Subjective The patient is resting comfortably in bed without complaints chest pain or dyspnea. We have had long discussion regarding the timing his TAVR. Physical Exam Physical Exam: In general this is a morbidly obese white male in no acute distress. HEENT exam is negative. Neck is supple with full carotid upstrokes. There are no bruits. No JVD. There is no thyromegaly. Cardiovascular exam reveals a regular rhythm with a 3/6 basal systolic ejection murmur. Lungs are clear without rales, rhonchi, or wheezes. Chest reveals a well-healed midline scar. Abdomen is obese without bruits. Extremities reveal intact radial artery pulse bilaterally. Trace pretibial edema is noted. Results & Data Vital Signs (Past 12 Hours) Vital Signs Temp Pulse Pulse Resp BP Pulse Ox O2 Del Method 03/07/24 11:20 36.6 C 105 H 18 109/76 93 Nasal Cannula 03/07/24 08:20 91 H 03/07/24 08:00 Nasal Cannula 03/07/24 07:28 36.8 C 120 H 19 129/86 88 L Nasal Cannula O2 Flow Rate 03/07/24 11:20 03/07/24 08:20 03/07/24 08:00 2 03/07/24 07:28 PG Care Time/CCT Total # of Minutes Spent Total Time Spent with Patient: Total time spent is greater than 50% in coordination of care (as documented) at patient's floor/unit and/or counseling patient: Coding Level of Care Code 75872 SUB INP/OBS CARE 3/50MIN Diagnoses Aortic valve stenosis, severe I35.0 H/O aortic valve replacement Z95.2 CAD (coronary artery disease) I25.10
--- NOTE | 2024-03-07 18:07 | Billing Data ---
Date of Service March 07, 2024 Coding Level of Care Code 30814 SUB INP/OBS CARE MIN
[2024-03-08] MEDS: FAMOTIDINE 20 MG TAB PO PRN (02:14)
[2024-03-08] MEDS: ALBUT/IPRATROP 3MG/0.5MG NEB 3 ML VIAL NEB STA (02:30)
[2024-03-08 02:32] VITALS: RESP 18
[2024-03-08] MEDS: ALUMINUM/MAGNESIUM SUSP 30 ML UDC PO STA (04:05)
[2024-03-08 06:50] LABS: Basophils # (auto) 0.11 K/uL (0.00-0.20); Eosinophils # (auto) 0.21 K/uL (0.00-0.50); Eosinophils % (auto) 3.8 %; Hematocrit (blood only) 32.6 % (42.0-52.0); Hemoglobin 10.4 g/dl (14.0-18.0); Immature Granulocytes # (auto) 0.02 K/uL (0.01-0.20); Immature Granulocytes % (auto) 0.4 %; Lymphocytes # (auto) 1.07 K/uL (1.20-3.40); Lymphocytes % (auto) 19.2 %; Mean Corpuscular Hemoglobin 28.6 pg (25.0-34.0); Mean Corpuscular Hgb Conc 31.9 g/dL (32.0-36.0); Mean Corpuscular Volume 89.6 fL (80.0-100.0); Mean Platelet Volume 11.4 fL (9.4-12.4); Monocytes % (auto) 12.5 %; Neutrophils # (auto) 3.47 K/uL (1.40-6.50); Neutrophils % (auto) 62.1 %; Platelet Count 134 K/uL (130-400); RDW Coefficient of Variation 14.2 % (11.5-14.5); RDW Standard Deviation 45.9 fL (36.4-46.3); Red Blood Count 3.64 M/uL (4.70-6.10); White Blood Count 5.58 K/ul (4.8-10.8)
[2024-03-08 06:57] LABS: BUN Creatinine Ratio 10.7 (10-20); Creatinine Clr Calc Pharmacy 55.9 ml/min; Est GFR (African American) 47.8 ml/min; Est GFR (Non-African American) 41.3 ml/min; Potassium 3.5 mmol/L (3.5-5.1)
--- NOTE | 2024-03-08 07:03 | Hospitalist Progress Note ---
Date of Service March 08, 2024 Assessment & Plan (1) Elevated troponin: Plan: Uri Zepeda is a 79 year old male with a complex PMHx of lung mass of unknown significance treated empirically with radiation therapy (5 days total, last dose was 12/28), aortic valve stenosis s/p AV value replacement (pig) SLE, antiphospholipid syndrome (anticardiolipin antibody positive) who is being evaluated following an NSTEMI. Patient now s/p Cardiac catheterization. Demand Ischemia - recovering -Baseline troponin ~80. On admission, 253. Trending downward. -EK NSR, LVH, TWI evident in Inferior leads and more evident in anterolateral lead. Compared with 01/22/24, valve pressure gradient increased -Echo: Moderate LVH, LV EF 50-55%, Prosthetic valve pressure gradient is abnormal, Mild MR -s/p cardiac catheterization -Consulted cardiology, appreciate recommendations * Continue Aspirin 81 mg daily, atorvastatin 10 mg BID, Imdur (isosorbide mononitrate) 60 mg, Lopressor 25 mg TID * Given patient's recent GI bleed and positive anticardiolipin antibody status, no anticoagulation * Refer to [facility] [place] for TAVR as outpatient JESSICA -On admission, creatinine 1.25 Now 1.59. -May be related to poor oral intake, 900 mL intake documented over 24 hours. -Volume status: * Encourage PO intake * Repeat BMP in 24-48 hours, preference to 24 hours Aortic valve stenosis s/p repair - s/p porcine aortic valve replacement 2012. -See Demand Ischemia for plan Shortness of Breath -Patient reporting intermittent SOB on exertion -Patient preferred not to use hospital BiPAP on first two nights. He has agreed to use hospital BiPAP. -See Demand Ischemia for further plan * Continue home BiPAP Normocytic Anemia - chronic -In the context of chronic GI bleeding -On admission: Hbg 10.1 -s/p Iron Sucrose 200 mg x2 * Will consider RBC transfusion if Hbg drops below 8 * Continue Ferrous Suldate 325 mg PO QAM Back Pain - acute on chronic -Patient endorsing lower back pain that is exacerbated by lying in the hospital bed * Ordered Valium 5 mg Q4H PRN * Ordered heating pad and lidocaine patches GERD - chronic -Indigestion and belching have improved since admission -s/p Tums * Continue Protonix 40 mg and Carafate 1 gm PO QID Constipation * Ordered Colase 100 mg Afib/Aflutter - resolved -Prior to AV replacement -Not currently anticoagulated, see demand ischemia Upper GI Bleed - chronic -January 2024, EGD did not reveal the source. History of gastric AVMs -Hemoglobin stable at approximately 10.1 g/dL. -The patient's had no recent black stools or bloody stools since leaving the hospital at the end of January. * Monitor carefully. DMT2 - chronic -insulin requiring basal bolus sliding scale regimen -Baseline A1C is between 6.0 - 7.0% -A1C 5.4% on admission * Hold metformin Pneumonia - resolved -Recently treated as outpatient, just completed amoxicillin and doxycycline. Hypertension - chronic * Continue amlodipine 10 mg Hypothyroidism - chronic * Continue levothyroxine 150 mcg BPH - chronic * Continue tamsulosin 0.4 mg PO and Finasteride 5 mg PO Hyperlipidemia - chronic * Continue statin therapy COPD/asthma - chronic -No evidence of acute exacerbation * Continue home meds Systemic lupus erythematosus - chronic * Continue Prednisone 5 mg Depression - chronic * Continue Lexapro 10 mg Vitamin D Deficiency * Continue Vit D 50 mcg PO Q2D FEN: DM2 Code status: full code DVT ppx: Heparin Held home meds: Metformin 500 mg Consults: cardiology Dispo: med/surg Admission and Anticipated Discharge Date Admission Date: March 05, 2024 Subjective Overnight events: Per , the patient had an episode of worsening SOB with accessory muscle use and increased chest discomfort. They report that he is continuing to belch frequently. He is also coughing with yellow sputum production. Pain control: Patient's back pain has improved with the pain medication and getting up out of bed. Bowel/bladder concerns: Patient is able to urinate without concern. Their last BM was yesterday. Nutritional Status: Has been able to eat without concern. He reports that he hasn't been drinking enough over the last 24 hours. Mobility: Has been able to ambulate to restroom without assistance or issue. Review of Systems 2 Review of Systems: See HPI, otherwise negative Physical Exam 2 Physical Exam: Constitutional: chronically ill-appearing, no acute distress HEENT: NCAT, no conjunctival injection, no scleral icterus. MMM. CV: regular rate and rhythm, systolic murmur appreciated at the right sternal boarder, extremities well-perfused, no LE pitting edema Resp: CTABL, no wheezes/rales/rhonchi appreciated. Often breaths with mouth open and tongue protruding. GI: soft, nondistended, nontender, BS normoactive MSK: no gross deformities appreciated. Skin: warm, dry, no rash appreciated. Normal skin turgor. Neuro: alert, oriented, no focal neurologic deficits appreciated Results & Data Results & Data Vital Signs (Past 12 Hours) Vital Signs Temp Pulse Pulse Resp BP Pulse Ox O2 Del Method 03/08/24 02:32 83 18 92 Nasal Cannula 03/08/24 02:31 36.4 C L 89 18 120/83 93 Nasal Cannula 03/07/24 23:47 89 27 H 93 03/07/24 23:14 89 03/07/24 22:26 36.7 C 81 18 126/86 94 Nasal Cannula 03/07/24 19:44 36.5 C 94 H 18 123/82 94 Nasal Cannula 03/07/24 19:40 Room Air, BiPAP O2 Flow Rate 03/08/24 02:32 2 03/08/24 02:31 4 03/07/24 23:47 3 03/07/24 23:14 03/07/24 22:26 2 03/07/24 19:44 2 03/07/24 19:40 Laboratory Results 03/08/24 06:15 03/08/24 06:15 Medications Administered Current Inpatient Medications Acetaminophen (Acetaminophen 325 Mg Tab) 650 mg PO Q4H PRN PRN Reason: Pain or Fever Stop: 04/04/24 15:27 Hydrocodone Bitart/Acetaminophen (Hydrocodone/Acetaminophen 10/325 Tab) 1 tab PO Q6H PRN PRN Reason: Pain Stop: 03/19/24 17:44 Last Admin: 03/07/24 19:22 Dose: 1 tab Amlodipine Besylate (Amlodipine Besylate 5 Mg Tab) 10 mg PO QAM [facility] Stop: 04/05/24 08:59 Last Admin: 03/07/24 09:48 Dose: 10 mg Aspirin (Aspirin 81 Mg Ectab) 81 mg PO DAILY [facility] Stop: 04/05/24 08:59 Last Admin: 03/07/24 09:48 Dose: 81 mg Atorvastatin Calcium (Atorvastatin 10 Mg Tab) 10 mg PO WeSa@0900 [facility] Stop: 04/06/24 08:59 Last Admin: 03/07/24 09:49 Dose: 10 mg Cyanocobalamin (Cyanocobalamin (B-12) 500 Mcg Tablet) 1,000 mcg PO QPM [facility] Stop: 04/04/24 20:59 Last Admin: 03/07/24 20:03 Dose: 1,000 mcg Dextrose (Dextrose 50% 50 Ml Syringe) 25 - 50 ml IV UD PRN; Protocol PRN Reason: Hypoglycemia Protocol Stop: 04/04/24 15:27 Diazepam (Diazepam 5 Mg Tablet) 5 mg PO QID PRN PRN Reason: back spasms Stop: 04/05/24 20:18 Last Admin: 03/08/24 06:03 Dose: 5 mg Docusate Sodium (Docusate Sodium 100 Mg Cap) 100 mg PO HS [facility] Stop: 04/04/24 20:59 Last Admin: 03/07/24 20:03 Dose: 100 mg Escitalopram Oxalate (Escitalopram Oxalate 10 Mg Tab) 10 mg PO HS [facility] Stop: 04/04/24 20:59 Last Admin: 03/07/24 20:03 Dose: 10 mg Famotidine (Famotidine 20 Mg Tab) 20 mg PO BID PRN PRN Reason: Heartburn Last Admin: 03/08/24 02:14 Dose: 20 mg Ferrous Gluconate (Ferrous Gluconate 324 Mg Tab) 324 mg PO QAM [facility] Stop: 04/07/24 08:59 Finasteride (Finasteride 5 Mg Tab) 5 mg PO DAILY [facility] Stop: 04/05/24 08:59 Last Admin: 03/07/24 09:49 Dose: 5 mg Glucagon (Glucagon For Inj 1 Mg Vial) 1 mg SQ UD PRN; Protocol PRN Reason: Hypoglycemia Protocol Stop: 04/04/24 15:27 Glucose (Glucose 40% Gel 15 Gm Tube) 15 - 30 gm PO UD PRN; Protocol PRN Reason: Hypoglycemia Protocol Stop: 04/04/24 15:27 Glucose (Glucose 10 Tab/Tube) 4 - 8 tab PO UD PRN; Protocol PRN Reason: Hypoglycemia Treatment Stop: 04/04/24 15:27 Insulin Aspart (Insulin Aspart Per Unit Charge) 0 units SC ACHS [facility] Stop: 04/04/24 16:29 Last Admin: 03/07/24 20:10 Dose: Not Given Insulin Glargine (Lantus Per Unit Charge) 10 units SQ BID [facility] Stop: 04/04/24 20:59 Last Admin: 03/07/24 20:09 Dose: 10 units Isosorbide Mononitrate (Isosorbide [place] Extended Rel 60 Mg Tabcr) 60 mg PO QAM [facility] Stop: 04/05/24 08:59 Last Admin: 03/07/24 09:49 Dose: 60 mg Levothyroxine Sodium (Levothyroxine Sodium 150 Mcg Tablet) 150 mcg PO DAILYBB [facility] Stop: 04/05/24 06:29 Last Admin: 03/08/24 06:03 Dose: 150 mcg Metoprolol Tartrate (Metoprolol Tartrate 25 Mg Tab) 25 mg PO TID [facility] Stop: 04/04/24 20:59 Last Admin: 03/07/24 20:03 Dose: 25 mg Miscellaneous (Carbohydrates For Hypoglycemia ) 15 - 30 gm PO UD PRN PRN Reason: Hypoglycemia Protocol Stop: 04/04/24 15:27 Nitroglycerin (Nitroglycerin Sl 0.4 Mg/Tab Tab) 0.4 mg SL Q5M PRN PRN Reason: Chest Pain Stop: 04/04/24 15:58 Last Admin: 03/05/24 16:19 Dose: 0.4 mg Pantoprazole Sodium (Pantoprazole 40 Mg Tab) 40 mg PO 0730,1630 [facility] Stop: 04/04/24 20:59 Last Admin: 03/07/24 17:39 Dose: 40 mg Prednisone (Prednisone 5 Mg Tab) 5 mg PO DAILY [facility] Stop: 04/05/24 08:59 Last Admin: 03/07/24 09:49 Dose: 5 mg Sucralfate (Sucralfate 1 Gm/10 Ml Udc) 1 gm PO QID [facility] Stop: 04/06/24 12:59 Last Admin: 03/07/24 20:02 Dose: 1 gm Tamsulosin HCl (Tamsulosin Hcl 0.4 Mg Cap) 0.4 mg PO HS [facility] Stop: 04/04/24 20:59 Last Admin: 03/07/24 20:03 Dose: 0.4 mg Vitamin D (Cholecalciferol 25 Mcg (1000 Units) Tab) 25 mcg PO Q2D [facility] Stop: 04/04/24 21:14 Last Admin: 03/07/24 20:03 Dose: 25 mcg Vitamin D (Cholecalciferol 25 Mcg (1000 Units) Tab) 50 mcg PO Q2D [facility] Stop: 04/05/24 21:14 Last Admin: 03/06/24 20:52 Dose: 50 mcg
--- NOTE | 2024-03-08 07:05 | Hospitalist Progress Note ---
Date of Service March 08, 2024 Assessment & Plan (1) Elevated troponin: Plan: Uri Zepeda is a 79 year old male with a complex PMHx of lung mass of unknown significance treated empirically with radiation therapy (5 days total, last dose was 12/28), aortic valve stenosis s/p AV value replacement (pig) SLE, antiphospholipid syndrome (anticardiolipin antibody positive) who is being evaluated following an NSTEMI. Patient now s/p Cardiac catheterization. Demand Ischemia - acute -Baseline troponin ~80. On admission, 253. Trending downward. -EK NSR, LVH, TWI evident in Inferior leads and more evident in anterolateral lead. Compared with 01/22/24, valve pressure gradient increased -Echo: Moderate LVH, LV EF 50-55%, Prosthetic valve pressure gradient is abnormal, Mild MR -s/p cardiac catheterization -Consulted cardiology, appreciate recommendations * Continue Aspirin 81 mg daily, atorvastatin 10 mg BID, Imdur (isosorbide mononitrate - nitrate) 60 mg, Lopressor 25 mg TID * Given patient's recent GI bleed and positive anticardiolipin antibody status, no anticoagulation * Follow results of blood culture * Refer to [facility] for TAVR JESSICA -On admission, creatinine 1.25. Is now 1.59 Aortic valve stenosis s/p repair - s/p porcine aortic valve replacement 2012. -See Demand Ischemia for plan Shortness of Breath -Nasal cannula decreased to 2 L. Pulse ox 88%, previously was mid 90s on 3L. -Patient did not use BiPAP since admission. He has agreed to use hospital BiPAP this PM. -See Demand Ischemia for further plan * BiPAP ordered Normocytic Anemia - chronic -In the context of chronic GI bleeding -On admission: Hbg 10.1 -s/p Iron Sucrose 200 mg * Will consider RBC transfusion if Hbg drops below 8 * Continue Ferrous Suldate 325 mg PO QAM Back Pain - acute on chronic -Patient endorsing lower back pain that is exacerbated by lying in the hospital bed * Ordered Valium 5 mg Q4H PRN * Ordered heating pad and lidocaine patches GERD - chronic -Indigestion and belching have improved since admission -s/p Tums * Continue Protonix 40 mg and Carafate 1 gm PO QID Constipation * Ordered Colase 100 mg Afib/Aflutter - resolved -Prior to AV replacement -Not currently anticoagulated, see demand ischemia Upper GI Bleed - chronic -January 2024, EGD did not reveal the source. History of gastric AVMs -Hemoglobin stable at approximately 10.1 g/dL. -The patient's had no recent black stools or bloody stools since leaving the hospital at the end of January. * Monitor carefully. DMT2 - chronic -insulin requiring basal bolus sliding scale regimen -Baseline A1C is between 6.0 - 7.0% -A1C 5.4% on admission * Hold metformin Pneumonia - resolved -Recently treated as outpatient, just completed amoxicillin and doxycycline. Hypertension - chronic * Continue amlodipine 10 mg Hypothyroidism - chronic * Continue levothyroxine 150 mcg BPH - chronic * Continue tamsulosin 0.4 mg PO and Finasteride 5 mg PO Hyperlipidemia - chronic * Continue statin therapy COPD/asthma - chronic -No evidence of acute exacerbation * Continue home meds Systemic lupus erythematosus - chronic * Continue Prednisone 5 mg Depression - chronic * Continue Lexapro 10 mg Vitamin D Deficiency * Continue Vit D 50 mcg PO Q2D FEN: DM2 Code status: full code DVT ppx: Heparin Held home meds: Metformin 500 mg Consults: cardiology Dispo: med/surg Admission and Anticipated Discharge Date Admission Date: March 05, 2024 Subjective The patient is resting comfortably in bed without complaints chest pain or dyspnea. We have had long discussion regarding the timing his TAVR. No overnight events. Overnight events: Pain control: The patient's back pain Bowel/bladder concerns: Patient is able to urinate without concern. Their last BM was on Nutritional Status: Has been able to eat and drink without concern. Mobility: Has been able to ambulate without assistance or issue. Review of Systems 2 Review of Systems: See HPI, otherwise negative Physical Exam 2 Physical Exam: Constitutional: chronically ill-appearing, no acute distress HEENT: NCAT, no conjunctival injection, no scleral icterus CV: regular rate and rhythm, systolic murmur appreciated at the right sternal boarder, extremities well-perfused, no LE edema Resp: Wheeze appreciated on right upper anterior lung field. No rales/rhonchi appreciated. Patient breathes with mouth open and tongue sticking out intermittently. GI: soft, nondistended, nontender, BS normoactive MSK: no gross deformities appreciated. Skin: warm, dry, no rash appreciated. Neuro: alert, oriented, no focal neurologic deficits appreciated Results & Data Results & Data Vital Signs (Past 12 Hours) Vital Signs Temp Pulse Pulse Resp BP Pulse Ox O2 Del Method 03/08/24 02:32 83 18 92 Nasal Cannula 03/08/24 02:31 97.5 F L 89 18 120/83 93 Nasal Cannula 03/07/24 23:47 89 27 H 93 03/07/24 23:14 89 03/07/24 22:26 98.1 F 81 18 126/86 94 Nasal Cannula 03/07/24 19:44 97.7 F 94 H 18 123/82 94 Nasal Cannula 03/07/24 19:40 Room Air, BiPAP O2 Flow Rate 03/08/24 02:32 2 03/08/24 02:31 4 03/07/24 23:47 3 03/07/24 23:14 03/07/24 22:26 2 03/07/24 19:44 2 03/07/24 19:40 Laboratory Results 03/08/24 06:15 03/08/24 06:15
[2024-03-08 07:51] VITALS: O2SAT 96
[2024-03-08] MEDS: FERROUS GLUCONATE 324 MG TAB PO SCH (09:55)
--- NOTE | 2024-03-08 11:12 | Discharge Summary ---
Date of Service March 08, 2024 Admission HPI Per Admitting Provider This is a 79-year-old male who approximately 3 weeks ago is here with an upper GI bleed. EGD did not reveal the etiology of the acute GI bleeding. The patient had noticed black tarry stools since leaving the hospital or no blood in the stools that he knows of. Over the last couple days over the weekend he has had some increasing indigestion and chest pressure that he describes. Today some mild shortness of breath with increased weakness. He presented to the ER for further evaluation and treatment. In the ER he has ischemic changes on his EKG consistent with inverted T waves inferior lateral leads. These are new changes. Had a troponin of greater than 235. In the ER he had a dose of Maalox. We are called asked to admit the patient for further evaluation and treatment. Recommended stat 324 of aspirin which has subsequently been ordered. Given his recent history of GI bleed and anticardiolipin antibody positivity this makes heparinization decision more complex. We have paged cardiology and spoken to cardiology on-call Dr. Sharif Love. At this time it is recommended not to heparinize the patient unless he has a very significant troponin leak. Will get a repeat a stat troponin now do an echocardiogram as well. Admission Exam Per Admitting Provider In General: In general this is a pleasant 79-year-old male accompanied by his at the time my exam. He interacts appropriately and pleasantly. He states he has no marizol chest pain. He states that his indigestion is actually somewhat better/resolving compared to when he presented to the ER today. HEENT: Normocephalic atraumatic pupils are equal round and reactive to light bilaterally. No scleral icterus no conjunctival injection external auditory canals are patent septum is in the midline nose is without discharge oral mucosa is pink and moist without lesion. NECK: Supple no rigidity no lymphadenopathy no thyromegaly no carotid bruits no JVD no masses. HEART: Regular rate and rhythm I do not appreciate any ectopy or rub. No marizol murmur. LUNGS: Clear to auscultation bilaterally and anteriorly with no evidence of adventitious sounds/wheezes rales or rhonchi. ABDOMEN: Soft nontender, no rebound, no peritoneal signs, positive bowel sounds, no appreciable organomegaly. However, exam is somewhat limited given the patient's body habitus. EXTREMITIES: Intact, no peripheral cyanosis, clubbing or edema. Strength is adequate in his extremities x4, no pathological reflexes. NEUROLOGICAL: Cranial nerves II through XII are grossly intact with no focal deficit elicited upon examination. No tremor. Principal Diagnosis Demand Ischemia, aortic valve stenosis s/p porcine replacement, shortness of breath on exertion Discharge Exam Constitutional: chronically ill-appearing, no acute distress HEENT: NCAT, no conjunctival injection, no scleral icterus. MMM. CV: regular rate and rhythm, systolic murmur appreciated at the right sternal boarder, extremities well-perfused, no LE pitting edema Resp: CTABL, no wheezes/rales/rhonchi appreciated. Often breaths with mouth open and tongue out GI: soft, nondistended, nontender, BS normoactive MSK: no gross deformities appreciated. Skin: warm, dry, no rash appreciated. Normal skin turgor. Neuro: alert, oriented, no focal neurologic deficits appreciated Discharge Data Allergies Allergy/AdvReac Type Severity Reaction Status Date / Time erythromycin base Allergy Severe HIVES ALL Verified 03/05/24 16:16 OVER bacitracin Allergy Intermediate Skin Verified 03/05/24 16:16 Irritation neomycin Allergy Intermediate Skin Verified 03/05/24 16:16 Irritation polymyxin B Allergy Intermediate Skin Verified 03/05/24 16:16 Irritation Iodinated Contrast Media AdvReac Severe SEVERE Verified 03/05/24 16:16 NAUSEA/VOMITING morphine AdvReac Severe severe n/v Verified 03/05/24 16:16 Opioids - Morphine Analogues AdvReac Severe Gastrointestinal Verified 03/05/24 16:16 Upset Sulfa (Sulfonamide AdvReac Severe Nausea Verified 03/05/24 16:16 Antibiotics) adhesive tape AdvReac Intermediate Blistered Verified 03/05/24 16:16 skin clavulanic acid AdvReac Intermediate CHILLS, Verified 03/05/24 16:16 HEADACHE, "MADE HIM SICK" Macrolide Antibiotics AdvReac Intermediate CHILLS, Verified 03/05/24 16:16 HEADACHE, "MADE HIM SICK" sulfamethoxazole AdvReac Intermediate CHILLS, Verified 03/05/24 16:16 HEADACHE, "MADE HIM SICK" Consultations 03/05/24 14:52 ED Decision to Admit Stat 03/05/24 15:16 Consult Cardiology Stat Procedures Performed Operation Date: 03/06/24 13:30 Actual Procedures p Cineradiography w/Routine Exam - Brandon Smith MD s Cath, Coronaries ONLY (no LV) - Brandon Smith MD s Ultrasound Vascular Access - Brandon Smith MD Ordered Studies 03/06/24 12:03 CL Cath Imgs for PACS use only Routine Hospital Course (1) Elevated troponin: Uri Zepeda is a 79 year old male with a complex PMHx of lung mass of unknown significance treated empirically with radiation therapy (5 days total, last dose was 12/28), aortic valve stenosis s/p AV value replacement (pig) SLE, antiphospholipid syndrome (anticardiolipin antibody positive) who is being evaluated following an NSTEMI. Patient now s/p Cardiac catheterization. Demand Ischemia - recovering -Baseline troponin ~80. On admission, 253. Trending downward. -EK NSR, LVH, TWI evident in Inferior leads and more evident in anterolateral lead. Compared with 01/22/24, valve pressure gradient increased -Echo: Moderate LVH, LV EF 50-55%, Prosthetic valve pressure gradient is abnormal, Mild MR -s/p cardiac catheterization -Consulted cardiology, appreciate recommendations * Continue Aspirin 81 mg daily, atorvastatin 10 mg BID, Imdur (isosorbide mononitrate) 60 mg, Lopressor 25 mg TID * Given patient's recent GI bleed and positive anticardiolipin antibody status, no anticoagulation * [place] [facility] [place] [place] Aortic valve stenosis s/p repair - s/p porcine aortic valve replacement 2012. -See Demand Ischemia for plan Shortness of Breath -Patient reporting intermittent SOB on exertion -Uses oxygen at home and BiPAP. -See Demand Ischemia for further plan * Continue home oxygen and BiPAP JESSICA -On admission, creatinine 1.25 Now 1.59. -Likely related to poor oral intake, 900 mL intake documented over 24 hours * Encourage fluid intake * Repeat BMP in 24-48 hours after discharge (preference to 24 hours) Normocytic Anemia - chronic -In the context of chronic GI bleeding -On admission: Hbg 10.1 -s/p Iron Sucrose 200 mg x 3 * Consider RBC transfusion if Hbg drops below 8 * Continue Ferrous Suldate 325 mg PO QAM Back Pain - acute on chronic -Patient endorsing lower back pain that is exacerbated by lying in the hospital bed * Ordered Valium 5 mg Q4H PRN, heating pad, and lidocaine patches GERD - chronic -Indigestion and belching have improved since admission -s/p Tums * Continue Protonix 40 mg and Carafate 1 gm PO QID Constipation -Patient on chronic opioid medications -s/p Colase 100 mg * Continue home regimen Pneumonia - resolved -Treated as outpatient, recently completed amoxicillin and doxycycline Upper GI Bleed - chronic -January 2024, EGD did not reveal the source. History of gastric AVMs -Hemoglobin stable at approximately 10.1 g/dL. -The patient's had no recent black stools or bloody stools since leaving the hospital at the end of January. * Monitor carefully. DMT2 - chronic -insulin requiring basal bolus sliding scale regimen -Baseline A1C is between 6.0 - 7.0% -A1C 5.4% on admission * Held metformin inpatient * Continue home regimen Hypertension - chronic * Continue amlodipine 10 mg Hypothyroidism - chronic * Continue levothyroxine 150 mcg BPH - chronic * Continue tamsulosin 0.4 mg PO and Finasteride 5 mg PO Hyperlipidemia - chronic * Continue statin therapy COPD/asthma - chronic -No evidence of acute exacerbation * Continue home meds Systemic lupus erythematosus - chronic * Continue Prednisone 5 mg Depression - chronic * Continue Lexapro 10 mg Vitamin D Deficiency - chronic * Continue Vit D 50 mcg PO Q2D Afib/Aflutter - resolved - Occurred prior to AV replacement -Not currently anticoagulated, see demand ischemia FEN: DM2 Code status: full code DVT ppx: Heparin Held home meds: Metformin 500 mg Consults: cardiology Dispo: med/surg Total Time Total Time Spent Total Time Spent (In Minutes): <30 Discharge Plan Discharge Items Patient Disposition: Home - Self-Care Reason For Visit: NONSTEMI Discharge Diagnosis: Demand Ischemia S/p Cath w/o Stenting Activity: Per Instructions section Non-emergency contact: Primary Care Provider and Gluing Machine Operator Automatic Call non-emergency contact if: you have any medication questions and your symptoms worsen Follow-up/Referrals: Sharif Barros MD [Primary Care Provider] - 03/16/24 3:00 pm (Hospital follow up scheduled March 16 at 3:00 with Barbara Morales) Diet: Carb Consistent or DM2 and Heart Healthy Ambulatory Orders: Basic Metabolic Panel (Routine) Timeframe: 1 Day Location: Determined by Patient Ordered By: Alonna P. Querns Addtl Attending Provider Instructions: You were admitted to the hospital for concerns of [id number] Myocardial Infarction (NSTEMI). You had findings on your EKG and lab work that were concerning for acute heart ischemia. You had a heart catheterization completed, which showed us that you have mild nonobstructive coronary artery disease. This means that you symptoms were not caused by blocked coronary blood vessels. Your symptoms of chest pressure and shortness of breath were likely due to "demand ischemia," which is a type of heart strain where blockage of the arteries is not present. Demand ischemia occurs when your body has an increased need for oxygen that exceeds the body's ability to supply it. It can occur with infections, anemia, or tachyarrhythmias (abnormally fast heart rates). As you were recently treated for pneumonia, it is likely that this inhibited your body's ability to supply enough oxygen to your heart tissue, resulting in the demand ischemia. This, combined with your pre-existing aortic stenosis likely provoked the episode leading to your admission. While you were in the hospital, we treated you with IV iron, with the goal of in creasing your hemoglobin. As your hemoglobin needs to be at a certain level to proceed with the TAVR, hopefully this will facilitate you in getting the procedure sooner. Please continue to follow closely with you Gluing Machine Operator Automatic (Dr. Love) as he will be working with you to facilitate the TAVR procedure as an outpatient. If additional IV iron infusions are required, your PCP or Gluing Machine Operator Automatic will facilitate these. Please follow up with your PCP within the next week. We would like for your to get blood work done in 24-48 hours (with a preference for 24 hours), so we can check on your kidney function. Your creatinine was mildly elevated on 03/08, we want to ensure that this improves with increased oral fluid intake. Thank you for allowing us to participate in your care. Dr. Zack Simpson & George Posey MS4 Pending Studies at Discharge: No Stand-Alone Forms: My Estimize, Smoking Cessation Medications and DC Order Prescriptions: New diazepam [Valium] 5 mg tablet 5 mg PO Q6H PRN (Reason: back spasms) Qty: 10 0RF diazepam [Valium] 5 mg tablet 5 mg PO Q6H PRN (Reason: back spasms) Qty: 10 0RF Continued (DME) pen needle, diabetic [BD Kell 2nd Gen Pen Needle] 32 gauge x 5/32" needle See Dose Instructions .ROUTE .MEDSUPPLY Qty: 400 3RF Rx Instructions: Use four daily with insulin injection (DME) blood glucose control, normal [OneTouch Verio Mid Control] Solution See Rx Instructions .ROUTE .MEDSUPPLY Qty: 1 5RF Rx Instructions: Use weekly as directed (DME) lancets [Microlet Lancet] Misc See Dose Instructions .ROUTE .MEDSUPPLY Qty: 300 3RF Dose Instruction: As directed Rx Instructions: TEST 3 TIMES DAILY albuterol sulfate [ProAir HFA] 90 mcg/actuation HFA aerosol inhaler 1 - 2 puff INHALATION Q4H PRN (Reason: Shortness Of Breath Or Wheezing) Qty: 18 3RF metformin 500 mg tablet extended release 24 hr 1,000 mg PO BID Qty: 360 3RF isosorbide mononitrate 60 mg tablet extended release 24 hr 60 mg PO QAM Qty: 90 3RF metoprolol tartrate 25 mg tablet 25 mg PO TID Qty: 270 3RF finasteride 5 mg tablet 5 mg PO DAILY Qty: 90 3RF tamsulosin [Flomax] 0.4 mg capsule 0.4 mg PO HS Qty: 90 3RF oxycodone 5 mg tablet 5 mg PO Q8H PRN (Reason: breakthrough pain) Qty: 30 0RF amlodipine 10 mg tablet 10 mg PO QAM Qty: 90 3RF cyclobenzaprine 5 mg tablet 5 mg PO TID PRN (Reason: Muscle Spasm) Qty: 90 0RF sucralfate 1 gram tablet 1 g PO TID Qty: 90 0RF Rx Instructions: Dissolve in water and take before meals hydrocodone-acetaminophen 10-325 mg tablet 1 tab PO Q6H Qty: 120 0RF (DME) lancing device Misc See Rx Instructions .Route Qty: 1 0RF Rx Instructions: Use to test blood sugars daily - ReliOn Brand - To work with Microlet lancets cranberry 500 mg capsule 500 mg PO QAM Rx Instructions: administer with meals diazepam [Valium] 5 mg tablet 5 mg PO BID PRN (Reason: anxiety) Qty: 5 0RF Rx Instructions: Before a procedure ferrous sulfate 325 mg (65 mg iron) Tablet 325 mg PO QAM hydroxychloroquine 200 mg tablet 200 mg PO BID cyanocobalamin (vitamin B-12) [Vitamin B-12] 2,000 mcg tablet extended release 1,000 mcg PO QPM cholecalciferol (vitamin D3) [Vitamin D3] 50 mcg (2,000 unit) capsule 2,000 unit PO Q OTHER DAY Rx Instructions: even days amoxicillin 500 mg Tablet 2,000 mg PO DIRECTED PRN (Reason: 1 HR PRIOR TO DENTAL PROCEDURES) cholecalciferol (vitamin D3) [Vitamin D3] 25 mcg (1,000 unit) Tablet 1,000 unit PO Q OTHER DAY Rx Instructions: odd days atorvastatin [Lipitor] 10 mg tablet 10 mg PO 2XWK Rx Instructions: tuesday and tuesday only insulin lispro [Humalog KwikPen Insulin] 100 unit/mL insulin pen 0 unit SQ QDD Rx Instructions: 1 - 45 units subcutaneously; inject per sliding scale with meals up to TDD 45 units pantoprazole [Protonix] 40 mg tablet,delayed release (DR/EC) 40 mg PO BID Qty: 180 3RF Rx Instructions: take 30 minutes before meals diphenhydramine HCl 12.5 mg/5 mL Elixir 37.5 mg PO HS PRN (Reason: Sleep) docusate sodium 100 mg Tablet 100 mg PO HS insulin glargine U-300 conc [Toujeo Max U-300 SoloStar] 300 unit/mL (3 mL) insulin pen 22 unit SUBCUT HS Rx Instructions: up to 40 units daily lidocaine 4 % Adhesive Patch,Medicated 1 patch TOPICAL DIRECTED PRN (Reason: Pain) Osteobioflex With Turmeric 1 cap PO QPM doxycycline hyclate 100 mg tablet 100 mg PO BID PRN (Reason: UTI symptoms/prostatitis) escitalopram oxalate [Lexapro] 10 mg tablet 10 mg PO HS polyethylene glycol 3350 [Miralax] 17 gram Powder In Packet 17 g PO DAILY PRN (Reason: Constipation) lidocaine 4 % Cream 1 applic TOPICAL DIRECTED PRN (Reason: Pain) aspirin 81 mg tablet,delayed release (DR/EC) 81 mg PO DAILY Qty: 1 0RF prednisone 5 mg tablet 5 mg PO DAILY levothyroxine 150 mcg tablet 150 mcg PO DAILYBB Discontinued prednisone 20 mg tablet 20 mg PO DAILY Qty: 5 0RF Rx Instructions: PER PT'S SPOUSE "NEVER PICKED UP, DIDN'T KNOW IT WAS ORDERED". meloxicam 7.5 mg tablet 7.5 mg PO QAM Discharge Orders: Discharge Order (Routine); Ordered 03/08/24 Ordered By: Zack Simpson Admission Data Admit Date/Time: 03/05/24 15:28 Attending Provider: Rolly Baker Admit Provider: Chris Toro Primary Care Provider: Sharif Barros Other Providers: Chris Toro; Sharif Love Other Interventions: Discharge Summary Assessment (RN) Last Done: 03/08/24 14:53 Supervising Physician Co-Signing Physician Notes I personally examined the patient and verified all chapa points of history and exam, discussed case, and agree with decision making with Dr Simpson and Fifi Posey MS4 extensive discussion about discharge planning and outpatient follow-up. Answered all questions to the best my ability. Vitals noted, in general he is awake and alert pleasant no distress. HEENT normocephalic atraumatic mucous membranes moist. Breathing unlabored no accessory muscle use good effort. Skin without rashes no pallor or icterus. Severe aortic stenosisappreciate cardiology assistance. extensive discussions with cardiology and greatly appreciate insight - for now acutely not a TAVR candidate - will work on anemia/etc. cardiology will follow closely as outpt and expedite TAVR once possible. Given his severe dyspnea on exertion (he notes having to stop to catch his breath twice even to go to the bathroom) patient requires a wheelchair for mobilityparticularly as it relates to any sort of ADLs, and necessary office visits/etc.a walker or a cane would not be of benefit because it is not lack of ability to walk it is severe dyspnea with even the exertion of walking for short distances related to his severe aortic stenosis. Case management has sent a prescription to hopefully be able to obtain a wheelchair for him, given how much his aortic stenosis limits his ability to do even simple ADLs without severe dyspnea. Angioectasias with recent GI bleedinglikely related to the aortic stenosis. Fortunately does not have coronary disease necessitating further antiplatelets. Continue to follow. Ferritin last week was only 19.5between iron for better hematopoiesis, and outcome studies suggesting ferritin greater than 50, possibly 100 depending on which studies improve outcomes in CHF patientswill give venofer again today prior to dc and continue PO iron Otherwise as above
[2024-03-08 11:31] VITALS: BP 114/76; PULSE 85; TEMP 97.7
[2024-03-08] MEDS: IRON SUCROSE 200 MG in 0.9 % SODIUM CHLORIDE 100 ML IV ONE (13:51)
--- NOTE | 2024-03-08 19:02 | Billing Data ---
Date of Service March 08, 2024 Coding Level of Care Code 00453 IN/OBS DISCH 30 MIN/LESS
--- NOTE | 2024-03-09 16:15 | Communication Note ---
Date of Service: March 09, 2024 informed last night that pt arrested at home shortly after discharge. anticipated calling pt's to offer empathy/condolences, she called first - calling hospital this AM to ask for call. reached her immediately - offered empathy and support, she offered appreciation of that and expressed appreciation for my care for her (which was exceedingly kind given her grief). made sure she was not alone - she noted having good support. informed her to reach out for any needs.
== END 2024-03-08 17:45 | disposition home or self-care (01) | DRG 287 ==
LOC: ED 11:17 → EDINP 15:28 → SUATTDRO 15:28 → 4W 03-06 00:17
PROC: CLB.CCO (2024-03-06 13:30)
DX: Z68.41 Body mass index [BMI] 40.0-44.9, adult; J44.9 Chronic obstructive pulmonary disease, unspecified; I24.89 Other forms of acute ischemic heart disease; N17.9 Acute kidney failure, unspecified; Z88.1 Allergy status to other antibiotic agents; E03.9 Hypothyroidism, unspecified; M32.9 Systemic lupus erythematosus, unspecified; M54.89 Other dorsalgia; F32.A Depression, unspecified; I10 Essential (primary) hypertension; N40.1 Benign prostatic hyperplasia with lower urinary tract symptoms; Z91.041 Radiographic dye allergy status; E11.9 Type 2 diabetes mellitus without complications; R94.31 Abnormal electrocardiogram [ECG] [EKG]; D64.9 Anemia, unspecified; Y71.2 Prosthetic and other implants, materials and accessory cardiovascular devices associated with adverse incidents; T82.857A Stenosis of other cardiac prosthetic devices, implants and grafts, initial encounter; I25.10 Atherosclerotic heart disease of native coronary artery without angina pectoris; E66.01 Morbid (severe) obesity due to excess calories; Z95.2 Presence of prosthetic heart valve; T40.2X5A Adverse effect of other opioids, initial encounter; Z88.5 Allergy status to narcotic agent; K59.03 Drug induced constipation; Z92.3 Personal history of irradiation; E55.9 Vitamin D deficiency, unspecified; Y92.019 Unspecified place in single-family (private) house as the place of occurrence of the external cause; Z87.891 Personal history of nicotine dependence; D68.61 Antiphospholipid syndrome; K92.2 Gastrointestinal hemorrhage, unspecified; K21.9 Gastro-esophageal reflux disease without esophagitis